=== PATIENT | female | born 1935 | race Caucasian/White ===

== ENCOUNTER 2016-07-19 14:47 | Inpatient (IN) | payer MEDICARE ==
[~2016-07-19] VITALS: Ht 165.1 cm; Wt 77.1 kg
--- NOTE | 2016-07-19 15:09 | Cardiac Electrophysiology PN ---
Subjective Subjective 75791. ECG and echo pending. No CHF or CAD. If both negative, OK to proceed with Right leg CHIDI NAVA Jul 19, 2016 15:09
[2016-07-19] MEDS ORDERED: HYDROmorphone 1mg/ml Carpuject IVP PRN (15:30)
[2016-07-19 15:31] VITALS: BP 177/70
[2016-07-19] MEDS ORDERED: DuoNeb 0.5-3(2.5)mg/3ml neb INH PRN (15:45)
[2016-07-19] MEDS ORDERED: Nitroglycerin Subl 0.4mg tab (Bottle Of 25) SL PRN (15:45)
[2016-07-19] MEDS ORDERED: Zolpidem 5mg tab ORAL PRN (15:45)
[2016-07-19] MEDS ORDERED: Miralax 17gm pkt ORAL PRN (15:45)
[2016-07-19] MEDS ORDERED: Hydromorphone 0.5mg/0.5ml inj IVP PRN (15:45)
[2016-07-19] MEDS ORDERED: Heparin 5000 units/ml inj SUBQ SCH (15:45)
[2016-07-19] MEDS ORDERED: Milk of Magnesia 30ml Ud ORAL PRN (15:45)
[2016-07-19] MEDS ORDERED: Acetaminophen 650 MG SUPP RECTAL PRN ×2 (15:45)
[2016-07-19 16:00] VITALS: BP 105/57
--- NOTE | 2016-07-19 16:11 | History & Physical ---
History and Physical History & Physicial job # [id number] Willie Mishra MD Jul 19, 2016 16:11
[2016-07-19] MEDS: Mycophenolate 250mg cap ORAL SCH (18:48)
[2016-07-19] MEDS: HYDROmorphone 1mg/ml Carpuject IVP PRN ×2 (18:48→23:47)
[2016-07-19] MEDS ORDERED: D5 1/2NS w/KCl 20mEq 1,000 ML IV SCH (19:00)
[2016-07-19 20:00] VITALS: BP 147/72
--- NOTE | 2016-07-19 21:59 | Consultation ---
DATE OF CONSULTATION: 07/19/2016 CARDIOLOGY CONSULTATION: REFERRING PHYSICIAN: Willie Mishra M.D. REASON FOR CONSULTATION: Hypertension and hyperlipidemia as well as preoperative clearance prior to right hip surgery. HISTORY OF PRESENT ILLNESS: The patient is a very pleasant 80-year-old lady with history of hypertension, hyperlipidemia, and depression as well as history of stage III left-sided breast cancer, status post mastectomy. The patient also had right-sided simple mastectomy subsequently in 2008. The patient also has history of CVA, diverticulosis, gastroesophageal reflux disease, and hypothyroidism. The patient also has rheumatoid arthritis. The patient presented to [facility]. She had a fall that resulted in right hip fracture. The patient denied any loss of consciousness. The patient was then transferred to [facility] in view of the patient being a [employer] member. The x-ray shows subcapital fracture with valgus deformity in the right femur and osteopenia. REVIEW OF SYSTEMS: Review of systems was thoroughly performed and was negative other than what was mentioned in the history of present illness. PAST MEDICAL HISTORY: As mentioned above. FAMILY HISTORY: Noncontributory. SOCIAL HISTORY: She lives at home. Does not smoke or drink alcohol. PAST SURGICAL HISTORY: 1. Appendectomy. 2. Tonsillectomy and adenoidectomy. 3. Modified radical mastectomy on the left. 4. Right-sided mastectomy on the right. 5. Right knee arthroplasty. 6. Bladder suspension. 7. Thoracotomy for right . MEDICATIONS: Include Synthroid, Motrin, Bactrim, vitamin D, Crestor, Celexa, aspirin, hydrocortisone, and Cymbalta. PHYSICAL EXAMINATION: VITAL SIGNS: Blood pressure is 130/70, pulse 70, respirations 18, and she is afebrile. HEAD AND NECK: No JVD or carotid bruits. LUNGS: Clear. CARDIOVASCULAR: Regular S1 and S2 with no gallop or murmur. ABDOMEN: Soft. EXTREMITIES: No pitting edema. Right leg is rotated. LABORATORY DATA: White count 6.2, hemoglobin 11.4, hematocrit 32.8, and platelets 194,000. Sodium 132, potassium 4.1, creatinine 1.18, and BUN of 21. INR is 1.1. ASSESSMENT AND PLAN: 1. Status post right hip fracture. The patient denies any syncope. We will get an echocardiogram for ejection fraction and wall motion abnormality as well as EKG. In the absence of coronary artery disease or congestive heart failure with diabetes, the patient is cleared to undergo right hip open reduction internal fixation. I discussed this with the patient as well as the daughter at the bedside as well as with Dr. Mishra. 2. History of hypertension, off antihypertensives. 3. Hyperlipidemia. The patient was on Crestor, but in view of need for surgery and resulting elevated CPK, hold off on Crestor. 4. Hypothyroidism, on Synthroid. 5. Depression, on Cymbalta and Celexa . Thank you very much, Dr. Mishra, for allowing me to participate in the care of this patient. Please do not hesitate to contact me for any questions regarding my evaluation. Ruben Caruso M.D. DR: DAKOTA JOB#: [id number] CC:
--- NOTE | 2016-07-19 23:59 | History and Physical Report ---
DATE OF ADMISSION: 07/19/2016 CHIEF COMPLAINT: Status post fall with right hip injury. 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 The patient has a history of cerebral infarction in the right occipital area, chronic cough, depression, diverticulosis, GERD, hypertension, dyslipidemia, hypothyroidism, idiopathic pulmonary fibrosis, history of mild cognitive impairment, osteopenia, pyelonephritis, and rheumatoid arthritis. The patient has a history of appendectomy, tonsil and adenoidectomy, modified radical mastectomy of the left side in 1983, left meniscus knee arthroplasty, bladder suspension, right VATS thoracotomy and right simple mastectomy on 04/17/2009. The patient presented to the hospital initially at [facility] after had a mechanical fall. She was brought in by the ambulance after mechanical fall, trip and fall earlier this morning with shortening and rotating of the right lower extremity. No positive head trauma. No loss of consciousness. The patient was noted to be on aspirin. No neck rigidity or stiffness. The patient initially was on a board and a collar. After initial evaluation at the [facility], the patient was released from the trauma and the patient was transferred to [facility] for further evaluation and possible surgical intervention of the right subcapsular fracture. PAST MEDICAL HISTORY/PAST SURGICAL HISTORY: As above: 1. History of breast cancer, status post bilateral mastectomy. 2. Right occipital cerebral infarction. 3. Depression. 4. Diverticulosis. 5. Gastroesophageal reflux disease. 6. Hypertension. 7. Dyslipidemia. 8. Hypothyroidism. 9. Idiopathic pulmonary fibrosis. 10. Mild cognitive impairment. 11. Osteopenia. 12. Pyelonephritis. 13. Rheumatoid arthritis. ALLERGIES: Demerol with anaphylaxis, opioid meperidine and oxycodone with anaphylaxis. MEDICATIONS: Significant for 1. [place] 5/325 mg one tablet q.6 hours p.r.n. 2. Cymbalta 30 mg daily. 3. Levothyroxine 150 mcg daily. 4. Motrin 600 mg q.8 hours p.r.n. 5. Docusate 100 mg twice a day. 6. The patient on vitamin D 50,000 IU weekly. 7. Valium 5 mg p.r.n. for anxiety and impaired sleep. 8. Crestor 5 mg p.o. at bedtime. 9. CellCept 200 mg two tablets b.i.d. 10. Celexa 20 mg daily. 11. Aspirin 325 mg daily. SOCIAL HISTORY: She is . She has two children. She is retired. She is a former smoker, 25 years pack smoker quit in May 1975. Socially drinks. No substance abuse. FAMILY HISTORY: Noncontributory. REVIEW OF SYSTEMS: Mostly as above. Denies any dysuria, frequency, hematuria or hematochezia. Denies any hemoptysis or hematemesis. Complained about the right leg pain mostly after putting pressure on it. Denies any loss of conscious. Denies any double vision. Denies any suicidal or homicidal ideation. PHYSICAL EXAMINATION: VITAL SIGNS: On admission from [place], blood pressure 116/46, pulse of 67, respirations is 12, and the patient afebrile. GENERAL: The patient is awake, responsive, no acute distress. HEENT: Pupils are equal and reactive to light. Extraocular movement intact. NECK: Supple. No JVD. LUNGS: Good air entry. No wheezing or rales. Chest wall has a bilateral breast mastectomy site, was noted well healed. HEART: S1, S2. Regular rhythm. No gallops. ABDOMEN: Soft, nondistended, and nontender. Positive bowel sounds. EXTREMITIES: No cyanosis, clubbing, or edema. Right lower extremity is short and laterally rotated and tender to touch over the hip area. NEUROLOGIC: Cranial nerves II through XII are grossly intact. The patient moving all extremities except the right lower extremity due to severe pain. LABORATORY DATA: On admission from [facility], WBC of 6.3, hemoglobin 11, hematocrit 33, and platelets are 194,000. Sodium 136, potassium 4.1, chloride 107, bicarbonate 25, BUN is 21, creatinine is 1.18, GFR is 44, and glucose 129. PT of 1.1. The patient had a x-ray of the hip, confirmed the subcapsular fracture of the right hip. CT scan of the head showed old infarction of the right occipital lobe and right occipital atrophy and white matter ischemic changes, but no acute intracranial pathology was identified. ASSESSMENT: 1. Status post trip and fall with subcapsular right hip fracture. 2. Prior history of right occipital infarction. 3. History of breast cancer, status post bilateral mastectomy. 4. Depression. 5. Diverticulosis. 6. Gastroesophageal reflux disease. 7. Hypertension. 8. Dyslipidemia. 9. Hypothyroidism. 10. Idiopathic pulmonary fibrosis. 11. Mild cognitive impairment. 12. Osteopenia. 13. Rheumatoid arthritis. 14. History of pyelonephritis in the past. PLAN: Admit the patient to Med/Surg. We will follow up laboratory and discuss with Dr. Darian Green from Orthopedics and Dr. Caruso from Cardiology. Discussed with extensively at bedside and explained that care will be provided and possible surgery in the morning. Reviewed the record from [facility], was noted, printed and placed in the chart. Reviewed the chart records from . , primary doctor was noted and also printed and placed in the chart. Preoperative evaluation for possible surgery in the morning to include 2D echocardiogram, EKG, laboratory, NPO after midnight, IV hydration, DVT prophylaxis and heparin subcutaneous. CODE STATUS: Full Code. Willie Mishra M.D. DR: ARIANA JOB#: [id number] CC:
[2016-07-20] VITALS (15 sets, daily range): BP systolic 109–194; BP diastolic 50–94
--- NOTE | 2016-07-20 03:59 | Consultation ---
DATE OF CONSULTATION: 07/19/2016 ORTHOPEDIC CONSULTATION CONSULTING PHYSICIAN: Darian Green M.D. REFERRING PHYSICIAN: Willie Mishra M.D. REASON FOR CONSULTATION: Right hip fracture. BRIEF HISTORY: The patient is a very pleasant 80-year-old female, who had a mechanical fall on her right hip. Apparently, she was putting her left leg up to put some cream on the left leg and lost her footing landing on her right hip. She had immediate onset of pain in her right hip. She usually walks with a walker due to vertigo and imbalance. She has been generally healthy, although she has history of pulmonary fibrosis and some hypertension. She has had no other significant injuries or trauma. She is here for evaluation and treatment. She was initially evaluated at [place] and x-rays were obtained. She was transferred to [facility] for definitive care. PAST MEDICAL HISTORY: Significant for pulmonary fibrosis and hypertension. PAST SURGICAL HISTORY: She had breast augmentation in the past as well as appendectomy and thyroid surgery. MEDICATIONS: Please see chart. ALLERGIES: She is allergic to Demerol, which drops her blood pressure significantly. SOCIAL HISTORY: Again, she walks with a walker. She has a very supportive family including her and her sister are here. She does not smoke, having smoked for 35 years. She does drink socially. FAMILY HISTORY: Noncontributory. PHYSICAL EXAMINATION: GENERAL: Examination has shown that the patient looks to be a very pleasant lady. EXTREMITIES: Examination of the right hip revealed that she has pain in the right hip. Range of motion of right hip causes severe pain. She has a slight shortening in external rotation of the right hip. Neurovascular examination is intact. DIAGNOSTIC DATA: X-rays of the right hip is reviewed. There is a subcapital femoral neck fracture that is displaced. IMPRESSION: Subcapital femoral neck fracture with displacement in an 80-year-old female. PLAN: I had a discussion with the patient and the family. I discussed with her the nature of problem. I explained to them recommended procedure, which is the right hip hemiarthroplasty. Risks, benefits, and complications of the surgery were discussed with them. Risk of infection, bleeding, neurovascular complication, possibility of leg length discrepancy, DVT, PE, fracture during surgery, and need for further surgery down the line, and dislocation were discussed with them. She now understands and agreed with the treatment plan. They would like to go to [facility] afterwards. I have explained to them that we will certainly request an evaluation from them, although there is no guarantee that we will get into that facility. They understood the risks, benefits, and complications. We discussed this further with the anesthesiologist regarding anesthesia complication. We will proceed with surgery as soon as we have clearance, hopefully tomorrow. Darian Green M.D. DR: Graham JOB#: [id number] CC: [email or web address]
[2016-07-20] MEDS ORDERED: Bacitracin 50000 Units Vial ONE (06:00)
[2016-07-20] MEDS: HYDROmorphone 1mg/ml Carpuject IVP PRN ×3 (06:19→22:26)
[2016-07-20] MEDS ORDERED: Pantoprazole Inj ONE (06:30)
[2016-07-20] MEDS ORDERED: NORCO 5-325 TA1 EAC1 ORAL (07:29)
[2016-07-20] MEDS ORDERED: ceFAZolin sod 2 GM in D5W 110 ML IV ONE (07:30)
[2016-07-20] MEDS ORDERED: DOCUSATE SODIU100 MG ORAL (07:33)
[2016-07-20] MEDS ORDERED: ASPIRIN500 MG ORAL (07:33)
[2016-07-20] MEDS ORDERED: VITAMIN D250000 UNI1 ORAL (07:33)
[2016-07-20] MEDS ORDERED: CELLCEPT200 MG/1 M PO (07:33)
[2016-07-20] MEDS ORDERED: CRESTOR10 M2 ORAL (07:33)
[2016-07-20] MEDS ORDERED: CELEXA20 MG ORAL (07:33)
[2016-07-20] MEDS ORDERED: CYMBALTA30 MG ORAL (07:33)
[2016-07-20] MEDS ORDERED: LEVOTHYROXINE150 MCG ORAL (07:33)
[2016-07-20] MEDS ORDERED: IBUPROFEN600 MG ORAL (07:33)
[2016-07-20] MEDS ORDERED: VALIUM5 MG ORAL (07:33)
[2016-07-20 07:46] LABS: BASOPHILS % (AUTO) 0.7 % (0.0-2.0); EOSINOPHILS % (AUTO) 2.4 % (0.0-3.0); LYMPHOCYTES % (AUTO) 17.3 % (20.0-45.0); MEAN CORPUSCULAR HEMOGLOBIN 32.1 PG (27.0-31.0); MEAN CORPUSCULAR HGB CONC 33.5 G/DL (32.0-36.0); MEAN CORPUSCULAR VOLUME 96 FL (80-99); MEAN PLATELET VOLUME 6.7 FL (6.5-10.1); MONOCYTES % (AUTO) 12.9 % (1.0-10.0); NEUTROPHILS % (AUTO) 66.7 % (45.0-75.0); PLATELET COUNT 165 K/UL (150-450); RED BLOOD COUNT 3.25 M/UL (4.20-5.40); RED CELL DISTRIBUTION WIDTH 12.4 % (11.6-14.8); WHITE BLOOD COUNT 7.3 K/UL (4.8-10.8)
--- NOTE | 2016-07-20 07:51 | Anethesia Preoperative Eval ---
Anesthesia Pre-op PMH/ROS General Date of Evaluation: Jul 20, 2016 Anesthesiologist: Catrachito ASA Score: ASA 3 Mallampati Score Class I : Soft palate, uvula, fauces, pillars visible Class II: Soft palate, uvula, fauces visible Class III: Soft palate, base of uvula visible Class IV: Only hard plate visible Mallampati Classification: Class III Surgeon: Peter Diagnosis: Right hip fracture Surgical Procedure: Right hip hemiarthroplasty Anesthesia History: none Social History: smoking - former; 25 pack year history Family History: no anesthesia problems Allergies: Coded Allergies: MEPERIDINE (Verified Allergy, Severe, 07/19/16) Medications: see eMAR Past Medical History Cardiovascular: Reports: HTN, other - HLD, Denies: CAD, [place], arrhythmia, valve dz Pulmonary: Reports: other - idiopathic pulmonary fibrosis, no evidence of pulmonary HTN, Denies: COPD, [place], asthma Gastrointestinal/Genitourinary: Reports: GERD - moderate, with chronic cough secondary to reflux, Denies: CRI, ESRD, other Neurologic/Psychiatric: Reports: depression/anxiety, other - milf cognitive impairment, Denies: CVA, TIA, dementia Endocrine: Reports: hypothyroidism, Denies: DM, other, steroids HEENT: Denies: CAHTO (L), CAHTO (R), cataract (L), cataract (R), glaucoma, other Hematology/Immune: Reports: other - h/o breast cancer s/p bilateral mastectomy with left sided lymph node dissection and then chemotherapy, Denies: DVT, anemia, bleeding disorder Musculoskeletal/Integumentary: Reports: DJD, OA, RA, other - osteoporosis, Denies: DDD, edema Other: obesity PSxH Narrative: lap appy, bilateral mastectomy, thyroidectomy, right VATS Anesthesia Pre-op Phys. Exam Physician Exam Last Vital Signs Date Time Temp Pulse Resp B/P Pulse Ox O2 Delivery O2 Flow Rate FiO2 07/20/16 04:00 97.2 81 18 157/63 95 Nasal Cannula 3.0 Constitutional: NAD, other - anxious/nervous, pain 7/10 Cardiovascular: RRR Respiratory: CTA Airway Exam Mallampati Score: Class III MO: full ROM: limited Teeth: intact Anesthesia Pre-op A/P Labs Hematology Test 07/20/16 03:50 White Blood Count Pending Red Blood Count Pending Hemoglobin Pending Hematocrit Pending Mean Corpuscular Volume Pending Mean Corpuscular Hemoglobin Pending Mean Corpuscular Hemoglobin Concent Pending Red Cell Distribution Width Pending Platelet Count Pending Mean Platelet Volume Pending Neutrophils (%) (Auto) Pending Lymphocytes (%) (Auto) Pending Monocytes (%) (Auto) Pending Eosinophils (%) (Auto) Pending Basophils (%) (Auto) Pending Coagulation Test 07/20/16 05:50 Prothrombin Time Pending Prothromb Time International Ratio Pending Activated Partial Thromboplast Time Pending Chemistry Test 07/20/16 05:50 Sodium Level Pending Potassium Level Pending Chloride Level Pending Carbon Dioxide Level Pending Blood Urea Nitrogen Pending Creatinine Pending Estimat Glomerular Filtration Rate Pending Glucose Level Pending Calcium Level Pending Phosphorus Level Pending Magnesium Level Pending Total Bilirubin Pending Aspartate Amino Transf (AST/SGOT) Pending Alanine Aminotransferase (ALT/SGPT) Pending Alkaline Phosphatase Pending Troponin I Pending Pro-B-Type Natriuretic Peptide Pending Total Protein Pending Albumin Pending Globulin Pending Cholesterol Level Pending Thyroid Stimulating Hormone (TSH) Pending Studies Pre-op Studies: EKG - sr, echo - EF 55%, mild MR, no evidence of pulm HTN Risk Assessment & Plan Assessment: ASA IIIE Plan: SAB with MAC Status Change Before Surgery: No Pre-Antibiotics Drug: Ancef 2g Given Within 1 Hr of Incision: Yes Time Given: 09:00 NICOALS BARKSDALE M.D. Jul 20, 2016 07:51
[2016-07-20 08:02] LABS: INR 1.1 (0.9-1.1); PROTHROMBIN TIME 10.7 SEC (9.30-11.50)
[2016-07-20 08:24] LABS: MAGNESIUM 1.7 mg/dL (1.7-2.5); PHOSPHORUS 2.8 mg/dL (2.5-4.8)
--- NOTE | 2016-07-20 08:28 | Pre-Procedure Note/Attestation ---
Pre-Procedure Note/Attestation Complete Prior to Procedure Planned Procedure: right Procedure Narrative: Rt hip hemiarthroplasty Indications for Procedure Pre-Operative Diagnosis: Rt hip fracture Attestation I attest that I discussed the nature of the procedure; its benefits; risks and complications; and alternatives (and the risks and benefits of such alternatives ), prior to the procedure, with the patient (or the patient's legal registration representative). I attest that, if there was a reasonable possibility of needing a blood transfusion, the patient (or the patient's legal registration representative) was given the [facility] standardized written summary, pursuant to the [place] Blood Safety Act ([place] Health and Safety Code # 1645, as amended). I attest that I re-evaluated the patient just prior to the surgery and that there has been no change in the patient's H&P, except as documented below:NONE MARVA PERSAUD Jul 20, 2016 08:28
[2016-07-20 08:30] LABS: TROPONIN I < 0.30 ng/mL (<=0.30)
[2016-07-20] MEDS ORDERED: Ketamine 500mg Inj ONE (08:30)
[2016-07-20] MEDS ORDERED: Milk of Magnesia 30ml Ud ORAL PRN (08:30)
[2016-07-20] MEDS ORDERED: Norco 7.5mg/325mg tab ORAL PRN (08:30)
[2016-07-20] MEDS ORDERED: Propofol 10mg/ml 20ml IV ONE ×2 (08:30→08:35)
[2016-07-20] MEDS ORDERED: fentaNYL 100 mcg/2 mL IV ONE (08:30)
[2016-07-20] MEDS ORDERED: Lidocaine 1% MPF 10mg/ml 5ml ONE (08:30)
[2016-07-20] MEDS ORDERED: LR 1000ml ONE (08:30)
[2016-07-20] MEDS ORDERED: Midazolam 2mg/2ml Inj ONE (08:30)
[2016-07-20 08:31] LABS: ALANINE AMINOTRANSFERASE 10 U/L (3-33); ALBUMIN/GLOBULIN RATIO 1.2 (1.0-2.7); ANION GAP 13 (5-15); ASPARTATE AMINO TRANSFERASE 15 U/L (5-40); CALCIUM 9.3 mg/dL (8.6-10.2); CARBON DIOXIDE 23 mEQ/L (20-30); CHLORIDE 102 mEQ/L (98-107); CHOLESTEROL 119 mg/dL (< 200); CREATININE 0.8 mg/dL (0.5-0.9); HEMOLYSIS 7; POTASSIUM 4.1 mEQ/L (3.4-4.9); SODIUM 138 mEQ/L (135-145); TOTAL PROTEIN 5.7 g/dL (6.6-8.7)
[2016-07-20 08:37] LABS: THYROID STIMULATING HORMONE 0.021 uIU/mL (0.300-4.500)
[2016-07-20] MEDS ORDERED: Tranexamic Acid 500 MG in NS 55 ML IVPB ONE (09:00)
[2016-07-20] MEDS: Mycophenolate 250mg cap ORAL SCH ×2 (09:00→17:38)
[2016-07-20] MEDS: Citalopram 20mg Tab ORAL SCH (09:00)
[2016-07-20] MEDS ORDERED: Albuterol ud Inhalation ONE (09:03)
[2016-07-20] MEDS ORDERED: LR 1000ml 1,000 ML IVLG SCH (09:54)
--- NOTE | 2016-07-20 09:56 | Immediate Post-Op Evaluation ---
Immediate Post-Op Evalulation Immediate Post-Op Evalulation Procedure: Right hip hemiarthroplasty Date of Evaluation: Jul 20, 2016 Time of Evaluation: 11:44 IV Fluids: 1.1L Blood Products: 0 Estimated Blood Loss: 125 Urinary Output: 350 Blood Pressure Systolic: 155 Blood Pressure Diastolic: 50 Pulse Rate: 98 Respiratory Rate: 17 O2 Sat by Pulse Oximetry: 96 Temperature (Fahrenheit): 97.7 Pain Score (1-10): 0 Nausea: No Vomiting: No Complications 0 Patient Status: awake, reacts, patent, none Hydration Status: adequate Drug: Ancef 2g Given Within 1 Hr of Incision: Yes Time Given: 09:00 NICOLAS BARKSDALE M.D. Jul 20, 2016 09:56
[2016-07-20] MEDS ORDERED: Labetalol 5mg/ml 20ml vial IV PRN (10:00)
[2016-07-20] MEDS ORDERED: DiphenhydrAMINE 50mg/ml Inj IVP PRN (10:00)
[2016-07-20] MEDS ORDERED: fentaNYL 100 mcg/2 mL IV PRN (10:00)
[2016-07-20] MEDS ORDERED: Hydromorphone 0.5mg/0.5ml inj IVP PRN (10:00)
--- NOTE | 2016-07-20 10:00 | Diagnostic Imaging Report ---
Indication: SOB Technique: XRAY CHEST 1 V Comparison:None Findings: Poor inspiration. Heart is normal in size. Pulmonary vascularity is difficult to assess but appears prominent. There is also bronchial wall thickening and some interstitial disease. Slight blunting of the right costophrenic angle is noted. The right hemidiaphragm is elevated. Impression: 4 history chest making evaluation difficult. Prominent pulmonary vascularity. This could be related to the poor inspiration. Congestive heart failure is not excluded. Interstitial disease which may be acute or chronic. Possibility of a right pleural effusion cannot be excluded. Repeat chest is suggested.
--- NOTE | 2016-07-20 10:33 | Brief Operative Note ---
Immediate Post Operative Note Operative Note Chief Complaint: rt hip pain Pre-op Diagnosis: rt hip fracture Procedure: rt hip hemiarthroplasty Post-op Diagnosis: same as pre-op Findings: consistent w/pre-op dx studies Surgeon: md ashley Senior Escrow Officer: evaristo varela Anesthesiologist: md nicole Anesthesia: general Specimen: yes Complications: none Condition: stable Estimated Blood Loss: minimal Drains: none Implant(s) used?: Yes - SULY Magdaleno Jul 20, 2016 10:33
[2016-07-20] MEDS ORDERED: Albuterol ud Inhalation HHN ONE (11:15)
[2016-07-20] MEDS: D5 1/2NS w/KCl 20mEq 1,000 ML IV SCH (12:00)
--- NOTE | 2016-07-20 14:22 | Cardiac Electrophysiology PN ---
Assessment/Plan Assessment/Plan 1. S/P rt hip hemiarthroplasty. Tolerated surgery well with no cardiac issues. 2. History of hypertension, For now off antihypertensives. 3. Hyperlipidemia. On Lipitor 4. Hypothyroidism, on Synthroid. 5. Depression, on Cymbalta and Celexa DW RN and at bedside. Subjective Subjective Had Right hip surgery this AM with no events. at bedside. Objective Last 24 Hour Vital Signs Date Time Temp Pulse Resp B/P Pulse Ox O2 Delivery O2 Flow Rate FiO2 07/20/16 13:00 98.2 97 21 121/66 95 Simple Mask 8.0 07/20/16 12:45 97 21 123/91 97 Simple Mask 8.0 07/20/16 12:30 94 22 118/58 95 Simple Mask 8.0 07/20/16 12:15 94 21 114/61 94 Simple Mask 8.0 07/20/16 12:00 99 21 146/73 98 Non-Rebreather 15.0 07/20/16 11:51 171/79 07/20/16 11:51 98 17 96 07/20/16 11:45 103 23 171/79 84 Non-Rebreather 15.0 07/20/16 11:30 105 25 194/94 84 Simple Mask 10.0 07/20/16 11:26 107 21 155/50 90 Simple Mask 10.0 07/20/16 11:21 104 25 175/89 90 Simple Mask 10.0 07/20/16 11:16 97.7 105 22 185/93 94 Simple Mask 10.0 07/20/16 08:07 97.2 78 18 138/67 99 Nasal Cannula 2.0 07/20/16 04:00 97.2 81 18 157/63 95 Nasal Cannula 3.0 07/20/16 00:00 98.6 86 20 144/75 95 Nasal Cannula 3.0 07/19/16 20:00 98.1 83 19 147/72 94 Room Air 07/19/16 16:00 98.1 80 16 105/57 97 Room Air 07/19/16 15:31 97.7 78 18 177/70 96 Nasal Cannula 3.0 Intake and Output 07/19/16 07/20/16 19:00 07:00 Intake Total 790 ml Output Total 550 ml Balance 240 ml Intake Oral 240 ml IV Total 550 ml Output Urine Total 550 ml Laboratory Tests Test 07/20/16 03:50 07/20/16 05:50 White Blood Count 7.3 K/UL (4.8-10.8) Red Blood Count 3.25 M/UL (4.20-5.40) L Hemoglobin 10.4 G/DL (12.0-16.0) L Hematocrit 31.1 % (37.0-47.0) L Mean Corpuscular Volume 96 FL (80-99) Mean Corpuscular Hemoglobin 32.1 PG (27.0-31.0) H Mean Corpuscular Hemoglobin Concent 33.5 G/DL (32.0-36.0) Red Cell Distribution Width 12.4 % (11.6-14.8) Platelet Count 165 K/UL (150-450) Mean Platelet Volume 6.7 FL (6.5-10.1) Neutrophils (%) (Auto) 66.7 % (45.0-75.0) Lymphocytes (%) (Auto) 17.3 % (20.0-45.0) L Monocytes (%) (Auto) 12.9 % (1.0-10.0) H Eosinophils (%) (Auto) 2.4 % (0.0-3.0) Basophils (%) (Auto) 0.7 % (0.0-2.0) Prothrombin Time 10.7 SEC (9.30-11.50) Prothromb Time International Ratio 1.1 (0.9-1.1) Activated Partial Thromboplast Time 26 SEC (23-33) Sodium Level 138 mEQ/L (135-145) Potassium Level 4.1 mEQ/L (3.4-4.9) Chloride Level 102 mEQ/L (98-107) Carbon Dioxide Level 23 mEQ/L (20-30) Anion Gap 13 (5-15) Blood Urea Nitrogen 13 mg/dL (7-23) Creatinine 0.8 mg/dL (0.5-0.9) Estimat Glomerular Filtration Rate mL/min (>60) Glucose Level 128 mg/dL (74-106) H Calcium Level 9.3 mg/dL (8.6-10.2) Phosphorus Level 2.8 mg/dL (2.5-4.8) Magnesium Level 1.7 mg/dL (1.7-2.5) Total Bilirubin 0.8 mg/dL (0.0-1.2) Aspartate Amino Transf (AST/SGOT) 15 U/L (5-40) Alanine Aminotransferase (ALT/SGPT) 10 U/L (3-33) Alkaline Phosphatase 113 U/L (35-104) H Troponin I < 0.30 ng/mL (<=0.30) Pro-B-Type Natriuretic Peptide 909 pg/mL (0-450) H Total Protein 5.7 g/dL (6.6-8.7) L Albumin 3.2 g/dL (3.5-5.2) L Globulin 2.5 g/dL Albumin/Globulin Ratio 1.2 (1.0-2.7) Cholesterol Level 119 mg/dL (< 200) Thyroid Stimulating Hormone (TSH) 0.021 uIU/mL (0.300-4.500) Objective HEAD AND NECK: No JVD or carotid bruits. LUNGS: Clear. CARDIOVASCULAR: Regular S1 and S2 with no gallop or murmur. ABDOMEN: Soft. EXTREMITIES: No pitting edema. S/P Right leg CHIDI NAVA Jul 20, 2016 14:22
[2016-07-20] MEDS: Pericolace tab ORAL SCH (17:38)
[2016-07-20] MEDS: ceFAZolin sod 1 GM in D5W 55 ML IV SCH (18:00)
--- NOTE | 2016-07-20 20:25 | Internal Med Progress Note ---
Subjective Physician Name Willie Mishra Attending Physician Willie Mishra MD Current Medications Medications (Trade) Dose Ordered Sig/Steve Route PRN Reason Start Time Stop Time Status Last Admin Dose Admin Acetaminophen (Tylenol) 650 mg Q4H PRN ORAL Mild Pain/fever 07/19/16 15:45 08/18/16 15:44 Acetaminophen (Tylenol) 650 mg Q4H PRN ORAL Mild Pain (Pain Scale 1-3) 07/20/16 08:30 08/19/16 08:29 Acetaminophen (Tylenol) 650 mg Q4H PRN RECTAL Mild Pain/FEVER 07/19/16 15:45 08/18/16 15:44 Acetaminophen/ Hydrocodone Bitart ([place] 7.5/325) 1 ea Q4H PRN ORAL Moderate Pain (Pain Scale 4-6) 07/20/16 08:30 07/27/16 08:29 Albuterol/ Ipratropium (DuoNeb 0.5-3(2.5)mg/3ml) 3 ml Q4H PRN INH Shortness of Breath 07/19/16 15:45 07/24/16 15:44 Atorvastatin Calcium (Lipitor) 40 mg BEDTIME ORAL 07/19/16 21:00 08/18/16 20:59 07/19/16 21:40 Bisacodyl (Dulcolax) 10 mg HSPRN PRN RECTAL Constipation 07/19/16 15:45 08/18/16 15:44 Cefazolin Sodium/ Dextrose (Ancef/D5W) 55 ml @ 110 mls/hr Q8H IV 07/20/16 17:00 07/21/16 01:29 07/20/16 18:00 Celecoxib (CeleBREX) 200 mg DAILY ORAL 07/21/16 09:00 08/20/16 08:59 Citalopram Hydrobromide (celeXA) 20 mg DAILY ORAL 07/20/16 09:00 08/19/16 08:59 Dextrose (Dextrose 50%) STAT PRN IV Hypoglycemia 07/19/16 15:45 08/18/16 15:44 Dextrose/ Electrolytes 1,000 ml @ 75 mls/hr [id number] IV 07/20/16 12:00 08/19/16 11:59 07/20/16 12:00 Enoxaparin Sodium (Lovenox) 40 mg DAILY SUBQ 07/21/16 09:00 08/20/16 08:59 Ferrous Sulfate (Feosol) 325 mg THREE TIMES A DAY ORAL 07/20/16 18:00 08/19/16 17:59 07/20/16 17:38 Hydromorphone HCl (Dilaudid) 0.5 mg Q4HR PRN IVP Moderate Pain (Pain Scale 4-6) 07/19/16 15:45 07/26/16 15:44 07/20/16 04:36 Hydromorphone HCl (Dilaudid) 1 mg Q4H PRN SUBQ Mild Pain (Pain Scale 1-3) 07/20/16 08:30 07/27/16 08:29 Hydromorphone HCl (Dilaudid) 2 mg Q4H PRN SUBQ Moderate Pain (Pain Scale 4-6) 07/20/16 08:30 07/27/16 08:29 Hydromorphone HCl 1 mg 1 mg Q3HR PRN IVP Severe Pain (Pain Scale 7-10) 07/19/16 17:26 07/26/16 15:29 07/20/16 17:36 Levothyroxine Sodium (Synthroid) 150 mcg DAILY@0630 ORAL 07/20/16 06:30 08/19/16 06:29 07/20/16 05:45 Magnesium Hydroxide (Mom) 30 ml DAILYPRN PRN ORAL Constipation 07/20/16 08:30 08/19/16 08:29 Magnesium Hydroxide (Mom) 30 ml HSPRN PRN ORAL Constipation 07/19/16 15:45 08/18/16 15:44 Mycophenolate Mofetil (Cellcept) 1,000 mg TWICE A DAY ORAL 07/19/16 18:00 08/18/16 17:59 07/20/16 17:38 Nitroglycerin (Ntg) 0.4 mg Q5M X 3 DOSES PRN SL Prn Chest Pain 07/19/16 15:45 08/18/16 15:44 Ondansetron HCl (Zofran) 4 mg Q6H PRN IVP Nausea & Vomiting 07/19/16 15:45 08/18/16 15:44 Oxycodone HCl (OxyCONTIN) 20 mg EVERY 12 HOURS ORAL 07/20/16 21:00 07/27/16 20:59 Pantoprazole (Protonix) 40 mg DAILY ORAL 07/20/16 09:00 08/19/16 08:59 Polyethylene Glycol (Miralax) 17 gm HSPRN PRN ORAL Constipation 07/19/16 15:45 08/18/16 15:44 Senna/Docusate Sodium ([place]-Colace) 1 ea TWICE A DAY ORAL 07/20/16 18:00 08/19/16 17:59 07/20/16 17:38 Zolpidem Tartrate (Ambien) 5 mg HSPRN PRN ORAL Insomnia 07/19/16 15:45 08/18/16 15:44 Allergies: Coded Allergies: MEPERIDINE (Verified Allergy, Severe, 07/19/16) Subjective awake, responsive, confused, post op Objective Last Vital Signs Date Time Temp Pulse Resp B/P Pulse Ox O2 Delivery O2 Flow Rate FiO2 07/20/16 20:05 86 18 92 Venturi Mask 8.0 30 07/20/16 18:06 97.7 07/20/16 16:00 127/61 Laboratory Tests Test 07/20/16 03:50 07/20/16 05:50 White Blood Count 7.3 K/UL (4.8-10.8) Red Blood Count 3.25 M/UL (4.20-5.40) L Hemoglobin 10.4 G/DL (12.0-16.0) L Hematocrit 31.1 % (37.0-47.0) L Mean Corpuscular Volume 96 FL (80-99) Mean Corpuscular Hemoglobin 32.1 PG (27.0-31.0) H Mean Corpuscular Hemoglobin Concent 33.5 G/DL (32.0-36.0) Red Cell Distribution Width 12.4 % (11.6-14.8) Platelet Count 165 K/UL (150-450) Mean Platelet Volume 6.7 FL (6.5-10.1) Neutrophils (%) (Auto) 66.7 % (45.0-75.0) Lymphocytes (%) (Auto) 17.3 % (20.0-45.0) L Monocytes (%) (Auto) 12.9 % (1.0-10.0) H Eosinophils (%) (Auto) 2.4 % (0.0-3.0) Basophils (%) (Auto) 0.7 % (0.0-2.0) Prothrombin Time 10.7 SEC (9.30-11.50) Prothromb Time International Ratio 1.1 (0.9-1.1) Activated Partial Thromboplast Time 26 SEC (23-33) Sodium Level 138 mEQ/L (135-145) Potassium Level 4.1 mEQ/L (3.4-4.9) Chloride Level 102 mEQ/L (98-107) Carbon Dioxide Level 23 mEQ/L (20-30) Anion Gap 13 (5-15) Blood Urea Nitrogen 13 mg/dL (7-23) Creatinine 0.8 mg/dL (0.5-0.9) Estimat Glomerular Filtration Rate mL/min (>60) Glucose Level 128 mg/dL (74-106) H Calcium Level 9.3 mg/dL (8.6-10.2) Phosphorus Level 2.8 mg/dL (2.5-4.8) Magnesium Level 1.7 mg/dL (1.7-2.5) Total Bilirubin 0.8 mg/dL (0.0-1.2) Aspartate Amino Transf (AST/SGOT) 15 U/L (5-40) Alanine Aminotransferase (ALT/SGPT) 10 U/L (3-33) Alkaline Phosphatase 113 U/L (35-104) H Troponin I < 0.30 ng/mL (<=0.30) Pro-B-Type Natriuretic Peptide 909 pg/mL (0-450) H Total Protein 5.7 g/dL (6.6-8.7) L Albumin 3.2 g/dL (3.5-5.2) L Globulin 2.5 g/dL Albumin/Globulin Ratio 1.2 (1.0-2.7) Cholesterol Level 119 mg/dL (< 200) Thyroid Stimulating Hormone (TSH) 0.021 uIU/mL (0.300-4.500) Intake and Output 07/19/16 07/20/16 19:00 07:00 Intake Total 790 ml Output Total 550 ml Balance 240 ml Intake Oral 240 ml IV Total 550 ml Output Urine Total 550 ml Objective GENERAL: awake, responsive, no acute distress, confused. HEENT: Pupils are equal and reactive to light. Extraocular movement intact. NECK: Supple. No JVD. LUNGS: fair bilateral air entry. No wheezing or rales. Chest wall has a bilateral breast mastectomy scar. HEART: S1, S2. Regular rhythm. No gallops. ABDOMEN: Soft, nondistended, and nontender. Positive bowel sounds. EXTREMITIES: No cyanosis, clubbing, or edema. Right hip surgical incision intact. NEUROLOGIC: Cranial nerves II through XII are grossly intact. moving all extremities except the right lower extremity. Assessment/Plan Assessment/Plan ASSESSMENT: 1. Trip and fall with subcapsular right hip fracture s/p Right hip hemiarthroplasty (07/21/2016). 2. Prior history of right occipital infarction. 3. History of breast cancer, status post bilateral mastectomy. 4. Depression. 5. Diverticulosis. 6. Gastroesophageal reflux disease. 7. Hypertension. 8. Dyslipidemia. 9. Hypothyroidism. 10. Idiopathic pulmonary fibrosis. 11. Mild cognitive impairment. 12. Osteopenia. 13. Rheumatoid arthritis. 14. History of pyelonephritis in the past. PLAN: in Telemetry Med/Surg. Follow up AM laboratory Dr. Darian Green from Orthopedics Dr. Caruso from Cardiology. IV hydration DVT prophylaxis and heparin subcutaneous. PT Mobility CODE STATUS: Full Code. Willie Mishra MD Jul 20, 2016 20:25
[2016-07-20] MEDS: oxyCONTIN 20mg tab ORAL SCH ×2 (21:00→22:27)
[2016-07-21 00:45] VITALS: BP 123/59
[2016-07-21] MEDS: ceFAZolin sod 1 GM in D5W 55 ML IV SCH (01:19)
[2016-07-21] MEDS: D5 1/2NS w/KCl 20mEq 1,000 ML IV SCH ×2 (01:20→05:44)
[2016-07-21] MEDS: HYDROmorphone 1mg/ml Carpuject IVP PRN ×2 (02:27→05:44)
[2016-07-21 04:16] VITALS: BP 128/56
[2016-07-21 08:08] VITALS: BP 131/73
[2016-07-21 08:13] LABS: ANION GAP 14 (5-15); CALCIUM 9.4 mg/dL (8.6-10.2); CARBON DIOXIDE 24 mEQ/L (20-30); CHLORIDE 99 mEQ/L (98-107); HEMOLYSIS 0; POTASSIUM 4.1 mEQ/L (3.4-4.9); SODIUM 137 mEQ/L (135-145)
[2016-07-21 08:14] LABS: BASOPHILS % (AUTO) 0.2 % (0.0-2.0); MEAN CORPUSCULAR HEMOGLOBIN 32.2 PG (27.0-31.0); MEAN CORPUSCULAR HGB CONC 33.6 G/DL (32.0-36.0); MEAN CORPUSCULAR VOLUME 96 FL (80-99); MEAN PLATELET VOLUME 6.8 FL (6.5-10.1); MONOCYTES % (AUTO) 9.5 % (1.0-10.0); NEUTROPHILS % (AUTO) 80.3 % (45.0-75.0); PLATELET COUNT 180 K/UL (150-450); RED BLOOD COUNT 3.32 M/UL (4.20-5.40); RED CELL DISTRIBUTION WIDTH 12.4 % (11.6-14.8)
[2016-07-21 08:18] LABS: MAGNESIUM 1.7 mg/dL (1.7-2.5); PHOSPHORUS 3.1 mg/dL (2.5-4.8)
--- NOTE | 2016-07-21 08:33 | Orthopedic Progress Note ---
Orthopedic - Progress Note Subjective Symptoms: c/o post-op hip pain Objective Vital Signs Laboratory Tests Test 07/21/16 06:43 White Blood Count 14.0 K/UL (4.8-10.8) #H Red Blood Count 3.32 M/UL (4.20-5.40) L Hemoglobin 10.7 G/DL (12.0-16.0) L Hematocrit 31.8 % (37.0-47.0) L Mean Corpuscular Volume 96 FL (80-99) Mean Corpuscular Hemoglobin 32.2 PG (27.0-31.0) H Mean Corpuscular Hemoglobin Concent 33.6 G/DL (32.0-36.0) Red Cell Distribution Width 12.4 % (11.6-14.8) Platelet Count 180 K/UL (150-450) Mean Platelet Volume 6.8 FL (6.5-10.1) Neutrophils (%) (Auto) 80.3 % (45.0-75.0) H Lymphocytes (%) (Auto) 10.0 % (20.0-45.0) L Monocytes (%) (Auto) 9.5 % (1.0-10.0) Eosinophils (%) (Auto) 0.0 % (0.0-3.0) Basophils (%) (Auto) 0.2 % (0.0-2.0) Sodium Level 137 mEQ/L (135-145) Potassium Level 4.1 mEQ/L (3.4-4.9) Chloride Level 99 mEQ/L (98-107) Carbon Dioxide Level 24 mEQ/L (20-30) Anion Gap 14 (5-15) Blood Urea Nitrogen 18 mg/dL (7-23) Creatinine 1.0 mg/dL (0.5-0.9) H Estimat Glomerular Filtration Rate mL/min (>60) Glucose Level 171 mg/dL (74-106) H Calcium Level 9.4 mg/dL (8.6-10.2) Phosphorus Level 3.1 mg/dL (2.5-4.8) Magnesium Level 1.7 mg/dL (1.7-2.5) Last 24 Hour Vital Signs Date Time Temp Pulse Resp B/P Pulse Ox O2 Delivery O2 Flow Rate FiO2 07/21/16 08:08 96.6 95 18 131/73 92 Simple Mask 8.0 3/13/17 06:14 98.4 07/21/16 04:16 98.4 73 19 128/56 95 Room Air 07/21/16 04:00 92 07/21/16 00:45 98.8 78 18 123/59 94 Simple Mask 07/21/16 00:00 91 07/20/16 20:05 86 18 92 Venturi Mask 8.0 30 07/20/16 20:04 Venturi Mask 8.0 30 07/20/16 20:04 92 Venturi Mask 8.0 30 07/20/16 20:00 84 07/20/16 20:00 97.3 86 21 132/71 93 07/20/16 19:00 89 18 Venturi Mask 8.0 30 07/20/16 16:00 97.7 94 21 127/61 97 07/20/16 16:00 90 07/20/16 13:00 98.2 97 21 121/66 95 Simple Mask 8.0 07/20/16 13:00 98.1 90 20 109/62 93 Simple Mask 8.0 07/20/16 12:45 97 21 123/91 97 Simple Mask 8.0 07/20/16 12:30 94 22 118/58 95 Simple Mask 8.0 07/20/16 12:15 94 21 114/61 94 Simple Mask 8.0 07/20/16 12:00 99 21 146/73 98 Non-Rebreather 15.0 07/20/16 11:51 171/79 07/20/16 11:51 98 17 96 07/20/16 11:45 103 23 171/79 84 Non-Rebreather 15.0 07/20/16 11:30 105 25 194/94 84 Simple Mask 10.0 07/20/16 11:26 107 21 155/50 90 Simple Mask 10.0 07/20/16 11:21 104 25 175/89 90 Simple Mask 10.0 07/20/16 11:16 97.7 105 22 185/93 94 Simple Mask 10.0 I&O Intake and Output 07/20/16 07/21/16 19:00 07:00 Intake Total 1375 ml Output Total 1005 ml 1000 ml Balance 370 ml -1000 ml IV Total 1375 ml Output Urine Total 880 ml 1000 ml Estimated Blood Loss 125 ml Wound: clean, dry, intact Drains: none Neuro Status: normal Vascular Status: normal Additional Comments Xray: excellent placement Assessment Post-op Diagnosis POD 1 Procedure Performed rt hip hemiarthroplasty Plan Plan: PT, pain management, discharge plan - likely rehab. follow up Dr. Hernando gomez outpt 10-14 days after d/c SULY LOMBARDO Jul 21, 2016 08:33
--- NOTE | 2016-07-21 08:58 | Operative Note - Dictated ---
DATE OF OPERATION: 07/20/2016 PREOPERATIVE DIAGNOSIS: Right hip subcapital displaced femoral neck fracture. POSTOPERATIVE DIAGNOSIS: Right hip subcapital displaced femoral neck fracture. PROCEDURES PERFORMED: Right hip hemiarthroplasty using [place] system size 5 Accolade stem size 45 mm bipolar component and a 28 mm x +4 length head with a high offset neck. SURGEON: Darian Green M.D. PLASTER MIXER: Sonia Webb PA-C. ANESTHESIOLOGIST: Nohelia Calvillo M.D. ANESTHESIA: General LMA anesthesia combined with spinal block for postoperative pain management. ESTIMATED BLOOD LOSS: Less than 100 mL. COMPLICATIONS: None. BRIEF HISTORY: The patient is a very pleasant 80-year-old female, who sustained a mechanical fall and fell on her right hip. She was on a ambulator with a walker prior to this. After full discussion of risks and benefits of surgery and complications associated with it including infection, bleeding, neurovascular complication, possibility of fractures, even surgery, possibility of dislocation, possibility of neurological complication, possible of DVT and PEs, leg length discrepancy, and other complications that may arise, she opted for surgical treatment as described above. OPERATIVE PROCEDURE: The patient was brought to the operating table and was placed supine. All pressure points were well padded. A spinal anesthesia was induced and subsequently LMA anesthesia was induced. The right hip was prepped and draped in usual sterile fashion. The patient was placed in a left lateral decubitus position with the right hip up. All pressure points were well padded. The right hip was prepped and draped in usual sterile fashion and the standard posterior lateral approach of the hip was undertaken. The incision was taken through the subcutaneous tissue and fascia was opened. All bleeders were stopped as they were encountered. Charnley retractors were placed in and the hip was internally rotated and short external rotators were released. The capsule was T'ed and the shoulder external rotator of the capsule was then tagged for later repair to drill holes into the trochanter. The fracture could be visualized. This was displaced. There was a comminution. At this point, a neck cut was performed and the bone pieces were removed. The head was removed using threaded Steinmann pin. At this point, acetabulum was visualized. There were multiple loose fragments in there. Each were debrided and washed out using Simpulse. The acetabulum itself was intact. At this point, attention was given to the femur. The leg was internally rotated. Lazo retractor was placed in. Appropriate retractors were placed in. At this point, a canal finder was used to find the canal and subsequently broaching was performed from 0 all over to size 5, which provided excellent wedge and stability both axially and rotationally. Once this was completed, trialing was performed initially with size 0 neck, but high offset and 45 mm bipolar component. This appeared to be somewhat short and loose. Subsequently, a +4 neck was used, which brought the leg lengths to equal and excellent tension. The stability was checked at 0 degrees, 30 degrees, 45 degrees, and 90 degrees of internal rotation. The hip was placed in neutral adduction. The hip could be easily rotated up to about 75 to 80 degrees internal rotation without any subluxation. Therefore, this was very stable. There was no plane to hip as far as axial traction or any loosening of the hip with extra muscle tension. Therefore, at this point, the hip was dislocated and all trial components were removed. It was thoroughly irrigated using copious amount of fluid and all excess bone was removed. At this point, a size 5 stem was placed in without any complication. Trialing was performed and again size +4 neck and head and 35 mm bipolar component appeared to be the right side. High offset stem was used. At this point, the trial components were removed and the actual +4 head and bipolar components were assembled on the back table and were then locked onto the [place] taper after it was completely dried onto the stem, which was previously placed in without any complication. The reversion was checked and rechecked and appeared to be perfect in about 15 to 18 degrees of anteversion. At this point, the head and neck were then locked in with gentle taps. The whole entire construct was reduced and stability and range of motion and leg lengths were checked and appeared to be perfect as described previously. At this point, all wounds were thoroughly irrigated. The capsule was closed using #1 Vicryl suture. Subcutaneous tissue was closed using 2-0 Vicryl suture and skin was closed using 3-0 Monocryl suture. Drill holes were made into the trochanter to repair the capsule using #2 FiberWire sutures into the trochanter. Sterile dressing was applied and all instrument counts and lap counts were correct. The patient was taken to the recovery room in stable condition. Darian Green M.D. DR: ARACELI JOB#: [id number] CC: [email or web address]
[2016-07-21] MEDS: Citalopram 20mg Tab ORAL SCH (09:03)
[2016-07-21] MEDS: Enoxaparin 40mg Inj SUBQ SCH (09:06)
[2016-07-21] MEDS: Pericolace tab ORAL SCH ×2 (09:07→18:00)
[2016-07-21] MEDS: celeBREX 200mg Cap **SURGERY PATIENTS ONLY ORAL SCH (09:07)
[2016-07-21] MEDS: Mycophenolate 250mg cap ORAL SCH ×2 (09:07→18:00)
[2016-07-21] MEDS: oxyCONTIN 20mg tab ORAL SCH ×2 (09:08→21:00)
--- NOTE | 2016-07-21 10:29 | Internal Med Progress Note ---
Subjective Date of Service: Jul 21, 2016 Physician Name Carrasco,Miriam Attending Physician Willie Mishra MD Current Medications Medications (Trade) Dose Ordered Sig/Steve Route PRN Reason Start Time Stop Time Status Last Admin Dose Admin Acetaminophen (Tylenol) 650 mg Q4H PRN ORAL Mild Pain/fever 07/19/16 15:45 08/18/16 15:44 Acetaminophen (Tylenol) 650 mg Q4H PRN ORAL Mild Pain (Pain Scale 1-3) 07/20/16 08:30 08/19/16 08:29 Acetaminophen (Tylenol) 650 mg Q4H PRN RECTAL Mild Pain/FEVER 07/19/16 15:45 08/18/16 15:44 Acetaminophen/ Hydrocodone Bitart ([place] 7.5/325) 1 ea Q4H PRN ORAL Moderate Pain (Pain Scale 4-6) 07/20/16 08:30 07/27/16 08:29 Albuterol/ Ipratropium (DuoNeb 0.5-3(2.5)mg/3ml) 3 ml Q4H PRN INH Shortness of Breath 07/19/16 15:45 07/24/16 15:44 Atorvastatin Calcium (Lipitor) 40 mg BEDTIME ORAL 07/19/16 21:00 08/18/16 20:59 07/20/16 22:26 Bisacodyl (Dulcolax) 10 mg HSPRN PRN RECTAL Constipation 07/19/16 15:45 08/18/16 15:44 Celecoxib (CeleBREX) 200 mg DAILY ORAL 07/21/16 09:00 08/20/16 08:59 07/21/16 09:07 Citalopram Hydrobromide (celeXA) 20 mg DAILY ORAL 07/20/16 09:00 08/19/16 08:59 07/21/16 09:03 Dextrose (Dextrose 50%) STAT PRN IV Hypoglycemia 07/19/16 15:45 08/18/16 15:44 Dextrose/ Electrolytes (D5 0.45%NS W/ KCl 20mEq) 1,000 ml @ 75 mls/hr [id number] IV 07/20/16 12:00 08/19/16 11:59 07/21/16 05:44 Enoxaparin Sodium (Lovenox) 40 mg DAILY SUBQ 07/21/16 09:00 08/20/16 08:59 07/21/16 09:06 Ferrous Sulfate (Feosol) 325 mg THREE TIMES A DAY ORAL 07/20/16 18:00 08/19/16 17:59 07/21/16 08:57 Hydromorphone HCl (Dilaudid) 0.5 mg Q4HR PRN IVP Moderate Pain (Pain Scale 4-6) 07/19/16 15:45 07/26/16 15:44 07/20/16 04:36 Hydromorphone HCl (Dilaudid) 1 mg Q4H PRN SUBQ Mild Pain (Pain Scale 1-3) 07/20/16 08:30 07/27/16 08:29 Hydromorphone HCl (Dilaudid) 2 mg Q4H PRN SUBQ Moderate Pain (Pain Scale 4-6) 07/20/16 08:30 07/27/16 08:29 Hydromorphone HCl 1 mg 1 mg Q3HR PRN IVP Severe Pain (Pain Scale 7-10) 07/19/16 17:26 07/26/16 15:29 07/21/16 05:44 Levothyroxine Sodium (Synthroid) 150 mcg DAILY@0630 ORAL 07/20/16 06:30 08/19/16 06:29 07/21/16 05:45 Magnesium Hydroxide (Mom) 30 ml DAILYPRN PRN ORAL Constipation 07/20/16 08:30 08/19/16 08:29 Magnesium Hydroxide (Mom) 30 ml HSPRN PRN ORAL Constipation 07/19/16 15:45 08/18/16 15:44 Mycophenolate Mofetil (Cellcept) 1,000 mg TWICE A DAY ORAL 07/19/16 18:00 08/18/16 17:59 07/21/16 09:07 Nitroglycerin (Ntg) 0.4 mg Q5M X 3 DOSES PRN SL Prn Chest Pain 07/19/16 15:45 08/18/16 15:44 Ondansetron HCl (Zofran) 4 mg Q6H PRN IVP Nausea & Vomiting 07/19/16 15:45 08/18/16 15:44 Oxycodone HCl (OxyCONTIN) 20 mg EVERY 12 HOURS ORAL 07/20/16 21:00 07/27/16 20:59 07/21/16 09:08 Pantoprazole (Protonix) 40 mg DAILY ORAL 07/20/16 09:00 08/19/16 08:59 07/21/16 09:02 Polyethylene Glycol (Miralax) 17 gm HSPRN PRN ORAL Constipation 07/19/16 15:45 08/18/16 15:44 Senna/Docusate Sodium ([place]-Colace) 1 ea TWICE A DAY ORAL 07/20/16 18:00 08/19/16 17:59 07/21/16 09:07 Zolpidem Tartrate (Ambien) 5 mg HSPRN PRN ORAL Insomnia 07/19/16 15:45 08/18/16 15:44 Allergies: Coded Allergies: MEPERIDINE (Verified Allergy, Severe, 07/19/16) ROS Limited/Unobtainable: No Constitutional: Reports: no symptoms HEENT: Reports: no symptoms Cardiovascular: Reports: no symptoms Respiratory: Reports: no symptoms Gastrointestinal/Abdominal: Reports: no symptoms Genitourinary: Reports: no symptoms Neurologic/Psychiatric: Reports: no symptoms Subjective 80 YO F admitted with displaced right femoral neck fracture. S/P right hip hemiarthroplasty on 07/20/16. Cover for Int Med-Dr Mishra. Objective Last Vital Signs Date Time Temp Pulse Resp B/P Pulse Ox O2 Delivery O2 Flow Rate FiO2 07/21/16 08:08 96.6 95 18 131/73 92 Simple Mask 8.0 07/21/16 08:00 40 Laboratory Tests Test 07/21/16 06:43 White Blood Count 14.0 K/UL (4.8-10.8) #H Red Blood Count 3.32 M/UL (4.20-5.40) L Hemoglobin 10.7 G/DL (12.0-16.0) L Hematocrit 31.8 % (37.0-47.0) L Mean Corpuscular Volume 96 FL (80-99) Mean Corpuscular Hemoglobin 32.2 PG (27.0-31.0) H Mean Corpuscular Hemoglobin Concent 33.6 G/DL (32.0-36.0) Red Cell Distribution Width 12.4 % (11.6-14.8) Platelet Count 180 K/UL (150-450) Mean Platelet Volume 6.8 FL (6.5-10.1) Neutrophils (%) (Auto) 80.3 % (45.0-75.0) H Lymphocytes (%) (Auto) 10.0 % (20.0-45.0) L Monocytes (%) (Auto) 9.5 % (1.0-10.0) Eosinophils (%) (Auto) 0.0 % (0.0-3.0) Basophils (%) (Auto) 0.2 % (0.0-2.0) Sodium Level 137 mEQ/L (135-145) Potassium Level 4.1 mEQ/L (3.4-4.9) Chloride Level 99 mEQ/L (98-107) Carbon Dioxide Level 24 mEQ/L (20-30) Anion Gap 14 (5-15) Blood Urea Nitrogen 18 mg/dL (7-23) Creatinine 1.0 mg/dL (0.5-0.9) H Estimat Glomerular Filtration Rate mL/min (>60) Glucose Level 171 mg/dL (74-106) H Calcium Level 9.4 mg/dL (8.6-10.2) Phosphorus Level 3.1 mg/dL (2.5-4.8) Magnesium Level 1.7 mg/dL (1.7-2.5) Intake and Output 07/20/16 07/21/16 18:59 06:59 Intake Total 1375 ml Output Total 1005 ml 1000 ml Balance 370 ml -1000 ml IV Total 1375 ml Output Urine Total 880 ml 1000 ml Estimated Blood Loss 125 ml Objective Objective GENERAL: awake, responsive, no acute distress, confused. HEENT: Pupils are equal and reactive to light. Extraocular movement intact. NECK: Supple. No JVD. LUNGS: fair bilateral air entry. No wheezing or rales. Chest wall has a bilateral breast mastectomy scar. HEART: S1, S2. Regular rhythm. No gallops. ABDOMEN: Soft, nondistended, and nontender. Positive bowel sounds. EXTREMITIES: No cyanosis, clubbing, or edema. Right hip surgical incision intact. NEUROLOGIC: Cranial nerves II through XII are grossly intact. moving all extremities except the right lower extremity. Assessment/Plan Assessment/Plan Assessment/Plan Assessment/Plan ASSESSMENT: 1. Trip and fall with subcapsular right hip fracture s/p Right hip hemiarthroplasty (07/20/2016). 2. Prior history of right occipital infarction. 3. History of breast cancer, status post bilateral mastectomy. 4. Depression. 5. Diverticulosis. 6. Gastroesophageal reflux disease. 7. Hypertension. 8. Dyslipidemia. 9. Hypothyroidism. 10. Idiopathic pulmonary fibrosis. 11. Mild cognitive impairment. 12. Osteopenia. 13. Rheumatoid arthritis. 14. History of pyelonephritis in the past. PLAN: in Telemetry Med/Surg. Follow up AM laboratory Dr. Darian Green from Orthopedics Dr. Caruso from Cardiology. IV hydration DVT prophylaxis and heparin subcutaneous. PT Mobility CODE STATUS: Full Code. MIRIAM CARRASCO Jul 21, 2016 10:29
[2016-07-21 11:42] VITALS: BP 139/74
--- NOTE | 2016-07-21 11:54 | Diagnostic Imaging Report ---
Indication: POST-OP, pain Technique: One view of the pelvis Comparison: None Findings: Is right hip hemiarthroplasty in place. This appears well aligned. No acute fractures. No dislocations. Impression: Right hip hemiarthroplasty in good position
[2016-07-21] MEDS ORDERED: Miralax 17gm pkt ORAL PRN (12:55)
[2016-07-21] MEDS: HYDROmorphone 1mg/ml Carpuject SUBQ PRN ×2 (13:42→20:03)
--- NOTE | 2016-07-21 13:55 | Cardiology Report ---
APPROVED REPORT EKG Measurement Heart [id number] Normal sinus rhythm with sinus arrhythmia Normal ECG
--- NOTE | 2016-07-21 14:19 | Cardiology Report ---
APPROVED REPORT EXAM: Two-dimensional and M-mode echocardiogram with Doppler and color Doppler. INDICATION Hypertension/HCVD M-Mode DIMENSIONS IVSd1.0 (0.7-1.1cm)Left Atrium (MM)4.2 (1.6-4.0cm) LVDd5.0 (3.5-5.6cm)Aortic Root2.8 (2.0-3.7cm) PWd1.2 (0.7-1.1cm)Aortic Cusp Exc.1.8 (1.5-2.0cm) LVDs3.2 (2.5-4.0cm) PWs2.1 cm Normal left ventricular chamber size, systolic function and wall motion. Left ventricular ejection fraction estimated to be 55 %. Borderline left ventricular hypertrophy. Anterior Echo-free space, may be due to pericardial fat or effusion. All other cardiac chamber sizes are within normal limits. Mild focal aortic valve sclerosis with adequate cusp excursion. Mildly thickened mitral valve leaflets with normal excursion. Mild mitral annulus and aortic root calcification. Normal pulmonic valve structure. Normal tricuspid valve structure. IVC at normal size with physiologic collapse. A color flow and spectral Doppler study was performed and revealed: No aortic regurgitation. Mild to moderate mitral regurgitation. Mitral diastolic velocities suggest reduced left ventricular relaxation (Grade I). MILD tricuspid regurgitation. Tricuspid systolic velocities suggests peak right ventricular systolic pressure of 12 mmHg. No pulmonic regurgitation present.
--- NOTE | 2016-07-21 14:47 | 48 Hour Post Anesthesia Eval ---
Post Anesthesia Evaluation Procedure: Right hip hemiarthroplasty Date of Evaluation: Jul 21, 2016 Time of Evaluation: 14:45 Blood Pressure Systolic: 144 0: 75 Pulse Rate: 86 Respiratory Rate: 22 Temperature (Fahrenheit): 97.6 O2 Sat by Pulse Oximetry: 98 Airway: patent Nausea: No Vomiting: No Pain Intensity: 3 Hydration Status: adequate Cardiopulmonary Status: stable Mental Status/LOC: patient returned to baseline Follow-up Care/Observations: n/a Post-Anesthesia Complications: none Follow-up care needed: N/A SALOMON JONAS M.D. Jul 21, 2016 14:47
--- NOTE | 2016-07-21 14:52 | Consultation ---
History of Present Illness General Date patient seen: Jul 21, 2016 Chief Complaint: Hip fracture Referring physician: Dr. Mishra Reason for Consultation: Dyspnea Present Illness HPI 80 year old female with hx of pulmonary fibrosis for the last 3-4 days, hx of smoking for 25 years, stopped 40 years ago, was admitted with R hip fracture. Post operatively, pt had episodes of desaturation, was started on face ask and i was called to evaluate her. Allergies: Coded Allergies: MEPERIDINE (Verified Allergy, Severe, 07/19/16) Medication History Scheduled Aspirin (Aspirin), 325 MG ORAL DAILY, (Reported) Citalopram Hydrobromide* (Celexa*), 20 MG ORAL DAILY, (Reported) Docusate Sodium* (Docusate Sodium*), 100 MG ORAL TWICE A DAY, (Reported) Duloxetine Hcl* (Cymbalta*), 30 MG ORAL DAILY, (Reported) Ergocalciferol (Vitamin D2)* (Vitamin D*), 50,000 UNIT ORAL ONCE A WEEK, ( Reported) Levothyroxine Sodium* (Levothyroxine Sodium*), 150 MCG ORAL DAILY, (Reported) Mycophenolate Mofetil (Cellcept), 400 MG PO BID, (Reported) Rosuvastatin Calcium* (Crestor*), 5 MG ORAL HS, (Reported) Scheduled PRN Hydrocodone Bit/Acetaminophen 5-325* ([place] 5-325 Tablet*), 1 TAB ORAL Q6HR PRN for For Pain, (Reported) Ibuprofen* (Motrin*), 600 MG ORAL Q8H PRN for For Pain, (Reported) Miscellaneous Medications Diazepam* (Valium*), 5 MG ORAL, (Reported) Patient History Healthcare decision maker pt alert and oriented Resuscitation status Full Code Advanced Directive on File Past Medical/Surgical History Past Medical/Surgical History: (1) Pulmonary fibrosis (2) COPD (chronic obstructive pulmonary disease) Review of Systems All Other Systems: negative except mentioned in HPI Physical Exam General Appearance: WD/WN Lines, tubes and drains: peripheral, central line, trach HEENT: atraumatic Neck: non-tender, normal alignment Respiratory/Chest: chest wall non-tender, lungs clear Breasts: no masses Cardiovascular/Chest: normal peripheral pulses, normal rate Abdomen: normal bowel sounds, non tender Extremities: normal range of motion Skin Exam: normal pigmentation Last 24 Hour Vital Signs Date Time Temp Pulse Resp B/P Pulse Ox O2 Delivery O2 Flow Rate FiO2 07/21/16 11:42 96.3 89 18 139/74 96 Simple Mask 8.0 07/21/16 08:08 96.6 95 18 131/73 92 Simple Mask 8.0 07/21/16 08:00 96 Venturi Mask 8.0 40 07/21/16 08:00 91 18 Venturi Mask 8.0 40 07/21/16 08:00 Venturi Mask 8.0 40 07/21/16 06:14 98.4 07/21/16 04:16 98.4 73 19 128/56 95 Room Air 07/21/16 04:00 92 07/21/16 00:45 98.8 78 18 123/59 94 Simple Mask 07/21/16 00:00 91 07/20/16 20:05 86 18 92 Venturi Mask 8.0 30 07/20/16 20:04 Venturi Mask 8.0 30 07/20/16 20:04 92 Venturi Mask 8.0 30 07/20/16 20:00 84 07/20/16 20:00 97.3 86 21 132/71 93 07/20/16 19:00 89 18 Venturi Mask 8.0 30 07/20/16 16:00 97.7 94 21 127/61 97 07/20/16 16:00 90 Intake and Output 07/20/16 07/21/16 19:00 07:00 Intake Total 1375 ml Output Total 1005 ml 1000 ml Balance 370 ml -1000 ml IV Total 1375 ml Output Urine Total 880 ml 1000 ml Estimated Blood Loss 125 ml Laboratory Tests Test 07/21/16 06:43 White Blood Count 14.0 K/UL (4.8-10.8) #H Red Blood Count 3.32 M/UL (4.20-5.40) L Hemoglobin 10.7 G/DL (12.0-16.0) L Hematocrit 31.8 % (37.0-47.0) L Mean Corpuscular Volume 96 FL (80-99) Mean Corpuscular Hemoglobin 32.2 PG (27.0-31.0) H Mean Corpuscular Hemoglobin Concent 33.6 G/DL (32.0-36.0) Red Cell Distribution Width 12.4 % (11.6-14.8) Platelet Count 180 K/UL (150-450) Mean Platelet Volume 6.8 FL (6.5-10.1) Neutrophils (%) (Auto) 80.3 % (45.0-75.0) H Lymphocytes (%) (Auto) 10.0 % (20.0-45.0) L Monocytes (%) (Auto) 9.5 % (1.0-10.0) Eosinophils (%) (Auto) 0.0 % (0.0-3.0) Basophils (%) (Auto) 0.2 % (0.0-2.0) Sodium Level 137 mEQ/L (135-145) Potassium Level 4.1 mEQ/L (3.4-4.9) Chloride Level 99 mEQ/L (98-107) Carbon Dioxide Level 24 mEQ/L (20-30) Anion Gap 14 (5-15) Blood Urea Nitrogen 18 mg/dL (7-23) Creatinine 1.0 mg/dL (0.5-0.9) H Estimat Glomerular Filtration Rate mL/min (>60) Glucose Level 171 mg/dL (74-106) H Calcium Level 9.4 mg/dL (8.6-10.2) Phosphorus Level 3.1 mg/dL (2.5-4.8) Magnesium Level 1.7 mg/dL (1.7-2.5) Height (Feet): 5 Height (Inches): 5.00 Weight (Pounds): 170 Medications Current Medications Medications (Trade) Dose Ordered Sig/Steve Route PRN Reason Start Time Stop Time Status Last Admin Dose Admin Acetaminophen (Tylenol) 650 mg Q4H PRN ORAL Mild Pain/fever 07/19/16 15:45 08/18/16 15:44 Acetaminophen (Tylenol) 650 mg Q4H PRN RECTAL Mild Pain/FEVER 07/19/16 15:45 08/18/16 15:44 Acetaminophen/ Hydrocodone Bitart ([place] 7.5/325) 1 ea Q4H PRN ORAL Moderate Pain (Pain Scale 4-6) 07/20/16 08:30 07/27/16 08:29 Albuterol/ Ipratropium (DuoNeb 0.5-3(2.5)mg/3ml) 3 ml Q4H PRN INH Shortness of Breath 07/19/16 15:45 07/24/16 15:44 Atorvastatin Calcium (Lipitor) 40 mg BEDTIME ORAL 07/19/16 21:00 08/18/16 20:59 07/20/16 22:26 Bisacodyl (Dulcolax) 10 mg HSPRN PRN RECTAL Constipation 07/21/16 12:55 08/18/16 15:44 Celecoxib (CeleBREX) 200 mg DAILY ORAL 07/21/16 09:00 08/20/16 08:59 07/21/16 09:07 Citalopram Hydrobromide (celeXA) 20 mg DAILY ORAL 07/20/16 09:00 08/19/16 08:59 07/21/16 09:03 Dextrose STAT PRN IV Hypoglycemia 07/19/16 15:45 08/18/16 15:44 Dextrose/ Electrolytes (D5 0.45%NS W/ KCl 20mEq) 1,000 ml @ 75 mls/hr [id number] IV 07/20/16 12:00 08/19/16 11:59 07/21/16 05:44 Enoxaparin Sodium (Lovenox) 40 mg DAILY SUBQ 07/21/16 09:00 08/20/16 08:59 07/21/16 09:06 Ferrous Sulfate (Feosol) 325 mg THREE TIMES A DAY ORAL 07/20/16 18:00 08/19/16 17:59 07/21/16 12:50 Hydromorphone HCl (Dilaudid) 1 mg Q4H PRN SUBQ Mild Pain (Pain Scale 1-3) 07/20/16 08:30 07/27/16 08:29 07/21/16 13:42 Hydromorphone HCl (Dilaudid) 2 mg Q4H PRN SUBQ Moderate Pain (Pain Scale 4-6) 07/20/16 08:30 07/27/16 08:29 Levothyroxine Sodium (Synthroid) 150 mcg DAILY@0630 ORAL 07/20/16 06:30 08/19/16 06:29 07/21/16 05:45 Magnesium Hydroxide (Mom) 30 ml DAILYPRN PRN ORAL Constipation 07/20/16 08:30 08/19/16 08:29 Mycophenolate Mofetil (Cellcept) 1,000 mg TWICE A DAY ORAL 07/19/16 18:00 08/18/16 17:59 07/21/16 09:07 Nitroglycerin (Ntg) 0.4 mg Q5M X 3 DOSES PRN SL Prn Chest Pain 07/19/16 15:45 08/18/16 15:44 Ondansetron HCl (Zofran) 4 mg Q6H PRN IVP Nausea & Vomiting 07/19/16 15:45 08/18/16 15:44 Oxycodone HCl (OxyCONTIN) 20 mg EVERY 12 HOURS ORAL 07/20/16 21:00 07/27/16 20:59 07/21/16 09:08 Pantoprazole (Protonix) 40 mg DAILY ORAL 07/20/16 09:00 08/19/16 08:59 07/21/16 09:02 Polyethylene Glycol (Miralax) 17 gm HSPRN PRN ORAL Constipation 07/21/16 12:55 08/18/16 15:44 Senna/Docusate Sodium ([place]-Colace) 1 ea TWICE A DAY ORAL 07/20/16 18:00 08/19/16 17:59 07/21/16 09:07 Zolpidem Tartrate (Ambien) 5 mg HSPRN PRN ORAL Insomnia 07/19/16 15:45 08/18/16 15:44 Assessment/Plan Problem List: (1) Acute respiratory failure ICD Codes: J96.00 - Acute respiratory failure, unspecified whether with hypoxia or hypercapnia SNOMED: 04268516 (2) COPD (chronic obstructive pulmonary disease) ICD Codes: J44.9 - Chronic obstructive pulmonary disease, unspecified SNOMED: 34134866 (3) Pulmonary fibrosis ICD Codes: J84.10 - Pulmonary fibrosis, unspecified SNOMED: 88397206 (4) Hip fracture, right ICD Codes: S72.001A - Fracture of unspecified part of neck of right femur, initial encounter for closed fracture SNOMED: 123746262 Assessment/Plan titrate fio2 to sat of 92% cxr now, respiratory treatment respiratory treatment incentive spirometry. pain management dvt prophylaxis MAGNUS MORAN Jul 21, 2016 14:52
--- NOTE | 2016-07-21 15:00 | Cardiac Electrophysiology PN ---
Assessment/Plan Assessment/Plan 1. S/P R hip hemiarthroplasty. Tolerated surgery well with no cardiac issues. 2. History of hypertension, For now off antihypertensives. 3. Hyperlipidemia. On Lipitor 4. Hypothyroidism, on Synthroid. 5. Depression, on Cymbalta and Celexa DW RN and Dr Castañeda at bedside. Subjective Subjective Comfortable in NAD. Has Oxygen mask for pulmonary fibrosis. Objective Last 24 Hour Vital Signs Date Time Temp Pulse Resp B/P Pulse Ox O2 Delivery O2 Flow Rate FiO2 07/21/16 14:47 86 22 98 07/21/16 11:42 96.3 89 18 139/74 96 Simple Mask 8.0 07/21/16 08:08 96.6 95 18 131/73 92 Simple Mask 8.0 07/21/16 08:00 96 Venturi Mask 8.0 40 07/21/16 08:00 91 18 Venturi Mask 8.0 40 07/21/16 08:00 Venturi Mask 8.0 40 07/21/16 06:14 98.4 07/21/16 04:16 98.4 73 19 128/56 95 Room Air 07/21/16 04:00 92 07/21/16 00:45 98.8 78 18 123/59 94 Simple Mask 07/21/16 00:00 91 07/20/16 20:05 86 18 92 Venturi Mask 8.0 30 07/20/16 20:04 Venturi Mask 8.0 30 07/20/16 20:04 92 Venturi Mask 8.0 30 07/20/16 20:00 84 07/20/16 20:00 97.3 86 21 132/71 93 07/20/16 19:00 89 18 Venturi Mask 8.0 30 07/20/16 16:00 97.7 94 21 127/61 97 07/20/16 16:00 90 Intake and Output 07/20/16 07/21/16 19:00 07:00 Intake Total 1375 ml Output Total 1005 ml 1000 ml Balance 370 ml -1000 ml IV Total 1375 ml Output Urine Total 880 ml 1000 ml Estimated Blood Loss 125 ml Laboratory Tests Test 07/21/16 06:43 White Blood Count 14.0 K/UL (4.8-10.8) #H Red Blood Count 3.32 M/UL (4.20-5.40) L Hemoglobin 10.7 G/DL (12.0-16.0) L Hematocrit 31.8 % (37.0-47.0) L Mean Corpuscular Volume 96 FL (80-99) Mean Corpuscular Hemoglobin 32.2 PG (27.0-31.0) H Mean Corpuscular Hemoglobin Concent 33.6 G/DL (32.0-36.0) Red Cell Distribution Width 12.4 % (11.6-14.8) Platelet Count 180 K/UL (150-450) Mean Platelet Volume 6.8 FL (6.5-10.1) Neutrophils (%) (Auto) 80.3 % (45.0-75.0) H Lymphocytes (%) (Auto) 10.0 % (20.0-45.0) L Monocytes (%) (Auto) 9.5 % (1.0-10.0) Eosinophils (%) (Auto) 0.0 % (0.0-3.0) Basophils (%) (Auto) 0.2 % (0.0-2.0) Sodium Level 137 mEQ/L (135-145) Potassium Level 4.1 mEQ/L (3.4-4.9) Chloride Level 99 mEQ/L (98-107) Carbon Dioxide Level 24 mEQ/L (20-30) Anion Gap 14 (5-15) Blood Urea Nitrogen 18 mg/dL (7-23) Creatinine 1.0 mg/dL (0.5-0.9) H Estimat Glomerular Filtration Rate mL/min (>60) Glucose Level 171 mg/dL (74-106) H Calcium Level 9.4 mg/dL (8.6-10.2) Phosphorus Level 3.1 mg/dL (2.5-4.8) Magnesium Level 1.7 mg/dL (1.7-2.5) Objective HEAD AND NECK: No JVD or carotid bruits. LUNGS: Coarse rhonchi. CARDIOVASCULAR: Regular S1 and S2 with no gallop or murmur. ABDOMEN: Soft. EXTREMITIES: No pitting edema. S/P Right leg CHIDI NAVA Jul 21, 2016 15:00
[2016-07-21 16:00] VITALS: BP 137/87
[2016-07-21 20:00] VITALS: BP 129/66
[2016-07-22 00:32] VITALS: BP 109/83
[2016-07-22] MEDS: D5 1/2NS w/KCl 20mEq 1,000 ML IV SCH ×2 (04:00→16:06)
[2016-07-22 04:20] VITALS: BP 124/65
[2016-07-22] MEDS: HYDROmorphone 1mg/ml Carpuject SUBQ PRN ×2 (04:40→10:05)
[2016-07-22 08:09] LABS: BASOPHILS % (AUTO) 0.6 % (0.0-2.0); EOSINOPHILS % (AUTO) 0.8 % (0.0-3.0); LYMPHOCYTES % (AUTO) 15.7 % (20.0-45.0); MEAN CORPUSCULAR HGB CONC 33.2 G/DL (32.0-36.0); MEAN CORPUSCULAR VOLUME 96 FL (80-99); MEAN PLATELET VOLUME 7.8 FL (6.5-10.1); MONOCYTES % (AUTO) 12.8 % (1.0-10.0); NEUTROPHILS % (AUTO) 70.1 % (45.0-75.0); PLATELET COUNT 164 K/UL (150-450); RED BLOOD COUNT 3.02 M/UL (4.20-5.40); RED CELL DISTRIBUTION WIDTH 12.6 % (11.6-14.8); WHITE BLOOD COUNT 8.9 K/UL (4.8-10.8)
[2016-07-22 08:29] LABS: ANION GAP 14 (5-15); CALCIUM 9.2 mg/dL (8.6-10.2); CARBON DIOXIDE 24 mEQ/L (20-30); CHLORIDE 100 mEQ/L (98-107); CREATININE 0.9 mg/dL (0.5-0.9); HEMOLYSIS 2; POTASSIUM 4.3 mEQ/L (3.4-4.9); SODIUM 138 mEQ/L (135-145)
[2016-07-22 08:34] VITALS: BP 135/70
[2016-07-22] MEDS: Mycophenolate 250mg cap ORAL SCH ×3 (09:00→21:00)
[2016-07-22] MEDS: celeBREX 200mg Cap **SURGERY PATIENTS ONLY ORAL SCH ×2 (09:00→09:25)
[2016-07-22] MEDS: oxyCONTIN 20mg tab ORAL SCH ×3 (09:00→21:56)
[2016-07-22] MEDS: Citalopram 20mg Tab ORAL SCH ×2 (09:00→09:26)
[2016-07-22] MEDS: Pericolace tab ORAL SCH ×3 (09:00→18:12)
--- NOTE | 2016-07-22 09:14 | Diagnostic Imaging Report ---
Indication: DYSPNEA Technique: One view of the chest Comparison: 07/19/2016 Findings: Better inspiration on the current exam. There are decrease in previously demonstrated bilateral interstitial congestion. There is some residual atelectasis at both lung bases. The heart is borderline enlarged. Impression: Improved interstitial congestion, over 2 days
[2016-07-22] MEDS: Enoxaparin 40mg Inj SUBQ SCH (09:31)
[2016-07-22 12:39] VITALS: BP 139/70
[2016-07-22] MEDS ORDERED: Nitroglycerin Subl 0.4mg tab (Bottle Of 25) SL PRN (14:45)
[2016-07-22] MEDS ORDERED: DuoNeb 0.5-3(2.5)mg/3ml neb INH PRN (15:45)
[2016-07-22] MEDS ORDERED: Acetaminophen 650 MG SUPP RECTAL PRN (15:45)
[2016-07-22] MEDS ORDERED: Zolpidem 5mg tab ORAL PRN (15:45)
[2016-07-22 16:00] VITALS: BP 127/79
[2016-07-22] MEDS ORDERED: Norco 7.5mg/325mg tab ORAL PRN (16:00)
--- NOTE | 2016-07-22 16:27 | Internal Med Progress Note ---
Subjective Date of Service: Jul 22, 2016 Physician Name Miriam Carrasco Attending Physician Willie Mishra MD Current Medications Medications (Trade) Dose Ordered Sig/Steve Route PRN Reason Start Time Stop Time Status Last Admin Dose Admin Acetaminophen (Tylenol) 650 mg Q4H PRN ORAL Mild Pain/fever 07/22/16 15:45 08/21/16 15:44 Acetaminophen (Tylenol) 650 mg Q4H PRN RECTAL Mild Pain/FEVER 07/22/16 15:45 08/21/16 15:44 Acetaminophen/ Hydrocodone Bitart ([place] 7.5/325) 1 ea Q4H PRN ORAL Moderate Pain (Pain Scale 4-6) 07/22/16 16:00 07/29/16 15:59 Albuterol/ Ipratropium (DuoNeb 0.5-3(2.5)mg/3ml) 3 ml Q4H PRN INH Shortness of Breath 07/22/16 15:45 07/27/16 15:44 Atorvastatin Calcium (Lipitor) 40 mg BEDTIME ORAL 07/22/16 21:00 08/21/16 20:59 Bisacodyl (Dulcolax) 10 mg HSPRN PRN RECTAL Constipation 07/22/16 21:00 08/21/16 20:59 Celecoxib (CeleBREX) 200 mg DAILY ORAL 07/23/16 09:00 08/22/16 08:59 Citalopram Hydrobromide (celeXA) 20 mg DAILY ORAL 07/23/16 09:00 08/22/16 08:59 Dextrose (Dextrose 50%) STAT PRN IV Hypoglycemia 07/22/16 15:45 08/21/16 15:44 Dextrose/ Electrolytes (D5 0.45%NS W/ KCl 20mEq) 1,000 ml @ 75 mls/hr [id number] IV 07/22/16 16:00 08/21/16 15:59 07/22/16 16:06 Enoxaparin Sodium (Lovenox) 40 mg DAILY SUBQ 07/23/16 09:00 08/22/16 08:59 Ferrous Sulfate (Feosol) 325 mg THREE TIMES A DAY ORAL 07/22/16 18:00 08/21/16 17:59 Hydromorphone HCl (Dilaudid) 1 mg Q4H PRN SUBQ Mild Pain (Pain Scale 1-3) 07/22/16 16:30 07/29/16 16:29 07/22/16 16:01 Hydromorphone HCl (Dilaudid) 2 mg Q4H PRN SUBQ Moderate Pain (Pain Scale 4-6) 07/22/16 16:30 07/29/16 16:29 Levothyroxine Sodium (Synthroid) 150 mcg DAILY@0630 ORAL 07/23/16 06:30 08/22/16 06:29 Magnesium Hydroxide (Mom) 30 ml DAILYPRN PRN ORAL Constipation 07/23/16 08:30 08/22/16 08:29 Mycophenolate Mofetil (Cellcept) 1,000 mg Q12HR ORAL 07/22/16 21:00 08/21/16 20:59 Nitroglycerin (Ntg) 0.4 mg Q5M X 3 DOSES PRN SL Prn Chest Pain 07/22/16 14:45 08/21/16 14:44 Ondansetron HCl (Zofran) 4 mg Q6H PRN IVP Nausea & Vomiting 07/22/16 15:45 08/21/16 15:44 Oxycodone HCl (OxyCONTIN) 20 mg EVERY 12 HOURS ORAL 07/22/16 21:00 07/29/16 20:59 Pantoprazole (Protonix) 40 mg DAILY ORAL 07/23/16 09:00 08/22/16 08:59 Polyethylene Glycol (Miralax) 17 gm HSPRN PRN ORAL Constipation 07/23/16 13:00 08/22/16 12:59 Senna/Docusate Sodium ([place]-Colace) 1 ea TWICE A DAY ORAL 07/22/16 18:00 08/21/16 17:59 Zolpidem Tartrate (Ambien) 5 mg HSPRN PRN ORAL Insomnia 07/22/16 15:45 08/21/16 15:44 Allergies: Coded Allergies: MEPERIDINE (Verified Allergy, Severe, 07/19/16) ROS Limited/Unobtainable: No Constitutional: Reports: no symptoms HEENT: Reports: no symptoms Cardiovascular: Reports: no symptoms Respiratory: Reports: no symptoms Gastrointestinal/Abdominal: Reports: no symptoms Genitourinary: Reports: no symptoms Neurologic/Psychiatric: Reports: no symptoms Subjective 80 YO F admitted with displaced right femoral neck fracture. S/P right hip hemiarthroplasty on 07/20/16. Cover for [facility] Angel-Dr Mishra. Objective Last Vital Signs Date Time Temp Pulse Resp B/P Pulse Ox O2 Delivery O2 Flow Rate FiO2 07/22/16 13:03 94 Venturi Mask 8.0 35 07/22/16 12:39 97.0 86 20 139/70 General Appearance: WD/WN, mild distress EENT: PERRL/EOMI, normal ENT inspection Neck: non-tender, normal alignment, supple, normal inspection Cardiovascular: normal peripheral pulses, normal rate, regular rhythm, no gallop/murmur, no JVD Respiratory/Chest: chest wall non-tender, lungs clear, normal breath sounds, no respiratory distress, no accessory muscle use Abdomen: normal bowel sounds, non tender, soft, no organomegaly, no mass Extremities: other - Dressing right hip clean and dry Neurologic: steel heater II-XII grossly normal, no motor/sensory deficits Skin: normal pigmentation, warm/dry Laboratory Tests Test 07/22/16 06:40 White Blood Count 8.9 K/UL (4.8-10.8) Red Blood Count 3.02 M/UL (4.20-5.40) L Hemoglobin 9.7 G/DL (12.0-16.0) L Hematocrit 29.1 % (37.0-47.0) L Mean Corpuscular Volume 96 FL (80-99) Mean Corpuscular Hemoglobin 32.0 PG (27.0-31.0) H Mean Corpuscular Hemoglobin Concent 33.2 G/DL (32.0-36.0) Red Cell Distribution Width 12.6 % (11.6-14.8) Platelet Count 164 K/UL (150-450) Mean Platelet Volume 7.8 FL (6.5-10.1) Neutrophils (%) (Auto) 70.1 % (45.0-75.0) Lymphocytes (%) (Auto) 15.7 % (20.0-45.0) L Monocytes (%) (Auto) 12.8 % (1.0-10.0) H Eosinophils (%) (Auto) 0.8 % (0.0-3.0) Basophils (%) (Auto) 0.6 % (0.0-2.0) Sodium Level 138 mEQ/L (135-145) Potassium Level 4.3 mEQ/L (3.4-4.9) Chloride Level 100 mEQ/L (98-107) Carbon Dioxide Level 24 mEQ/L (20-30) Anion Gap 14 (5-15) Blood Urea Nitrogen 21 mg/dL (7-23) Creatinine 0.9 mg/dL (0.5-0.9) Estimat Glomerular Filtration Rate mL/min (>60) Glucose Level 128 mg/dL (74-106) H Calcium Level 9.2 mg/dL (8.6-10.2) Intake and Output 07/21/16 07/22/16 19:00 07:00 Intake Total 900 ml 375 ml Balance 900 ml 375 ml IV Total 900 ml 375 ml # Voids 1 1 Assessment/Plan Problem List: (1) Displaced fracture of right femoral neck Assessment & Plan: S/P right hip hemiarthroplasty on 07/20/16. See ortho note. Continue physical and occupational therapy (2) Cerebral vascular disease (3) HTN (hypertension) (4) Hypercholesteremia Assessment & Plan: cont lipitor (5) Hypothyroidism Assessment & Plan: Cont synthroid (6) Depression, major (7) Rheumatoid arthritis Assessment & Plan: Cont celebrex. (8) Breast cancer Status: not improved Assessment/Plan Discharge planning: Transfer to [facility] acute rehab when bed available. MIRIAM CARRASCO Jul 22, 2016 16:27
[2016-07-22] MEDS ORDERED: HYDROmorphone 1mg/ml Carpuject SUBQ PRN (16:30)
--- NOTE | 2016-07-22 17:14 | Cardiac Electrophysiology PN ---
Assessment/Plan Assessment/Plan 1. S/P R hip hemiarthroplasty. Tolerated surgery well with no cardiac issues.No chest pain. 2. History of hypertension, For now off antihypertensives. 3. Hyperlipidemia. On Lipitor 4. Hypothyroidism, on Synthroid. 5. Depression, on Cymbalta and Celexa 6. Pulmonary fibrosis. On Face mask per Dr Maddy GLASS , RN and Dr Castañeda Subjective Subjective Comfortable in NAD. Has Oxygen mask for pulmonary fibrosis. Transferred to nonmonitored bed.. Objective Last 24 Hour Vital Signs Date Time Temp Pulse Resp B/P Pulse Ox O2 Delivery O2 Flow Rate FiO2 07/22/16 16:31 97.0 07/22/16 13:03 94 Venturi Mask 8.0 35 07/22/16 13:03 Venturi Mask 8.0 35 07/22/16 12:39 97.0 86 20 139/70 95 Venturi Mask 8.0 07/22/16 12:00 93 07/22/16 08:34 97.0 79 20 135/70 97 Venturi Mask 8.0 07/22/16 08:00 90 07/22/16 06:35 Simple Mask 8.0 35 07/22/16 06:35 99 20 Simple Mask 8.0 35 07/22/16 06:35 98 Simple Mask 8.0 35 07/22/16 04:20 99.8 99 20 124/65 98 Simple Mask 07/22/16 04:00 97 07/22/16 03:39 96 Venturi Mask 8.0 35 07/22/16 03:39 Venturi Mask 8.0 35 07/22/16 00:59 98.7 07/22/16 00:32 100.0 103 19 109/83 97 Simple Mask 07/22/16 00:00 101 07/21/16 20:00 100 19 129/66 96 Room Air 07/21/16 20:00 91 07/21/16 19:00 87 16 Venturi Mask 8.0 35 07/21/16 19:00 Venturi Mask 8.0 35 07/21/16 19:00 96 Venturi Mask 8.0 35 Intake and Output 07/21/16 07/22/16 19:00 07:00 Intake Total 900 ml 375 ml Balance 900 ml 375 ml IV Total 900 ml 375 ml # Voids 1 1 Laboratory Tests Test 07/22/16 06:40 White Blood Count 8.9 K/UL (4.8-10.8) Red Blood Count 3.02 M/UL (4.20-5.40) L Hemoglobin 9.7 G/DL (12.0-16.0) L Hematocrit 29.1 % (37.0-47.0) L Mean Corpuscular Volume 96 FL (80-99) Mean Corpuscular Hemoglobin 32.0 PG (27.0-31.0) H Mean Corpuscular Hemoglobin Concent 33.2 G/DL (32.0-36.0) Red Cell Distribution Width 12.6 % (11.6-14.8) Platelet Count 164 K/UL (150-450) Mean Platelet Volume 7.8 FL (6.5-10.1) Neutrophils (%) (Auto) 70.1 % (45.0-75.0) Lymphocytes (%) (Auto) 15.7 % (20.0-45.0) L Monocytes (%) (Auto) 12.8 % (1.0-10.0) H Eosinophils (%) (Auto) 0.8 % (0.0-3.0) Basophils (%) (Auto) 0.6 % (0.0-2.0) Sodium Level 138 mEQ/L (135-145) Potassium Level 4.3 mEQ/L (3.4-4.9) Chloride Level 100 mEQ/L (98-107) Carbon Dioxide Level 24 mEQ/L (20-30) Anion Gap 14 (5-15) Blood Urea Nitrogen 21 mg/dL (7-23) Creatinine 0.9 mg/dL (0.5-0.9) Estimat Glomerular Filtration Rate mL/min (>60) Glucose Level 128 mg/dL (74-106) H Calcium Level 9.2 mg/dL (8.6-10.2) Objective HEAD AND NECK: No JVD or carotid bruits.Face Mask on LUNGS: Coarse rhonchi. CARDIOVASCULAR: Regular S1 and S2 with no gallop or murmur. ABDOMEN: Soft. EXTREMITIES: No pitting edema. S/P Right leg CHIDI NAVA Jul 22, 2016 17:14
[2016-07-22 20:00] VITALS: BP 138/79
--- NOTE | 2016-07-22 22:42 | Pulmonology Progress Note ---
Assessment/Plan Problems: (1) Acute respiratory failure (2) COPD (chronic obstructive pulmonary disease) (3) Pulmonary fibrosis (4) Hip fracture, right Assessment/Plan PLAN OF CARE [facility] floor O2 HHN prn fup with CXr IVF pain management PT/OT fall precautions bowel regimen Subjective ROS Limited/Unobtainable: Yes Constitutional: Reports: anorexia, chills, fatigue Respiratory: Reports: dyspnea at rest, productive cough, shortness of breath, sputum Neurologic: Reports: confusion, weakness Musculoskeletal: Reports: pain, stiffness, swelling Allergies: Coded Allergies: MEPERIDINE (Verified Allergy, Severe, 07/19/16) Objective Last 24 Hour Vital Signs Date Time Temp Pulse Resp B/P Pulse Ox O2 Delivery O2 Flow Rate FiO2 07/22/16 20:00 98.2 84 19 138/79 97 Nasal Cannula 5.0 07/22/16 16:31 97.0 07/22/16 16:00 98.2 88 18 127/79 99 Nasal Cannula 5.0 07/22/16 13:03 94 Venturi Mask 8.0 35 07/22/16 13:03 Venturi Mask 8.0 35 07/22/16 12:39 97.0 86 20 139/70 95 Venturi Mask 8.0 07/22/16 12:00 93 07/22/16 08:34 97.0 79 20 135/70 97 Venturi Mask 8.0 07/22/16 08:00 90 07/22/16 06:35 Simple Mask 8.0 35 07/22/16 06:35 99 20 Simple Mask 8.0 35 07/22/16 06:35 98 Simple Mask 8.0 35 07/22/16 04:20 99.8 99 20 124/65 98 Simple Mask 07/22/16 04:00 97 07/22/16 03:39 96 Venturi Mask 8.0 35 07/22/16 03:39 Venturi Mask 8.0 35 07/22/16 00:59 98.7 07/22/16 00:32 100.0 103 19 109/83 97 Simple Mask 07/22/16 00:00 101 Intake and Output 07/21/16 07/22/16 19:00 07:00 Intake Total 900 ml 375 ml Balance 900 ml 375 ml IV Total 900 ml 375 ml # Voids 1 1 General Appearance: no acute distress HEENT: normocephalic, atraumatic, PERRL Respiratory/Chest: chest wall non-tender, decreased breath sounds, accessory muscle use, rhonchi Breasts: no masses Cardiovascular: normal peripheral pulses, normal rate, regular rhythm, no JVD Abdomen: normal bowel sounds, soft, non tender, no organomegaly, non distended Genitourinary: normal external genitalia Extremities: no cyanosis Skin: no rash, no lesions 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, no motor/sensory deficits Laboratory Tests 07/22/16 06:40: White Blood Count 8.9, Red Blood Count 3.02L, Hemoglobin 9.7L, Hematocrit 29.1L , Mean Corpuscular Volume 96, Mean Corpuscular Hemoglobin 32.0H, Mean Corpuscular Hemoglobin Concent 33.2, Red Cell Distribution Width 12.6, Platelet Count 164, Mean Platelet Volume 7.8, Neutrophils (%) (Auto) 70.1, Lymphocytes (% ) (Auto) 15.7L, Monocytes (%) (Auto) 12.8H, Eosinophils (%) (Auto) 0.8, Basophils (%) (Auto) 0.6, Sodium Level 138, Potassium Level 4.3, Chloride Level 100, Carbon Dioxide Level 24, Anion Gap 14, Blood Urea Nitrogen 21, Creatinine 0.9, Estimat Glomerular Filtration Rate , Glucose Level 128H, Calcium Level 9.2 Current Medications Medications (Trade) Dose Ordered Sig/Steve Route PRN Reason Start Time Stop Time Status Last Admin Dose Admin Acetaminophen (Tylenol) 650 mg Q4H PRN ORAL Mild Pain/fever 07/22/16 15:45 08/21/16 15:44 Acetaminophen (Tylenol) 650 mg Q4H PRN RECTAL Mild Pain/FEVER 07/22/16 15:45 08/21/16 15:44 Acetaminophen/ Hydrocodone Bitart ([place] 7.5/325) 1 ea Q4H PRN ORAL Moderate Pain (Pain Scale 4-6) 07/22/16 16:00 07/29/16 15:59 Albuterol/ Ipratropium (DuoNeb 0.5-3(2.5)mg/3ml) 3 ml Q4H PRN INH Shortness of Breath 07/22/16 15:45 07/27/16 15:44 Atorvastatin Calcium (Lipitor) 40 mg BEDTIME ORAL 07/22/16 21:00 08/21/16 20:59 Bisacodyl (Dulcolax) 10 mg HSPRN PRN RECTAL Constipation 07/22/16 21:00 08/21/16 20:59 Celecoxib (CeleBREX) 200 mg DAILY ORAL 07/23/16 09:00 08/22/16 08:59 Citalopram Hydrobromide (celeXA) 20 mg DAILY ORAL 07/23/16 09:00 08/22/16 08:59 Dextrose (Dextrose 50%) STAT PRN IV Hypoglycemia 07/22/16 15:45 08/21/16 15:44 Dextrose/ Electrolytes (D5 0.45%NS W/ KCl 20mEq) 1,000 ml @ 75 mls/hr [id number] IV 07/22/16 16:00 08/21/16 15:59 07/22/16 16:06 Enoxaparin Sodium (Lovenox) 40 mg DAILY SUBQ 07/23/16 09:00 08/22/16 08:59 Ferrous Sulfate (Feosol) 325 mg THREE TIMES A DAY ORAL 07/22/16 18:00 08/21/16 17:59 07/22/16 18:12 Hydromorphone HCl (Dilaudid) 1 mg Q4H PRN SUBQ Mild Pain (Pain Scale 1-3) 07/22/16 16:30 07/29/16 16:29 07/22/16 16:01 Hydromorphone HCl (Dilaudid) 2 mg Q4H PRN SUBQ Moderate Pain (Pain Scale 4-6) 07/22/16 16:30 07/29/16 16:29 Levothyroxine Sodium (Synthroid) 150 mcg DAILY@0630 ORAL 07/23/16 06:30 08/22/16 06:29 Magnesium Hydroxide (Mom) 30 ml DAILYPRN PRN ORAL Constipation 07/23/16 08:30 08/22/16 08:29 Mycophenolate Mofetil (Cellcept) 1,000 mg Q12HR ORAL 07/22/16 21:00 08/21/16 20:59 Nitroglycerin (Ntg) 0.4 mg Q5M X 3 DOSES PRN SL Prn Chest Pain 07/22/16 14:45 08/21/16 14:44 Ondansetron HCl (Zofran) 4 mg Q6H PRN IVP Nausea & Vomiting 07/22/16 15:45 08/21/16 15:44 Oxycodone HCl (OxyCONTIN) 20 mg EVERY 12 HOURS ORAL 07/22/16 21:00 07/29/16 20:59 07/22/16 21:56 Pantoprazole (Protonix) 40 mg DAILY ORAL 07/23/16 09:00 08/22/16 08:59 Polyethylene Glycol (Miralax) 17 gm HSPRN PRN ORAL Constipation 07/23/16 13:00 08/22/16 12:59 Senna/Docusate Sodium ([place]-Colace) 1 ea TWICE A DAY ORAL 07/22/16 18:00 08/21/16 17:59 07/22/16 18:12 Zolpidem Tartrate (Ambien) 5 mg HSPRN PRN ORAL Insomnia 07/22/16 15:45 08/21/16 15:44 MAGNUS MORAN Jul 22, 2016 22:42
[2016-07-23] VITALS: BP 116/79
[2016-07-23] MEDS: D5 1/2NS w/KCl 20mEq 1,000 ML IV SCH ×2 (00:23→17:22)
[2016-07-23 04:00] VITALS: BP 120/67
[2016-07-23] MEDS ORDERED: Milk of Magnesia 30ml Ud ORAL PRN (08:30)
[2016-07-23 08:54] VITALS: BP 125/69
[2016-07-23] MEDS: oxyCONTIN 20mg tab ORAL SCH ×2 (09:31→21:34)
[2016-07-23] MEDS: celeBREX 200mg Cap **SURGERY PATIENTS ONLY ORAL SCH (09:32)
[2016-07-23] MEDS: Enoxaparin 40mg Inj SUBQ SCH (09:34)
[2016-07-23] MEDS: Mycophenolate 250mg cap ORAL SCH ×2 (09:37→21:36)
[2016-07-23] MEDS: Citalopram 20mg Tab ORAL SCH (09:38)
[2016-07-23] MEDS: Pericolace tab ORAL SCH ×2 (09:38→17:22)
--- NOTE | 2016-07-23 12:31 | Internal Med Progress Note ---
Subjective Date of Service: Jul 23, 2016 Physician Name Carrasco,Miriam Attending Physician Willie Mishra MD Current Medications Medications (Trade) Dose Ordered Sig/Steve Route PRN Reason Start Time Stop Time Status Last Admin Dose Admin Acetaminophen (Tylenol) 650 mg Q4H PRN ORAL Mild Pain/fever 07/22/16 15:45 08/21/16 15:44 Acetaminophen (Tylenol) 650 mg Q4H PRN RECTAL Mild Pain/FEVER 07/22/16 15:45 08/21/16 15:44 Acetaminophen/ Hydrocodone Bitart ([place] 7.5/325) 1 ea Q4H PRN ORAL Moderate Pain (Pain Scale 4-6) 07/22/16 16:00 07/29/16 15:59 Albuterol/ Ipratropium (DuoNeb 0.5-3(2.5)mg/3ml) 3 ml Q4H PRN INH Shortness of Breath 07/22/16 15:45 07/27/16 15:44 Atorvastatin Calcium (Lipitor) 40 mg BEDTIME ORAL 07/22/16 21:00 08/21/16 20:59 Bisacodyl (Dulcolax) 10 mg HSPRN PRN RECTAL Constipation 07/22/16 21:00 08/21/16 20:59 Celecoxib (CeleBREX) 200 mg DAILY ORAL 07/23/16 09:00 08/22/16 08:59 07/23/16 09:32 Citalopram Hydrobromide (celeXA) 20 mg DAILY ORAL 07/23/16 09:00 08/22/16 08:59 07/23/16 09:38 Dextrose (Dextrose 50%) STAT PRN IV Hypoglycemia 07/22/16 15:45 08/21/16 15:44 Dextrose/ Electrolytes (D5 0.45%NS W/ KCl 20mEq) 1,000 ml @ 75 mls/hr [id number] IV 07/22/16 16:00 08/21/16 15:59 07/23/16 00:23 Enoxaparin Sodium (Lovenox) 40 mg DAILY SUBQ 07/23/16 09:00 08/22/16 08:59 07/23/16 09:34 Ferrous Sulfate (Feosol) 325 mg THREE TIMES A DAY ORAL 07/22/16 18:00 08/21/16 17:59 07/23/16 09:33 Hydromorphone HCl (Dilaudid) 1 mg Q4H PRN SUBQ Mild Pain (Pain Scale 1-3) 07/22/16 16:30 07/29/16 16:29 07/22/16 16:01 Hydromorphone HCl (Dilaudid) 2 mg Q4H PRN SUBQ Moderate Pain (Pain Scale 4-6) 07/22/16 16:30 07/29/16 16:29 07/23/16 09:32 Levothyroxine Sodium (Synthroid) 150 mcg DAILY@0630 ORAL 07/23/16 06:30 08/22/16 06:29 07/23/16 05:47 Magnesium Hydroxide (Mom) 30 ml DAILYPRN PRN ORAL Constipation 07/23/16 08:30 08/22/16 08:29 Mycophenolate Mofetil (Cellcept) 1,000 mg Q12HR ORAL 07/22/16 21:00 08/21/16 20:59 07/23/16 09:37 Nitroglycerin (Ntg) 0.4 mg Q5M X 3 DOSES PRN SL Prn Chest Pain 07/22/16 14:45 08/21/16 14:44 Ondansetron HCl (Zofran) 4 mg Q6H PRN IVP Nausea & Vomiting 07/22/16 15:45 08/21/16 15:44 Oxycodone HCl (OxyCONTIN) 20 mg EVERY 12 HOURS ORAL 07/22/16 21:00 07/29/16 20:59 07/23/16 09:31 Pantoprazole (Protonix) 40 mg DAILY ORAL 07/23/16 09:00 08/22/16 08:59 07/23/16 09:33 Polyethylene Glycol (Miralax) 17 gm HSPRN PRN ORAL Constipation 07/23/16 13:00 08/22/16 12:59 Senna/Docusate Sodium ([place]-Colace) 1 ea TWICE A DAY ORAL 07/22/16 18:00 08/21/16 17:59 07/23/16 09:38 Zolpidem Tartrate (Ambien) 5 mg HSPRN PRN ORAL Insomnia 07/22/16 15:45 08/21/16 15:44 Allergies: Coded Allergies: MEPERIDINE (Verified Allergy, Severe, 07/19/16) ROS Limited/Unobtainable: No Constitutional: Reports: no symptoms HEENT: Reports: no symptoms Cardiovascular: Reports: no symptoms Respiratory: Reports: no symptoms Gastrointestinal/Abdominal: Reports: no symptoms Genitourinary: Reports: no symptoms Neurologic/Psychiatric: Reports: no symptoms Subjective 80 YO F admitted with displaced right femoral neck fracture. S/P right hip hemiarthroplasty on 07/20/16. Cover for Int Med-Dr Mishra. Await acute rehab vs care home facility placement. Objective Last Vital Signs Date Time Temp Pulse Resp B/P Pulse Ox O2 Delivery O2 Flow Rate FiO2 07/23/16 08:54 98.0 75 19 125/69 99 Nasal Cannula 2.0 07/23/16 07:20 35 Intake and Output 07/22/16 07/23/16 19:00 07:00 Intake Total 675 ml 1100 ml Balance 675 ml 1100 ml Intake Oral 240 ml IV Total 675 ml 860 ml # Voids 1 3 Objective General Appearance: WD/WN, mild distress EENT: PERRL/EOMI, normal ENT inspection Neck: non-tender, normal alignment, supple, normal inspection Cardiovascular: normal peripheral pulses, normal rate, regular rhythm, no gallop/murmur, no JVD Respiratory/Chest: chest wall non-tender, lungs clear, normal breath sounds, no respiratory distress, no accessory muscle use Abdomen: normal bowel sounds, non tender, soft, no organomegaly, no mass Extremities: other - Dressing right hip clean and dry 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 See ortho note. Continue physical and occupational therapy (2) Cerebral vascular disease (3) HTN (hypertension) (4) Hypercholesteremia Assessment & Plan: cont lipitor (5) Hypothyroidism Assessment & Plan: Cont synthroid (6) Depression, major (7) Rheumatoid arthritis Assessment & Plan: Cont celebrex. (8) Breast cancer Status: progressing Assessment/Plan Discharge planning: Transfer to [facility] acute rehab when bed available. MIRIAM CARRASCO Jul 23, 2016 12:31
[2016-07-23 12:38] VITALS: BP 169/71
[2016-07-23] MEDS ORDERED: Miralax 17gm pkt ORAL PRN (13:00)
[2016-07-23 15:30] LABS: BASOPHILS % (AUTO) 0.9 % (0.0-2.0); EOSINOPHILS % (AUTO) 1.8 % (0.0-3.0); LYMPHOCYTES % (AUTO) 16.9 % (20.0-45.0); MEAN CORPUSCULAR HEMOGLOBIN 31.6 PG (27.0-31.0); MEAN CORPUSCULAR HGB CONC 33.1 G/DL (32.0-36.0); MEAN CORPUSCULAR VOLUME 96 FL (80-99); MEAN PLATELET VOLUME 7.5 FL (6.5-10.1); NEUTROPHILS % (AUTO) 68.5 % (45.0-75.0); PLATELET COUNT 209 K/UL (150-450); RED BLOOD COUNT 3.07 M/UL (4.20-5.40); RED CELL DISTRIBUTION WIDTH 12.3 % (11.6-14.8); WHITE BLOOD COUNT 9.3 K/UL (4.8-10.8)
[2016-07-23 15:45] LABS: ANION GAP 16 (5-15); CALCIUM 9.6 mg/dL (8.6-10.2); CARBON DIOXIDE 21 mEQ/L (20-30); CHLORIDE 99 mEQ/L (98-107); CREATININE 0.9 mg/dL (0.5-0.9); HEMOLYSIS 3; POTASSIUM 4.3 mEQ/L (3.4-4.9); SODIUM 136 mEQ/L (135-145)
[2016-07-23 15:53] VITALS: BP 129/74
[2016-07-23 20:00] VITALS: BP 130/70
--- NOTE | 2016-07-23 23:52 | Pulmonology Progress Note ---
Assessment/Plan Problems: (1) Acute respiratory failure (2) COPD (chronic obstructive pulmonary disease) (3) Pulmonary fibrosis (4) Hip fracture, right Assessment/Plan PLAN OF CARE O2 HHN prn fup with CXr IVF pain management PT/OT fall precautions bowel regimen Subjective ROS Limited/Unobtainable: Yes Constitutional: Reports: chills, fatigue Respiratory: Reports: dyspnea at rest, dyspnea on exertion, pleuritic pain, productive cough, shortness of breath, sputum, wheezing Allergies: Coded Allergies: MEPERIDINE (Verified Allergy, Severe, 07/19/16) Objective Last 24 Hour Vital Signs Date Time Temp Pulse Resp B/P Pulse Ox O2 Delivery O2 Flow Rate FiO2 07/23/16 22:33 98.1 07/23/16 20:00 98.1 85 20 130/70 95 Room Air 07/23/16 19:38 Simple Mask 8.0 35 07/23/16 19:38 94 Venturi Mask 8.0 35 07/23/16 19:37 82 16 Venturi Mask 8.0 35 07/23/16 15:53 97.9 83 19 129/74 93 Room Air 07/23/16 12:38 97.0 83 19 169/71 99 Nasal Cannula 2.0 07/23/16 08:54 98.0 75 19 125/69 99 Nasal Cannula 2.0 07/23/16 07:20 91 16 Venturi Mask 8.0 35 07/23/16 07:20 95 Simple Mask 8.0 35 07/23/16 07:20 Simple Mask 8.0 35 07/23/16 04:00 97.9 89 18 120/67 100 Room Air 07/23/16 00:00 98.2 92 20 116/79 100 Room Air Intake and Output 07/22/16 07/23/16 19:00 07:00 Intake Total 675 ml 1100 ml Balance 675 ml 1100 ml Intake Oral 240 ml IV Total 675 ml 860 ml # Voids 1 3 General Appearance: no acute distress HEENT: normocephalic, atraumatic, anicteric, PERRL Respiratory/Chest: respiratory distress, decreased breath sounds, accessory muscle use, crackles/rales, rhonchi, expiratory wheezing Breasts: no masses Cardiovascular: normal peripheral pulses, normal rate, regular rhythm, no JVD Abdomen: normal bowel sounds, soft, non tender, no organomegaly, non distended Genitourinary: normal external genitalia Extremities: no cyanosis Skin: no rash Neurologic/Psychiatric: unresponsiveness Laboratory Tests 07/23/16 04:00: White Blood Count 9.3, Red Blood Count 3.07L, Hemoglobin 9.7L, Hematocrit 29.3L , Mean Corpuscular Volume 96, Mean Corpuscular Hemoglobin 31.6H, Mean Corpuscular Hemoglobin Concent 33.1, Red Cell Distribution Width 12.3, Platelet Count 209, Mean Platelet Volume 7.5, Neutrophils (%) (Auto) 68.5, Lymphocytes (% ) (Auto) 16.9L, Monocytes (%) (Auto) 12.0H, Eosinophils (%) (Auto) 1.8, Basophils (%) (Auto) 0.9, Sodium Level 136, Potassium Level 4.3, Chloride Level 99, Carbon Dioxide Level 21, Anion Gap 16H, Blood Urea Nitrogen 19, Creatinine 0.9, Estimat Glomerular Filtration Rate , Glucose Level 142H, Calcium Level 9.6 Current Medications Medications (Trade) Dose Ordered Sig/Steve Route PRN Reason Start Time Stop Time Status Last Admin Dose Admin Acetaminophen (Tylenol) 650 mg Q4H PRN ORAL Mild Pain/fever 07/22/16 15:45 08/21/16 15:44 Acetaminophen (Tylenol) 650 mg Q4H PRN RECTAL Mild Pain/FEVER 07/22/16 15:45 08/21/16 15:44 Acetaminophen/ Hydrocodone Bitart ([place] 7.5/325) 1 ea Q4H PRN ORAL Moderate Pain (Pain Scale 4-6) 07/22/16 16:00 07/29/16 15:59 Albuterol/ Ipratropium (DuoNeb 0.5-3(2.5)mg/3ml) 3 ml Q4H PRN INH Shortness of Breath 07/22/16 15:45 07/27/16 15:44 Atorvastatin Calcium (Lipitor) 40 mg BEDTIME ORAL 07/22/16 21:00 08/21/16 20:59 07/23/16 21:33 Bisacodyl (Dulcolax) 10 mg HSPRN PRN RECTAL Constipation 07/22/16 21:00 08/21/16 20:59 Celecoxib (CeleBREX) 200 mg DAILY ORAL 07/23/16 09:00 08/22/16 08:59 07/23/16 09:32 Citalopram Hydrobromide (celeXA) 20 mg DAILY ORAL 07/23/16 09:00 08/22/16 08:59 07/23/16 09:38 Dextrose (Dextrose 50%) STAT PRN IV Hypoglycemia 07/22/16 15:45 08/21/16 15:44 Dextrose/ Electrolytes (D5 0.45%NS W/ KCl 20mEq) 1,000 ml @ 75 mls/hr [id number] IV 07/22/16 16:00 08/21/16 15:59 07/23/16 17:22 Enoxaparin Sodium (Lovenox) 40 mg DAILY SUBQ 07/23/16 09:00 08/22/16 08:59 07/23/16 09:34 Ferrous Sulfate (Feosol) 325 mg THREE TIMES A DAY ORAL 07/22/16 18:00 08/21/16 17:59 07/23/16 17:21 Hydromorphone HCl (Dilaudid) 1 mg Q4H PRN SUBQ Mild Pain (Pain Scale 1-3) 07/22/16 16:30 07/29/16 16:29 07/22/16 16:01 Hydromorphone HCl (Dilaudid) 2 mg Q4H PRN SUBQ Moderate Pain (Pain Scale 4-6) 07/22/16 16:30 07/29/16 16:29 07/23/16 14:02 Levothyroxine Sodium (Synthroid) 150 mcg DAILY@0630 ORAL 07/23/16 06:30 08/22/16 06:29 07/23/16 05:47 Magnesium Hydroxide (Mom) 30 ml DAILYPRN PRN ORAL Constipation 07/23/16 08:30 08/22/16 08:29 Mycophenolate Mofetil (Cellcept) 1,000 mg Q12HR ORAL 07/22/16 21:00 08/21/16 20:59 07/23/16 21:36 Nitroglycerin (Ntg) 0.4 mg Q5M X 3 DOSES PRN SL Prn Chest Pain 07/22/16 14:45 08/21/16 14:44 Ondansetron HCl (Zofran) 4 mg Q6H PRN IVP Nausea & Vomiting 07/22/16 15:45 08/21/16 15:44 Oxycodone HCl (OxyCONTIN) 20 mg EVERY 12 HOURS ORAL 07/22/16 21:00 07/29/16 20:59 07/23/16 21:34 Pantoprazole (Protonix) 40 mg DAILY ORAL 07/23/16 09:00 08/22/16 08:59 07/23/16 09:33 Polyethylene Glycol (Miralax) 17 gm HSPRN PRN ORAL Constipation 07/23/16 13:00 08/22/16 12:59 Senna/Docusate Sodium ([place]-Colace) 1 ea TWICE A DAY ORAL 07/22/16 18:00 08/21/16 17:59 07/23/16 17:22 Zolpidem Tartrate (Ambien) 5 mg HSPRN PRN ORAL Insomnia 07/22/16 15:45 08/21/16 15:44 MAGNUS MORAN Jul 23, 2016 23:52
[2016-07-24 04:00] VITALS: BP 162/69
[2016-07-24] MEDS: D5 1/2NS w/KCl 20mEq 1,000 ML IV SCH ×2 (06:01→20:45)
[2016-07-24 07:18] LABS: BASOPHILS % (AUTO) 0.8 % (0.0-2.0); LYMPHOCYTES % (AUTO) 18.1 % (20.0-45.0); MEAN CORPUSCULAR HEMOGLOBIN 32.2 PG (27.0-31.0); MEAN CORPUSCULAR VOLUME 95 FL (80-99); MEAN PLATELET VOLUME 7.6 FL (6.5-10.1); MONOCYTES % (AUTO) 10.5 % (1.0-10.0); NEUTROPHILS % (AUTO) 70.6 % (45.0-75.0); PLATELET COUNT 204 K/UL (150-450); RED BLOOD COUNT 3.21 M/UL (4.20-5.40); RED CELL DISTRIBUTION WIDTH 12.1 % (11.6-14.8); WHITE BLOOD COUNT 6.5 K/UL (4.8-10.8)
[2016-07-24 07:40] LABS: ANION GAP 15 (5-15); CALCIUM 9.7 mg/dL (8.6-10.2); CARBON DIOXIDE 22 mEQ/L (20-30); CHLORIDE 99 mEQ/L (98-107); CREATININE 0.8 mg/dL (0.5-0.9); HEMOLYSIS 4; POTASSIUM 4.1 mEQ/L (3.4-4.9); SODIUM 136 mEQ/L (135-145)
[2016-07-24 08:00] VITALS: BP 145/75
[2016-07-24] MEDS: Mycophenolate 250mg cap ORAL SCH ×2 (08:29→20:45)
[2016-07-24] MEDS: Citalopram 20mg Tab ORAL SCH (08:30)
[2016-07-24] MEDS: Pericolace tab ORAL SCH ×2 (08:30→18:07)
[2016-07-24] MEDS: oxyCONTIN 20mg tab ORAL SCH ×2 (08:35→20:44)
[2016-07-24] MEDS: celeBREX 200mg Cap **SURGERY PATIENTS ONLY ORAL SCH (08:35)
[2016-07-24] MEDS: Enoxaparin 40mg Inj SUBQ SCH (08:43)
[2016-07-24 12:00] VITALS: BP 168/73
--- NOTE | 2016-07-24 15:43 | Internal Med Progress Note ---
Subjective Date of Service: Jul 24, 2016 Physician Name Miriam Carrasco Attending Physician Willie Mishra MD Current Medications Medications (Trade) Dose Ordered Sig/Steve Route PRN Reason Start Time Stop Time Status Last Admin Dose Admin Acetaminophen (Tylenol) 650 mg Q4H PRN ORAL Mild Pain/fever 07/22/16 15:45 08/21/16 15:44 Acetaminophen (Tylenol) 650 mg Q4H PRN RECTAL Mild Pain/FEVER 07/22/16 15:45 08/21/16 15:44 Acetaminophen/ Hydrocodone Bitart ([place] 7.5/325) 1 ea Q4H PRN ORAL Moderate Pain (Pain Scale 4-6) 07/22/16 16:00 07/29/16 15:59 Albuterol/ Ipratropium (DuoNeb 0.5-3(2.5)mg/3ml) 3 ml Q4H PRN INH Shortness of Breath 07/22/16 15:45 07/27/16 15:44 Atorvastatin Calcium (Lipitor) 40 mg BEDTIME ORAL 07/22/16 21:00 08/21/16 20:59 07/23/16 21:33 Bisacodyl (Dulcolax) 10 mg HSPRN PRN RECTAL Constipation 07/22/16 21:00 08/21/16 20:59 Celecoxib (CeleBREX) 200 mg DAILY ORAL 07/23/16 09:00 08/22/16 08:59 07/24/16 08:35 Citalopram Hydrobromide (celeXA) 20 mg DAILY ORAL 07/23/16 09:00 08/22/16 08:59 07/24/16 08:30 Dextrose (Dextrose 50%) STAT PRN IV Hypoglycemia 07/22/16 15:45 08/21/16 15:44 Dextrose/ Electrolytes (D5 0.45%NS W/ KCl 20mEq) 1,000 ml @ 75 mls/hr [id number] IV 07/22/16 16:00 08/21/16 15:59 07/24/16 06:01 Enoxaparin Sodium (Lovenox) 40 mg DAILY SUBQ 07/23/16 09:00 08/22/16 08:59 07/24/16 08:43 Ferrous Sulfate (Feosol) 325 mg THREE TIMES A DAY ORAL 07/22/16 18:00 08/21/16 17:59 07/24/16 08:30 Hydromorphone HCl (Dilaudid) 1 mg Q4H PRN SUBQ Mild Pain (Pain Scale 1-3) 07/22/16 16:30 07/29/16 16:29 07/22/16 16:01 Hydromorphone HCl (Dilaudid) 2 mg Q4H PRN SUBQ Moderate Pain (Pain Scale 4-6) 07/22/16 16:30 07/29/16 16:29 07/23/16 14:02 Levothyroxine Sodium (Synthroid) 150 mcg DAILY@0630 ORAL 07/23/16 06:30 08/22/16 06:29 07/24/16 06:01 Magnesium Hydroxide (Mom) 30 ml DAILYPRN PRN ORAL Constipation 07/23/16 08:30 08/22/16 08:29 Mycophenolate Mofetil (Cellcept) 1,000 mg Q12HR ORAL 07/22/16 21:00 08/21/16 20:59 07/24/16 08:29 Nitroglycerin (Ntg) 0.4 mg Q5M X 3 DOSES PRN SL Prn Chest Pain 07/22/16 14:45 08/21/16 14:44 Ondansetron HCl (Zofran) 4 mg Q6H PRN IVP Nausea & Vomiting 07/22/16 15:45 08/21/16 15:44 Oxycodone HCl (OxyCONTIN) 20 mg EVERY 12 HOURS ORAL 07/22/16 21:00 07/29/16 20:59 07/24/16 08:35 Pantoprazole (Protonix) 40 mg DAILY ORAL 07/23/16 09:00 08/22/16 08:59 07/24/16 08:30 Polyethylene Glycol (Miralax) 17 gm HSPRN PRN ORAL Constipation 07/23/16 13:00 08/22/16 12:59 Senna/Docusate Sodium ([place]-Colace) 1 ea TWICE A DAY ORAL 07/22/16 18:00 08/21/16 17:59 07/24/16 08:30 Zolpidem Tartrate (Ambien) 5 mg HSPRN PRN ORAL Insomnia 07/22/16 15:45 08/21/16 15:44 Allergies: Coded Allergies: MEPERIDINE (Verified Allergy, Severe, 07/19/16) ROS Limited/Unobtainable: No Constitutional: Reports: no symptoms HEENT: Reports: no symptoms Cardiovascular: Reports: no symptoms Respiratory: Reports: no symptoms Gastrointestinal/Abdominal: Reports: no symptoms Genitourinary: Reports: no symptoms Neurologic/Psychiatric: Reports: no symptoms Subjective 80 YO F admitted with displaced right femoral neck fracture. S/P right hip hemiarthroplasty on 07/20/16. Cover for Int Med-Dr Mishra. Await Transfer to [facility] acute rehab. Objective Last Vital Signs Date Time Temp Pulse Resp B/P Pulse Ox O2 Delivery O2 Flow Rate FiO2 07/24/16 12:00 98.1 82 20 168/73 97 Room Air 07/24/16 08:08 8.0 35 Laboratory Tests Test 07/24/16 05:35 White Blood Count 6.5 K/UL (4.8-10.8) Red Blood Count 3.21 M/UL (4.20-5.40) L Hemoglobin 10.3 G/DL (12.0-16.0) L Hematocrit 30.3 % (37.0-47.0) L Mean Corpuscular Volume 95 FL (80-99) Mean Corpuscular Hemoglobin 32.2 PG (27.0-31.0) H Mean Corpuscular Hemoglobin Concent 34.0 G/DL (32.0-36.0) Red Cell Distribution Width 12.1 % (11.6-14.8) Platelet Count 204 K/UL (150-450) Mean Platelet Volume 7.6 FL (6.5-10.1) Neutrophils (%) (Auto) 70.6 % (45.0-75.0) Lymphocytes (%) (Auto) 18.1 % (20.0-45.0) L Monocytes (%) (Auto) 10.5 % (1.0-10.0) H Eosinophils (%) (Auto) 0.0 % (0.0-3.0) Basophils (%) (Auto) 0.8 % (0.0-2.0) Sodium Level 136 mEQ/L (135-145) Potassium Level 4.1 mEQ/L (3.4-4.9) Chloride Level 99 mEQ/L (98-107) Carbon Dioxide Level 22 mEQ/L (20-30) Anion Gap 15 (5-15) Blood Urea Nitrogen 19 mg/dL (7-23) Creatinine 0.8 mg/dL (0.5-0.9) Estimat Glomerular Filtration Rate mL/min (>60) Glucose Level 122 mg/dL (74-106) H Calcium Level 9.7 mg/dL (8.6-10.2) Intake and Output 07/23/16 07/24/16 19:00 07:00 Intake Total 870 ml 1175 ml Balance 870 ml 1175 ml Intake Oral 120 ml 240 ml IV Total 750 ml 935 ml # Voids 1 1 Objective General Appearance: WD/WN, mild distress EENT: PERRL/EOMI, normal ENT inspection Neck: non-tender, normal alignment, supple, normal inspection Cardiovascular: normal peripheral pulses, normal rate, regular rhythm, no gallop/murmur, no JVD Respiratory/Chest: chest wall non-tender, lungs clear, normal breath sounds, no respiratory distress, no accessory muscle use Abdomen: normal bowel sounds, non tender, soft, no organomegaly, no mass Extremities: other - Dressing right hip clean and dry 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 See ortho note. Continue physical and occupational therapy (2) Cerebral vascular disease (3) HTN (hypertension) (4) Hypercholesteremia Assessment & Plan: cont lipitor (5) Hypothyroidism Assessment & Plan: Cont synthroid (6) Depression, major (7) Rheumatoid arthritis Assessment & Plan: Cont celebrex. (8) Breast cancer Assessment/Plan Discharge planning: Transfer to [facility] [place] acute rehab when bed available. D/W and daughter. MIRIAM CARRASCO Jul 24, 2016 15:43
[2016-07-24] MEDS ORDERED: OXYCONTIN20 MG ORAL (16:04)
[2016-07-24] MEDS ORDERED: CELEBREX200 MG ORAL (16:04)
[2016-07-24] MEDS ORDERED: PROTONIX40 MG ORAL (16:04)
[2016-07-24] MEDS ORDERED: LOVENOX10 M4 SUBQ (16:04)
[2016-07-24] MEDS ORDERED: AMBIEN5 MG ORAL (16:04)
[2016-07-24] MEDS ORDERED: MIRALAX17 G2 ORAL (16:04)
[2016-07-24] MEDS ORDERED: ACETAMINOPHEN325 M1 ORAL (16:04)
[2016-07-24 16:05] VITALS: BP 126/45
[2016-07-24 20:16] VITALS: BP 142/88
[2016-07-25 00:09] VITALS: BP 125/66
[2016-07-25 04:07] VITALS: BP 120/72
[2016-07-25] MEDS ORDERED: Levothyroxine 25mcg tab ORAL SCH (06:30)
[2016-07-25 07:29] LABS: EOSINOPHILS % (AUTO) 3.3 % (0.0-3.0); LYMPHOCYTES % (AUTO) 23.2 % (20.0-45.0); MEAN CORPUSCULAR HEMOGLOBIN 32.1 PG (27.0-31.0); MEAN CORPUSCULAR HGB CONC 33.5 G/DL (32.0-36.0); MEAN CORPUSCULAR VOLUME 96 FL (80-99); MEAN PLATELET VOLUME 6.3 FL (6.5-10.1); MONOCYTES % (AUTO) 12.4 % (1.0-10.0); NEUTROPHILS % (AUTO) 60.1 % (45.0-75.0); PLATELET COUNT 176 K/UL (150-450); RED BLOOD COUNT 2.93 M/UL (4.20-5.40); WHITE BLOOD COUNT 6.2 K/UL (4.8-10.8)
[2016-07-25 07:39] LABS: ANION GAP 13 (5-15); CALCIUM 9.6 mg/dL (8.6-10.2); CARBON DIOXIDE 23 mEQ/L (20-30); CHLORIDE 102 mEQ/L (98-107); CREATININE 0.8 mg/dL (0.5-0.9); HEMOLYSIS 10; POTASSIUM 4.5 mEQ/L (3.4-4.9); SODIUM 138 mEQ/L (135-145)
[2016-07-25 08:06] VITALS: BP 135/74
[2016-07-25] MEDS: Pericolace tab ORAL SCH (08:38)
[2016-07-25] MEDS: Citalopram 20mg Tab ORAL SCH (08:38)
[2016-07-25] MEDS: oxyCONTIN 20mg tab ORAL SCH (08:39)
[2016-07-25] MEDS: Enoxaparin 40mg Inj SUBQ SCH (08:42)
--- NOTE | 2016-07-25 11:06 | Pulmonology Progress Note ---
Assessment/Plan Assessment/Plan ASSESSMENT acute hypoxemic respiratory failure COPD IPF R subcapital displaced femoral neck fracture R hip pain s/p R hip hemiarthroplasty hx of HTN mild to moderate MR hyperlipemia hypothyroidism with low TSH hx of breast Ca with bilateral mastectomy anemia PLAN OF CARE MS floor O2 HHN prn fup with CXr IVF pain management PT/OT fall precautions bowel regimen ECHO with EF 55% and RVSP of 12, mild to moderate MR low TSH, decrease dose of Synthroid this am continue statin cardio follows off any anti HTN meds at this time monitor HH, at baseline, continue iron supplement ARU eval and transfer to [facility] when bed available DVT prophylaxis case discussed and evaluated by supervising physician Subjective Allergies: Coded Allergies: MEPERIDINE (Verified Allergy, Severe, 07/19/16) Subjective afebrile, no leucocytosis pain controlled Objective Last 24 Hour Vital Signs Date Time Temp Pulse Resp B/P Pulse Ox O2 Delivery O2 Flow Rate FiO2 07/25/16 08:06 97.9 76 20 135/74 95 Venturi Mask 8.0 07/25/16 04:07 97.4 89 20 120/72 95 Room Air 07/25/16 00:09 98.1 87 19 125/66 91 Room Air 07/24/16 23:49 Venturi Mask 8.0 35 07/24/16 21:43 96.4 07/24/16 20:16 96.4 84 18 142/88 94 Room Air 07/24/16 19:44 96 Venturi Mask 8.0 35 07/24/16 19:44 Venturi Mask 8.0 35 07/24/16 19:43 87 16 Venturi Mask 8.0 35 07/24/16 16:05 97.5 80 19 126/45 95 Room Air 07/24/16 12:00 98.1 82 20 168/73 97 Room Air Intake and Output 07/24/16 07/25/16 19:00 07:00 Intake Total 1020 ml 1110 ml Balance 1020 ml 1110 ml Intake Oral 120 ml 360 ml IV Total 900 ml 750 ml # Voids 1 5 Objective General Appearance: WD/WN, female in NAD EENT: PERRL/EOMI, Neck: non-tender, supple, normal inspection Cardiovascular: normal peripheral pulses, normal rate, regular rhythm, no gallop/murmur, no JVD Respiratory/Chest: chest wall non-tender, lungs clear, normal breath sounds, no respiratory distress, no accessory muscle use Abdomen: normal bowel sounds, non tender, soft, Extremities: Dressing right hip clean and dry Neurologic: signs sales representative II-XII grossly normal, no motor/sensory deficits Skin: normal pigmentation, warm/dry Laboratory Tests 07/25/16 06:10: White Blood Count 6.2, Red Blood Count 2.93L, Hemoglobin 9.4L, Hematocrit 28.1L , Mean Corpuscular Volume 96, Mean Corpuscular Hemoglobin 32.1H, Mean Corpuscular Hemoglobin Concent 33.5, Red Cell Distribution Width 12.0, Platelet Count 176, Mean Platelet Volume 6.3L, Neutrophils (%) (Auto) 60.1, Lymphocytes ( %) (Auto) 23.2, Monocytes (%) (Auto) 12.4H, Eosinophils (%) (Auto) 3.3H, Basophils (%) (Auto) 1.0, Sodium Level 138, Potassium Level 4.5, Chloride Level 102, Carbon Dioxide Level 23, Anion Gap 13, Blood Urea Nitrogen 13, Creatinine 0.8, Estimat Glomerular Filtration Rate , Glucose Level 125H, Calcium Level 9.6 Current Medications Medications (Trade) Dose Ordered Sig/Steve Route PRN Reason Start Time Stop Time Status Last Admin Dose Admin Acetaminophen (Tylenol) 650 mg Q4H PRN ORAL Mild Pain/fever 07/22/16 15:45 08/21/16 15:44 Acetaminophen (Tylenol) 650 mg Q4H PRN RECTAL Mild Pain/FEVER 07/22/16 15:45 08/21/16 15:44 Acetaminophen/ Hydrocodone Bitart ([place] 7.5/325) 1 ea Q4H PRN ORAL Moderate Pain (Pain Scale 4-6) 07/22/16 16:00 07/29/16 15:59 Albuterol/ Ipratropium (DuoNeb 0.5-3(2.5)mg/3ml) 3 ml Q4H PRN INH Shortness of Breath 07/22/16 15:45 07/27/16 15:44 Atorvastatin Calcium (Lipitor) 40 mg BEDTIME ORAL 07/22/16 21:00 08/21/16 20:59 07/24/16 20:45 Bisacodyl (Dulcolax) 10 mg HSPRN PRN RECTAL Constipation 07/22/16 21:00 08/21/16 20:59 Celecoxib (CeleBREX) 200 mg DAILY ORAL 07/23/16 09:00 08/22/16 08:59 07/24/16 08:35 Citalopram Hydrobromide (celeXA) 20 mg DAILY ORAL 07/23/16 09:00 08/22/16 08:59 07/25/16 08:38 Dextrose (Dextrose 50%) STAT PRN IV Hypoglycemia 07/22/16 15:45 08/21/16 15:44 Dextrose/ Electrolytes (D5 0.45%NS W/ KCl 20mEq) 1,000 ml @ 75 mls/hr [id number] IV 07/22/16 16:00 08/21/16 15:59 07/24/16 20:45 Enoxaparin Sodium (Lovenox) 40 mg DAILY SUBQ 07/23/16 09:00 08/22/16 08:59 07/25/16 08:42 Ferrous Sulfate (Feosol) 325 mg THREE TIMES A DAY ORAL 07/22/16 18:00 08/21/16 17:59 07/25/16 08:39 Hydromorphone HCl (Dilaudid) 1 mg Q4H PRN SUBQ Mild Pain (Pain Scale 1-3) 07/22/16 16:30 07/29/16 16:29 07/22/16 16:01 Hydromorphone HCl (Dilaudid) 2 mg Q4H PRN SUBQ Moderate Pain (Pain Scale 4-6) 07/22/16 16:30 07/29/16 16:29 07/23/16 14:02 Levothyroxine Sodium (Synthroid) 25 mcg DAILY@0630 ORAL 07/25/16 06:30 08/24/16 06:29 07/25/16 05:53 Levothyroxine Sodium (Synthroid) 112 mcg DAILY@0630 ORAL 07/25/16 06:30 08/24/16 06:29 07/25/16 05:52 Magnesium Hydroxide (Mom) 30 ml DAILYPRN PRN ORAL Constipation 07/23/16 08:30 08/22/16 08:29 07/24/16 22:00 Mycophenolate Mofetil (Cellcept) 1,000 mg Q12HR ORAL 07/22/16 21:00 08/21/16 20:59 07/24/16 20:45 Nitroglycerin (Ntg) 0.4 mg Q5M X 3 DOSES PRN SL Prn Chest Pain 07/22/16 14:45 08/21/16 14:44 Ondansetron HCl (Zofran) 4 mg Q6H PRN IVP Nausea & Vomiting 07/22/16 15:45 08/21/16 15:44 Oxycodone HCl (OxyCONTIN) 20 mg EVERY 12 HOURS ORAL 07/22/16 21:00 07/29/16 20:59 07/25/16 08:39 Pantoprazole (Protonix) 40 mg DAILY ORAL 07/23/16 09:00 08/22/16 08:59 07/25/16 08:38 Polyethylene Glycol (Miralax) 17 gm HSPRN PRN ORAL Constipation 07/23/16 13:00 08/22/16 12:59 Senna/Docusate Sodium (Mar[place]-Colace) 1 ea TWICE A DAY ORAL 07/22/16 18:00 08/21/16 17:59 07/25/16 08:38 Zolpidem Tartrate (Ambien) 5 mg HSPRN PRN ORAL Insomnia 07/22/16 15:45 08/21/16 15:44 [facility] Blas NP Jul 25, 2016 11:06
[2016-07-25] MEDS: Mycophenolate 250mg cap ORAL SCH (11:25)
[2016-07-25] MEDS: celeBREX 200mg Cap **SURGERY PATIENTS ONLY ORAL SCH (11:26)
[2016-07-25] MEDS: D5 1/2NS w/KCl 20mEq 1,000 ML IV SCH (11:28)
[2016-07-25] MEDS ORDERED: DuoNeb 0.5-3(2.5)mg/3ml neb INH PRN (11:45)
[2016-07-25 11:53] VITALS: BP 138/54
--- NOTE | 2016-07-25 16:25 | Internal Med Progress Note ---
Subjective Date of Service: Jul 25, 2016 Physician Name DestinyToro Attending Physician Willie Mishra MD Allergies: Coded Allergies: MEPERIDINE (Verified Allergy, Severe, 07/19/16) Subjective 80 YO F admitted with displaced right femoral neck fracture. S/P right hip hemiarthroplasty on 07/20/16. Cover for Int Med-Dr Mishra. Await Transfer to [facility] acute rehab today Objective Last Vital Signs Date Time Temp Pulse Resp B/P Pulse Ox O2 Delivery O2 Flow Rate FiO2 07/25/16 11:53 97.5 73 20 138/54 95 Nasal Cannula 2.0 07/25/16 10:50 28 Laboratory Tests Test 07/25/16 06:10 White Blood Count 6.2 K/UL (4.8-10.8) Red Blood Count 2.93 M/UL (4.20-5.40) L Hemoglobin 9.4 G/DL (12.0-16.0) L Hematocrit 28.1 % (37.0-47.0) L Mean Corpuscular Volume 96 FL (80-99) Mean Corpuscular Hemoglobin 32.1 PG (27.0-31.0) H Mean Corpuscular Hemoglobin Concent 33.5 G/DL (32.0-36.0) Red Cell Distribution Width 12.0 % (11.6-14.8) Platelet Count 176 K/UL (150-450) Mean Platelet Volume 6.3 FL (6.5-10.1) L Neutrophils (%) (Auto) 60.1 % (45.0-75.0) Lymphocytes (%) (Auto) 23.2 % (20.0-45.0) Monocytes (%) (Auto) 12.4 % (1.0-10.0) H Eosinophils (%) (Auto) 3.3 % (0.0-3.0) H Basophils (%) (Auto) 1.0 % (0.0-2.0) Sodium Level 138 mEQ/L (135-145) Potassium Level 4.5 mEQ/L (3.4-4.9) Chloride Level 102 mEQ/L (98-107) Carbon Dioxide Level 23 mEQ/L (20-30) Anion Gap 13 (5-15) Blood Urea Nitrogen 13 mg/dL (7-23) Creatinine 0.8 mg/dL (0.5-0.9) Estimat Glomerular Filtration Rate mL/min (>60) Glucose Level 125 mg/dL (74-106) H Calcium Level 9.6 mg/dL (8.6-10.2) Intake and Output 07/24/16 07/25/16 19:00 07:00 Intake Total 1020 ml 1110 ml Balance 1020 ml 1110 ml Intake Oral 120 ml 360 ml IV Total 900 ml 750 ml # Voids 1 5 Objective General Appearance: WD/WN, mild distress EENT: PERRL/EOMI, normal ENT inspection Neck: non-tender, normal alignment, supple, normal inspection Cardiovascular: normal peripheral pulses, normal rate, regular rhythm, no gallop/murmur, no JVD Respiratory/Chest: chest wall non-tender, lungs clear, normal breath sounds, no respiratory distress, no accessory muscle use Abdomen: normal bowel sounds, non tender, soft, no organomegaly, no mass Extremities: other - Dressing right hip clean and dry Neurologic: upper marker II-XII grossly normal, no motor/sensory deficits Skin: normal pigmentation, warm/dry Assessment/Plan Problem List: (1) Displaced fracture of right femoral neck Assessment & Plan: S/P right hip hemiarthroplasty on 07/20/16. See ortho note. Continue physical and occupational therapy (2) Cerebral vascular disease (3) HTN (hypertension) (4) Hypercholesteremia Assessment & Plan: cont lipitor (5) Hypothyroidism Assessment & Plan: Cont synthroid (6) Depression, major (7) Rheumatoid arthritis Assessment & Plan: Cont celebrex. (8) Breast cancer Assessment/Plan Discharge planning: Transfer to [facility] acute rehab today. D/W and daughter. TORO CARRASCO Jul 25, 2016 16:25
--- NOTE | 2016-07-28 09:27 | Discharge Summary ---
Discharge Summary Hospital Course Date of Admission Jul 19, 2016 at 14:47 Date of Discharge Jul 25, 2016 at 15:51 Admitting Diagnosis HPI Milagros Staley is a 80 year old female who was admitted on Jul 19, 2016 at 14: 47 for Right Hip Fracture Hospital Course dc summary #[id number] Discharge Medications New Medications: Acetaminophen* (Acetaminophen*) 325 Mg Tablet 650 MG ORAL Q4H PRN for 30 Days, TAB Celecoxib* (Celebrex*) 200 Mg Capsule 200 MG ORAL DAILY for 30 Days, CAP Enoxaparin* (Lovenox*) 40 Mg/0.4 Ml Inj 40 MG SUBQ DAILY for 30 Days, #30 UNITS Oxycodone Hcl Er* (Oxycontin*) 20 Mg Tab.er.12h 20 MG ORAL EVERY 12 HOURS for 30 Days, TAB Pantoprazole* (Protonix*) 40 Mg Tablet.dr 40 MG ORAL DAILY for 30 Days, TAB Polyethylene Glycol 3350* (Miralax*) 17 Gm Powd.pack 17 GM ORAL HSPRN PRN for 30 Days, PACK Zolpidem Tartrate* (Ambien*) 5 Mg Tablet 5 MG ORAL HSPRN PRN for 30 Days, TAB Continued Medications: Aspirin (Aspirin) 500 Mg Tablet 325 MG ORAL DAILY, TAB Citalopram Hydrobromide* (Celexa*) 20 Mg Tablet 20 MG ORAL DAILY, TAB Diazepam* (Valium*) 5 Mg Tablet 5 MG ORAL for For Anxiety, #30 TAB 0 Refills Docusate Sodium* (Docusate Sodium*) 100 Mg Capsule 100 MG ORAL TWICE A DAY, CAP Duloxetine Hcl* (Cymbalta*) 30 Mg Capsule.dr 30 MG ORAL DAILY, CAP Ergocalciferol (Vitamin D2)* (Vitamin D*) 50,000 Unit Capsule 95893 UNIT ORAL ONCE A WEEK, CAP Hydrocodone Bit/Acetaminophen 5-325* ([place] 5-325 Tablet*) 1 Each Tablet 1 TAB ORAL Q6HR PRN for For Pain, TAB Ibuprofen* (Motrin*) 600 Mg Tablet 600 MG ORAL Q8H PRN for For Pain, #30 TAB 0 Refills Levothyroxine Sodium* (Levothyroxine Sodium*) 150 Mcg Tablet 150 MCG ORAL DAILY, TAB Take in the morning on an empty stomach, at least 30 minutes before food. Mycophenolate Mofetil (Cellcept) 200 Mg/1 Ml Susp.recon 400 MG PO BID, ML Rosuvastatin Calcium* (Crestor*) 10 Mg Tablet 5 MG ORAL HS, TAB Discharge Condition Upon Discharge: stable Discharge Disposition Patient was discharged to Acute Rehab unit at [facility] Discharge Diagnoses: Andre (Lety Torres NP Jul 28, 2016 09:26
--- NOTE | 2016-07-29 00:38 | Discharge Summary 2 SIG ---
DATE OF ADMISSION: 07/19/2016 DATE OF DISCHARGE: 07/25/2016 REASON FOR HOSPITALIZATION: An 80-year-old female with past medical history for breast cancer, status post bilateral mastectomy, history of chemotherapy, history of CVA, hypertension, hypothyroidism, idiopathic pulmonary fibrosis, rheumatoid arthritis, and osteopenia presented initially to [facility] after mechanical trip and fall. No head trauma. No loss of consciousness. The patient was on aspirin prior to fall. No neck stiffness. No neck rigidity. After initial evaluation at [facility], the patient was released from the trauma and was transferred to [facility] for further evaluation and possible surgical intervention of right hip subcapsular femoral fracture found on imaging. ADMITTING DIAGNOSES: 1. Status post trip and fall 2. Right hip subcapsular femoral fracture. 3. History of breast CA, status post bilateral mastectomy. 4. Osteopenia. 5. Rheumatoid arthritis. 6. Hypertension. 7. History of right occipital cerebrovascular accident. 8. Depression. 9. Gastroesophageal reflux disease. 10. Hypothyroidism. 11. Idiopathic pulmonary fibrosis. 12. Osteopenia. 13. Mild cognitive impairment. 14. Diverticulosis HISTORY OF STAY: The patient admitted to Med/Surg floor. Ortho consult was requested. Cardiac consult was requested for clearance for surgery. Cardiology seen the patient. No CHF. No coronary artery disease. Echocardiogram with preserved ejection fraction of 55%. Borderline left ventricular hypertrophy. Old cardiac chamber size within normal limits. Right ventricular systolic pressure of 12. Ardo-wl-pymhscxy mitral regurgitation. Orthopedic surgeon seen the patient upon admission and after reviewing imaging, concluded that the patient had a subcapital femoral neck fracture with displacement. Surgeon had a detailed discussion with the patient and the family and proceeded with the surgery after cardiac clearance was obtained. He recommended right hip hemiarthroplasty and discussed benefits and complication of the surgery including risk of infection, bleeding, neurovascular complication, possibility of leg length discrepancy, DVT, PE, fracture, and need for further surgery down the line and dislocation. The patient likes to go to [facility] in [facility] after surgery. The patient subsequently undergone right hip hemiarthroplasty. Supplemental oxygen and pulmonary toilet provided as needed. The patient with history of idiopathic pulmonary fibrosis. After surgery, required nonrebreathing mask and then Venturi mask. Subsequently was able to be weaned to nasal cannula 2 liters. Pulse oximetry stable. Chest x-ray revealed initially some interstitial congestion. Follow up chest x-ray revealed decrease in previously demonstrated bilateral interstitial congestion with a residual atelectasis at both lung bases. Incentive spirometry provided at the bedside. Pain management provided. The patient was working with physical and occupational therapists. Fall precautions were maintained. Bowel regimen instituted. Correspondence Transcriber followed the patient after cardiac clearance. Statin was continued. Noted low TSH, dose of Synthroid was decreased. The patient off any antihypertensive medication at this time, remained normotensive. Hemoglobin and hematocrit were closely monitored, at baseline. Iron supplement continued. DVT prophylaxis provided. The patient was stable for transfer to acute rehab to [facility] for further rehabilitation. The patient and family agreed with plan. The patient was transferred after all arrangements were made. DISCHARGE DIAGNOSES: 1. Right subcapital displaced femoral neck fracture. 2. Status post right hip hemiarthroplasty 07/20 3. Postoperative pain. 4. Idiopathic pulmonary fibrosis. 5. Chronic obstructive pulmonary disease. 6. Acute hypoxemic respiratory failure, initially- resolved. 7. History of hypertension, currently normotensive. 8. Caqx-df-okrhokab mitral regurgitation. 9. Hyperlipidemia. 10. Hypothyroidism with a low TSH. 11. Anemia,- on baseline. 12. History of breast cancer with bilateral mastectomy. 13. Rheumatoid arthritis 14. Gastroesophageal reflux disease. 15. Dyslipidemia. 16. Osteopenia. 17. Rheumatoid arthritis. 18. Diverticulosis. DISCHARGE MEDICATIONS: See medication reconciliation list. DISCHARGE INSTRUCTIONS: The patient was transferred to [facility] for further rehabilitation. Continue to monitor pulmonary status at the [facility]. Wilile Mishra M.D. I have been assigned to dictate discharge summary on this account and I was not involved in the patient's management. Lety mcgillvaldo N.P. DR: WILBER JOB#: [id number] CC: LIZZETTE
== END 2016-07-25 15:51 | disposition short-term general hospital (02) | DRG 469 ==
LOC: 3E 14:47 → 2E 07-20 13:51 → 4W 07-22 14:38
PROC: 0SRR0JA Replacement of Right Hip Joint, Femoral Surface with Synthetic Substitute, Uncemented, Open Approach (ICD-10-PCS; principal; 2016-07-20 08:30)
DX: S72.011A Unspecified intracapsular fracture of right femur, initial encounter for closed fracture (principal); J96.01 Acute respiratory failure with hypoxia; I10 Essential (primary) hypertension; E78.5 Hyperlipidemia, unspecified; E03.9 Hypothyroidism, unspecified; K21.9 Gastro-esophageal reflux disease without esophagitis; F32.9 Major depressive disorder, single episode, unspecified; M06.9 Rheumatoid arthritis, unspecified; J84.112 Idiopathic pulmonary fibrosis; K57.90 Diverticulosis of intestine, part unspecified, without perforation or abscess without bleeding; J44.9 Chronic obstructive pulmonary disease, unspecified; E78.00 Pure hypercholesterolemia, unspecified; D64.9 Anemia, unspecified; I34.0 Nonrheumatic mitral (valve) insufficiency; Z90.13 Acquired absence of bilateral breasts and nipples; M85.80 Other specified disorders of bone density and structure, unspecified site; Z87.891 Personal history of nicotine dependence; Z86.73 Personal history of transient ischemic attack (TIA), and cerebral infarction without residual deficits; Z85.3 Personal history of malignant neoplasm of breast; W01.0XXA Fall on same level from slipping, tripping and stumbling without subsequent striking against object, initial encounter; Y92.89 Other specified places as the place of occurrence of the external cause; G31.84 Mild cognitive impairment of uncertain or unknown etiology
CPT/HCPCS: 36415; 71010; 72170; 80048; 80053; 82465; 83735; 83880; 84100; 84443; 84484; 85025; 85610; 85730; 93005; 93306; 94003; 94150; 94664; 94760; C9399; J2250; J2405

== ENCOUNTER 2018-07-26 21:00 | Inpatient (IN) | payer MEDICARE ==
[~2018-07-26] VITALS: Ht 157.5 cm; Wt 73.9 kg
[~2018-07-26 21:00] MED LIST: ACETAMINOPHEN325 M1 ORAL; AMBIEN5 MG ORAL; ASPIRIN500 MG ORAL; CELEBREX200 MG ORAL; CELEXA20 MG ORAL; CELLCEPT200 MG/1 M PO; CRESTOR10 M2 ORAL; CYMBALTA30 MG ORAL; DOCUSATE SODIU100 MG ORAL; IBUPROFEN600 MG ORAL; LEVOTHYROXINE150 MCG ORAL; LOVENOX10 M4 SUBQ; MIRALAX17 G2 ORAL; NORCO 5-325 TA1 EAC1 ORAL; OXYCONTIN20 MG ORAL; PROTONIX40 MG ORAL; VALIUM5 MG ORAL; VITAMIN D250000 UNI1 ORAL
[2018-07-26 22:15] VITALS: BP 156/86
--- NOTE | 2018-07-26 22:15 | NUR ---
ER Nurse Note: Pt brought in by ambulance from home c/o fall. Per , pt turned off the light and proceded to walk; fall was unwitnesed but heard a noise right after pt . Pt hs a hx of right hip surgery from [facility]. ERMD at pt side; will continue to motnior.
[2018-07-26 22:42] LABS: ANION GAP 12 mmol/L (5-15); BLOOD UREA NITROGEN 18 mg/dL (7-18); CALCIUM 10.2 MG/DL (8.5-10.1); CARBON DIOXIDE 23 MMOL/L (21-32); CHLORIDE 105 MMOL/L (98-107); CREATININE 1.1 MG/DL (0.55-1.30); POTASSIUM 4.4 MMOL/L (3.5-5.1); SODIUM 140 MMOL/L (136-145)
[2018-07-26 22:45] LABS: INR 0.9 (0.9-1.1)
[2018-07-26 22:56] LABS: ALANINE AMINOTRANSFERASE 20 U/L (12-78); ALBUMIN 3.7 G/DL (3.4-5.0); ALKALINE PHOSPHATASE 102 U/L (46-116); ASPARTATE AMINO TRANSFERASE 36 U/L (15-37); BILIRUBIN,TOTAL 0.6 MG/DL (0.2-1.0); CKMB 0.9 NG/ML (0.0-3.6); CREATINE KINASE 60 U/L (26-308)
[2018-07-26 22:58] LABS: BASOPHILS % (AUTO) 1.1 % (0.0-2.0); EOSINOPHILS % (AUTO) 1.7 % (0.0-3.0); HEMATOCRIT 35.5 % (37.0-47.0); HEMOGLOBIN 11.6 G/DL (12.0-16.0); LYMPHOCYTES % (AUTO) 14.5 % (20.0-45.0); MEAN CORPUSCULAR VOLUME 91 FL (80-99); NEUTROPHILS % (AUTO) 73.8 % (45.0-75.0); PLATELET COUNT 200 K/UL (150-450); RED BLOOD COUNT 3.89 M/UL (4.20-5.40); RED CELL DISTRIBUTION WIDTH 14.3 % (11.6-14.8)
--- NOTE | 2018-07-26 23:31 | Emergency Room Report ---
History of Present Illness General Chief Complaint: Multiple Trauma/Fall Source: Patient Present Illness HPI Patient presents with reports of fall she reports falling onto her right side She feels that it was likely mechanical Denies any lightheadedness denies any dizziness Denies any chest pain or shortness of breath Patient has significant discomfort upon arrival and was given fentanyl by paramedics Patient has pain with attempts of moving the right hip Allergies: Coded Allergies: MEPERIDINE (Verified Allergy, Severe, 07/19/16) Patient History Past Medical History: see triage record Pertinent Family History: none Last Menstrual Period: n/a Reviewed Nursing Documentation: PMH: Agreed; PSxH: Agreed Nursing Documentation-PMH Past Medical History: No History, Except For Hx Cardiac Problems: Yes - CVA Hx Hypertension: No Hx Diabetes: No Hx Cancer: Yes - breast cancer Hx Gastrointestinal Problems: No Hx Neurological Problems: Yes Hx Cerebrovascular Accident: No Hx Transient Ischemic Attacks: Yes - multpile mini stroke, early 2017 Hx Dementia: No Hx Alzheimer's Disease: No Hx Parkinson's Disease: No Hx Encephalitis: No Hx Dizziness: Yes - inner ear imbalance Hx Headaches: Yes - "comes and goes" Hx Weakness: Yes - uses walker for periodic dizziness Review of Systems All Other Systems: negative except mentioned in HPI Physical Exam Vital Signs Date Time Temp Pulse Resp B/P (MAP) Pulse Ox O2 Delivery O2 Flow Rate FiO2 07/26/18 20:57 98.2 74 16 190/86 98 Room Air Sp02 EP Interpretation: reviewed, normal General Appearance: mild distress - In pain Head: normocephalic, atraumatic Eyes: bilateral eye PERRL, bilateral eye EOMI ENT: hearing grossly normal, dry mucus membranes Neck: supple, thyroid normal Respiratory: lungs clear, no retraction, no accessory muscle use Cardiovascular #1: regular rate, rhythm Gastrointestinal: non tender, soft Musculoskeletal: other - Tender on palpation of the right hip area unable to lift the right leg Neurologic: alert, oriented x3 Skin: normal color, no rash Lymphatic: no adenopathy Medical Decision Making Diagnostic Impression: Primary Impression: Fall Additional Impressions: Hip pain Unable to ambulate ER Course Patient is a fairly complex patient with multiple differential to consideration including but not limited to cardiac cardiopulmonary and vascular emergencies Differentials of orthopedic and other bony abnormalities also entertained CT imaging does not reveal any obvious acute fracture however patient remains in discomfort is unable to bear weight patient also has multiple comorbidities and requires further inpatient care Labs Test 07/26/18 22:15 White Blood Count 10.0 K/UL (4.8-10.8) Red Blood Count 3.89 M/UL (4.20-5.40) Hemoglobin 11.6 G/DL (12.0-16.0) Hematocrit 35.5 % (37.0-47.0) Mean Corpuscular Volume 91 FL (80-99) Mean Corpuscular Hemoglobin 29.7 PG (27.0-31.0) Mean Corpuscular Hemoglobin Concent 32.6 G/DL (32.0-36.0) Red Cell Distribution Width 14.3 % (11.6-14.8) Platelet Count 200 K/UL (150-450) Mean Platelet Volume 6.3 FL (6.5-10.1) Neutrophils (%) (Auto) 73.8 % (45.0-75.0) Lymphocytes (%) (Auto) 14.5 % (20.0-45.0) Monocytes (%) (Auto) 9.0 % (1.0-10.0) Eosinophils (%) (Auto) 1.7 % (0.0-3.0) Basophils (%) (Auto) 1.1 % (0.0-2.0) Prothrombin Time 10.0 SEC (9.30-11.50) Prothromb Time International Ratio 0.9 (0.9-1.1) Activated Partial Thromboplast Time 23 SEC (23-33) Sodium Level 140 MMOL/L (136-145) Potassium Level 4.4 MMOL/L (3.5-5.1) Chloride Level 105 MMOL/L (98-107) Carbon Dioxide Level 23 MMOL/L (21-32) Anion Gap 12 mmol/L (5-15) Blood Urea Nitrogen 18 mg/dL (7-18) Creatinine 1.1 MG/DL (0.55-1.30) Estimat Glomerular Filtration Rate mL/min (>60) Glucose Level 109 MG/DL (74-106) Calcium Level 10.2 MG/DL (8.5-10.1) Total Bilirubin 0.6 MG/DL (0.2-1.0) Aspartate Amino Transf (AST/SGOT) 36 U/L (15-37) Alanine Aminotransferase (ALT/SGPT) 20 U/L (12-78) Alkaline Phosphatase 102 U/L (46-116) Total Creatine Kinase 60 U/L (26-308) Creatine Kinase MB 0.9 NG/ML (0.0-3.6) Creatine Kinase MB Relative Index 1.5 Troponin I 0.007 ng/mL (0.000-0.056) Total Protein 7.4 G/DL (6.4-8.2) Albumin 3.7 G/DL (3.4-5.0) Globulin 3.7 g/dL Albumin/Globulin Ratio 1.0 (1.0-2.7) Rhythm Strip Diag. Results EP Interpretation: yes Rate: 60 Rhythm: NSR, no PVC's, no ectopy Chest X-Ray Diagnostic Results Chest X-Ray Diagnostic Results : Chest X-Ray Ordered: Yes # of Views/Limited/Complete: 1 View Indication: Chest Pain EP Interpretation: Yes Interpretation: no consolidation, no effusion, no pneumothorax Impression: No acute disease - Raised right hemidiaphragm interstitial disease Electronically Signed by: Jamila Cornejo DO CT/MRI/US Diagnostic Results CT/MRI/US Diagnostic Results : Impression CT pelvic: No obvious acute fracture Last Vital Signs Date Time Temp Pulse Resp B/P (MAP) Pulse Ox O2 Delivery O2 Flow Rate FiO2 07/26/18 20:57 98.2 74 16 190/86 98 Room Air Status: improved Disposition: ADMITTED INPATIENT Condition: Serious Jamila Cornejo DO Jul 26, 2018 23:31
[2018-07-27] VITALS (7 sets, daily range): BP systolic 109–150; BP diastolic 55–78
[2018-07-27] MEDS ORDERED: fentaNYL 100 mcg/2 mL IV ONE
--- NOTE | 2018-07-27 00:50 | NUR ---
ER Nurse Note: Report given to LAKESHIA Beyer for continuity of care. Pt a&ox3, VSS, no signs of distress. Pt left with all belongings.
--- NOTE | 2018-07-27 01:00 | NUR ---
NURSE NOTES: Report received from ER nurse. Pt transferred to the unit via [facility]. A/O x3, pt does not remember what date it is today. C/O pain when changing position. At rest, pt was calm and cooperative. SR with court monitor. On 2L NC, saturating at 93%. T 98.0, P 81, R 24, BP 150/71. Bed in the lowest position. Side rails up x2. Call light within reach. Will continue to monitor.
[2018-07-27] MEDS ORDERED: Zolpidem 5mg tab ORAL PRN (02:30)
[2018-07-27] MEDS ORDERED: oxyCONTIN 20mg tab ORAL SCH ×2 (02:30→21:00)
[2018-07-27] MEDS ORDERED: Miralax 17gm pkt ORAL PRN (02:30)
[2018-07-27 05:47] LABS: BASOPHILS % (AUTO) 0.8 % (0.0-2.0); HEMATOCRIT 31.9 % (37.0-47.0); HEMOGLOBIN 10.3 G/DL (12.0-16.0); LYMPHOCYTES % (AUTO) 18.7 % (20.0-45.0); MEAN CORPUSCULAR VOLUME 93 FL (80-99); MONOCYTES % (AUTO) 9.2 % (1.0-10.0); NEUTROPHILS % (AUTO) 66.3 % (45.0-75.0); PLATELET COUNT 193 K/UL (150-450); RED BLOOD COUNT 3.44 M/UL (4.20-5.40); RED CELL DISTRIBUTION WIDTH 15.2 % (11.6-14.8); WHITE BLOOD COUNT 8.2 K/UL (4.8-10.8)
[2018-07-27 06:15] LABS: ALANINE AMINOTRANSFERASE 15 U/L (12-78); ALBUMIN 3.1 G/DL (3.4-5.0); ALKALINE PHOSPHATASE 84 U/L (46-116); ANION GAP 11 mmol/L (5-15); ASPARTATE AMINO TRANSFERASE 17 U/L (15-37); BILIRUBIN,TOTAL 0.5 MG/DL (0.2-1.0); BLOOD UREA NITROGEN 16 mg/dL (7-18); CALCIUM 9.5 MG/DL (8.5-10.1); CARBON DIOXIDE 22 MMOL/L (21-32); CHLORIDE 107 MMOL/L (98-107); PHOSPHORUS 2.8 MG/DL (2.5-4.9); POTASSIUM 3.6 MMOL/L (3.5-5.1); SODIUM 140 MMOL/L (136-145)
--- NOTE | 2018-07-27 07:25 | NUR ---
HAND-OFF: Report given to Aga Ho RN. No acute distress noted at this time.
--- NOTE | 2018-07-27 07:25 | NUR ---
NURSE NOTES: Report received from Joan ASHER. Pt is awake, alert, oriented x3, family member at bedside. On 2L of oxygen via nasal cannula, pt removed the nasal cannula stating (I don't use oxygen at home, and I feel fine without it). IV access on left hand #20G, saline lock, patent/intact. Skin is intact. Pt states she uses a cane at home from time to time, however was not using her can when she fell at home prior to admission. Per pt, she did not hit her head at home, just her hip/back. Bed in lowest position, two side rails up, brakes engaged, alarm on, call light within easy reach. Will continue to monitor pt and follow plan of care per MD orders and protocol. Addendum: 07/27/18 at 1207 by ANSLEY DURBIN RN Per pelvis CT, no acute injury/fracture noted at impact site when pt fell at home. Pulse oximetry displays 02 Sat fluctuating from 80's to lower 90's; pt is placed back on nasal cannula at 2L. Explained to pt the reason for the nasal cannula, pt verbalized understanding, currently at 95% with oxygen supplement.
[2018-07-27] MEDS: Enoxaparin 40mg Inj SUBQ SCH (08:52)
[2018-07-27] MEDS ORDERED: Mycophenolate 250mg cap ORAL SCH (09:00)
[2018-07-27] MEDS ORDERED: Docusate 100mg cap ORAL SCH (09:00)
[2018-07-27] MEDS ORDERED: celeBREX 200mg Cap **SURGERY PATIENTS ONLY ORAL SCH (09:00)
[2018-07-27] MEDS ORDERED: Citalopram Hydrobromide 10mg Tab ORAL SCH (09:00)
[2018-07-27] MEDS ORDERED: HYDROcodone/Acetamin 5/325 tab ORAL PRN ×2 (09:15→10:15)
--- NOTE | 2018-07-27 09:24 | Consultation ---
History of Present Illness General Date patient seen: Jul 27, 2018 Chief Complaint: Multiple Trauma/Fall Present Illness HPI 82 year old female with hx of breast ca, COPD, CAD, depression, hypothyroid, with recent hx of Right femur fracture and hip replacement at [facility] [place] presented to ER with CC of of repeated fall she reports falling onto her right side Patient had significant discomfort upon arrival and was given fentanyl by paramedics. she is admitted for intractable hip pain. Allergies: Coded Allergies: MEPERIDINE (Verified Allergy, Severe, 07/19/16) Medication History Scheduled Aspirin (Aspirin), 325 MG ORAL DAILY, (Reported) Celecoxib* (Celebrex*), 200 MG ORAL DAILY Citalopram Hydrobromide* (Celexa*), 20 MG ORAL DAILY, (Reported) Docusate Sodium* (Docusate Sodium*), 100 MG ORAL TWICE A DAY, (Reported) Duloxetine Hcl* (Cymbalta*), 30 MG ORAL DAILY, (Reported) Enoxaparin* (Lovenox*), 40 MG SUBQ DAILY Ergocalciferol (Vitamin D2)* (Vitamin D*), 50,000 UNIT ORAL ONCE A WEEK, ( Reported) Levothyroxine Sodium* (Levothyroxine Sodium*), 150 MCG ORAL DAILY, (Reported) Mycophenolate Mofetil (Cellcept), 400 MG PO BID, (Reported) Oxycodone Hcl Er* (Oxycontin*), 20 MG ORAL EVERY 12 HOURS Pantoprazole* (Protonix*), 40 MG ORAL DAILY Rosuvastatin Calcium* (Crestor*), 5 MG ORAL HS, (Reported) Scheduled PRN Acetaminophen* (Acetaminophen 325MG Tablet*), 650 MG ORAL Q4H PRN Hydrocodone Bit/Acetaminophen 5-325* ([place] 5-325 Tablet*), 1 TAB ORAL Q6HR PRN for For Pain, (Reported) Ibuprofen* (Motrin*), 600 MG ORAL Q8H PRN for For Pain, (Reported) Polyethylene Glycol 3350* (Miralax*), 17 GM ORAL HSPRN PRN Zolpidem Tartrate* (Ambien*), 5 MG ORAL HSPRN PRN Miscellaneous Medications Diazepam* (Valium*), 5 MG ORAL, (Reported) Patient History Healthcare decision maker Resuscitation status Full Code Advanced Directive on File No Past Medical/Surgical History Past Medical/Surgical History: (1) Cerebral vascular disease (2) HTN (hypertension) (3) Hypothyroidism (4) Rheumatoid arthritis (5) COPD (chronic obstructive pulmonary disease) (6) Pulmonary fibrosis Review of Systems Musculoskeletal: Reports: back pain, joint swelling Physical Exam General Appearance: WD/WN Lines, tubes and drains: peripheral HEENT: normocephalic, atraumatic Neck: non-tender, normal alignment Respiratory/Chest: decreased breath sounds Cardiovascular/Chest: normal peripheral pulses Abdomen: normal bowel sounds Genitourinary/Rectal: normal genital exam Extremities: normal range of motion Last 24 Hour Vital Signs Date Time Temp Pulse Resp B/P (MAP) Pulse Ox O2 Delivery O2 Flow Rate FiO2 07/27/18 08:00 97.9 71 24 142/62 (88) 89 07/27/18 04:00 68 07/27/18 04:00 Nasal Cannula 2.0 07/27/18 04:00 98.9 74 20 130/76 (94) 93 07/27/18 02:49 Nasal Cannula 2.0 07/27/18 01:04 73 07/27/18 01:00 98.0 81 22 150/71 (97) 93 07/27/18 00:50 97.7 74 16 136/78 98 Nasal Cannula 2.0 07/27/18 00:50 97.7 74 16 134/68 98 Nasal Cannula 2.0 07/26/18 22:15 68 16 07/26/18 22:15 97.8 78 16 156/86 98 Nasal Cannula 2.0 07/26/18 20:57 98.2 74 16 190/86 98 Room Air Intake and Output 07/26/18 07/27/18 18:59 06:59 Intake Total 560 ml Balance 560 ml Intake Oral 60 ml IV Total 500 ml Laboratory Tests Test 07/26/18 22:15 07/27/18 03:20 White Blood Count 10.0 K/UL (4.8-10.8) 8.2 K/UL (4.8-10.8) Red Blood Count 3.89 M/UL (4.20-5.40) L 3.44 M/UL (4.20-5.40) L Hemoglobin 11.6 G/DL (12.0-16.0) L 10.3 G/DL (12.0-16.0) L Hematocrit 35.5 % (37.0-47.0) L 31.9 % (37.0-47.0) L Mean Corpuscular Volume 91 FL (80-99) 93 FL (80-99) Mean Corpuscular Hemoglobin 29.7 PG (27.0-31.0) 29.8 PG (27.0-31.0) Mean Corpuscular Hemoglobin Concent 32.6 G/DL (32.0-36.0) 32.1 G/DL (32.0-36.0) Red Cell Distribution Width 14.3 % (11.6-14.8) 15.2 % (11.6-14.8) H Platelet Count 200 K/UL (150-450) 193 K/UL (150-450) Mean Platelet Volume 6.3 FL (6.5-10.1) L 6.1 FL (6.5-10.1) L Neutrophils (%) (Auto) 73.8 % (45.0-75.0) 66.3 % (45.0-75.0) Lymphocytes (%) (Auto) 14.5 % (20.0-45.0) L 18.7 % (20.0-45.0) L Monocytes (%) (Auto) 9.0 % (1.0-10.0) 9.2 % (1.0-10.0) Eosinophils (%) (Auto) 1.7 % (0.0-3.0) 5.0 % (0.0-3.0) H Basophils (%) (Auto) 1.1 % (0.0-2.0) 0.8 % (0.0-2.0) Prothrombin Time 10.0 SEC (9.30-11.50) Prothromb Time International Ratio 0.9 (0.9-1.1) Activated Partial Thromboplast Time 23 SEC (23-33) Sodium Level 140 MMOL/L (136-145) 140 MMOL/L (136-145) Potassium Level 4.4 MMOL/L (3.5-5.1) 3.6 MMOL/L (3.5-5.1) Chloride Level 105 MMOL/L (98-107) 107 MMOL/L (98-107) Carbon Dioxide Level 23 MMOL/L (21-32) 22 MMOL/L (21-32) Anion Gap 12 mmol/L (5-15) 11 mmol/L (5-15) Blood Urea Nitrogen 18 mg/dL (7-18) 16 mg/dL (7-18) Creatinine 1.1 MG/DL (0.55-1.30) 1.0 MG/DL (0.55-1.30) Estimat Glomerular Filtration Rate mL/min (>60) mL/min (>60) Glucose Level 109 MG/DL (74-106) H 97 MG/DL (74-106) Calcium Level 10.2 MG/DL (8.5-10.1) H 9.5 MG/DL (8.5-10.1) Total Bilirubin 0.6 MG/DL (0.2-1.0) 0.5 MG/DL (0.2-1.0) Aspartate Amino Transf (AST/SGOT) 36 U/L (15-37) 17 U/L (15-37) Alanine Aminotransferase (ALT/SGPT) 20 U/L (12-78) 15 U/L (12-78) Alkaline Phosphatase 102 U/L (46-116) 84 U/L (46-116) Total Creatine Kinase 60 U/L (26-308) Creatine Kinase MB 0.9 NG/ML (0.0-3.6) Creatine Kinase MB Relative Index 1.5 Troponin I 0.007 ng/mL (0.000-0.056) Total Protein 7.4 G/DL (6.4-8.2) 6.3 G/DL (6.4-8.2) L Albumin 3.7 G/DL (3.4-5.0) 3.1 G/DL (3.4-5.0) L Globulin 3.7 g/dL 3.2 g/dL Albumin/Globulin Ratio 1.0 (1.0-2.7) 1.0 (1.0-2.7) Phosphorus Level 2.8 MG/DL (2.5-4.9) Magnesium Level 1.9 MG/DL (1.8-2.4) Height (Feet): 5 Height (Inches): 2.00 Weight (Pounds): 158 Medications Current Medications Medications (Trade) Dose Ordered Sig/Steve Route PRN Reason Start Time Stop Time Status Last Admin Dose Admin Acetaminophen (Tylenol) 650 mg Q4H PRN ORAL Mild Pain/Temp > 100.5 07/27/18 02:30 08/26/18 02:29 Acetaminophen/ Hydrocodone Bitart ([place] 5/325) 1 tab Q6HR PRN ORAL For Pain 07/27/18 09:15 08/03/18 09:14 UNV Citalopram Hydrobromide (celeXA) 20 mg DAILY ORAL 07/27/18 09:00 08/26/18 08:59 07/27/18 08:48 Citalopram Hydrobromide (celeXA) 20 mg DAILY ORAL 07/28/18 09:00 08/27/18 08:59 UNV Diazepam (Valium) 5 mg BEDTIME ORAL 07/27/18 21:00 08/03/18 20:59 UNV Diazepam (Valium) 5 mg Q6H PRN ORAL For Anxiety 07/27/18 02:30 08/03/18 02:29 Docusate Sodium (Colace) 100 mg TWICE A DAY ORAL 07/27/18 09:00 08/26/18 08:59 07/27/18 08:48 Docusate Sodium (Colace) 100 mg TWICE A DAY ORAL 07/27/18 18:00 08/26/18 17:59 UNV Duloxetine HCl (Cymbalta) 30 mg DAILY ORAL 07/28/18 09:00 08/27/18 08:59 UNV Enoxaparin Sodium (Lovenox) 40 mg DAILY SUBQ 07/27/18 09:00 08/26/18 08:59 07/27/18 08:52 Ergocalciferol (Drisdol) 50,000 intlu QWEEK ORAL 07/27/18 09:00 08/26/18 08:59 UNV Ibuprofen (Motrin) 600 mg Q8H PRN ORAL For Pain 07/27/18 02:30 08/26/18 02:29 Levothyroxine Sodium (Synthroid) 150 mcg DAILY ORAL 07/28/18 09:00 08/27/18 08:59 UNV Levothyroxine Sodium (Synthroid) 150 mcg DAILY@0630 ORAL 07/27/18 06:30 08/26/18 06:29 07/27/18 06:21 Mycophenolate Mofetil (Cellcept) 400 mg TWICE A DAY ORAL 07/27/18 09:00 08/26/18 08:59 UNV Oxycodone HCl (OxyCONTIN) 20 mg EVERY 12 HOURS ORAL 07/27/18 21:00 08/03/18 20:59 UNV Oxycodone HCl (OxyCONTIN) 20 mg PRN ORAL 07/27/18 02:30 08/03/18 02:29 UNV Pantoprazole (Protonix) 40 mg DAILY ORAL 07/27/18 09:00 08/26/18 08:59 07/27/18 08:48 Polyethylene Glycol (Miralax) 17 gm HSPRN PRN ORAL Constipation 07/27/18 02:30 08/26/18 02:29 Zolpidem Tartrate (Ambien) 5 mg HSPRN PRN ORAL Insomnia 07/27/18 02:30 08/03/18 02:29 Assessment/Plan Problem List: (1) Intractable pain ICD Codes: R52 - Pain, unspecified SNOMED: 71594659 (2) Unable to ambulate ICD Codes: R26.2 - Difficulty in walking, not elsewhere classified SNOMED: 698465568, 860789698 (3) Cerebral vascular disease ICD Codes: I67.9 - Cerebrovascular disease, unspecified SNOMED: 05921687 (4) HTN (hypertension) ICD Codes: I10 - Essential (primary) hypertension SNOMED: 55973912 (5) Rheumatoid arthritis ICD Codes: M06.9 - Rheumatoid arthritis, unspecified SNOMED: 39855269 (6) Hypothyroidism ICD Codes: E03.9 - Hypothyroidism, unspecified SNOMED: 24523969 (7) Breast cancer ICD Codes: C50.919 - Malignant neoplasm of unspecified site of unspecified female breast SNOMED: 684449214 (8) Depression, major ICD Codes: F32.9 - Major depressive disorder, single episode, unspecified SNOMED: 46194308, 067041589 Assessment/Plan check CT of pelvis morphine prn pt/ot symptomatic treatment pain management. dvt prophylaxis. Amanda Castañeda MD Jul 27, 2018 09:24
--- NOTE | 2018-07-27 10:06 | Diagnostic Imaging Report ---
Indication: Right hip pain. Acute injury Technique: Continuous helical transaxial imaging of the pelvis was obtained from the iliac crest to the pubic symphysis. Coronal 2-D reformats were also obtained. Study obtained in a Siemens sensation [address] Intravenous non-ionic contrast was administered. Total Dose length Product (DLP): 424.[address] Dose Index Volume (CTDIvol): 11.91 mGy Comparison: None Findings: There is no acute fracture identified. There is a bipolar right hemiarthroplasty demonstrated. The acetabular cup portion of the prosthesis shows a very low angle of inclination, probably about 10 degrees. The femoral stem component of the prosthesis is unremarkable. There is no evidence of abnormal interface lucencies. There is some streak artifact present. Facet arthropathy noted at L5-S1. Degenerative disc disease with vacuum phenomenon narrowing noted at L4-5 and L5-S1. Diverticula noted within the colon. Arterial calcifications are present. IMPRESSION: No acute fracture identified. No acute injury appreciated. Right hip bipolar hemiarthroplasty noted. Relatively small angle of inclination noted. Diverticulosis of the colon. Degenerative lower lumbar spondylosis The CT scanner at [facility] is accredited by the [employer] and the scans are performed using dose optimization techniques as appropriate to a performed exam including Automatic Exposure control.
[2018-07-27] MEDS: Morphine Sulfate 2mg/ml Inj(IV/IM USE ONLY) IVP PRN (10:07)
[2018-07-27] MEDS: DULoxetine 30mg cap ORAL SCH (10:19)
--- NOTE | 2018-07-27 12:13 | NUR ---
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 DEHYDRATION . INTRACTABLE PAIN VS: BP 190/86, P 78, T 97.8, RR 16, SpO2 98 on 2.0L NC RBC 3.89, Hgb 11.6, Hct 35.5, Ca 10.2, PELVIS CT IMPRESSION: Right hip bipolar hemiarthroplasty noted. Relatively small angle of inclination noted. 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 Osteoporosis IS:NS x1L IV FENTANYL CITRATE 50mcg IV ADMITTED TO SDU DC PLAN RETURN HOME
--- NOTE | 2018-07-27 12:35 | Diagnostic Imaging Report ---
Indication: Chest Comparison: 07/21/1969 A single view chest radiograph was obtained. Findings: Interstitial opacities are mildly prominent within the lungs. The heart is normal in size. There is a metallic radiopaque structure projected over the right atrium. This may be an implanted structure or possibly overlying the patient. Correlate clinically. Bones are osteopenic. 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 Osteoporosis
--- NOTE | 2018-07-27 15:36 | Cardiology Report ---
APPROVED REPORT EKG Measurement Heart [id number] Normal sinus rhythm Cannot rule out Anterior infarct, age undetermined Abnormal ECG
[2018-07-27] MEDS ORDERED: TRAZODONE HCL50 MG ORAL (15:52)
[2018-07-27] MEDS ORDERED: ASPIRIN81 M3 PO (15:52)
[2018-07-27] MEDS ORDERED: TRAMADOL HCL50 MG ORAL (15:52)
[2018-07-27] MEDS ORDERED: DIAZEPAM5 MG ORAL (15:52)
[2018-07-27] MEDS ORDERED: MYRBETRIQ50 MG PO (15:52)
[2018-07-27] MEDS: Docusate 100mg cap ORAL SCH (17:56)
--- NOTE | 2018-07-27 19:28 | History & Physical ---
History and Physical History & Physicial DATE OF ADMISSION: 07/26/2018 CHIEF COMPLAINT: Status post fall with lower back pain. 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 The patient has a history of cerebral infarction in the right occipital area, chronic cough, depression, diverticulosis, GERD, hypertension, dyslipidemia, hypothyroidism, idiopathic pulmonary fibrosis, history of mild cognitive impairment, osteopenia, pyelonephritis, and rheumatoid arthritis. The patient has a history of appendectomy, tonsil and adenoidectomy, modified radical mastectomy of the left side in 1983, left meniscus knee arthroplasty, bladder suspension, right VATS thoracotomy and right simple mastectomy on 04/17/2009. History of fall with right hip subcapsular femoral fracture status post ORIF at [facility] by Dr. Darian Muñoz in July 2016. Patient presented to the hospital at this time complaining about fall with lower back pain, unable to ambulate severe intractable pain. OT after initial evaluation in the emergency patient was admitted to the hospital with mechanical fall with intractable back pain unable to ambulate, dehydration. Patient denies any fever, chills, nausea, vomiting, chest pain or shortness of breath. PAST MEDICAL HISTORY/PAST SURGICAL HISTORY: As above: Tractable pain 1. History of breast cancer, status post bilateral mastectomy. 2. Right occipital cerebral infarction. 3. Depression. 4. Diverticulosis. 5. Gastroesophageal reflux disease. 6. Hypertension. 7. Dyslipidemia. 8. Hypothyroidism. 9. Idiopathic pulmonary fibrosis. 10. Mild cognitive impairment. 11. Osteopenia. 12. Pyelonephritis. 13. Rheumatoid arthritis. 14. History of fall with the right hip subcapsular fracture in July 2016 status [address]IF at [facility]. ALLERGIES: Demerol with anaphylaxis, opioid meperidine and oxycodone with anaphylaxis. MEDICATIONS: Significant for 1. [place] 5/325 mg one tablet q.6 hours p.r.n. 2. Cymbalta 30 mg daily. 3. Levothyroxine 150 mcg daily. 4. Motrin 600 mg q.8 hours p.r.n. 5. Docusate 100 mg twice a day. 6. The patient on vitamin D 50,000 IU weekly. 7. Valium 5 mg p.r.n. for anxiety and impaired sleep. 8. Crestor 5 mg p.o. at bedtime. 9. CellCept 200 mg two tablets b.i.d. 10. Celexa 20 mg daily. 11. Aspirin 325 mg daily. SOCIAL HISTORY: She is . She has two children. She is retired. She is a former smoker, 25 years pack smoker quit in May 1975. Socially drinks. No substance abuse. FAMILY HISTORY: Noncontributory. REVIEW OF SYSTEMS: Mostly as above. Denies any dysuria, frequency, hematuria or hematochezia. Denies any hemoptysis or hematemesis. Complained about the right leg pain mostly after putting pressure on it. Denies any loss of conscious. Denies any double vision. Denies any suicidal or homicidal ideation. PHYSICAL EXAMINATION: Last 24 Hour Vital Signs Date Time Temp Pulse Resp B/P (MAP) Pulse Ox O2 Delivery O2 Flow Rate FiO2 07/27/18 16:00 Nasal Cannula 2.0 07/27/18 16:00 75 07/27/18 16:00 98.6 67 20 145/69 (94) 85 07/27/18 15:25 97.7 07/27/18 12:00 80 07/27/18 12:00 97.7 70 22 136/58 (84) 94 07/27/18 12:00 Nasal Cannula 2.0 07/27/18 10:37 97.9 07/27/18 08:00 78 07/27/18 08:00 97.9 71 24 142/62 (88) 89 07/27/18 08:00 Nasal Cannula 2.0 07/27/18 04:00 68 07/27/18 04:00 Nasal Cannula 2.0 07/27/18 04:00 98.9 74 20 130/76 (94) 93 07/27/18 02:49 Nasal Cannula 2.0 07/27/18 01:04 73 07/27/18 01:00 98.0 81 22 150/71 (97) 93 07/27/18 00:50 97.7 74 16 136/78 98 Nasal Cannula 2.0 07/27/18 00:50 97.7 74 16 134/68 98 Nasal Cannula 2.0 07/26/18 22:15 68 16 07/26/18 22:15 97.8 78 16 156/86 98 Nasal Cannula 2.0 07/26/18 20:57 98.2 74 16 190/86 98 Room Air GENERAL: The patient is awake, responsive, no acute distress. HEENT: Pupils are equal and reactive to light. Extraocular movement intact. NECK: Supple. No JVD. CHEST WALL: Bilateral mastectomy scar was noted. LUNGS: Good air entry. No wheezing or rales. Chest wall has a bilateral breast mastectomy site, was noted well healed. HEART: S1, S2. Regular rhythm. No gallops. ABDOMEN: Soft, nondistended, and nontender. Positive bowel sounds. Mild obesity. BACK: Paraspinal tenderness on the lumbar spine area. EXTREMITIES: No cyanosis, clubbing, or edema. NEUROLOGIC: Cranial nerves II through XII are grossly intact. The patient moving all extremities , unable to assess gait due to the severe pain. LABORATORY DATA: Labs Test 07/26/18 22:15 07/27/18 03:20 White Blood Count 10.0 K/UL (4.8-10.8) 8.2 K/UL (4.8-10.8) Red Blood Count 3.89 M/UL (4.20-5.40) 3.44 M/UL (4.20-5.40) Hemoglobin 11.6 G/DL (12.0-16.0) 10.3 G/DL (12.0-16.0) Hematocrit 35.5 % (37.0-47.0) 31.9 % (37.0-47.0) Mean Corpuscular Volume 91 FL (80-99) 93 FL (80-99) Mean Corpuscular Hemoglobin 29.7 PG (27.0-31.0) 29.8 PG (27.0-31.0) Mean Corpuscular Hemoglobin Concent 32.6 G/DL (32.0-36.0) 32.1 G/DL (32.0-36.0) Red Cell Distribution Width 14.3 % (11.6-14.8) 15.2 % (11.6-14.8) Platelet Count 200 K/UL (150-450) 193 K/UL (150-450) Mean Platelet Volume 6.3 FL (6.5-10.1) 6.1 FL (6.5-10.1) Neutrophils (%) (Auto) 73.8 % (45.0-75.0) 66.3 % (45.0-75.0) Lymphocytes (%) (Auto) 14.5 % (20.0-45.0) 18.7 % (20.0-45.0) Monocytes (%) (Auto) 9.0 % (1.0-10.0) 9.2 % (1.0-10.0) Eosinophils (%) (Auto) 1.7 % (0.0-3.0) 5.0 % (0.0-3.0) Basophils (%) (Auto) 1.1 % (0.0-2.0) 0.8 % (0.0-2.0) Prothrombin Time 10.0 SEC (9.30-11.50) Prothromb Time International Ratio 0.9 (0.9-1.1) Activated Partial Thromboplast Time 23 SEC (23-33) Sodium Level 140 MMOL/L (136-145) 140 MMOL/L (136-145) Potassium Level 4.4 MMOL/L (3.5-5.1) 3.6 MMOL/L (3.5-5.1) Chloride Level 105 MMOL/L (98-107) 107 MMOL/L (98-107) Carbon Dioxide Level 23 MMOL/L (21-32) 22 MMOL/L (21-32) Anion Gap 12 mmol/L (5-15) 11 mmol/L (5-15) Blood Urea Nitrogen 18 mg/dL (7-18) 16 mg/dL (7-18) Creatinine 1.1 MG/DL (0.55-1.30) 1.0 MG/DL (0.55-1.30) Estimat Glomerular Filtration Rate mL/min (>60) mL/min (>60) Glucose Level 109 MG/DL (74-106) 97 MG/DL (74-106) Calcium Level 10.2 MG/DL (8.5-10.1) 9.5 MG/DL (8.5-10.1) Total Bilirubin 0.6 MG/DL (0.2-1.0) 0.5 MG/DL (0.2-1.0) Aspartate Amino Transf (AST/SGOT) 36 U/L (15-37) 17 U/L (15-37) Alanine Aminotransferase (ALT/SGPT) 20 U/L (12-78) 15 U/L (12-78) Alkaline Phosphatase 102 U/L (46-116) 84 U/L (46-116) Total Creatine Kinase 60 U/L (26-308) Creatine Kinase MB 0.9 NG/ML (0.0-3.6) Creatine Kinase MB Relative Index 1.5 Troponin I 0.007 ng/mL (0.000-0.056) Total Protein 7.4 G/DL (6.4-8.2) 6.3 G/DL (6.4-8.2) Albumin 3.7 G/DL (3.4-5.0) 3.1 G/DL (3.4-5.0) Globulin 3.7 g/dL 3.2 g/dL Albumin/Globulin Ratio 1.0 (1.0-2.7) 1.0 (1.0-2.7) Phosphorus Level 2.8 MG/DL (2.5-4.9) Magnesium Level 1.9 MG/DL (1.8-2.4) CT of the pelvic examination: IMPRESSION: No acute fracture identified. No acute injury appreciated. Right hip bipolar hemiarthroplasty noted. Relatively small angle of inclination noted. Diverticulosis of the colon. Degenerative lower lumbar spondylosis. 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 Osteoporosis. ASSESSMENT: 1. Status post trip and fall with lower back pain possible due to the lumbar spine injury such as fracture or contusion. 2. History of right occipital infarction. 3. History of breast cancer, status post bilateral mastectomy. 4. Depression. 5. Diverticulosis. 6. Gastroesophageal reflux disease. 7. Hypertension. 8. Dyslipidemia. 9. Hypothyroidism. 10. Idiopathic pulmonary fibrosis. 11. Mild cognitive impairment. 12. Osteopenia. 13. Rheumatoid arthritis. 14. History of pyelonephritis in the past. 15. History of fall with the right hip subcapsular fracture in July 2016 status post ORIF. PLAN: Admit the patient to [facility]. We will follow up laboratory and discuss with extensively at bedside and explained that care will be provided, DVT prophylaxis and heparin subcutaneous. CT scan of the lumbar spine, pain control. CODE STATUS: Full Code. Willie Mishra M.D. Willie Mishra MD Jul 27, 2018 19:28
--- NOTE | 2018-07-27 19:30 | NUR ---
NURSE NOTES:Received pt awake and alert , oriented x3 [place] x4, requesting to go to the bathroom, explained to pt the danger of fall, bedpan offered but refused, incontinent of stool in her diaper at this time, cleaned up. SR on the monitor bp stable afebrile.. Left forearm g 24 heplock patent and wrapped with gauze,, siderails up x3, bed at the lowest, call light within reach bed alarms on. placed on fall precaution.
--- NOTE | 2018-07-27 19:33 | NUR ---
HAND-OFF: Report given to Pebbles ASHER.
--- NOTE | 2018-07-27 20:30 | NUR ---
NURSE NOTES:Pt went down for CT of the spine via bed.
--- NOTE | 2018-07-27 20:50 | NUR ---
NURSE NOTES:Pt back to the room , no discomfort noted.
[2018-07-27] MEDS ORDERED: oxyCONTIN 10mg tab ORAL ONE (20:57)
--- NOTE | 2018-07-27 21:00 | NUR ---
NURSE NOTES:Midication oxycontin due to be given was pulled out from pyxis and 2- 10mg took out out from pyxis(available ) and scanned but computer cant scanned (computer read unfamiliar barcode) notify Thomas Pharmacist and he verbalized to return the 2- 10mg because she is going to fix it. meds was returned and witnessed by LAKESHIA Marquez. Then Pharmacist Thomas caled and verbalized to pull out again the 2- 10mg tabs oxycontin, which was done and scanned but computer unable to scanned(computer read unfamiliar code) Called again and notify thomas that still not working , then thomas instructed again to return the meds and was witnessed by LAKESHIA Marquez. and thomas instructed to pull out again the 2- 10mg oxycontin. By this time computer was able to scanned the medications. Discussed and talk to thomas pharmacist that if theres any issues in the future about pulling out and returning the oxycontin she will be the witness and stand behind [facility] its all her instruction and advice. She verbalized yes that she is the witness. Notify nurse discharge plannerLAKESHIA Horton.
[2018-07-27] MEDS: oxyCONTIN 10mg tab ORAL SCH (21:46)
--- NOTE | 2018-07-27 23:00 | NUR ---
NURSE NOTES:Sleeping well with VSS
[2018-07-28] VITALS: BP 123/48
[2018-07-28 04:00] VITALS: BP 116/69
--- NOTE | 2018-07-28 04:00 | NUR ---
NURSE NOTES:Complete bath with bed changed done.
[2018-07-28 05:13] LABS: BASOPHILS % (AUTO) 0.8 % (0.0-2.0); EOSINOPHILS % (AUTO) 5.7 % (0.0-3.0); HEMATOCRIT 31.2 % (37.0-47.0); HEMOGLOBIN 10.5 G/DL (12.0-16.0); MEAN CORPUSCULAR VOLUME 92 FL (80-99); MONOCYTES % (AUTO) 10.6 % (1.0-10.0); NEUTROPHILS % (AUTO) 59.9 % (45.0-75.0); PLATELET COUNT 199 K/UL (150-450); RED CELL DISTRIBUTION WIDTH 15.1 % (11.6-14.8); WHITE BLOOD COUNT 8.6 K/UL (4.8-10.8)
[2018-07-28 05:24] LABS: ALANINE AMINOTRANSFERASE 15 U/L (12-78); ALBUMIN 3.2 G/DL (3.4-5.0); ALKALINE PHOSPHATASE 89 U/L (46-116); ANION GAP 9 mmol/L (5-15); ASPARTATE AMINO TRANSFERASE 14 U/L (15-37); BILIRUBIN,TOTAL 0.4 MG/DL (0.2-1.0); BLOOD UREA NITROGEN 22 mg/dL (7-18); CALCIUM 9.7 MG/DL (8.5-10.1); CARBON DIOXIDE 23 MMOL/L (21-32); CHLORIDE 108 MMOL/L (98-107); CREATININE 1.3 MG/DL (0.55-1.30); PHOSPHORUS 4.3 MG/DL (2.5-4.9); POTASSIUM 4.2 MMOL/L (3.5-5.1); SODIUM 140 MMOL/L (136-145)
--- NOTE | 2018-07-28 06:00 | NUR ---
NURSE NOTES:No discomfort noted. vss
--- NOTE | 2018-07-28 07:05 | NUR ---
NURSE NOTES: RECEIVED PATIENT FROM Mateo MOODY RN. PATIENT IS LYING IN BED, AWAKE, ALERT AND ORIENTED. HOOKED TO POULTRY CUTTER. ON 3 L NC. NO SIGNS OF DISTRESS. IV ON L FA G24, SL. CALL LIGHT WITHIN REACH. BED AT LOWEST POSITION. SIDE RAILS UP. WILL CONTINUE TO MONITOR.
--- NOTE | 2018-07-28 07:45 | NUR ---
HAND-OFF: Report given to Estephania ASHER.
[2018-07-28 08:00] VITALS: BP 118/63
[2018-07-28] MEDS: DULoxetine 30mg cap ORAL SCH (08:02)
[2018-07-28] MEDS: Docusate 100mg cap ORAL SCH ×2 (08:02→18:00)
[2018-07-28] MEDS: oxyCONTIN 10mg tab ORAL SCH ×2 (08:04→21:00)
[2018-07-28] MEDS: Enoxaparin 40mg Inj SUBQ SCH (08:06)
--- NOTE | 2018-07-28 08:09 | Diagnostic Imaging Report ---
Indications: Reason For Exam: PAIN Technique: Spiral acquisitions obtained through the lumbar spine. Multiplanar reconstructions were generated. No IV contrast utilized. Total dose length product 550.98 mGycm. CTDIvol(s) 16.41 mGy. Dose reduction achieved using automated exposure control Comparison: none Findings: There is an anterior wedge compression fracture deformity of the T11 vertebral body. This results in approximately 40% height loss. The posterior wall appears to be intact. The remaining vertebral body heights are preserved. There is severe degenerative disc narrowing at L5-S1 with vacuum formation. The remaining disc spaces are preserved, although there is slight vacuum formation at T10-11 and T11-12 without disc narrowing. Bony alignment is normal. No acute fractures. No dislocations. At L2-3, there is circumferential annular bulge. This, in combination with ligamentum flavum hypertrophy, results in borderline narrowing of the spinal canal. The neural foramina are preserved. At L3-4, there is mild circumferential annular bulge. There is borderline narrowing of the spinal canal at this level, due to the disc bulge and ligament flavum hypertrophy. The neural foramina are preserved. At L4-5, there is circumferential annular bulge. This, in combination with ligament flavum hypertrophy, results in borderline narrowing of the spinal canal. The neural foramina are preserved. At the remaining levels, no significant disc bulge or protrusion, spinal stenosis, or neural foraminal stenosis. Fairly extensive interstitial opacities are seen at the lung bases. Colonic diverticula are incidentally noted. Impression: T11 vertebral body compression fracture. Age indeterminate. Consider further evaluation with MRI if this is considered clinically relevant. Degenerative changes, as detailed on a level by level basis Basilar pulmonary parenchymal interstitial disease, nonspecific, could indicate pneumonia or interstitial fibrosis, among other possibilities Incidental finding of colonic diverticulosis The CT scanner at [facility] [place] is accredited by the [employer] and the scans are performed using protocols designed to limit radiation exposure to as low as reasonably achievable to attain images of sufficient resolution adequate for diagnostic evaluation.
[2018-07-28] MEDS ORDERED: oxyCONTIN 10mg tab ORAL SCH (09:00)
[2018-07-28] MEDS: Citalopram Hydrobromide 10mg Tab ORAL SCH (09:05)
--- NOTE | 2018-07-28 10:11 | Pulmonology Progress Note ---
Assessment/Plan Problems: (1) T11 vertebral fracture (2) COPD (chronic obstructive pulmonary disease) (3) Intractable pain (4) Unable to ambulate (5) Rheumatoid arthritis (6) Hypothyroidism (7) Breast cancer (8) HTN (hypertension) (9) Cerebral vascular disease Assessment/Plan Ct of spine reviewed, T11 fracture, radiology recommended MRI pain control respiratory treatment titrate fio2 to sat of 92% dvt prophylaxis Subjective ROS Limited/Unobtainable: No Constitutional: Reports: no symptoms HEENT: Repors: no symptoms Allergies: Coded Allergies: MEPERIDINE (Verified Allergy, Severe, 07/19/16) Objective Last 24 Hour Vital Signs Date Time Temp Pulse Resp B/P (MAP) Pulse Ox O2 Delivery O2 Flow Rate FiO2 07/28/18 08:00 97.7 72 20 118/63 (81) 99 07/28/18 08:00 Nasal Cannula 3.0 07/28/18 07:44 75 07/28/18 04:00 Nasal Cannula 2.0 07/28/18 04:00 97.8 70 20 116/69 (85) 97 07/28/18 03:47 70 07/28/18 00:00 98.0 68 20 123/48 (73) 93 07/28/18 00:00 69 07/28/18 00:00 Nasal Cannula 2.0 07/27/18 20:00 Nasal Cannula 2.0 07/27/18 20:00 98.2 74 20 109/55 (73) 85 07/27/18 16:00 Nasal Cannula 2.0 07/27/18 16:00 75 07/27/18 16:00 98.6 67 20 145/69 (94) 85 07/27/18 15:25 97.7 07/27/18 12:00 80 07/27/18 12:00 97.7 70 22 136/58 (84) 94 07/27/18 12:00 Nasal Cannula 2.0 07/27/18 10:37 97.9 Intake and Output 07/27/18 07/28/18 18:59 06:59 Intake Total 120 ml Balance 120 ml Intake Oral 120 ml # Voids 3 5 General Appearance: WD/WN HEENT: normocephalic, atraumatic Respiratory/Chest: chest wall non-tender, normal breath sounds Breasts: no masses Cardiovascular: normal rate Abdomen: normal bowel sounds, no organomegaly Genitourinary: normal external genitalia Extremities: no clubbing Skin: no rash Laboratory Tests 07/28/18 03:40: White Blood Count 8.6, Red Blood Count 3.40L, Hemoglobin 10.5L, Hematocrit 31.2L , Mean Corpuscular Volume 92, Mean Corpuscular Hemoglobin 30.8, Mean Corpuscular Hemoglobin Concent 33.7, Red Cell Distribution Width 15.1H, Platelet Count 199, Mean Platelet Volume 6.7, Neutrophils (%) (Auto) 59.9, Lymphocytes (%) (Auto) 23.0, Monocytes (%) (Auto) 10.6H, Eosinophils (%) (Auto) 5.7H, Basophils (%) (Auto) 0.8, Sodium Level 140, Potassium Level 4.2, Chloride Level 108H, Carbon Dioxide Level 23, Anion Gap 9, Blood Urea Nitrogen 22H, Creatinine 1.3, Estimat Glomerular Filtration Rate , Glucose Level 120H, Calcium Level 9.7, Phosphorus Level 4.3, Magnesium Level 2.2, Total Bilirubin 0.4, Aspartate Amino Transf (AST/SGOT) 14L, Alanine Aminotransferase (ALT/SGPT) 15, Alkaline Phosphatase 89, Total Protein 6.6, Albumin 3.2L, Globulin 3.3 Current Medications Medications (Trade) Dose Ordered Sig/Steve Route PRN Reason Start Time Stop Time Status Last Admin Dose Admin Acetaminophen (Tylenol) 650 mg Q4H PRN ORAL Mild Pain/Temp > 100.5 07/27/18 02:30 08/26/18 02:29 Acetaminophen/ Hydrocodone Bitart ([place] 5/325) 1 tab Q6H PRN ORAL Moderate Breakthru Pain (4-6) 07/27/18 10:15 08/03/18 09:14 Citalopram Hydrobromide (celeXA) 20 mg DAILY ORAL 07/28/18 09:00 08/27/18 08:59 07/28/18 09:05 Diazepam (Valium) 5 mg BEDTIME ORAL 07/27/18 21:00 08/03/18 20:59 07/27/18 21:08 Diazepam (Valium) 5 mg Q6H PRN ORAL For Anxiety 07/27/18 02:30 08/03/18 02:29 Docusate Sodium (Colace) 100 mg TWICE A DAY ORAL 3/19/19 18:00 08/26/18 17:59 07/28/18 08:02 Duloxetine HCl (Cymbalta) 30 mg DAILY ORAL 07/27/18 10:00 08/26/18 09:59 07/28/18 08:02 Enoxaparin Sodium (Lovenox) 40 mg DAILY SUBQ 07/27/18 09:00 08/26/18 08:59 07/28/18 08:06 Ergocalciferol (Drisdol) 50,000 intlu QWEEK ORAL 08/02/18 09:00 09/01/18 08:59 Ibuprofen (Motrin) 600 mg Q8H PRN ORAL For Pain 07/27/18 02:30 08/26/18 02:29 07/27/18 14:55 Levothyroxine Sodium (Synthroid) 150 mcg ACBREAKFAST ORAL 07/28/18 06:30 08/27/18 06:29 07/28/18 06:16 Morphine Sulfate (Morphine Sulfate) 2 mg Q4H PRN IVP Severe Breakthru Pain (7-10) 07/27/18 10:00 08/03/18 09:59 07/27/18 10:07 Oxycodone HCl (OxyCONTIN) 20 mg EVERY 12 HOURS ORAL 07/27/18 21:21 08/03/18 21:20 07/28/18 08:04 Pantoprazole (Protonix) 40 mg DAILY ORAL 07/27/18 09:00 08/26/18 08:59 07/28/18 08:02 Polyethylene Glycol (Miralax) 17 gm HSPRN PRN ORAL Constipation 07/27/18 02:30 08/26/18 02:29 Zolpidem Tartrate (Ambien) 5 mg HSPRN PRN ORAL Insomnia 07/27/18 02:30 08/03/18 02:29 Amanda Castañeda MD Jul 28, 2018 10:11
--- NOTE | 2018-07-28 11:50 | NUR ---
HAND-OFF: Report given to Marcie Serrano RN.
[2018-07-28 12:00] VITALS: BP 133/78
--- NOTE | 2018-07-28 14:56 | NUR ---
RADIOLOGY DEPT., CHEST X-RAY DONE.-P.DYE
--- NOTE | 2018-07-28 15:07 | Diagnostic Imaging Report ---
Indication: Severe back pain, T11 fracture seen on recent CT scan Technique: Sagittal T1 fast spin echo, sagittal T2 fast echo, sagittal STIR, axial T2 fast spin echo images were obtained through the thoracic spine Comparison: Reference made to lumbar spine CT scan dated 07/27/2016 Findings: There is a compression fracture deformity of the T11 vertebral body, demonstrating approximately 40% height loss. No evidence of posterior retropulsion. There does not appear to be any associated marrow edema. There is a slight superior endplate compression fracture deformity of the L2 vertebral body, in retrospect equivocally identifiable on previous CT scan. There is some marrow edema adjacent to the superior endplate. The remaining vertebral marrow signal is normal. The bony alignment is normal. The vertebral body heights and disc spaces are preserved. No significant disc bulge or protrusion, spinal stenosis, or neural foraminal stenosis demonstrated. The intrinsic cord signal is normal. The included extra spinal soft tissues are unremarkable. Impression: T11 vertebral body compression fracture, also described on previous lumbar spine CT scan. No associated marrow edema, so fracture is presumed to be acute L2 superior endplate compression deformity, only equivocally visible in retrospect on recent CT scan. This does demonstrate some adjacent marrow edema so is presumably acute. This lesion may be a candidate for percutaneous kyphoplasty clinically indicated Other findings as noted Findings discussed by phone with Dr. Mishra at the time of interpretation
--- NOTE | 2018-07-28 15:24 | Diagnostic Imaging Report ---
Indication: Shortness of breath Technique: One view of the chest Comparison: 07/26/2018 Findings: Again projecting over the lower right heart is a foreign body which has the appearance of a ball of wires with some central denser metal. This is not clearly present on any prior images, except for the rug frame mounter image of the previous days' lumbar CT, where in retrospect it appears to be centered over the diaphragm, also suggestive of an atrial location. Lungs and pleural spaces are clear. The heart size is normal. There is no significant interim change Impression: Unusual finding of apparent foreign body projected over the lower right heart. Also demonstrated on previous chest radiograph of 07/26/2018. Possibly outside the patient, but [employer] film of previous day's lumbar spine CT raises concern that this could be intra-atrial. Recommend chest CT for further evaluation No acute process otherwise Findings discussed by phone with Dr. Mishra at the time of interpretation
[2018-07-28 16:00] VITALS: BP 164/69
--- NOTE | 2018-07-28 16:00 | NUR ---
NURSE NOTES: Left message for Dr Mishra regarding MRI result. Awaiting call back at this time.
--- NOTE | 2018-07-28 16:01 | NUR ---
NURSE NOTES: Left message for Dr Castañeda regarding chest x-ray result. Patient has strange foreign body projected over her right heart. Awaiting call back at this time.
--- NOTE | 2018-07-28 17:52 | Internal Med Progress Note ---
Subjective Physician Name Willie Mishra Attending Physician Willie Mishra MD Current Medications Medications (Trade) Dose Ordered Sig/Steve Route PRN Reason Start Time Stop Time Status Last Admin Dose Admin Acetaminophen (Tylenol) 650 mg Q4H PRN ORAL Mild Pain/Temp > 100.5 07/27/18 02:30 08/26/18 02:29 Acetaminophen/ Hydrocodone Bitart ([place] 5/325) 1 tab Q6H PRN ORAL Moderate Breakthru Pain (4-6) 07/27/18 10:15 08/03/18 09:14 Citalopram Hydrobromide (celeXA) 20 mg DAILY ORAL 07/28/18 09:00 08/27/18 08:59 07/28/18 09:05 Diazepam (Valium) 5 mg BEDTIME ORAL 07/27/18 21:00 08/03/18 20:59 07/27/18 21:08 Diazepam (Valium) 5 mg Q6H PRN ORAL For Anxiety 07/27/18 02:30 08/03/18 02:29 Docusate Sodium (Colace) 100 mg TWICE A DAY ORAL 07/27/18 18:00 08/26/18 17:59 07/28/18 08:02 Duloxetine HCl (Cymbalta) 30 mg DAILY ORAL 07/27/18 10:00 08/26/18 09:59 07/28/18 08:02 Enoxaparin Sodium (Lovenox) 40 mg DAILY SUBQ 07/27/18 09:00 08/26/18 08:59 07/28/18 08:06 Ergocalciferol (Drisdol) 50,000 intlu QWEEK ORAL 08/02/18 09:00 09/01/18 08:59 Ibuprofen (Motrin) 600 mg Q8H PRN ORAL For Pain 07/27/18 02:30 08/26/18 02:29 07/28/18 15:25 Levothyroxine Sodium (Synthroid) 150 mcg ACBREAKFAST ORAL 07/28/18 06:30 08/27/18 06:29 07/28/18 06:16 Methadone HCl (Methadone HCl) 5 mg Q8H ORAL 07/28/18 20:00 08/04/18 19:59 Morphine Sulfate (Morphine Sulfate) 2 mg Q4H PRN IVP Severe Breakthru Pain (7-10) 07/27/18 10:00 08/03/18 09:59 07/27/18 10:07 Oxycodone HCl (OxyCONTIN) 20 mg EVERY 12 HOURS ORAL 07/27/18 21:21 08/03/18 21:20 07/28/18 08:04 Pantoprazole (Protonix) 40 mg DAILY ORAL 07/27/18 09:00 08/26/18 08:59 07/28/18 08:02 Polyethylene Glycol (Miralax) 17 gm HSPRN PRN ORAL Constipation 07/27/18 02:30 08/26/18 02:29 Zolpidem Tartrate (Ambien) 5 mg HSPRN PRN ORAL Insomnia 07/27/18 02:30 08/03/18 02:29 Allergies: Coded Allergies: MEPERIDINE (Verified Allergy, Severe, 07/19/16) Subjective Awake, alert, responsive, denies any chest pain, denies any shortness of breath , complaint severe back pain. is at the bedside. Objective Last Vital Signs Date Time Temp Pulse Resp B/P (MAP) Pulse Ox O2 Delivery O2 Flow Rate FiO2 07/28/18 16:00 97.9 83 18 164/69 (100) 93 07/28/18 16:00 Nasal Cannula 3.0 Laboratory Tests Test 07/28/18 03:40 White Blood Count 8.6 K/UL (4.8-10.8) Red Blood Count 3.40 M/UL (4.20-5.40) L Hemoglobin 10.5 G/DL (12.0-16.0) L Hematocrit 31.2 % (37.0-47.0) L Mean Corpuscular Volume 92 FL (80-99) Mean Corpuscular Hemoglobin 30.8 PG (27.0-31.0) Mean Corpuscular Hemoglobin Concent 33.7 G/DL (32.0-36.0) Red Cell Distribution Width 15.1 % (11.6-14.8) H Platelet Count 199 K/UL (150-450) Mean Platelet Volume 6.7 FL (6.5-10.1) Neutrophils (%) (Auto) 59.9 % (45.0-75.0) Lymphocytes (%) (Auto) 23.0 % (20.0-45.0) Monocytes (%) (Auto) 10.6 % (1.0-10.0) H Eosinophils (%) (Auto) 5.7 % (0.0-3.0) H Basophils (%) (Auto) 0.8 % (0.0-2.0) Sodium Level 140 MMOL/L (136-145) Potassium Level 4.2 MMOL/L (3.5-5.1) Chloride Level 108 MMOL/L (98-107) H Carbon Dioxide Level 23 MMOL/L (21-32) Anion Gap 9 mmol/L (5-15) Blood Urea Nitrogen 22 mg/dL (7-18) H Creatinine 1.3 MG/DL (0.55-1.30) Estimat Glomerular Filtration Rate mL/min (>60) Glucose Level 120 MG/DL (74-106) H Calcium Level 9.7 MG/DL (8.5-10.1) Phosphorus Level 4.3 MG/DL (2.5-4.9) Magnesium Level 2.2 MG/DL (1.8-2.4) Total Bilirubin 0.4 MG/DL (0.2-1.0) Aspartate Amino Transf (AST/SGOT) 14 U/L (15-37) L Alanine Aminotransferase (ALT/SGPT) 15 U/L (12-78) Alkaline Phosphatase 89 U/L (46-116) Total Protein 6.6 G/DL (6.4-8.2) Albumin 3.2 G/DL (3.4-5.0) L Globulin 3.3 g/dL Intake and Output 07/27/18 07/28/18 19:00 07:00 Intake Total 120 ml Balance 120 ml Intake Oral 120 ml # Voids 3 5 Objective GENERAL: The patient is awake, responsive, no acute distress. HEENT: Pupils are equal and reactive to light. Extraocular movement intact. NECK: Supple. No JVD. CHEST WALL: Bilateral mastectomy scar was noted. LUNGS: Good air entry. No wheezing or rales. Chest wall has a bilateral breast mastectomy site, was noted well healed. HEART: S1, S2. Regular rhythm. No gallops. ABDOMEN: Soft, nondistended, and nontender. Positive bowel sounds. Mild obesity. BACK: Paraspinal tenderness on the lumbar spine area. EXTREMITIES: No cyanosis, clubbing, or edema. NEUROLOGIC: Cranial nerves II through XII are grossly intact. The patient moving all extremities , unable to assess gait due to the severe pain. Assessment/Plan Assessment/Plan ASSESSMENT: 1. Status post trip and fall with lower back pain possible due to the lumbar spine injury (Acute T11 vertebral body compression fracture and L2 superior endplate compression deformity). 2. History of right occipital infarction. 3. History of breast cancer, status post bilateral mastectomy. 4. Depression. 5. Diverticulosis. 6. Gastroesophageal reflux disease. 7. Hypertension. 8. Dyslipidemia. 9. Hypothyroidism. 10. Idiopathic pulmonary fibrosis. 11. Mild cognitive impairment. 12. Osteopenia. 13. Rheumatoid arthritis. 14. History of pyelonephritis in the past. 15. History of fall with the right hip subcapsular fracture in July 2016 status post ORIF. 16. foreign body projected over the lower right heart this could be intra- atrial. PLAN: Admit the patient to [facility]. We will follow up laboratory and discuss with extensively at bedside and explained that care will be provided, Consider kyphoplasty by radiology. Consider discharge planning to probably his rehab once the kyphoplasty is completed. CT chest with IV contrast. DVT prophylaxis: heparin subcutaneous. CODE STATUS: Full Code. Willie Mishra MD Jul 28, 2018 17:51
[2018-07-28] MEDS ORDERED: Isovue-300 100ml vial INJ PRN (18:00)
--- NOTE | 2018-07-28 19:30 | NUR ---
HAND-OFF: Report given to LAKESHIA Ellis. Patient VS stable at this time with no sign of acute distress. Patient has an order for CT of the chest. Order was placed in the late afternoon. Endorsed to follow up. Patient's has spoken with Dr Mishra regarding the result of the MRI that was performed today.
--- NOTE | 2018-07-28 19:31 | NUR ---
NURSE NOTES: Got report from Radha ASHER. Pt in stable condition. No s/s of distress or discomfort noted. Pt satting well on Venturi Mask at 95%. Pt resting in bed comfortably. Bed in low and locked position, call light within reach, bedside table within reach. Continue to monitor.
[2018-07-28 20:00] VITALS: BP 107/57
[2018-07-29] VITALS: BP 112/66
[2018-07-29 04:20] VITALS: BP 104/65
[2018-07-29] MEDS: Morphine Sulfate 2mg/ml Inj(IV/IM USE ONLY) IVP PRN (05:42)
--- NOTE | 2018-07-29 07:20 | NUR ---
NURSE NOTES: RECEIVED PATIENT FROM Liz AWAN RN. PATIENT IS LYING IN BED, AWAKE, ALERT AND TAKING THE VENTI MASK OFF. NOTED RIPPING OFF THE 02 CANNULA TUBINGS. REALITY ORIENTATION.. HOOKED TO [employer]ING [employer]. ON VENTI MASK AT 40%. NO SIGNS OF DISTRESS. IV ON L FA G24, WITH IVF RUNNING NS AT 75CC/HR. CALL LIGHT WITHIN REACH. BED AT LOWEST POSITION. SIDE RAILS UP. WILL CONTINUE TO MONITOR.
[2018-07-29 08:00] VITALS: BP 132/65
[2018-07-29] MEDS: DULoxetine 30mg cap ORAL SCH (08:47)
[2018-07-29] MEDS: Citalopram Hydrobromide 10mg Tab ORAL SCH (08:47)
[2018-07-29] MEDS: Docusate 100mg cap ORAL SCH ×2 (08:47→17:42)
[2018-07-29] MEDS: oxyCONTIN 10mg tab ORAL SCH ×2 (08:48→21:40)
[2018-07-29] MEDS: Enoxaparin 40mg Inj SUBQ SCH (08:50)
--- NOTE | 2018-07-29 11:39 | Pulmonology Progress Note ---
Assessment/Plan Problems: (1) T11 vertebral fracture (2) COPD (chronic obstructive pulmonary disease) (3) Intractable pain (4) Unable to ambulate (5) Rheumatoid arthritis (6) Hypothyroidism (7) Breast cancer (8) HTN (hypertension) (9) Cerebral vascular disease Assessment/Plan Ct of spine reviewed, T11 fracture, radiology recommended MRI, done and reviewed, awaiting radiology comment about feasibility of Kyphoplasty CT of chest in process to evaluate the foreign body seen on CXR pain control, on Methadone, helped a little, increase the dose respiratory treatment titrate fio2 to sat of 92% dvt prophylaxis Subjective ROS Limited/Unobtainable: No Interval Events: MRI reviewed, Allergies: Coded Allergies: MEPERIDINE (Verified Allergy, Severe, 07/19/16) Objective Last 24 Hour Vital Signs Date Time Temp Pulse Resp B/P (MAP) Pulse Ox O2 Delivery O2 Flow Rate FiO2 07/29/18 09:00 Nasal Cannula 3.0 07/29/18 08:00 97.6 81 22 132/65 (87) 90 07/29/18 08:00 71 07/29/18 06:23 98.0 07/29/18 04:20 98.0 80 18 104/65 (78) 96 07/29/18 04:20 69 07/29/18 03:56 Nasal Cannula 3.0 07/29/18 00:00 64 07/29/18 00:00 97.7 73 18 112/66 (81) 96 07/29/18 00:00 Nasal Cannula 3.0 07/28/18 21:34 97.9 07/28/18 20:34 Venturi Mask 8.0 40 07/28/18 20:34 96 Venturi Mask 8.0 40 07/28/18 20:33 60 18 Venturi Mask 8.0 40 07/28/18 20:00 Nasal Cannula 3.0 07/28/18 20:00 97.4 75 19 107/57 (74) 95 07/28/18 16:00 97.9 83 18 164/69 (100) 93 07/28/18 16:00 83 07/28/18 16:00 Nasal Cannula 3.0 07/28/18 12:00 Nasal Cannula 3.0 07/28/18 12:00 65 07/28/18 12:00 97.2 73 20 133/78 (96) 95 Intake and Output 07/28/18 07/29/18 19:00 07:00 Intake Total 450 ml 15 ml Balance 450 ml 15 ml Intake Oral 450 ml IV Total 15 ml # Voids 1 General Appearance: WD/WN HEENT: atraumatic, anicteric Respiratory/Chest: chest wall non-tender, normal breath sounds Cardiovascular: normal peripheral pulses, normal rate Abdomen: normal bowel sounds, soft, non tender Genitourinary: normal external genitalia Skin: no rash Current Medications Medications (Trade) Dose Ordered Sig/Steve Route PRN Reason Start Time Stop Time Status Last Admin Dose Admin Acetaminophen (Tylenol) 650 mg Q4H PRN ORAL Mild Pain/Temp > 100.5 07/27/18 02:30 08/26/18 02:29 Acetaminophen/ Hydrocodone Bitart ([place] 5/325) 1 tab Q6H PRN ORAL Moderate Breakthru Pain (4-6) 07/27/18 10:15 08/03/18 09:14 Citalopram Hydrobromide (celeXA) 20 mg DAILY ORAL 07/28/18 09:00 08/27/18 08:59 07/29/18 08:47 Diazepam (Valium) 5 mg BEDTIME ORAL 07/27/18 21:00 08/03/18 20:59 07/28/18 21:00 Diazepam (Valium) 5 mg Q6H PRN ORAL For Anxiety 07/27/18 02:30 08/03/18 02:29 Docusate Sodium (Colace) 100 mg TWICE A DAY ORAL 07/27/18 18:00 08/26/18 17:59 07/29/18 08:47 Duloxetine HCl (Cymbalta) 30 mg DAILY ORAL 07/27/18 10:00 08/26/18 09:59 07/29/18 08:47 Enoxaparin Sodium (Lovenox) 40 mg DAILY SUBQ 07/27/18 09:00 08/26/18 08:59 07/29/18 08:50 Ergocalciferol (Drisdol) 50,000 intlu QWEEK ORAL 08/02/18 09:00 09/01/18 08:59 Ibuprofen (Motrin) 600 mg Q8H PRN ORAL For Pain 07/27/18 02:30 08/26/18 02:29 07/28/18 15:25 Iopamidol (Isovue-300 100ml) 100 ml NOW PRN INJ Radiology Procedure 07/28/18 18:00 07/30/18 17:46 Levothyroxine Sodium (Synthroid) 150 mcg ACBREAKFAST ORAL 07/28/18 06:30 08/27/18 06:29 07/29/18 06:23 Methadone HCl (Methadone HCl) 5 mg Q8H ORAL 07/28/18 20:00 08/04/18 19:59 07/29/18 04:11 Morphine Sulfate (Morphine Sulfate) 2 mg Q4H PRN IVP Severe Breakthru Pain (7-10) 07/27/18 10:00 08/03/18 09:59 07/29/18 05:42 Oxycodone HCl (OxyCONTIN) 20 mg EVERY 12 HOURS ORAL 07/27/18 21:21 08/03/18 21:20 07/29/18 08:48 Pantoprazole (Protonix) 40 mg DAILY ORAL 07/27/18 09:00 08/26/18 08:59 07/29/18 08:47 Polyethylene Glycol (Miralax) 17 gm HSPRN PRN ORAL Constipation 07/27/18 02:30 08/26/18 02:29 Sodium Chloride 1,000 ml @ 75 mls/hr [id number] IV 07/28/18 18:00 08/27/18 17:59 07/29/18 06:40 Zolpidem Tartrate (Ambien) 5 mg HSPRN PRN ORAL Insomnia 07/27/18 02:30 08/03/18 02:29 Amanda Castañeda MD Jul 29, 2018 11:39
[2018-07-29 12:00] VITALS: BP 134/76
--- NOTE | 2018-07-29 12:05 | Diagnostic Imaging Report ---
Indication: . Trauma chest pain Technique: Continuous helical transaxial imaging of the chest was obtained from the thoracic inlet to the upper abdomen after intravenous nonionic contrast administration. Coronal 2-D reformats were also obtained. Automatic Exposure Control was utilized. Total Dose length Product (DLP): 658.[address] Dose Index Volume (CTDIvol): 20.02 mGy Comparison: none Findings: There are moderate reticular densities throughout the lungs in upper and lower lung rodriguez consistent with fibrosis. The heart is enlarged. The esophagus is slightly distended and patulous. Consider achalasia. Hiatal hernia is noted. There is a compression fracture of the T11 vertebra which is a likely old and MR was negative for acute injury on 07/28/2018. The bones are osteopenic. The aorta is mildly calcified. IMPRESSION: No acute injury identified. Interstitial pulmonary fibrosis. Atherosclerotic disease Hiatal hernia Slightly distended esophagus. Consider achalasia. The CT scanner at [facility] is accredited by the [employer] and the scans are performed using dose optimization techniques as appropriate to a performed exam including Automatic Exposure control.
[2018-07-29 16:00] VITALS: BP 124/65
--- NOTE | 2018-07-29 17:58 | Internal Med Progress Note ---
Subjective Date of Service: Jul 29, 2018 Physician Name Dixon,Toro Attending Physician Willie Mishra MD Current Medications Medications (Trade) Dose Ordered Sig/Steve Route PRN Reason Start Time Stop Time Status Last Admin Dose Admin Acetaminophen (Tylenol) 650 mg Q4H PRN ORAL Mild Pain/Temp > 100.5 07/27/18 02:30 08/26/18 02:29 Citalopram Hydrobromide (celeXA) 20 mg DAILY ORAL 07/28/18 09:00 08/27/18 08:59 07/29/18 08:47 Diazepam (Valium) 5 mg BEDTIME ORAL 07/27/18 21:00 08/03/18 20:59 07/28/18 21:00 Diazepam (Valium) 5 mg Q6H PRN ORAL For Anxiety 07/27/18 02:30 08/03/18 02:29 Docusate Sodium (Colace) 100 mg TWICE A DAY ORAL 07/27/18 18:00 08/26/18 17:59 07/29/18 17:42 Duloxetine HCl (Cymbalta) 30 mg DAILY ORAL 07/27/18 10:00 08/26/18 09:59 07/29/18 08:47 Enoxaparin Sodium (Lovenox) 40 mg DAILY SUBQ 07/27/18 09:00 08/26/18 08:59 07/29/18 08:50 Ergocalciferol (Drisdol) 50,000 intlu QWEEK ORAL 08/02/18 09:00 09/01/18 08:59 Iopamidol (Isovue-300 100ml) 100 ml NOW PRN INJ Radiology Procedure 07/28/18 18:00 07/30/18 17:46 Levothyroxine Sodium (Synthroid) 150 mcg ACBREAKFAST ORAL 07/28/18 06:30 08/27/18 06:29 07/29/18 06:23 Methadone HCl (Methadone HCl) 5 mg Q6H PRN ORAL pain 4-10 07/29/18 11:45 08/05/18 11:44 Oxycodone HCl (OxyCONTIN) 20 mg EVERY 12 HOURS ORAL 07/27/18 21:21 08/03/18 21:20 07/29/18 08:48 Pantoprazole (Protonix) 40 mg DAILY ORAL 07/27/18 09:00 08/26/18 08:59 07/29/18 08:47 Polyethylene Glycol (Miralax) 17 gm HSPRN PRN ORAL Constipation 07/27/18 02:30 08/26/18 02:29 Zolpidem Tartrate (Ambien) 5 mg HSPRN PRN ORAL Insomnia 07/27/18 02:30 08/03/18 02:29 Allergies: Coded Allergies: MEPERIDINE (Verified Allergy, Severe, 07/19/16) Subjective 82 YO F admitted with fall injury and back pain. Now T-11 fracture. Cover for Int med-Dr Mishra. Objective Last Vital Signs Date Time Temp Pulse Resp B/P (MAP) Pulse Ox O2 Delivery O2 Flow Rate FiO2 07/29/18 16:00 97.9 74 21 124/65 (84) 98 07/29/18 09:00 Nasal Cannula 3.0 07/29/18 08:57 40 Intake and Output 07/28/18 07/29/18 19:00 07:00 Intake Total 450 ml 15 ml Balance 450 ml 15 ml Intake Oral 450 ml IV Total 15 ml # Voids 1 Objective Objective GENERAL: The patient is awake, responsive, no acute distress. HEENT: Pupils are equal and reactive to light. Extraocular movement intact. NECK: Supple. No JVD. CHEST WALL: Bilateral mastectomy scar was noted. LUNGS: Good air entry. No wheezing or rales. Chest wall has a bilateral breast mastectomy site, was noted well healed. HEART: S1, S2. Regular rhythm. No gallops. ABDOMEN: Soft, nondistended, and nontender. Positive bowel sounds. Mild obesity. BACK: Paraspinal tenderness on the lumbar spine area. EXTREMITIES: No cyanosis, clubbing, or edema. NEUROLOGIC: Cranial nerves II through XII are grossly intact. The patient moving all extremities , unable to assess gait due to the severe pain. Assessment/Plan Assessment/Plan Assessment/Plan Assessment/Plan Assessment/Plan ASSESSMENT: 1. Status post trip and fall with lower back pain possible due to the lumbar spine injury (Acute T11 vertebral body compression fracture and L2 superior endplate compression deformity). 2. History of right occipital infarction. 3. History of breast cancer, status post bilateral mastectomy. 4. Depression. 5. Diverticulosis. 6. Gastroesophageal reflux disease. 7. Hypertension. 8. Dyslipidemia. 9. Hypothyroidism. 10. Idiopathic pulmonary fibrosis. 11. Mild cognitive impairment. 12. Osteopenia. 13. Rheumatoid arthritis. 14. History of pyelonephritis in the past. 15. History of fall with the right hip subcapsular fracture in July 2016 status post ORIF. 16. foreign body projected over the lower right heart this could be intra- atrial. PLAN: Admit the patient to [facility]. We will follow up laboratory and discuss with extensively at bedside and explained that care will be provided, Consider kyphoplasty by radiology. Consider discharge planning to probably his rehab once the kyphoplasty is completed. CT chest with IV contrast. DVT prophylaxis: heparin subcutaneous. CODE STATUS: Full Code. Toro Dixon MD Jul 29, 2018 17:58
--- NOTE | 2018-07-29 19:12 | NUR ---
HAND-OFF: Report given to Yogi Akers RN.
--- NOTE | 2018-07-29 19:58 | NUR ---
NURSE NOTES: Report received from LAKESHIA Best. Pt is lying comfortably in semi-fowlers with no signs of distress. Pt is A+Ox3 and denies pain/SOB. Respirations are even and unlabored on 3 L NC. IV site is patent, intact, and running fluids @ prescribed rate. Bed is at lowest position, brakes engaged, siderails x3, bed alarm on, and call light within reach. Pt is in stable condition at this time; will continue to monitor.
[2018-07-29 20:00] VITALS: BP 119/69
[2018-07-30] VITALS (14 sets, daily range): BP systolic 120–196; BP diastolic 52–100
[2018-07-30 06:37] LABS: BASOPHILS % (AUTO) 0.7 % (0.0-2.0); EOSINOPHILS % (AUTO) 3.2 % (0.0-3.0); HEMATOCRIT 30.5 % (37.0-47.0); HEMOGLOBIN 9.7 G/DL (12.0-16.0); MEAN CORPUSCULAR VOLUME 93 FL (80-99); MONOCYTES % (AUTO) 9.5 % (1.0-10.0); NEUTROPHILS % (AUTO) 67.6 % (45.0-75.0); PLATELET COUNT 168 K/UL (150-450); RED BLOOD COUNT 3.28 M/UL (4.20-5.40); RED CELL DISTRIBUTION WIDTH 14.6 % (11.6-14.8); WHITE BLOOD COUNT 7.2 K/UL (4.8-10.8)
[2018-07-30 06:45] LABS: ANION GAP 11 mmol/L (5-15); BLOOD UREA NITROGEN 23 mg/dL (7-18); CALCIUM 9.7 MG/DL (8.5-10.1); CARBON DIOXIDE 23 MMOL/L (21-32); CHLORIDE 107 MMOL/L (98-107); CREATININE 1.2 MG/DL (0.55-1.30); SODIUM 141 MMOL/L (136-145)
--- NOTE | 2018-07-30 07:12 | NUR ---
HAND-OFF: Report given to LAKESHIA Amaya. Pt is in stable condition; plan of care endorsed.
--- NOTE | 2018-07-30 07:53 | NUR ---
NURSE NOTES: Received report from Nedra ASHER. Pt in bed resting is awake. On property assessment monitor no signs of distress. Bed locked and in lowest position. Will continue plan of care. Will continuer to monitor pt.
[2018-07-30] MEDS: Enoxaparin 40mg Inj SUBQ SCH (09:00)
[2018-07-30] MEDS: DULoxetine 30mg cap ORAL SCH (09:00)
[2018-07-30] MEDS: Citalopram Hydrobromide 10mg Tab ORAL SCH (09:00)
[2018-07-30] MEDS: Docusate 100mg cap ORAL SCH ×2 (09:00→18:00)
[2018-07-30] MEDS: oxyCONTIN 10mg tab ORAL SCH (09:59)
--- NOTE | 2018-07-30 10:48 | NUR ---
MRI LUMBAR COMPLETED.
--- NOTE | 2018-07-30 11:44 | Anethesia Preoperative Eval ---
Anesthesia Pre-op PMH/ROS General Date of Evaluation: Jul 30, 2018 Time of Evaluation: 11:41 Anesthesiologist: Lara ASA Score: ASA 3 Mallampati Score Class I : Soft palate, uvula, fauces, pillars visible Class II: Soft palate, uvula, fauces visible Class III: Soft palate, base of uvula visible Class IV: Only hard plate visible Mallampati Classification: Class I Surgeon: Sara Diagnosis: L1 decompression fractrue Surgical Procedure: Kyphoplasty Anesthesia History: none Family History: no anesthesia problems Allergies: Coded Allergies: MEPERIDINE (Verified Allergy, Severe, 07/19/16) Medications: see eMAR Patient NPO?: Yes NPO Date: Jul 29, 2018 NPO Time: 20:00 Past Medical History Cardiovascular: Reports: HTN Pulmonary: Reports: COPD, other - ARF, pulmonary fibrosis Gastrointestinal/Genitourinary: Reports: GERD Neurologic/Psychiatric: Reports: CVA, depression/anxiety Endocrine: Reports: hypothyroidism Hematology/Immune: Reports: other - breast CA Musculoskeletal/Integumentary: Reports: RA, other - hip fx, unable to ambulate , T11 verebral fracture PSxH Narrative: review chart - mastectomy bilateral, hip sx, Anesthesia Pre-op Phys. Exam Physician Exam Last Vital Signs Date Time Temp Pulse Resp B/P (MAP) Pulse Ox O2 Delivery O2 Flow Rate FiO2 07/30/18 09:00 Nasal Cannula 3.0 07/30/18 04:00 98.5 81 19 125/66 (85) 98 07/29/18 08:57 40 Constitutional: NAD Neurologic: CN 2-12 intact Cardiovascular: RRR Respiratory: CTA Gastrointestinal: S/NT/ND Airway Exam Mallampati Score: Class I MO: full ROM: limited Teeth: intact Anesthesia Pre-op A/P Labs Hematology Test 07/30/18 05:10 White Blood Count 7.2 K/UL (4.8-10.8) Red Blood Count 3.28 M/UL (4.20-5.40) L Hemoglobin 9.7 G/DL (12.0-16.0) L Hematocrit 30.5 % (37.0-47.0) L Mean Corpuscular Volume 93 FL (80-99) Mean Corpuscular Hemoglobin 29.5 PG (27.0-31.0) Mean Corpuscular Hemoglobin Concent 31.7 G/DL (32.0-36.0) L Red Cell Distribution Width 14.6 % (11.6-14.8) Platelet Count 168 K/UL (150-450) Mean Platelet Volume 6.8 FL (6.5-10.1) Neutrophils (%) (Auto) 67.6 % (45.0-75.0) Lymphocytes (%) (Auto) 19.0 % (20.0-45.0) L Monocytes (%) (Auto) 9.5 % (1.0-10.0) Eosinophils (%) (Auto) 3.2 % (0.0-3.0) H Basophils (%) (Auto) 0.7 % (0.0-2.0) Chemistry Test 07/30/18 05:10 Sodium Level 141 MMOL/L (136-145) Potassium Level 4.0 MMOL/L (3.5-5.1) Chloride Level 107 MMOL/L (98-107) Carbon Dioxide Level 23 MMOL/L (21-32) Anion Gap 11 mmol/L (5-15) Blood Urea Nitrogen 23 mg/dL (7-18) H Creatinine 1.2 MG/DL (0.55-1.30) Estimat Glomerular Filtration Rate mL/min (>60) Glucose Level 98 MG/DL (74-106) Calcium Level 9.7 MG/DL (8.5-10.1) Risk Assessment & Plan Assessment: A&Ox3 Plan: GETA Status Change Before Surgery: No Pre-Antibiotics Drug: ancef 1 gm Given Within 1 Hr of Incision: Yes Time Given: 13:20 Jesusita Bermudez [facility] Jul 30, 2018 11:44
[2018-07-30] MEDS ORDERED: Lidocaine 1% Plain 30 ml INJ SCH (11:45)
[2018-07-30] MEDS ORDERED: Hydromorphone 0.5mg/0.5ml inj IVP PRN ×3 (11:45→16:30)
[2018-07-30] MEDS ORDERED: Omnipaque-300 100ml vial INJ SCH (11:45)
--- NOTE | 2018-07-30 11:45 | 48 Hour Post Anesthesia Eval ---
Post Anesthesia Evaluation Procedure: Kyphoplasty Date of Evaluation: Jul 30, 2018 Airway: patent Nausea: No Vomiting: No Hydration Status: adequate Mental Status/LOC: patient returned to baseline Follow-up care needed: patient intructions given Jesusita Bermudez CRNA Jul 30, 2018 11:45
--- NOTE | 2018-07-30 11:45 | Immediate Post-Op Evaluation ---
Immediate Post-Op Evalulation Immediate Post-Op Evalulation Procedure: Kyphoplasty Date of Evaluation: Jul 30, 2018 Blood Products: 0 Urinary Output: 0 Nausea: No Vomiting: No Patient Status: awake, reacts Hydration Status: adequate Jesusita Bermudez CRNA Jul 30, 2018 11:45
--- NOTE | 2018-07-30 11:48 | Pre-Procedure Note/Attestation ---
Pre-Procedure Note/Attestation Complete Prior to Procedure Planned Procedure: not applicable Procedure Narrative: L1 kyphoplasty Indications for Procedure Pre-Operative Diagnosis: Painful acute L1 compression fracture Attestation I attest that I discussed the nature of the procedure; its benefits; risks and complications; and alternatives (and the risks and benefits of such alternatives ), prior to the procedure, with the patient (or the patient's legal off premise service representative). I attest that, if there was a reasonable possibility of needing a blood transfusion, the patient (or the patient's legal off premise service representative) was given the [facility] standardized written summary, pursuant to the Mike Volo Blood Safety Act ([place] Health and Safety Code # 1645, as amended). I attest that I re-evaluated the patient just prior to the surgery and that there has been no change in the patient's H&P, except as documented below: Discussed at length with pt. and Pratik Booth MD Jul 30, 2018 11:48
--- NOTE | 2018-07-30 11:49 | Diagnostic Imaging Report ---
Indication: Severe low back pain, abnormal thoracic MRI Technique: Sagittal T1 and T2 fast spin echo, sagittal STIR, axial T1 and T2 fast spin-echo images of the lumbar spine Comparison: Lumbar spine CT scan dated 07/27/2018, thoracic spine MRI 07/28/2018 Findings: The bony alignment is normal. Conus medullaris terminates at the mid L1 level. There is very slight superior endplate depression of the L1 vertebral body. However, there is marked edema of the superior half of the L1 vertebral body, manifested by marked decreased T1 signal and increased STIR signal. There is no evidence of significant retropulsion of contents. There is an anterior wedge compression fracture deformity of the T11 vertebral body, demonstrating approximately 40% height loss, with an associated superior endplate focal intravertebral disc herniation. There is slight heterogeneous T1 signal within the vertebral body, but no definite STIR signal increase to suggest marrow edema is demonstrated There is severe degenerative change of the L4-5 disc. Decreased T1 signal within the vertebral body bone marrow on both sides of the disc area most likely reflects bony sclerosis demonstrated on recent CT. The remaining vertebral body heights are preserved. No other abnormal marrow signal is demonstrated. At L2-3, there is bilateral facet arthrosis. No significant disc bulge or protrusion, spinal stenosis, or neural foraminal stenosis. Borderline spinal stenosis suggested on recent CT scan is not evident on this exam. The disc space is preserved At L3-4, there is bilateral facet arthrosis with fluid in the facets. There is minimal circumferential annular bulge resulting in borderline narrowing of the spinal canal. The disc space is preserved At L4-5, there is the above described severe degenerative disc narrowing. There is circumferential bulge, posterior broad-based disc protrusion, both paracentral and subforaminal. This results in borderline narrowing of the spinal canal, may result in mild compromise of the neural foramina. The disc space is preserved At the remaining disc levels, no significant disc narrowing, disc bulge or protrusion, spinal stenosis, or neural foraminal narrowing. The included extraspinal soft tissues are unremarkable. Impression: Marrow edema in the superior half of the L1 vertebral body with associated slight buckling of the superior L1 endplate, consistent with acute superior endplate compression fracture, also described on recent thoracic spine MRI Wedge compression fracture deformity of the T11 vertebral body, with approximately 40% loss of height, also described on recent CT and MRI. No definite significant marrow edema so this is presumably a chronic injury. Degenerative changes of the L4-5 disc, as described. Note borderline spinal stenosis at L3-4 and L4-5 Other mild degenerative changes, as detailed on a level by level basis above.
--- NOTE | 2018-07-30 11:53 | Pulmonology Progress Note ---
Assessment/Plan Problems: (1) T11 vertebral fracture (2) COPD (chronic obstructive pulmonary disease) (3) Intractable pain (4) Unable to ambulate (5) Rheumatoid arthritis (6) Hypothyroidism (7) Breast cancer (8) HTN (hypertension) (9) Cerebral vascular disease Assessment/Plan all reviewed Kyphoplasty today pain control, on Methadone, helped a little, increase the dose respiratory treatment titrate fio2 to sat of 92% dvt prophylaxis Subjective ROS Limited/Unobtainable: No Interval Events: had kyphoplasty Allergies: Coded Allergies: MEPERIDINE (Verified Allergy, Severe, 07/19/16) Objective Last 24 Hour Vital Signs Date Time Temp Pulse Resp B/P (MAP) Pulse Ox O2 Delivery O2 Flow Rate FiO2 07/30/18 11:48 97.3 71 18 126/67 (86) 96 07/30/18 11:43 98.5 07/30/18 09:00 Nasal Cannula 3.0 07/30/18 04:00 98.5 81 19 125/66 (85) 98 07/30/18 04:00 73 07/30/18 00:00 77 07/30/18 00:00 98.0 79 18 132/57 (82) 95 07/29/18 21:00 Nasal Cannula 3.0 07/29/18 20:00 98.3 83 18 119/69 (86) 97 07/29/18 16:00 97.9 74 21 124/65 (84) 98 07/29/18 16:00 75 07/29/18 12:00 82 07/29/18 12:00 97.2 109 25 134/76 (95) 99 Intake and Output 07/29/18 07/30/18 19:00 07:00 Intake Total 332.75 ml Balance 332.75 ml IV Total 332.75 ml # Voids 1 1 General Appearance: WD/WN HEENT: normocephalic, atraumatic Respiratory/Chest: chest wall non-tender, lungs clear Breasts: no masses Cardiovascular: normal peripheral pulses Abdomen: normal bowel sounds, soft, non tender Extremities: no cyanosis Neurologic/Psychiatric: chip tester II-XII grossly normal Laboratory Tests 07/30/18 05:10: White Blood Count 7.2, Red Blood Count 3.28L, Hemoglobin 9.7L, Hematocrit 30.5L , Mean Corpuscular Volume 93, Mean Corpuscular Hemoglobin 29.5, Mean Corpuscular Hemoglobin Concent 31.7L, Red Cell Distribution Width 14.6, Platelet Count 168, Mean Platelet Volume 6.8, Neutrophils (%) (Auto) 67.6, Lymphocytes (%) (Auto) 19.0L, Monocytes (%) (Auto) 9.5, Eosinophils (%) (Auto) 3.2H, Basophils (%) (Auto) 0.7, Sodium Level 141, Potassium Level 4.0, Chloride Level 107, Carbon Dioxide Level 23, Anion Gap 11, Blood Urea Nitrogen 23H, Creatinine 1.2, Estimat Glomerular Filtration Rate , Glucose Level 98, Calcium Level 9.7 Current Medications Medications (Trade) Dose Ordered Sig/Steve Route PRN Reason Start Time Stop Time Status Last Admin Dose Admin Acetaminophen (Tylenol) 650 mg Q4H PRN ORAL Mild Pain/Temp > 100.5 07/27/18 02:30 08/26/18 02:29 Citalopram Hydrobromide (celeXA) 20 mg DAILY ORAL 07/28/18 09:00 08/27/18 08:59 07/29/18 08:47 Diazepam (Valium) 5 mg BEDTIME ORAL 07/27/18 21:00 08/03/18 20:59 07/29/18 21:40 Diazepam (Valium) 5 mg Q6H PRN ORAL For Anxiety 07/27/18 02:30 08/03/18 02:29 Docusate Sodium (Colace) 100 mg TWICE A DAY ORAL 07/27/18 18:00 08/26/18 17:59 07/29/18 17:42 Duloxetine HCl (Cymbalta) 30 mg DAILY ORAL 07/27/18 10:00 08/26/18 09:59 07/29/18 08:47 Enoxaparin Sodium (Lovenox) 40 mg DAILY SUBQ 07/27/18 09:00 08/26/18 08:59 07/29/18 08:50 Ergocalciferol (Drisdol) 50,000 intlu QWEEK ORAL 08/02/18 09:00 09/01/18 08:59 Hydromorphone HCl (Dilaudid) 0.5 mg Q15M PRN IVP Severe Pain (Pain Scale 7-10) 07/30/18 11:45 UNV Iohexol (OMNIPAQUE-300 100ml) 200 ml ONCE ONCE INJ 07/30/18 11:45 07/30/18 11:46 UNV Iopamidol (Isovue-300 100ml) 100 ml NOW PRN INJ Radiology Procedure 07/28/18 18:00 07/30/18 17:46 Levothyroxine Sodium (Synthroid) 150 mcg ACBREAKFAST ORAL 07/28/18 06:30 08/27/18 06:29 07/30/18 05:38 Lidocaine HCl (Xylocaine 1% 30ml) 30 ml ONCE ONCE INJ 07/30/18 11:45 07/30/18 11:46 UNV Methadone HCl (Methadone HCl) 5 mg Q6H PRN ORAL pain 4-10 07/29/18 11:45 08/05/18 11:44 Oxycodone HCl (OxyCONTIN) 20 mg EVERY 12 HOURS ORAL 07/27/18 21:21 08/03/18 21:20 07/30/18 09:59 Pantoprazole (Protonix) 40 mg DAILY ORAL 07/27/18 09:00 08/26/18 08:59 07/29/18 08:47 Polyethylene Glycol (Miralax) 17 gm HSPRN PRN ORAL Constipation 07/27/18 02:30 08/26/18 02:29 Zolpidem Tartrate (Ambien) 5 mg HSPRN PRN ORAL Insomnia 07/27/18 02:30 08/03/18 02:29 Amanda Castañeda MD Jul 30, 2018 11:53
--- NOTE | 2018-07-30 11:54 | General Progress Note ---
Progress Note Progress Note INTERVENTIONAL RADIOLOGY CONSULT Consulted for possible kyphoplasty on an 82-year-old female with severe low back pain status post fall earlier this week. Patient reports pain is in the lower back, nonradiating. Patient unable to ambulate, previously was able to ambulate. Initial CT demonstrated a T11 compression fracture, for which thoracic MRI was ordered. This indicated minimal to no marrow edema at T11, but did indicate considerable marrow edema in the L1 vertebral body. MRI of the lumbar spine confirms this, presumably due to a superior endplate L1 compression fracture. Past medical history is significant for history of breast carcinoma, cerebral infarction, chronic cough, hypertension, pulmonary fibrosis, mild cognitive impairment, osteopenia, pyelonephritis, rheumatoid arthritis, dyslipidemia, hypothyroidism, GERD On exam, patient exhibits point tenderness in the upper lumbar region Laboratory parameters are satisfactory Patient appears to be a good candidate for percutaneous kyphoplasty of the L1 vertebral body. Benefits, alternatives, and risks, including but not limited to treatment failure, hemorrhage, infection, neurological damage discussed with patient and her . They indicated their willingness to proceed. Will plan procedure for later today, to be done under general anesthesia. Pratik Valle MD Jul 30, 2018 11:54
[2018-07-30] MEDS ORDERED: Succinylcholine 20mg/ml 10ml vial ONE (12:15)
[2018-07-30] MEDS ORDERED: Propofol 200mg/20ml IV ONE (12:15)
[2018-07-30] MEDS ORDERED: ePHEDrine 50mg/ml Inj ONE (12:15)
[2018-07-30] MEDS ORDERED: fentaNYL 100 mcg/2 mL IV ONE (12:15)
[2018-07-30] MEDS ORDERED: Midazolam 2mg/2ml Inj ONE ×2 (12:15→15:04)
[2018-07-30] MEDS ORDERED: Metoclopramide 10mg/2ml Inj ONE (12:15)
[2018-07-30] MEDS ORDERED: oxyCODONE HCL/Acetaminophen 5/325mg ORAL PRN ×2 (14:00→17:00)
--- NOTE | 2018-07-30 14:20 | Internal Med Progress Note ---
Subjective Physician Name Willie Mishra Attending Physician Willie Mishra MD Current Medications Medications (Trade) Dose Ordered Sig/Steve Route PRN Reason Start Time Stop Time Status Last Admin Dose Admin Acetaminophen (Tylenol) 650 mg Q4H PRN ORAL Mild Pain/Temp > 100.5 07/27/18 02:30 08/26/18 02:29 Acetaminophen (Tylenol) 650 mg Q4H PRN ORAL Mild Pain (Pain Scale 1-3) 07/30/18 14:00 07/30/18 20:00 Citalopram Hydrobromide (celeXA) 20 mg DAILY ORAL 07/28/18 09:00 08/27/18 08:59 07/29/18 08:47 Diazepam (Valium) 5 mg BEDTIME ORAL 07/27/18 21:00 08/03/18 20:59 07/29/18 21:40 Diazepam (Valium) 5 mg Q6H PRN ORAL For Anxiety 07/27/18 02:30 08/03/18 02:29 Docusate Sodium (Colace) 100 mg TWICE A DAY ORAL 07/27/18 18:00 08/26/18 17:59 07/29/18 17:42 Duloxetine HCl (Cymbalta) 30 mg DAILY ORAL 07/27/18 10:00 08/26/18 09:59 07/29/18 08:47 Enoxaparin Sodium (Lovenox) 40 mg DAILY SUBQ 07/27/18 09:00 08/26/18 08:59 07/29/18 08:50 Ergocalciferol (Drisdol) 50,000 intlu QWEEK ORAL 08/02/18 09:00 09/01/18 08:59 Hydromorphone HCl (Dilaudid) 0.5 mg Q15M PRN IVP Severe Pain (Pain Scale 7-10) 07/30/18 14:00 07/30/18 20:00 Iopamidol (Isovue-300 100ml) 100 ml NOW PRN INJ Radiology Procedure 07/28/18 18:00 07/30/18 17:46 Levothyroxine Sodium (Synthroid) 150 mcg ACBREAKFAST ORAL 07/28/18 06:30 08/27/18 06:29 07/30/18 05:38 Methadone HCl (Methadone HCl) 5 mg Q6H PRN ORAL pain 4-10 07/29/18 11:45 08/05/18 11:44 Ondansetron HCl (Zofran) 4 mg Q1H PRN IVP Nausea & Vomiting 07/30/18 14:00 07/30/18 20:00 Oxycodone HCl (OxyCONTIN) 20 mg EVERY 12 HOURS ORAL 07/27/18 21:21 08/03/18 21:20 07/30/18 09:59 Oxycodone/ Acetaminophen (Percocet 5-325) 1 tab Q1H PRN ORAL Severe Pain (Pain Scale 7-10) 07/30/18 14:00 07/30/18 20:00 Pantoprazole (Protonix) 40 mg DAILY ORAL 07/27/18 09:00 08/26/18 08:59 07/29/18 08:47 Polyethylene Glycol (Miralax) 17 gm HSPRN PRN ORAL Constipation 07/27/18 02:30 08/26/18 02:29 Zolpidem Tartrate (Ambien) 5 mg HSPRN PRN ORAL Insomnia 07/27/18 02:30 08/03/18 02:29 Allergies: Coded Allergies: MEPERIDINE (Verified Allergy, Severe, 07/19/16) Subjective Awake, alert, responsive, denies any chest pain, denies any shortness of breath , complaint severe back pain. is at the bedside. Objective Last Vital Signs Date Time Temp Pulse Resp B/P (MAP) Pulse Ox O2 Delivery O2 Flow Rate FiO2 07/30/18 13:02 80 18 07/30/18 11:48 97.3 126/67 (86) 96 07/30/18 09:00 Nasal Cannula 3.0 07/29/18 08:57 40 Laboratory Tests Test 07/30/18 05:10 White Blood Count 7.2 K/UL (4.8-10.8) Red Blood Count 3.28 M/UL (4.20-5.40) L Hemoglobin 9.7 G/DL (12.0-16.0) L Hematocrit 30.5 % (37.0-47.0) L Mean Corpuscular Volume 93 FL (80-99) Mean Corpuscular Hemoglobin 29.5 PG (27.0-31.0) Mean Corpuscular Hemoglobin Concent 31.7 G/DL (32.0-36.0) L Red Cell Distribution Width 14.6 % (11.6-14.8) Platelet Count 168 K/UL (150-450) Mean Platelet Volume 6.8 FL (6.5-10.1) Neutrophils (%) (Auto) 67.6 % (45.0-75.0) Lymphocytes (%) (Auto) 19.0 % (20.0-45.0) L Monocytes (%) (Auto) 9.5 % (1.0-10.0) Eosinophils (%) (Auto) 3.2 % (0.0-3.0) H Basophils (%) (Auto) 0.7 % (0.0-2.0) Sodium Level 141 MMOL/L (136-145) Potassium Level 4.0 MMOL/L (3.5-5.1) Chloride Level 107 MMOL/L (98-107) Carbon Dioxide Level 23 MMOL/L (21-32) Anion Gap 11 mmol/L (5-15) Blood Urea Nitrogen 23 mg/dL (7-18) H Creatinine 1.2 MG/DL (0.55-1.30) Estimat Glomerular Filtration Rate mL/min (>60) Glucose Level 98 MG/DL (74-106) Calcium Level 9.7 MG/DL (8.5-10.1) Intake and Output 07/29/18 07/30/18 19:00 07:00 Intake Total 332.75 ml Balance 332.75 ml IV Total 332.75 ml # Voids 1 1 Objective GENERAL: The patient is awake, responsive, no acute distress. HEENT: Pupils are equal and reactive to light. Extraocular movement intact. NECK: Supple. No JVD. CHEST WALL: Bilateral mastectomy scar was noted. LUNGS: Good air entry. No wheezing or rales. Chest wall has a bilateral breast mastectomy site, was noted well healed. HEART: S1, S2. Regular rhythm. No gallops. ABDOMEN: Soft, nondistended, and nontender. Positive bowel sounds. Mild obesity. BACK: Paraspinal tenderness on the lumbar spine area. EXTREMITIES: No cyanosis, clubbing, or edema. NEUROLOGIC: Cranial nerves II through XII are grossly intact. The patient moving all extremities , unable to assess gait due to the severe pain. Assessment/Plan Assessment/Plan ASSESSMENT: 1. Status post trip and fall with lower back pain possible due to the lumbar spine injury (Acute T11 vertebral body compression fracture and L2 superior endplate compression deformity). 2. History of right occipital infarction. 3. History of breast cancer, status post bilateral mastectomy. 4. Depression. 5. Diverticulosis. 6. Gastroesophageal reflux disease. 7. Hypertension. 8. Dyslipidemia. 9. Hypothyroidism. 10. Idiopathic pulmonary fibrosis. 11. Mild cognitive impairment. 12. Osteopenia. 13. Rheumatoid arthritis. 14. History of pyelonephritis in the past. 15. History of fall with the right hip subcapsular fracture in July 2016 status post ORIF. PLAN: In Telemetry. We will follow up laboratory and discuss with extensively at bedside and explained that care will be provided, Consider kyphoplasty by radiology today. Consider discharge planning to probably his rehab once the kyphoplasty is completed. DVT prophylaxis: heparin subcutaneous. CODE STATUS: Full Code. MRI of Lumbar spine: Impression: Marrow edema in the superior half of the L1 vertebral body with associated slight buckling of the superior L1 endplate, consistent with acute superior endplate compression fracture, also described on recent thoracic spine MRI Wedge compression fracture deformity of the T11 vertebral body, with approximately 40% loss of height, also described on recent CT and MRI. No definite significant marrow edema so this is presumably a chronic injury. Degenerative changes of the L4-5 disc, as described. Note borderline spinal stenosis at L3-4 and L4-5 Other mild degenerative changes, as detailed on a level by level basis above. Willie Mishra MD Jul 30, 2018 14:20
--- NOTE | 2018-07-30 14:49 | Brief Operative Note ---
Immediate Post Operative Note Operative Note Pre-op Diagnosis: Painful acute L1 compression fracture Procedure: L1 kyphoplasty Post-op Diagnosis: same as pre-op Surgeon: Eleno VALLE Anesthesia: general Specimen: yes - bone marrow specimens sent to pathology Complications: none Fluids: none Implant(s) used?: No Pratik Valle MD Jul 30, 2018 14:49
[2018-07-30] MEDS ORDERED: Labetalol 5mg/ml 20ml vial IV PRN ×2 (15:00→16:30)
[2018-07-30] MEDS ORDERED: Midazolam 2mg/2ml Inj IVP SCH (15:15)
--- NOTE | 2018-07-30 16:29 | NUR ---
NURSE NOTES: Report was given to LAKESHIA Storey. Plan of care endorsed.
[2018-07-30] MEDS ORDERED: Midazolam 2mg/2ml Inj IVP ONE (16:30)
--- NOTE | 2018-07-30 16:30 | NUR ---
NURSE NOTES: Received report from Vianney ASHER (post op) and from Monique ASHER (Tele unit). pt drowsy laying in bed with sat on 80-low 90's. pt is on O2@4L n/c. IV on the Left FA gauge #20 and left FA gauge#22 . pt is incontinent to bowel. RN will revise orders and will carry on orders. pt's at bedside. call light within reach, bed in lowest position. side rales up x2. I will f/u as needed.
[2018-07-30] MEDS ORDERED: Isovue-300 100ml vial INJ PRN (16:44)
--- NOTE | 2018-07-30 17:33 | Diagnostic Imaging Report ---
INDICATION: L1 vertebral body edema on recent MRI, severe low back pain after a fall TECHNIQUE: Informed consent obtained prior to commencement of the procedure from the patient and the patient's . Appropriate prior imaging studies reviewed. Procedural timeout performed. Procedure performed under general anesthesia. Total sterile technique, including sterile gloves and hand hygiene, hat, mask, sterile gown, large sterile drape, and preparation with 2% chlorhexidine utilized. Biplane fluoroscopy used to localize the right ventricular puncture site. Local deep and superficial anesthesia with 1% lidocaine. Under direct fluoroscopic supervision, a needle and trocar were passed to the level of the pedicle. Using a hammer, it was then inserted into the pedicle, through the pedicle and into the posterior vertebral body. This was repeated on the left pedicle. The trochars were removed, and a drill was then inserted through each of the cannula, creating a track for the balloons. The specimen obtained with a drill was submitted to pathology. Balloons were then inserted, and inflated under direct fluoroscopic supervision. The lungs were removed, and bone cement was carefully inserted under direct fluoroscopic supervision, taken care to stop injecting when appropriate film was observed. This was deemed satisfactory. With the trochars inserted, the cannulae were removed. Final images confirm satisfactory distribution of cement within the L1 vertebral body. The patient tolerated the procedure well, without immediate complication. Fluoroscopy time: 144.6 and 211.6 seconds Total dose: 0.05241 and 1.37 mGym2 Total number of images: 8 and 9 COMPARISON: Reference made to prior lumbar spine MRI of earlier the same day FINDINGS: As above IMPRESSION: Successful L1 kyphoplasty, as described
[2018-07-30] MEDS ORDERED: Miralax 17gm pkt ORAL PRN (20:00)
[2018-07-30] MEDS ORDERED: Zolpidem 5mg tab ORAL PRN (20:00)
--- NOTE | 2018-07-30 20:33 | NUR ---
HAND-OFF: Report given to Niko Hill pt in stable condition.
--- NOTE | 2018-07-30 20:35 | NUR ---
NURSE NOTES: Report taken from Niko RN and Lindsay RN. Patient is awake and in bed, she is A&Ox2, she does not know why or where she is. Needs explaining as to the reasoning she is here. IV site c/d/i and patent. Surgical site c/d/i, no staining. She needs medication crushed. O2 at 90% with 4 L NC, yankauer suction at bed side. Bed in lowest position, call light within reach.
[2018-07-30] MEDS: oxyCONTIN 20mg tab ORAL SCH (22:37)
[2018-07-31] VITALS (7 sets, daily range): BP systolic 113–143; BP diastolic 56–87
--- NOTE | 2018-07-31 01:30 | NUR ---
NURSE NOTES: Patient is de-stating from 88-83% on 4 L NC. Notified MD. RT came up and applied Venturi-mask. Patient stats up to 95%.
--- NOTE | 2018-07-31 07:18 | NUR ---
HAND-OFF: Report given to LAKESHIA Burgos. Patient is fatigued, VS stable.
--- NOTE | 2018-07-31 08:00 | NUR ---
NURSE NOTES: RECEIVED PATIENT IN BED, RESTING AND ALERT TO NAME, PLACE AND PURPOSE. PATIENT DENIES PAIN. NO SIGNS OF RESPIRATORY DISTRESS. IV INTACT. PATIENT ON NC 3. BED IN LOWEST POSITION, CALL LIGHT WITHIN REACH. WILL CONTINUE TO MONITOR.
[2018-07-31] MEDS ORDERED: Albuterol/Ipratropium 3ml neb HHN PRN (08:15)
[2018-07-31] MEDS: Docusate 100mg cap ORAL SCH ×2 (09:09→17:54)
[2018-07-31] MEDS: DULoxetine 30mg cap ORAL SCH (09:09)
[2018-07-31] MEDS: oxyCONTIN 20mg tab ORAL SCH ×2 (09:09→20:23)
[2018-07-31] MEDS: Citalopram Hydrobromide 10mg Tab ORAL SCH (09:09)
[2018-07-31] MEDS: Enoxaparin 40mg Inj SUBQ SCH (09:10)
--- NOTE | 2018-07-31 11:03 | NUR ---
NURSE NOTES: PATIENT DISPLAYING PERIODS OF CONFUSION. AT BEDSIDE. PATIENT ASSISTED IN REPOSITIONING. WILL CONTINUE TO MONITOR.
--- NOTE | 2018-07-31 11:20 | Pulmonology Progress Note ---
Assessment/Plan Problems: (1) T11 vertebral fracture (2) COPD (chronic obstructive pulmonary disease) (3) Intractable pain (4) Unable to ambulate (5) Rheumatoid arthritis (6) Hypothyroidism (7) Breast cancer (8) HTN (hypertension) (9) Cerebral vascular disease Assessment/Plan all reviewed Kyphoplasty done on Thursday more confused today pain control, on Methadone, helped a little, increase the dose respiratory treatment titrate fio2 to sat of 92% dvt prophylaxis Subjective ROS Limited/Unobtainable: No HEENT: Repors: no symptoms Respiratory: Reports: no symptoms Allergies: Coded Allergies: MEPERIDINE (Verified Allergy, Severe, 07/19/16) Objective Last 24 Hour Vital Signs Date Time Temp Pulse Resp B/P (MAP) Pulse Ox O2 Delivery O2 Flow Rate FiO2 07/31/18 09:00 Nasal Cannula 3.0 07/31/18 08:00 98.1 75 19 126/57 (80) 95 07/31/18 04:00 97.6 88 20 143/78 (99) 97 07/31/18 00:00 98.6 86 18 113/67 (82) 88 07/30/18 21:00 Nasal Cannula 3.0 07/30/18 20:00 98.2 88 18 132/87 (102) 97 07/30/18 16:00 97.7 79 19 132/100 (111) 96 07/30/18 15:49 98.0 74 14 159/70 96 Nasal Cannula 3 07/30/18 15:40 97.9 73 16 168/52 96 Nasal Cannula 3 07/30/18 15:25 73 16 156/70 95 Simple Mask 6 07/30/18 15:18 82 196/77 07/30/18 15:15 83 20 196/77 95 Simple Mask 6 07/30/18 15:05 85 16 161/75 95 Simple Mask 6 07/30/18 14:55 85 23 174/74 97 Simple Mask 6 07/30/18 14:50 83 15 175/69 96 Simple Mask 6 07/30/18 14:45 97.3 82 22 170/69 96 Simple Mask 6 07/30/18 13:02 80 18 07/30/18 11:48 97.3 71 18 126/67 (86) 96 07/30/18 11:43 98.5 Intake and Output 07/30/18 07/31/18 19:00 07:00 Intake Total 1000 ml 280 ml Output Total 30 ml Balance 970 ml 280 ml Intake Oral 280 ml IV Total 1000 ml Output Estimated Blood Loss 30 ml # Voids 4 General Appearance: WD/WN HEENT: normocephalic, atraumatic Respiratory/Chest: chest wall non-tender, lungs clear Breasts: no masses Cardiovascular: normal rate, regularly irregular Abdomen: soft, non tender, non distended Genitourinary: normal external genitalia Extremities: no clubbing Skin: no rash Current Medications Medications (Trade) Dose Ordered Sig/Steve Route PRN Reason Start Time Stop Time Status Last Admin Dose Admin Acetaminophen (Tylenol) 650 mg Q4H PRN ORAL Mild Pain/Temp > 100.5 07/30/18 17:00 08/26/18 16:59 Albuterol/ Ipratropium (Albuterol/ Ipratropium) 3 ml Q6HRT PRN HHN Shortness of Breath 07/31/18 08:15 08/05/18 08:14 Citalopram Hydrobromide (celeXA) 20 mg DAILY ORAL 07/31/18 09:00 08/27/18 08:59 07/31/18 09:09 Diazepam (Valium) 5 mg BEDTIME ORAL 07/30/18 21:00 08/03/18 20:59 07/30/18 22:37 Diazepam (Valium) 5 mg Q6H PRN ORAL For Anxiety 07/30/18 17:00 08/03/18 16:59 Docusate Sodium (Colace) 100 mg TWICE A DAY ORAL 07/30/18 18:00 08/26/18 17:59 07/31/18 09:09 Duloxetine HCl (Cymbalta) 30 mg DAILY ORAL 07/31/18 09:00 08/26/18 09:59 07/31/18 09:09 Enoxaparin Sodium (Lovenox) 40 mg DAILY SUBQ 07/31/18 09:00 08/26/18 08:59 07/31/18 09:10 Ergocalciferol (Drisdol) 50,000 intlu QWEEK ORAL 08/02/18 09:00 09/01/18 08:59 Levothyroxine Sodium (Synthroid) 150 mcg ACBREAKFAST ORAL 07/31/18 06:30 08/27/18 06:29 07/31/18 06:45 Methadone HCl (Methadone HCl) 5 mg Q6H PRN ORAL pain 4-10 07/30/18 17:45 08/05/18 11:44 Oxycodone HCl (OxyCONTIN) 20 mg EVERY 12 HOURS ORAL 07/30/18 21:00 08/03/18 21:20 07/31/18 09:09 Pantoprazole (Protonix) 40 mg DAILY ORAL 07/31/18 09:00 08/26/18 08:59 07/31/18 09:09 Polyethylene Glycol (Miralax) 17 gm HSPRN PRN ORAL Constipation 07/30/18 20:00 08/29/18 19:59 Zolpidem Tartrate (Ambien) 5 mg HSPRN PRN ORAL Insomnia 07/30/18 20:00 08/06/18 19:59 Amanda Castañeda MD Jul 31, 2018 11:20
--- NOTE | 2018-07-31 12:27 | NUR ---
PT Note PT juancho completed, treatment initiated. Patient is confused but able to follow 50% of instructions. She also is noted to have marked delay in her responses. Patient needs PT services to increase her muscle strength and balance to improve her functional mobility and gait. Recommend for patient to be transferred to a SNF vs rehab. Addendum: 07/31/18 at 1228 by ALPHONSO EVANS PT Amended: Links added.
--- NOTE | 2018-07-31 13:12 | General Progress Note ---
Progress Note Progress Note Pt. still somewhat confused, difficult to get good history, but seems much more comfortable than pre-procedure. Reportedly was able to stand this a.m. with assistance, and pt's. reports that she appears to feel much better. Further mgt. per attending M.D. Please reconsult prn any worsening of sx Pratik Valle MD Jul 31, 2018 13:12
--- NOTE | 2018-07-31 14:04 | Internal Med Progress Note ---
Subjective Physician Name Toro Dixon Attending Physician Willie Mishra MD Current Medications Medications (Trade) Dose Ordered Sig/Steve Route PRN Reason Start Time Stop Time Status Last Admin Dose Admin Acetaminophen (Tylenol) 650 mg Q4H PRN ORAL Mild Pain/Temp > 100.5 07/30/18 17:00 08/26/18 16:59 Albuterol/ Ipratropium (Albuterol/ Ipratropium) 3 ml Q6HRT PRN HHN Shortness of Breath 07/31/18 08:15 08/05/18 08:14 Citalopram Hydrobromide (celeXA) 20 mg DAILY ORAL 07/31/18 09:00 08/27/18 08:59 07/31/18 09:09 Diazepam (Valium) 5 mg BEDTIME ORAL 07/30/18 21:00 08/03/18 20:59 07/30/18 22:37 Diazepam (Valium) 5 mg Q6H PRN ORAL For Anxiety 07/30/18 17:00 08/03/18 16:59 Docusate Sodium (Colace) 100 mg TWICE A DAY ORAL 07/30/18 18:00 08/26/18 17:59 07/31/18 09:09 Duloxetine HCl (Cymbalta) 30 mg DAILY ORAL 07/31/18 09:00 08/26/18 09:59 07/31/18 09:09 Enoxaparin Sodium (Lovenox) 40 mg DAILY SUBQ 07/31/18 09:00 08/26/18 08:59 07/31/18 09:10 Ergocalciferol (Drisdol) 50,000 intlu QWEEK ORAL 08/02/18 09:00 09/01/18 08:59 Levothyroxine Sodium (Synthroid) 150 mcg ACBREAKFAST ORAL 07/31/18 06:30 08/27/18 06:29 07/31/18 06:45 Methadone HCl (Methadone HCl) 5 mg Q6H PRN ORAL pain 4-10 07/30/18 17:45 08/05/18 11:44 Oxycodone HCl (OxyCONTIN) 20 mg EVERY 12 HOURS ORAL 07/30/18 21:00 08/03/18 21:20 07/31/18 09:09 Pantoprazole (Protonix) 40 mg DAILY ORAL 07/31/18 09:00 08/26/18 08:59 07/31/18 09:09 Polyethylene Glycol (Miralax) 17 gm HSPRN PRN ORAL Constipation 07/30/18 20:00 08/29/18 19:59 Zolpidem Tartrate (Ambien) 5 mg HSPRN PRN ORAL Insomnia 07/30/18 20:00 08/06/18 19:59 Allergies: Coded Allergies: MEPERIDINE (Verified Allergy, Severe, 07/19/16) Subjective 82 YO F admitted with fall injury and back pain. Now T-11 fracture. Cover for Int med-Dr Mishra. Objective Last Vital Signs Date Time Temp Pulse Resp B/P (MAP) Pulse Ox O2 Delivery O2 Flow Rate FiO2 07/31/18 12:00 98.4 72 18 128/56 (80) 100 07/31/18 09:00 Nasal Cannula 3.0 07/29/18 08:57 40 Intake and Output 07/30/18 07/31/18 19:00 07:00 Intake Total 1000 ml 280 ml Output Total 30 ml Balance 970 ml 280 ml Intake Oral 280 ml IV Total 1000 ml Output Estimated Blood Loss 30 ml # Voids 4 Objective Objective GENERAL: The patient is awake, responsive, no acute distress. HEENT: Pupils are equal and reactive to light. Extraocular movement intact. NECK: Supple. No JVD. CHEST WALL: Bilateral mastectomy scar was noted. LUNGS: Good air entry. No wheezing or rales. Chest wall has a bilateral breast mastectomy site, was noted well healed. HEART: S1, S2. Regular rhythm. No gallops. ABDOMEN: Soft, nondistended, and nontender. Positive bowel sounds. Mild obesity. BACK: Paraspinal tenderness on the lumbar spine area. EXTREMITIES: No cyanosis, clubbing, or edema. NEUROLOGIC: Cranial nerves II through XII are grossly intact. The patient moving all extremities , unable to assess gait due to the severe pain. Assessment/Plan Assessment/Plan 15. History of fall with the right hip subcapsular fracture in July 2016 status post ORIF. Assessment/Plan Assessment/Plan Assessment/Plan ASSESSMENT: 1. Status post trip and fall with lower back pain possible due to the lumbar spine injury (Acute T11 vertebral body compression fracture and L1 superior endplate compression deformity). 2. History of right occipital infarction. 3. History of breast cancer, status post bilateral mastectomy. 4. Depression. 5. Diverticulosis. 6. Gastroesophageal reflux disease. 7. Hypertension. 8. Dyslipidemia. 9. Hypothyroidism. 10. Idiopathic pulmonary fibrosis. 11. Mild cognitive impairment. 12. Osteopenia. 13. Rheumatoid arthritis. 14. History of pyelonephritis in the past. 15. History of fall with the right hip subcapsular fracture in July 2016 status post ORIF. PLAN: In Telemetry. We will follow up laboratory and discuss with extensively at bedside and explained that care will be provided, Consider kyphoplasty by radiology today. S/P lumbar 1 kyphoplasty 07/30/18. Discharge planning: SNF vs Acute rehab Toro Dixon MD Jul 31, 2018 14:04
--- NOTE | 2018-07-31 15:12 | Diagnostic Imaging Report ---
EXAM: XR Chest, 1 View CLINICAL HISTORY: SOB TECHNIQUE: Frontal view of the chest. COMPARISON: No relevant prior studies available. FINDINGS: Lungs: Accentuation of interstitial markings. Pleural space: Unremarkable. No pneumothorax. Heart: Large cardiomediastinal silhouette. Mediastinum: See above. Bones/joints: No acute fracture. Tubes, lines and devices: Surgical material or foreign body projecting over the right heart. Correlate. IMPRESSION: Accentuation of interstitial markings. Could be from interstitial edema, pneumonia and/or component of chronic interstitial lung disease.
--- NOTE | 2018-07-31 19:15 | NUR ---
HAND-OFF: Report given to LAKESHIA Pope.
--- NOTE | 2018-07-31 19:55 | NUR ---
NURSE NOTES: Received pt in bed. AOx3. Denies SOB. No acute distress at this time. Encouraged pt to utilize call button when in need of assistance.
[2018-08-01] VITALS: BP 146/78
--- NOTE | 2018-08-01 01:34 | NUR ---
NURSE NOTES: Pt found confused, agitated and combative in bed, urine in bed, and IV dislodged. No active bleeding noted from site/ no hematoma. Effective therapeutic communication, able to calm pt down and able to cooperate in personal hygiene/ care. Pt resting in bed comfortably. AOx2. Denies pain/discomfort. No acute distress. Encourage use of call button when in need of assistance.
[2018-08-01 04:00] VITALS: BP 121/71
[2018-08-01 07:45] LABS: BASOPHILS % (AUTO) 1.1 % (0.0-2.0); EOSINOPHILS % (AUTO) 1.8 % (0.0-3.0); HEMATOCRIT 28.7 % (37.0-47.0); LYMPHOCYTES % (AUTO) 23.5 % (20.0-45.0); MEAN CORPUSCULAR VOLUME 94 FL (80-99); MONOCYTES % (AUTO) 9.8 % (1.0-10.0); NEUTROPHILS % (AUTO) 63.7 % (45.0-75.0); PLATELET COUNT 156 K/UL (150-450); RED BLOOD COUNT 3.06 M/UL (4.20-5.40); RED CELL DISTRIBUTION WIDTH 14.9 % (11.6-14.8); WHITE BLOOD COUNT 6.5 K/UL (4.8-10.8)
--- NOTE | 2018-08-01 07:53 | NUR ---
NURSE NOTES: Received report from Niko ASHER. Patient is awake during rounds, confused, sitting up in bed eating breakfast. Reporting pain in back but did not report what level of pain she is in. Not requesting pain medication at this time. On 3L NC. No IV, per report patient self removed IV and MD is aware. Fall precautions maintained, side rails upx3, bed low and locked, call light in reach. Will continue to monitor.
[2018-08-01 08:00] VITALS: BP 128/80
[2018-08-01 08:25] LABS: ANION GAP 11 mmol/L (5-15); BLOOD UREA NITROGEN 22 mg/dL (7-18); CALCIUM 9.8 MG/DL (8.5-10.1); CARBON DIOXIDE 22 MMOL/L (21-32); CHLORIDE 106 MMOL/L (98-107); CREATININE 1.1 MG/DL (0.55-1.30); POTASSIUM 4.6 MMOL/L (3.5-5.1); SODIUM 139 MMOL/L (136-145)
[2018-08-01] MEDS: Docusate 100mg cap ORAL SCH ×2 (09:00→18:00)
[2018-08-01] MEDS: Citalopram Hydrobromide 10mg Tab ORAL SCH (09:20)
[2018-08-01] MEDS: DULoxetine 30mg cap ORAL SCH (09:20)
[2018-08-01] MEDS: oxyCONTIN 20mg tab ORAL SCH (09:21)
--- NOTE | 2018-08-01 10:30 | NUR ---
PT Note Attempted to see patient x 2 this morning but patient's wants patient to eat first; second time, patient's wants patient to rest as patient is sleepy.
[2018-08-01 12:00] VITALS: BP 121/59
[2018-08-01] MEDS: Enoxaparin 40mg Inj SUBQ SCH (12:01)
--- NOTE | 2018-08-01 12:05 | NUR ---
NURSE NOTES: Contacted Dr. Castañeda regarding lovenox administration following spinal procedure. MD ordered to hold. Will continue to monitor.
--- NOTE | 2018-08-01 13:11 | NUR ---
NURSE NOTES: Contacted by Dr. Mishra. ordered for case management consult for SNF placement. Order entered. Per MD, ok to administer lovenox as ordered daily even though patient had spinal procedure. Dr. Mishra aware medication was held today per order from Dr. Castañeda. No further orders. Will continue to monitor.
--- NOTE | 2018-08-01 14:08 | Pulmonology Progress Note ---
Assessment/Plan Problems: (1) T11 vertebral fracture (2) COPD (chronic obstructive pulmonary disease) (3) Intractable pain (4) Unable to ambulate (5) Rheumatoid arthritis (6) Hypothyroidism (7) Breast cancer (8) HTN (hypertension) (9) Cerebral vascular disease Assessment/Plan in better spirit today, all reviewed Kyphoplasty done on Thursday more confused today pain control, on Methadone, helped a little, increase the dose respiratory treatment titrate fio2 to sat of 92% dvt prophylaxis will cut the oxycodone and methadone to half. Subjective ROS Limited/Unobtainable: No Constitutional: Reports: no symptoms HEENT: Repors: no symptoms Allergies: Coded Allergies: MEPERIDINE (Verified Allergy, Severe, 07/19/16) Objective Last 24 Hour Vital Signs Date Time Temp Pulse Resp B/P (MAP) Pulse Ox O2 Delivery O2 Flow Rate FiO2 08/01/18 08:00 98.3 70 17 128/80 (96) 96 08/01/18 04:00 97.5 75 18 121/71 (88) 92 08/01/18 00:00 98.6 79 18 146/78 (100) 94 07/31/18 21:00 Nasal Cannula 3.0 07/31/18 20:00 98.2 65 18 125/59 (81) 97 07/31/18 16:10 75 16 96 Nasal Cannula 3.0 32 07/31/18 16:00 Nasal Cannula 3.0 32 07/31/18 16:00 97.5 85 19 128/80 (96) 100 07/31/18 16:00 79 16 Nasal Cannula 3.0 32 07/31/18 16:00 32 07/31/18 16:00 92 Nasal Cannula 3.0 32 07/31/18 16:00 79 16 92 Nasal Cannula 3.0 32 Intake and Output 07/31/18 08/01/18 19:00 07:00 Intake Total 460 ml 240 ml Balance 460 ml 240 ml Intake Oral 460 ml 240 ml # Voids 1 General Appearance: WD/WN, no acute distress HEENT: normocephalic, atraumatic Respiratory/Chest: chest wall non-tender, lungs clear Breasts: no masses Cardiovascular: normal peripheral pulses Abdomen: normal bowel sounds, no organomegaly Genitourinary: normal external genitalia Extremities: no clubbing Skin: no rash Laboratory Tests 08/01/18 05:30: White Blood Count 6.5, Red Blood Count 3.06L, Hemoglobin 9.0L, Hematocrit 28.7L , Mean Corpuscular Volume 94, Mean Corpuscular Hemoglobin 29.3, Mean Corpuscular Hemoglobin Concent 31.3L, Red Cell Distribution Width 14.9H, Platelet Count 156, Mean Platelet Volume 6.4L, Neutrophils (%) (Auto) 63.7, Lymphocytes (%) (Auto) 23.5, Monocytes (%) (Auto) 9.8, Eosinophils (%) (Auto) 1.8, Basophils (%) (Auto) 1.1, Sodium Level 139, Potassium Level 4.6, Chloride Level 106, Carbon Dioxide Level 22, Anion Gap 11, Blood Urea Nitrogen 22H, Creatinine 1.1, Estimat Glomerular Filtration Rate , Glucose Level 94, Calcium Level 9.8 Current Medications Medications (Trade) Dose Ordered Sig/Steve Route PRN Reason Start Time Stop Time Status Last Admin Dose Admin Acetaminophen (Tylenol) 650 mg Q4H PRN ORAL Mild Pain/Temp > 100.5 07/30/18 17:00 08/26/18 16:59 Albuterol/ Ipratropium (Albuterol/ Ipratropium) 3 ml Q6HRT PRN HHN Shortness of Breath 07/31/18 08:15 08/05/18 08:14 07/31/18 16:00 Citalopram Hydrobromide (celeXA) 20 mg DAILY ORAL 07/31/18 09:00 08/27/18 08:59 08/01/18 09:20 Diazepam (Valium) 5 mg BEDTIME ORAL 07/30/18 21:00 08/03/18 20:59 07/31/18 21:22 Diazepam (Valium) 5 mg Q6H PRN ORAL For Anxiety 07/30/18 17:00 08/03/18 16:59 Docusate Sodium (Colace) 100 mg TWICE A DAY ORAL 07/30/18 18:00 08/26/18 17:59 07/31/18 17:54 Duloxetine HCl (Cymbalta) 30 mg DAILY ORAL 07/31/18 09:00 08/26/18 09:59 08/01/18 09:20 Enoxaparin Sodium (Lovenox) 40 mg DAILY SUBQ 07/31/18 09:00 08/26/18 08:59 07/31/18 09:10 Ergocalciferol (Drisdol) 50,000 intlu QWEEK ORAL 08/02/18 09:00 09/01/18 08:59 Levothyroxine Sodium (Synthroid) 150 mcg ACBREAKFAST ORAL 07/31/18 06:30 08/27/18 06:29 08/01/18 05:55 Methadone HCl (Methadone HCl) 5 mg Q6H PRN ORAL pain 4-10 07/30/18 17:45 08/05/18 11:44 Oxycodone HCl (OxyCONTIN) 20 mg EVERY 12 HOURS ORAL 07/30/18 21:00 08/03/18 21:20 08/01/18 09:21 Pantoprazole (Protonix) 40 mg DAILY ORAL 07/31/18 09:00 08/26/18 08:59 07/31/18 09:09 Polyethylene Glycol (Miralax) 17 gm HSPRN PRN ORAL Constipation 07/30/18 20:00 08/29/18 19:59 Zolpidem Tartrate (Ambien) 5 mg HSPRN PRN ORAL Insomnia 07/30/18 20:00 08/06/18 19:59 Amanda Castañeda MD Aug 01, 2018 14:08
--- NOTE | 2018-08-01 15:14 | Internal Med Progress Note ---
Subjective Date of Service: Aug 01, 2018 Physician Name Dixon,Toro Attending Physician Willie Mishra MD Current Medications Medications (Trade) Dose Ordered Sig/Steve Route PRN Reason Start Time Stop Time Status Last Admin Dose Admin Acetaminophen (Tylenol) 650 mg Q4H PRN ORAL Mild Pain/Temp > 100.5 07/30/18 17:00 08/26/18 16:59 Albuterol/ Ipratropium (Albuterol/ Ipratropium) 3 ml Q6HRT PRN HHN Shortness of Breath 07/31/18 08:15 08/05/18 08:14 07/31/18 16:00 Citalopram Hydrobromide (celeXA) 20 mg DAILY ORAL 07/31/18 09:00 08/27/18 08:59 08/01/18 09:20 Diazepam (Valium) 5 mg BEDTIME ORAL 07/30/18 21:00 08/03/18 20:59 07/31/18 21:22 Diazepam (Valium) 5 mg Q6H PRN ORAL For Anxiety 07/30/18 17:00 08/03/18 16:59 Docusate Sodium (Colace) 100 mg TWICE A DAY ORAL 07/30/18 18:00 08/26/18 17:59 07/31/18 17:54 Duloxetine HCl (Cymbalta) 30 mg DAILY ORAL 07/31/18 09:00 08/26/18 09:59 08/01/18 09:20 Enoxaparin Sodium (Lovenox) 40 mg DAILY SUBQ 07/31/18 09:00 08/26/18 08:59 07/31/18 09:10 Ergocalciferol (Drisdol) 50,000 intlu QWEEK ORAL 08/02/18 09:00 09/01/18 08:59 Levothyroxine Sodium (Synthroid) 150 mcg ACBREAKFAST ORAL 07/31/18 06:30 08/27/18 06:29 08/01/18 05:55 Methadone HCl (Methadone HCl) 2.5 mg Q6H PRN ORAL pain 4-10 08/01/18 17:45 08/05/18 11:44 Oxycodone HCl (OxyCONTIN) 10 mg Q12HR ORAL 08/01/18 21:00 08/08/18 20:59 Pantoprazole (Protonix) 40 mg DAILY ORAL 07/31/18 09:00 08/26/18 08:59 07/31/18 09:09 Polyethylene Glycol (Miralax) 17 gm HSPRN PRN ORAL Constipation 07/30/18 20:00 08/29/18 19:59 Zolpidem Tartrate (Ambien) 5 mg HSPRN PRN ORAL Insomnia 07/30/18 20:00 08/06/18 19:59 Allergies: Coded Allergies: MEPERIDINE (Verified Allergy, Severe, 07/19/16) ROS Limited/Unobtainable: No Constitutional: Reports: no symptoms HEENT: Reports: no symptoms Cardiovascular: Reports: no symptoms Respiratory: Reports: no symptoms Gastrointestinal/Abdominal: Reports: no symptoms Genitourinary: Reports: no symptoms Neurologic/Psychiatric: Reports: no symptoms Subjective 82 YO F admitted with fall injury and back pain. Now T-11 fracture. Cover for Int celia-Dr Mishra. Objective Last Vital Signs Date Time Temp Pulse Resp B/P (MAP) Pulse Ox O2 Delivery O2 Flow Rate FiO2 08/01/18 12:00 97.4 70 18 121/59 (79) 95 07/31/18 21:00 Nasal Cannula 3.0 07/31/18 16:10 32 Laboratory Tests Test 08/01/18 05:30 White Blood Count 6.5 K/UL (4.8-10.8) Red Blood Count 3.06 M/UL (4.20-5.40) L Hemoglobin 9.0 G/DL (12.0-16.0) L Hematocrit 28.7 % (37.0-47.0) L Mean Corpuscular Volume 94 FL (80-99) Mean Corpuscular Hemoglobin 29.3 PG (27.0-31.0) Mean Corpuscular Hemoglobin Concent 31.3 G/DL (32.0-36.0) L Red Cell Distribution Width 14.9 % (11.6-14.8) H Platelet Count 156 K/UL (150-450) Mean Platelet Volume 6.4 FL (6.5-10.1) L Neutrophils (%) (Auto) 63.7 % (45.0-75.0) Lymphocytes (%) (Auto) 23.5 % (20.0-45.0) Monocytes (%) (Auto) 9.8 % (1.0-10.0) Eosinophils (%) (Auto) 1.8 % (0.0-3.0) Basophils (%) (Auto) 1.1 % (0.0-2.0) Sodium Level 139 MMOL/L (136-145) Potassium Level 4.6 MMOL/L (3.5-5.1) Chloride Level 106 MMOL/L (98-107) Carbon Dioxide Level 22 MMOL/L (21-32) Anion Gap 11 mmol/L (5-15) Blood Urea Nitrogen 22 mg/dL (7-18) H Creatinine 1.1 MG/DL (0.55-1.30) Estimat Glomerular Filtration Rate mL/min (>60) Glucose Level 94 MG/DL (74-106) Calcium Level 9.8 MG/DL (8.5-10.1) Intake and Output 07/31/18 08/01/18 19:00 07:00 Intake Total 460 ml 240 ml Balance 460 ml 240 ml Intake Oral 460 ml 240 ml # Voids 1 Objective Objective GENERAL: The patient is awake, responsive, no acute distress. HEENT: Pupils are equal and reactive to light. Extraocular movement intact. NECK: Supple. No JVD. CHEST WALL: Bilateral mastectomy scar was noted. LUNGS: Good air entry. No wheezing or rales. Chest wall has a bilateral breast mastectomy site, was noted well healed. HEART: S1, S2. Regular rhythm. No gallops. ABDOMEN: Soft, nondistended, and nontender. Positive bowel sounds. Mild obesity. BACK: Paraspinal tenderness on the lumbar spine area. EXTREMITIES: No cyanosis, clubbing, or edema. NEUROLOGIC: Cranial nerves II through XII are grossly intact. The patient moving all extremities , unable to assess gait due to the severe pain. Assessment/Plan Assessment/Plan 15. History of fall with the right hip subcapsular fracture in July 2016 status post ORIF. Assessment/Plan Assessment/Plan Assessment/Plan ASSESSMENT: 1. Status post trip and fall with lower back pain possible due to the lumbar spine injury (Acute T11 vertebral body compression fracture and L1 superior endplate compression deformity). 2. History of right occipital infarction. 3. History of breast cancer, status post bilateral mastectomy. 4. Depression. 5. Diverticulosis. 6. Gastroesophageal reflux disease. 7. Hypertension. 8. Dyslipidemia. 9. Hypothyroidism. 10. Idiopathic pulmonary fibrosis. 11. Mild cognitive impairment. 12. Osteopenia. 13. Rheumatoid arthritis. 14. History of pyelonephritis in the past. 15. History of fall with the right hip subcapsular fracture in July 2016 status post ORIF. PLAN: In Telemetry. We will follow up laboratory and discuss with extensively at bedside and explained that care will be provided, Consider kyphoplasty by radiology today. S/P lumbar 1 kyphoplasty 07/30/18. Discharge planning: SNF vs Acute rehab Toro Dixon MD Aug 01, 2018 15:14
--- NOTE | 2018-08-01 15:45 | NUR ---
CASE MANAGEMENT: REVIEW 08/01/2018 SI:Status post fall with lower back pain. T 97.4 HR 70 RR 18 B/P 121/59 SATS 95% ON 3L/NC BUN 22 IS:SYNTHROID PO QAM VALIUM PO QHS CELEXA PO QD CYMBALTA PO QD LOVENOX SUBQ QD PROTONIX PO QD OXYCONTIN PO Q12H DRISDOL PO QWEEK MED/SURG STATUS
[2018-08-01 16:00] VITALS: BP 129/69
--- NOTE | 2018-08-01 19:19 | NUR ---
HAND-OFF: Report given to Niko ASHER. Patient is in stable condition.
[2018-08-01 20:00] VITALS: BP 152/68
--- NOTE | 2018-08-01 20:36 | NUR ---
NURSE NOTES: Patient in bed asleep. Easily awakened. Nasal cannula at 3L, 02sat @92%. Raised HOB. Oral suction at bedside. Patient is repositioned for comfort. No pain at this time. Needs attended. Due meds given. In stable condition.
[2018-08-01] MEDS: oxyCONTIN 10mg tab ORAL SCH (21:00)
[2018-08-02] VITALS: BP 114/69
[2018-08-02 04:00] VITALS: BP 135/60
--- NOTE | 2018-08-02 07:54 | NUR ---
NURSE NOTES: Received report from Niko ASHER. Patient is awake and alert on rounds, no acute distress noted. On 3L NC, suction at bedside. Patient reporting some pain in back but not requesting pain medication at this time. Dressing dry and intact, stain circled. Side rails upx3, bed low and locked, call light in reach. Will continue to monitor.
[2018-08-02 07:58] LABS: HEMATOCRIT 30.8 % (37.0-47.0); HEMOGLOBIN 9.8 G/DL (12.0-16.0); MEAN CORPUSCULAR VOLUME 94 FL (80-99); PLATELET COUNT 192 K/UL (150-450); RED CELL DISTRIBUTION WIDTH 15.1 % (11.6-14.8); WHITE BLOOD COUNT 5.8 K/UL (4.8-10.8)
[2018-08-02 08:00] VITALS: BP 131/75
[2018-08-02 08:37] LABS: ANION GAP 9 mmol/L (5-15); BLOOD UREA NITROGEN 16 mg/dL (7-18); CALCIUM 9.7 MG/DL (8.5-10.1); CARBON DIOXIDE 26 MMOL/L (21-32); CHLORIDE 106 MMOL/L (98-107); POTASSIUM 3.9 MMOL/L (3.5-5.1); SODIUM 141 MMOL/L (136-145)
[2018-08-02] MEDS ORDERED: Vitamin D 50,000 units cap ORAL SCH ×2 (09:00)
[2018-08-02] MEDS: oxyCONTIN 10mg tab ORAL SCH ×2 (10:03→20:12)
[2018-08-02] MEDS: Docusate 100mg cap ORAL SCH ×2 (10:03→17:57)
[2018-08-02] MEDS: DULoxetine 30mg cap ORAL SCH (10:03)
[2018-08-02] MEDS: Citalopram Hydrobromide 10mg Tab ORAL SCH (10:03)
[2018-08-02] MEDS: Enoxaparin 40mg Inj SUBQ SCH (10:05)
--- NOTE | 2018-08-02 11:53 | Pulmonology Progress Note ---
Assessment/Plan Problems: (1) T11 vertebral fracture (2) COPD (chronic obstructive pulmonary disease) (3) Intractable pain (4) Unable to ambulate (5) Rheumatoid arthritis (6) Hypothyroidism (7) Breast cancer (8) HTN (hypertension) (9) Cerebral vascular disease Assessment/Plan doing physical therapy in better spirit today, all reviewed Kyphoplasty done on Thursday more confused today pain control, on Methadone, helped a little, increase the dose respiratory treatment titrate fio2 to sat of 92% dvt prophylaxis Subjective ROS Limited/Unobtainable: No Constitutional: Reports: no symptoms HEENT: Repors: no symptoms Allergies: Coded Allergies: MEPERIDINE (Verified Allergy, Severe, 07/19/16) Objective Last 24 Hour Vital Signs Date Time Temp Pulse Resp B/P (MAP) Pulse Ox O2 Delivery O2 Flow Rate FiO2 08/02/18 09:34 Nasal Cannula 2.0 28 08/02/18 09:33 96 Nasal Cannula 2.0 28 08/02/18 09:32 62 16 Nasal Cannula 2.0 28 08/02/18 08:00 97.9 71 19 131/75 (93) 97 08/02/18 04:00 97.7 70 18 135/60 (85) 99 08/02/18 00:00 97.8 79 18 114/69 (84) 96 08/01/18 21:00 Nasal Cannula 3.0 08/01/18 20:00 98.3 75 18 152/68 (96) 98 08/01/18 19:45 81 20 Nasal Cannula 3.0 32 08/01/18 19:45 Nasal Cannula 3.0 32 08/01/18 19:45 93 Nasal Cannula 3.0 32 08/01/18 16:00 98.2 71 19 129/69 (89) 95 08/01/18 12:00 97.4 70 18 121/59 (79) 95 Intake and Output 08/01/18 08/02/18 19:00 07:00 Intake Total 240 ml Balance 240 ml Intake Oral 240 ml # Voids 2 3 HEENT: atraumatic Respiratory/Chest: chest wall non-tender, lungs clear Breasts: no masses Cardiovascular: normal peripheral pulses Abdomen: normal bowel sounds, soft, non tender Genitourinary: normal external genitalia Skin: no rash Laboratory Tests 08/02/18 05:26: White Blood Count 5.8, Red Blood Count 3.30L, Hemoglobin 9.8L, Hematocrit 30.8L , Mean Corpuscular Volume 94, Mean Corpuscular Hemoglobin 29.7, Mean Corpuscular Hemoglobin Concent 31.7L, Red Cell Distribution Width 15.1H, Platelet Count 192, Mean Platelet Volume 6.6, Neutrophils (%) (Auto) , Lymphocytes (%) (Auto) , Monocytes (%) (Auto) , Eosinophils (%) (Auto) , Basophils (%) (Auto) , Differential Total Cells Counted 100, Neutrophils % ( Manual) 54, Lymphocytes % (Manual) 30, Monocytes % (Manual) 11H, Eosinophils % ( Manual) 5H, Basophils % (Manual) 0, Band Neutrophils 0, Platelet Estimate Adequate, Platelet Morphology Normal, Anisocytosis 1+, Sodium Level 141, Potassium Level 3.9, Chloride Level 106, Carbon Dioxide Level 26, Anion Gap 9, Blood Urea Nitrogen 16, Creatinine 1.0, Estimat Glomerular Filtration Rate , Glucose Level 79, Calcium Level 9.7 Current Medications Medications (Trade) Dose Ordered Sig/Steve Route PRN Reason Start Time Stop Time Status Last Admin Dose Admin Acetaminophen (Tylenol) 650 mg Q4H PRN ORAL Mild Pain/Temp > 100.5 07/30/18 17:00 08/26/18 16:59 Albuterol/ Ipratropium (Albuterol/ Ipratropium) 3 ml Q6HRT PRN HHN Shortness of Breath 07/31/18 08:15 08/05/18 08:14 07/31/18 16:00 Citalopram Hydrobromide (celeXA) 20 mg DAILY ORAL 07/31/18 09:00 08/27/18 08:59 08/02/18 10:03 Diazepam (Valium) 5 mg BEDTIME ORAL 07/30/18 21:00 08/03/18 20:59 08/01/18 19:51 Diazepam (Valium) 5 mg Q6H PRN ORAL For Anxiety 07/30/18 17:00 08/03/18 16:59 Docusate Sodium (Colace) 100 mg TWICE A DAY ORAL 07/30/18 18:00 08/26/18 17:59 08/02/18 10:03 Duloxetine HCl (Cymbalta) 30 mg DAILY ORAL 07/31/18 09:00 08/26/18 09:59 08/02/18 10:03 Enoxaparin Sodium (Lovenox) 40 mg DAILY SUBQ 07/31/18 09:00 08/26/18 08:59 08/02/18 10:05 Ergocalciferol (Drisdol) 50,000 intlu QWEEK ORAL 08/02/18 09:00 09/01/18 08:59 08/02/18 10:07 Levothyroxine Sodium (Synthroid) 150 mcg ACBREAKFAST ORAL 07/31/18 06:30 08/27/18 06:29 08/02/18 05:30 Methadone HCl (Methadone HCl) 2.5 mg Q6H PRN ORAL pain 4-10 08/01/18 17:45 08/05/18 11:44 Oxycodone HCl (OxyCONTIN) 10 mg Q12HR ORAL 08/01/18 21:00 08/08/18 20:59 08/02/18 10:03 Pantoprazole (Protonix) 40 mg DAILY ORAL 07/31/18 09:00 08/26/18 08:59 08/02/18 10:03 Polyethylene Glycol (Miralax) 17 gm HSPRN PRN ORAL Constipation 07/30/18 20:00 08/29/18 19:59 Zolpidem Tartrate (Ambien) 5 mg HSPRN PRN ORAL Insomnia 07/30/18 20:00 08/06/18 19:59 Amanda Castañeda MD Aug 02, 2018 11:53
[2018-08-02 16:00] VITALS: BP 136/63
--- NOTE | 2018-08-02 17:30 | Internal Med Progress Note ---
Subjective Date of Service: Aug 02, 2018 Physician Name Dixon,Toro Attending Physician Willie Mishra MD Current Medications Medications (Trade) Dose Ordered Sig/Steve Route PRN Reason Start Time Stop Time Status Last Admin Dose Admin Acetaminophen (Tylenol) 650 mg Q4H PRN ORAL Mild Pain/Temp > 100.5 07/30/18 17:00 08/26/18 16:59 Albuterol/ Ipratropium (Albuterol/ Ipratropium) 3 ml Q6HRT PRN HHN Shortness of Breath 07/31/18 08:15 08/05/18 08:14 07/31/18 16:00 Citalopram Hydrobromide (celeXA) 20 mg DAILY ORAL 07/31/18 09:00 08/27/18 08:59 08/02/18 10:03 Diazepam (Valium) 5 mg BEDTIME ORAL 07/30/18 21:00 08/03/18 20:59 08/01/18 19:51 Diazepam (Valium) 5 mg Q6H PRN ORAL For Anxiety 07/30/18 17:00 08/03/18 16:59 Docusate Sodium (Colace) 100 mg TWICE A DAY ORAL 07/30/18 18:00 08/26/18 17:59 08/02/18 10:03 Duloxetine HCl (Cymbalta) 30 mg DAILY ORAL 07/31/18 09:00 08/26/18 09:59 08/02/18 10:03 Enoxaparin Sodium (Lovenox) 40 mg DAILY SUBQ 07/31/18 09:00 08/26/18 08:59 08/02/18 10:05 Ergocalciferol (Drisdol) 50,000 intlu QWEEK ORAL 08/02/18 09:00 09/01/18 08:59 08/02/18 10:07 Levothyroxine Sodium (Synthroid) 150 mcg ACBREAKFAST ORAL 07/31/18 06:30 08/27/18 06:29 08/02/18 05:30 Methadone HCl (Methadone HCl) 2.5 mg Q6H PRN ORAL pain 4-10 08/01/18 17:45 08/05/18 11:44 08/02/18 11:53 Oxycodone HCl (OxyCONTIN) 10 mg Q12HR ORAL 08/01/18 21:00 08/08/18 20:59 08/02/18 10:03 Pantoprazole (Protonix) 40 mg DAILY ORAL 07/31/18 09:00 08/26/18 08:59 08/02/18 10:03 Polyethylene Glycol (Miralax) 17 gm HSPRN PRN ORAL Constipation 07/30/18 20:00 08/29/18 19:59 Zolpidem Tartrate (Ambien) 5 mg HSPRN PRN ORAL Insomnia 07/30/18 20:00 08/06/18 19:59 Allergies: Coded Allergies: MEPERIDINE (Verified Allergy, Severe, 07/19/16) ROS Limited/Unobtainable: No Constitutional: Reports: no symptoms HEENT: Reports: no symptoms Cardiovascular: Reports: no symptoms Respiratory: Reports: no symptoms Gastrointestinal/Abdominal: Reports: no symptoms Genitourinary: Reports: no symptoms Neurologic/Psychiatric: Reports: no symptoms Subjective 82 YO F admitted with fall injury and back pain. Now T-11 fracture. Cover for Int med-Dr Mihsra. Objective Last Vital Signs Date Time Temp Pulse Resp B/P (MAP) Pulse Ox O2 Delivery O2 Flow Rate FiO2 08/02/18 09:34 Nasal Cannula 2.0 28 08/02/18 09:33 96 08/02/18 09:32 62 16 08/02/18 08:00 97.9 131/75 (93) Laboratory Tests Test 08/02/18 05:26 White Blood Count 5.8 K/UL (4.8-10.8) Red Blood Count 3.30 M/UL (4.20-5.40) L Hemoglobin 9.8 G/DL (12.0-16.0) L Hematocrit 30.8 % (37.0-47.0) L Mean Corpuscular Volume 94 FL (80-99) Mean Corpuscular Hemoglobin 29.7 PG (27.0-31.0) Mean Corpuscular Hemoglobin Concent 31.7 G/DL (32.0-36.0) L Red Cell Distribution Width 15.1 % (11.6-14.8) H Platelet Count 192 K/UL (150-450) Mean Platelet Volume 6.6 FL (6.5-10.1) Neutrophils (%) (Auto) % (45.0-75.0) Lymphocytes (%) (Auto) % (20.0-45.0) Monocytes (%) (Auto) % (1.0-10.0) Eosinophils (%) (Auto) % (0.0-3.0) Basophils (%) (Auto) % (0.0-2.0) Differential Total Cells Counted 100 Neutrophils % (Manual) 54 % (45-75) Lymphocytes % (Manual) 30 % (20-45) Monocytes % (Manual) 11 % (1-10) H Eosinophils % (Manual) 5 % (0-3) H Basophils % (Manual) 0 % (0-2) Band Neutrophils 0 % (0-8) Platelet Estimate Adequate Platelet Morphology Normal Anisocytosis 1+ Sodium Level 141 MMOL/L (136-145) Potassium Level 3.9 MMOL/L (3.5-5.1) Chloride Level 106 MMOL/L (98-107) Carbon Dioxide Level 26 MMOL/L (21-32) Anion Gap 9 mmol/L (5-15) Blood Urea Nitrogen 16 mg/dL (7-18) Creatinine 1.0 MG/DL (0.55-1.30) Estimat Glomerular Filtration Rate mL/min (>60) Glucose Level 79 MG/DL (74-106) Calcium Level 9.7 MG/DL (8.5-10.1) Intake and Output 08/01/18 08/02/18 19:00 07:00 Intake Total 240 ml Balance 240 ml Intake Oral 240 ml # Voids 2 3 Objective Objective GENERAL: The patient is awake, responsive, no acute distress. HEENT: Pupils are equal and reactive to light. Extraocular movement intact. NECK: Supple. No JVD. CHEST WALL: Bilateral mastectomy scar was noted. LUNGS: Good air entry. No wheezing or rales. Chest wall has a bilateral breast mastectomy site, was noted well healed. HEART: S1, S2. Regular rhythm. No gallops. ABDOMEN: Soft, nondistended, and nontender. Positive bowel sounds. Mild obesity. BACK: Paraspinal tenderness on the lumbar spine area. EXTREMITIES: No cyanosis, clubbing, or edema. NEUROLOGIC: Cranial nerves II through XII are grossly intact. The patient moving all extremities , unable to assess gait due to the severe pain. Assessment/Plan Assessment/Plan 15. History of fall with the right hip subcapsular fracture in July 2016 status post ORIF. Assessment/Plan Assessment/Plan Assessment/Plan ASSESSMENT: 1. Status post trip and fall with lower back pain possible due to the lumbar spine injury (Acute T11 vertebral body compression fracture and L1 superior endplate compression deformity). 2. History of right occipital infarction. 3. History of breast cancer, status post bilateral mastectomy. 4. Depression. 5. Diverticulosis. 6. Gastroesophageal reflux disease. 7. Hypertension. 8. Dyslipidemia. 9. Hypothyroidism. 10. Idiopathic pulmonary fibrosis. 11. Mild cognitive impairment. 12. Osteopenia. 13. Rheumatoid arthritis. 14. History of pyelonephritis in the past. 15. History of fall with the right hip subcapsular fracture in July 2016 status post ORIF. PLAN: In Telemetry. We will follow up laboratory and discuss with extensively at bedside and explained that care will be provided, Consider kyphoplasty by radiology today. S/P lumbar 1 kyphoplasty 07/30/18. Discharge planning: SNF vs Acute rehab Toro Dixon MD Aug 02, 2018 17:30
--- NOTE | 2018-08-02 19:30 | NUR ---
HAND-OFF: Report given to Mesha ASHER. Patient is in stable condition.
--- NOTE | 2018-08-02 19:45 | NUR ---
NURSE NOTES: Pt lying in bed w/bed in lowest position and call light within reach. Pt A&Ox2; on 2L NC; VSS; and in no apparent distress at this time. No IV site noted; per morning shift RN aware; and dressing stained but otherwise C/D/I. Will continue to monitor.
[2018-08-02 20:00] VITALS: BP 110/58
[2018-08-03] VITALS: BP 116/61
[2018-08-03 04:25] VITALS: BP 140/66
[2018-08-03 07:19] LABS: BASOPHILS % (AUTO) 1.2 % (0.0-2.0); HEMATOCRIT 30.9 % (37.0-47.0); HEMOGLOBIN 9.9 G/DL (12.0-16.0); LYMPHOCYTES % (AUTO) 28.9 % (20.0-45.0); MEAN CORPUSCULAR VOLUME 92 FL (80-99); MONOCYTES % (AUTO) 10.7 % (1.0-10.0); NEUTROPHILS % (AUTO) 56.2 % (45.0-75.0); PLATELET COUNT 221 K/UL (150-450); RED BLOOD COUNT 3.35 M/UL (4.20-5.40); RED CELL DISTRIBUTION WIDTH 14.4 % (11.6-14.8); WHITE BLOOD COUNT 6.9 K/UL (4.8-10.8)
--- NOTE | 2018-08-03 07:29 | NUR ---
HAND-OFF: Report given to ACE Osorio.
[2018-08-03] MEDS: DULoxetine 30mg cap ORAL SCH (08:05)
[2018-08-03] MEDS: Docusate 100mg cap ORAL SCH ×2 (08:05→18:00)
[2018-08-03] MEDS: oxyCONTIN 10mg tab ORAL SCH ×2 (08:06→20:47)
[2018-08-03] MEDS: Citalopram Hydrobromide 10mg Tab ORAL SCH (08:06)
[2018-08-03] MEDS: Enoxaparin 40mg Inj SUBQ SCH (08:11)
[2018-08-03 08:15] LABS: ANION GAP 10 mmol/L (5-15); BLOOD UREA NITROGEN 15 mg/dL (7-18); CALCIUM 10.2 MG/DL (8.5-10.1); CARBON DIOXIDE 26 MMOL/L (21-32); CHLORIDE 104 MMOL/L (98-107); POTASSIUM 3.9 MMOL/L (3.5-5.1); SODIUM 140 MMOL/L (136-145)
--- NOTE | 2018-08-03 09:43 | NUR ---
RECEIVED PATIENT IN BED AWAKE.. NO RESPIRATORY DISTRESS OR SOB PATIENT HAS MILD TO MODERATED DISCOMFORT GENERALIZED STATED THE PATIENT .. REFUSING TO EAT BREAKFAST, REFUSED LOVENOX .. PATIENT SPIT OF P.O. MEDICATION (2 MEDS.. )NOTED PATIENT BEHAVIOR [place], REORIENTED TO PLACE AND TIME CALL LIGHT IN REACH
--- NOTE | 2018-08-03 09:51 | NUR ---
CHARGE NURSE NOTES: pt does not have any BM for 6 days. Jo made aware to address the constipation.
--- NOTE | 2018-08-03 10:49 | NUR ---
RD ASSESSMENT & RECOMMENDATIONS SEE CARE ACTIVITY FOR COMPLETE ASSESSMENT DAILY ESTIMATED NEEDS: Needs based on Surgery 56kg adj 25-35 kcals/kg 4210-1236 total kcals 1-2 g protein/kg 56-112 g total protein 25-30 mL/kg 2982-9793 total fluid mLs NUTRITION DIAGNOSIS: Increased kcal and protein needs r/t surgery as evidenced by s/p L1 kyphoplasty w/ variable po intake per EMR CURRENT DIET: Cardiac soft easy chew PO DIET RECOMMENDATIONS: Liberalized Low Na diet/ soft easy chew ADDITIONAL RECOMMENDATIONS: 1) Add ensure enlive x1 bottle daily 2) Obtain an updated accurate wt: Calibrated bed scale or standing wt as able 3) Snacks in b/w meals 4) Bowel regimen, last bm 6 days ago
--- NOTE | 2018-08-03 11:23 | Pulmonology Progress Note ---
Assessment/Plan Problems: (1) T11 vertebral fracture (2) COPD (chronic obstructive pulmonary disease) (3) Intractable pain (4) Unable to ambulate (5) Rheumatoid arthritis (6) Hypothyroidism (7) Breast cancer (8) HTN (hypertension) (9) Cerebral vascular disease Assessment/Plan less pain doing physical therapy in better spirit today, Kyphoplasty done on Thursday more confused today pain control, on Methadone, helped a little, increase the dose respiratory treatment titrate fio2 to sat of 92% dvt prophylaxis Subjective ROS Limited/Unobtainable: No Interval Events: doing better Allergies: Coded Allergies: MEPERIDINE (Verified Allergy, Severe, 07/19/16) Objective Last 24 Hour Vital Signs Date Time Temp Pulse Resp B/P (MAP) Pulse Ox O2 Delivery O2 Flow Rate FiO2 08/03/18 09:43 94 Nasal Cannula 2.0 28 08/03/18 09:43 Nasal Cannula 2.0 28 08/03/18 09:43 69 20 Nasal Cannula 2.0 28 08/03/18 09:18 98.9 08/03/18 09:05 Nasal Cannula 3.0 08/03/18 04:25 98.9 70 18 140/66 (90) 96 08/03/18 00:00 99.1 71 18 116/61 (79) 95 08/02/18 21:00 Nasal Cannula 3.0 08/02/18 20:00 99.6 76 19 110/58 (75) 95 08/02/18 19:26 62 18 Nasal Cannula 2.0 28 08/02/18 19:26 96 Nasal Cannula 2.0 28 08/02/18 19:26 Nasal Cannula 2.0 28 08/02/18 16:00 98.1 75 17 136/63 (87) 92 Intake and Output 08/02/18 08/03/18 19:00 07:00 Intake Total 200 ml 540 ml Balance 200 ml 540 ml Intake Oral 200 ml 540 ml # Voids 2 3 General Appearance: WD/WN HEENT: normocephalic, atraumatic Respiratory/Chest: chest wall non-tender, lungs clear Breasts: no masses Cardiovascular: normal rate Abdomen: normal bowel sounds, soft, non tender Genitourinary: normal external genitalia Skin: no rash Laboratory Tests 08/03/18 05:36: White Blood Count 6.9, Red Blood Count 3.35L, Hemoglobin 9.9L, Hematocrit 30.9L , Mean Corpuscular Volume 92, Mean Corpuscular Hemoglobin 29.7, Mean Corpuscular Hemoglobin Concent 32.2, Red Cell Distribution Width 14.4, Platelet Count 221, Mean Platelet Volume 6.4L, Neutrophils (%) (Auto) 56.2, Lymphocytes ( %) (Auto) 28.9, Monocytes (%) (Auto) 10.7H, Eosinophils (%) (Auto) 3.0, Basophils (%) (Auto) 1.2, Sodium Level 140, Potassium Level 3.9, Chloride Level 104, Carbon Dioxide Level 26, Anion Gap 10, Blood Urea Nitrogen 15, Creatinine 1.0, Estimat Glomerular Filtration Rate , Glucose Level 95, Calcium Level 10.2H Current Medications Medications (Trade) Dose Ordered Sig/Steve Route PRN Reason Start Time Stop Time Status Last Admin Dose Admin Acetaminophen (Tylenol) 650 mg Q4H PRN ORAL Mild Pain/Temp > 100.5 07/30/18 17:00 08/26/18 16:59 Albuterol/ Ipratropium (Albuterol/ Ipratropium) 3 ml Q6HRT PRN HHN Shortness of Breath 07/31/18 08:15 08/05/18 08:14 07/31/18 16:00 Citalopram Hydrobromide (celeXA) 20 mg DAILY ORAL 07/31/18 09:00 08/27/18 08:59 08/03/18 08:06 Diazepam (Valium) 5 mg BEDTIME ORAL 07/30/18 21:00 08/03/18 20:59 08/01/18 19:51 Diazepam (Valium) 5 mg Q6H PRN ORAL For Anxiety 07/30/18 17:00 08/03/18 16:59 Docusate Sodium (Colace) 100 mg TWICE A DAY ORAL 07/30/18 18:00 08/26/18 17:59 08/03/18 08:05 Duloxetine HCl (Cymbalta) 30 mg DAILY ORAL 07/31/18 09:00 08/26/18 09:59 08/03/18 08:05 Enoxaparin Sodium (Lovenox) 40 mg DAILY SUBQ 07/31/18 09:00 08/26/18 08:59 08/02/18 10:05 Ergocalciferol (Drisdol) 50,000 intlu QWEEK ORAL 08/02/18 09:00 09/01/18 08:59 08/02/18 10:07 Levothyroxine Sodium (Synthroid) 150 mcg ACBREAKFAST ORAL 07/31/18 06:30 08/27/18 06:29 08/03/18 06:18 Methadone HCl (Methadone HCl) 2.5 mg Q6H PRN ORAL pain 4-10 08/01/18 17:45 08/05/18 11:44 08/02/18 11:53 Oxycodone HCl (OxyCONTIN) 10 mg Q12HR ORAL 08/01/18 21:00 08/08/18 20:59 08/03/18 08:06 Pantoprazole (Protonix) 40 mg DAILY ORAL 07/31/18 09:00 08/26/18 08:59 08/03/18 08:05 Polyethylene Glycol (Miralax) 17 gm HSPRN PRN ORAL Constipation 07/30/18 20:00 08/29/18 19:59 Zolpidem Tartrate (Ambien) 5 mg HSPRN PRN ORAL Insomnia 07/30/18 20:00 08/06/18 19:59 Amanda Castañeda MD Aug 03, 2018 11:23
--- NOTE | 2018-08-03 11:46 | NUR ---
DISCHARGE PLANNING SPOKE WITH PATIENT, HER AND BEHAVIORAL THERAPIST AT BEDSIDE THEY ARE REQUESTING DISCHARGE TO [facility] DR MORAN UPDATED CLINICALS FAXED TO [facility] AWAIT ACCEPTANCE Addendum: 08/03/18 at 1316 by CHELSEA BROWN LVN LVN PATIENT HAS BEEN ACCEPTED AT [facility] WHEN READY FOR DISCHARGE
[2018-08-03 11:51] VITALS: BP 135/78
[2018-08-03] MEDS: ALPRAZolam 0.25mg tab ORAL SCH ×2 (14:11→18:00)
--- NOTE | 2018-08-03 15:28 | NUR ---
AWAITING ON CASE MANAGEMENT FOR DISCHARGE ORDERS AND PLACEMENT 08/03/2018
[2018-08-03 16:00] VITALS: BP 124/74
--- NOTE | 2018-08-03 16:13 | NUR ---
DISCHARGE PLAN [facility] [address] MARINA T: [phone] FOR NURSE TO NURSE REPORT [facility] HAS BEEN ARRANGED FOR 1800 COLLET MAKER
--- NOTE | 2018-08-03 18:03 | NUR ---
AWAITING ON AMBULANCE FOR INFORMATION SYSTEMS SPECIALIST PATIENT AT BEDSIDE.. NO ACUTE DISTRESS GAVE REPORT TO [facility]ADMIN[facility] AT [facility]
--- NOTE | 2018-08-03 18:28 | Internal Med Progress Note ---
Subjective Date of Service: Aug 03, 2018 Physician Name Dixon,Toro Attending Physician Willie Mishra MD Current Medications Medications (Trade) Dose Ordered Sig/Steve Route PRN Reason Start Time Stop Time Status Last Admin Dose Admin Acetaminophen (Tylenol) 650 mg Q4H PRN ORAL Mild Pain/Temp > 100.5 07/30/18 17:00 08/26/18 16:59 Albuterol/ Ipratropium (Albuterol/ Ipratropium) 3 ml Q6HRT PRN HHN Shortness of Breath 07/31/18 08:15 08/05/18 08:14 07/31/18 16:00 Alprazolam (Xanax) 0.25 mg THREE TIMES A DAY ORAL 08/03/18 13:45 08/10/18 13:44 08/03/18 14:11 Citalopram Hydrobromide (celeXA) 20 mg DAILY ORAL 07/31/18 09:00 08/27/18 08:59 08/03/18 08:06 Diazepam (Valium) 5 mg BEDTIME ORAL 07/30/18 21:00 08/03/18 20:59 08/01/18 19:51 Docusate Sodium (Colace) 100 mg TWICE A DAY ORAL 07/30/18 18:00 08/26/18 17:59 08/03/18 08:05 Duloxetine HCl (Cymbalta) 30 mg DAILY ORAL 07/31/18 09:00 08/26/18 09:59 08/03/18 08:05 Enoxaparin Sodium (Lovenox) 40 mg DAILY SUBQ 07/31/18 09:00 08/26/18 08:59 08/02/18 10:05 Ergocalciferol (Drisdol) 50,000 intlu QWEEK ORAL 08/02/18 09:00 09/01/18 08:59 08/02/18 10:07 Levothyroxine Sodium (Synthroid) 150 mcg ACBREAKFAST ORAL 07/31/18 06:30 08/27/18 06:29 08/03/18 06:18 Methadone HCl (Methadone HCl) 2.5 mg Q6H PRN ORAL pain 4-10 08/01/18 17:45 08/05/18 11:44 08/02/18 11:53 Oxycodone HCl (OxyCONTIN) 10 mg Q12HR ORAL 08/01/18 21:00 08/08/18 20:59 08/03/18 08:06 Pantoprazole (Protonix) 40 mg DAILY ORAL 07/31/18 09:00 08/26/18 08:59 08/03/18 08:05 Polyethylene Glycol (Miralax) 17 gm HSPRN PRN ORAL Constipation 07/30/18 20:00 08/29/18 19:59 Zolpidem Tartrate (Ambien) 5 mg HSPRN PRN ORAL Insomnia 07/30/18 20:00 08/06/18 19:59 Allergies: Coded Allergies: MEPERIDINE (Verified Allergy, Severe, 07/19/16) ROS Limited/Unobtainable: No Constitutional: Reports: no symptoms HEENT: Reports: no symptoms Cardiovascular: Reports: no symptoms Respiratory: Reports: no symptoms Gastrointestinal/Abdominal: Reports: no symptoms Genitourinary: Reports: no symptoms Neurologic/Psychiatric: Reports: no symptoms Subjective 82 YO F admitted with fall injury and back pain. Now T-11 fracture. Cover for Int med-Dr Mishra. Objective Last Vital Signs Date Time Temp Pulse Resp B/P (MAP) Pulse Ox O2 Delivery O2 Flow Rate FiO2 08/03/18 11:51 97.1 18 135/78 (97) 94 08/03/18 09:43 Nasal Cannula 2.0 28 08/03/18 09:43 69 Laboratory Tests Test 08/03/18 05:36 White Blood Count 6.9 K/UL (4.8-10.8) Red Blood Count 3.35 M/UL (4.20-5.40) L Hemoglobin 9.9 G/DL (12.0-16.0) L Hematocrit 30.9 % (37.0-47.0) L Mean Corpuscular Volume 92 FL (80-99) Mean Corpuscular Hemoglobin 29.7 PG (27.0-31.0) Mean Corpuscular Hemoglobin Concent 32.2 G/DL (32.0-36.0) Red Cell Distribution Width 14.4 % (11.6-14.8) Platelet Count 221 K/UL (150-450) Mean Platelet Volume 6.4 FL (6.5-10.1) L Neutrophils (%) (Auto) 56.2 % (45.0-75.0) Lymphocytes (%) (Auto) 28.9 % (20.0-45.0) Monocytes (%) (Auto) 10.7 % (1.0-10.0) H Eosinophils (%) (Auto) 3.0 % (0.0-3.0) Basophils (%) (Auto) 1.2 % (0.0-2.0) Sodium Level 140 MMOL/L (136-145) Potassium Level 3.9 MMOL/L (3.5-5.1) Chloride Level 104 MMOL/L (98-107) Carbon Dioxide Level 26 MMOL/L (21-32) Anion Gap 10 mmol/L (5-15) Blood Urea Nitrogen 15 mg/dL (7-18) Creatinine 1.0 MG/DL (0.55-1.30) Estimat Glomerular Filtration Rate mL/min (>60) Glucose Level 95 MG/DL (74-106) Calcium Level 10.2 MG/DL (8.5-10.1) H Intake and Output 08/02/18 08/03/18 19:00 07:00 Intake Total 200 ml 540 ml Balance 200 ml 540 ml Intake Oral 200 ml 540 ml # Voids 2 3 Objective Objective GENERAL: The patient is awake, responsive, no acute distress. HEENT: Pupils are equal and reactive to light. Extraocular movement intact. NECK: Supple. No JVD. CHEST WALL: Bilateral mastectomy scar was noted. LUNGS: Good air entry. No wheezing or rales. Chest wall has a bilateral breast mastectomy site, was noted well healed. HEART: S1, S2. Regular rhythm. No gallops. ABDOMEN: Soft, nondistended, and nontender. Positive bowel sounds. Mild obesity. BACK: Paraspinal tenderness on the lumbar spine area. EXTREMITIES: No cyanosis, clubbing, or edema. NEUROLOGIC: Cranial nerves II through XII are grossly intact. The patient moving all extremities , unable to assess gait due to the severe pain. Assessment/Plan Assessment/Plan 15. History of fall with the right hip subcapsular fracture in July 2016 status post ORIF. Assessment/Plan Assessment/Plan Assessment/Plan ASSESSMENT: 1. Status post trip and fall with lower back pain possible due to the lumbar spine injury (Acute T11 vertebral body compression fracture and L1 superior endplate compression deformity). 2. History of right occipital infarction. 3. History of breast cancer, status post bilateral mastectomy. 4. Depression. 5. Diverticulosis. 6. Gastroesophageal reflux disease. 7. Hypertension. 8. Dyslipidemia. 9. Hypothyroidism. 10. Idiopathic pulmonary fibrosis. 11. Mild cognitive impairment. 12. Osteopenia. 13. Rheumatoid arthritis. 14. History of pyelonephritis in the past. 15. History of fall with the right hip subcapsular fracture in July 2016 status post ORIF. PLAN: In Telemetry. We will follow up laboratory and discuss with extensively at bedside and explained that care will be provided, Consider kyphoplasty by radiology today. S/P lumbar 1 kyphoplasty 07/30/18. Discharge to [facility] today 08/03/18 Toro Dixon MD Aug 03, 2018 18:28
--- NOTE | 2018-08-03 18:49 | NUR ---
INFORMED ON COMING NURSE OF PATIENT DISCHARGE PATRICIA BELLO AWAITING ON AMBULANCE FOR ASSISTANT FLOOR COVERING PRINTER.. ARRIVAL LATE PER AMBULANCE COMPANY NOTED.. PATIENT IN WHEEL CHAIR. .NO I.V. ACCESS AT BEDSIDE .. NO ACUTE DISTRESS... NO MEDICATIONS GIVEN PRIOR TO LEAVING NOTED
--- NOTE | 2018-08-03 18:59 | NUR ---
NURSE NOTES:Patient received from Jo BELLO . Patient at bedside .vss, afebrile patient .armband removed . waiting to be pick up operator [facility] . patient going to [facility]. call haily mcdonnell . bed in low position at all times . will continue to monitor
[2018-08-03 20:00] VITALS: BP 128/77
--- NOTE | 2018-08-03 20:47 | NUR ---
NURSE NOTES: Patient to be discharge today .patient vss , afebrile patient c/o pain . pain rate 5 out of 10. scheduled Oxycontin 10 mg po Patient armband removed . post back surgical dressing C/D/I .Patient personal belongings with patient .call light within reach . bed in low position at all times . will continue to monitor Addendum: 08/04/18 at 0034 by TACHO KNOX LVN armband removed and all patient personal belongings checked and signed . Endorsed to REYMUNDO babcock.
--- NOTE | 2018-08-03 21:17 | NUR ---
NURSE NOTES:Patient re asses pain rates 0 out of 10. report given to life line transporter. [facility]17 [facility] in stable condition
== END 2018-08-03 21:00 | disposition short-term general hospital (02) | DRG 517 ==
LOC: EDBD 21:00 → EMR 23:05 → 2W 23:49 → EDBEDREQ 07-27 00:05 → 2W 07-27 02:21 → 2E 07-28 19:21 → 3E 07-30 14:30
DX: S22.080A Wedge compression fracture of T11-T12 vertebra, initial encounter for closed fracture (principal); M51.36 Other intervertebral disc degeneration, lumbar region; W01.0XXA Fall on same level from slipping, tripping and stumbling without subsequent striking against object, initial encounter; M06.9 Rheumatoid arthritis, unspecified; K21.9 Gastro-esophageal reflux disease without esophagitis; I10 Essential (primary) hypertension; Z85.3 Personal history of malignant neoplasm of breast; Z90.13 Acquired absence of bilateral breasts and nipples; Z86.73 Personal history of transient ischemic attack (TIA), and cerebral infarction without residual deficits; K57.90 Diverticulosis of intestine, part unspecified, without perforation or abscess without bleeding; E78.5 Hyperlipidemia, unspecified; E03.9 Hypothyroidism, unspecified; J84.112 Idiopathic pulmonary fibrosis; M85.80 Other specified disorders of bone density and structure, unspecified site; Z88.6 Allergy status to analgesic agent; Z79.82 Long term (current) use of aspirin; Z87.891 Personal history of nicotine dependence; F32.9 Major depressive disorder, single episode, unspecified; R26.2 Difficulty in walking, not elsewhere classified; J44.9 Chronic obstructive pulmonary disease, unspecified
CPT/HCPCS: 22514; 36415; 71045; 71260; 72131; 72146; 72148; 72192; 80048; 80053; 82550; 82553; 83735; 84100; 84484; 85007; 85025; 85610; 85730; 93005; 94640; 94664; 94760; 99285; J2250; J2405; J2765; J7620

== ENCOUNTER 2018-09-19 17:36 | Inpatient (IN) | payer MEDICARE ==
[~2018-09-19] VITALS: Ht 152.4 cm; Wt 63.0 kg
[~2018-09-19 17:36] MED LIST changes: +ASPIRIN81 M3 PO; +DIAZEPAM5 MG ORAL; +MYRBETRIQ50 MG PO; +TRAMADOL HCL50 MG ORAL; +TRAZODONE HCL50 MG ORAL
--- NOTE | 2018-09-19 17:37 | NUR ---
ED Nurse Note: Pt BIBA from home complaining of abdominal pain and flu like symptoms since this morning. Pt is nauseous and vomiting. According to EMS, pt had a BM today w/ bright red blood. Pt was given norco as well and upon arrival to ED oral temp of 98F. Pt is A + O x4. Ambulatory. Skin warm to touch. Left uppper arm bruising s/p fall x 3 days ago. According to EMS, she was seen by her primary.
[2018-09-19 17:39] VITALS: BP 145/66
[2018-09-19] MEDS ORDERED: Pantoprazole Inj IVP ONE (17:45)
--- NOTE | 2018-09-19 17:49 | Emergency Room Report ---
History of Present Illness General Chief Complaint: Abdominal Pain Source: Patient, Medical Record, EMS Present Illness HPI Patient is an 82-year-old female presented after increased generalized abdominal discomfort. Patient reportedly had bowel movement this morning and had been noted to have bright red blood. Patient had reportedly been having increased left upper abdominal discomfort. Patient had a prior history of diverticulitis and reportedly this feels similar. Patient was noted to have prior history of breast cancer and had recent fall with compression fracture for which she had a kyphoplasty in July. Patient denies any current pain. She was noted to have some mild cognitive impairment. Allergies: Coded Allergies: MEPERIDINE (Verified Allergy, Severe, 07/19/16) Patient History Past Medical History: see triage record Past Surgical History: other - kyphoplasty, breast cancer Now: No Reviewed Nursing Documentation: PMH: Agreed; PSxH: Agreed Nursing Documentation-PMH Hx Cardiac Problems: No - Anemia Hx Hypertension: Yes Hx Diabetes: No Hx Cancer: Yes - breast cancer Hx Gastrointestinal Problems: No History Of Psychiatric Problem: Yes - Depression Hx Neurological Problems: Yes Hx Cerebrovascular Accident: Yes Hx Transient Ischemic Attacks: Yes - multpile mini stroke, early 2017 Hx Dementia: No Hx Alzheimer's Disease: No Hx Parkinson's Disease: No Hx Encephalitis: No Hx Dizziness: Yes - inner ear imbalance Hx Headaches: Yes - "comes and goes" Hx Weakness: Yes - uses walker for periodic dizziness Physical Exam Vital Signs Date Time Temp Pulse Resp B/P (MAP) Pulse Ox O2 Delivery O2 Flow Rate FiO2 09/19/18 17:32 98.1 88 16 99 Room Air 09/19/18 17:39 145/66 09/19/18 17:39 90 General Appearance: alert, GCS 15, moderate distress, Chronically Ill ENT: dry mucus membranes Neck: limited range of motion Respiratory: lungs clear Cardiovascular #1: normal peripheral pulses, no edema Gastrointestinal: soft, tenderness - left lower and upper abdomen Musculoskeletal: decreased range of motion Neurologic: normal inspection, alert, hospitality aide III-XII nml as tested Skin: normal inspection Medical Decision Making Diagnostic Impression: Primary Impression: Lower GI bleed Additional Impressions: History of CVA (cerebrovascular accident) Frequent falls ER Course Patient presented for increased lower GI bleeding. Differential diagnosis include was not limited to diverticular bleeding, coagulopathy, bowel obstruction among others. Because of complexity of patient's case laboratory testing and imaging studies were ordered. Patient was noted to have prior history of rheumatoid arthritis as well as diverticulosis.she was taken Brilinta due to a recent prior cerebellar stroke.Patient was given IV fluids she was started on Protonix IV. Patient was given some pain medication due to discomfort to her left lower abdomen. Patient was noted to have worsening pain CT of the abdomen pelvis read by radiology showed some diverticula with without diverticulitis multiple other findings see full report. Patient's initial hemoglobin was noted to be adequate. Patient was noted to be normotensive Dr. Willie Mishra was contacted for inpatient management. Dr. Bradley was contacted for GI consult. patient was noted to have some bruising to her left upper extremity due to recent falls. EKG interpreted by me showed normal sinus rhythm with a rate of [address] or T wave changes. Labs Test 09/19/18 17:57 White Blood Count 15.1 K/UL (4.8-10.8) Red Blood Count 3.71 M/UL (4.20-5.40) Hemoglobin 11.0 G/DL (12.0-16.0) Hematocrit 32.8 % (37.0-47.0) Mean Corpuscular Volume 88 FL (80-99) Mean Corpuscular Hemoglobin 29.6 PG (27.0-31.0) Mean Corpuscular Hemoglobin Concent 33.5 G/DL (32.0-36.0) Red Cell Distribution Width 13.1 % (11.6-14.8) Platelet Count 171 K/UL (150-450) Mean Platelet Volume 5.9 FL (6.5-10.1) Neutrophils (%) (Auto) 80.4 % (45.0-75.0) Lymphocytes (%) (Auto) 9.8 % (20.0-45.0) Monocytes (%) (Auto) 9.4 % (1.0-10.0) Eosinophils (%) (Auto) 0.0 % (0.0-3.0) Basophils (%) (Auto) 0.4 % (0.0-2.0) Prothrombin Time 10.5 SEC (9.30-11.50) Prothromb Time International Ratio 1.0 (0.9-1.1) Activated Partial Thromboplast Time 25 SEC (23-33) Urine Color Red Urine Appearance Slightly cloudy Urine pH 7 (4.5-8.0) Urine Specific [place] 1.010 (1.005-1.035) Urine Protein 4+ (NEGATIVE) Urine Glucose (UA) Negative (NEGATIVE) Urine Ketones 1+ (NEGATIVE) Urine Blood 5+ (NEGATIVE) Urine Nitrite Negative (NEGATIVE) Urine Bilirubin Negative (NEGATIVE) Urine Urobilinogen Normal MG/DL (0.0-1.0) Urine Leukocyte Esterase 3+ (NEGATIVE) Urine RBC Tntc /HPF (0 - 2) Urine WBC 10-15 /HPF (0 - 2) Urine Squamous Epithelial Cells Moderate /LPF (NONE/OCC) Urine Bacteria Many /HPF (NONE) Sodium Level 138 MMOL/L (136-145) Potassium Level 4.2 MMOL/L (3.5-5.1) Chloride Level 105 MMOL/L (98-107) Carbon Dioxide Level 23 MMOL/L (21-32) Anion Gap 10 mmol/L (5-15) Blood Urea Nitrogen 20 mg/dL (7-18) Creatinine 1.3 MG/DL (0.55-1.30) Estimat Glomerular Filtration Rate mL/min (>60) Glucose Level 136 MG/DL (74-106) Calcium Level 10.0 MG/DL (8.5-10.1) Total Bilirubin 0.7 MG/DL (0.2-1.0) Aspartate Amino Transf (AST/SGOT) 13 U/L (15-37) Alanine Aminotransferase (ALT/SGPT) 15 U/L (12-78) Alkaline Phosphatase 94 U/L (46-116) Troponin I 0.000 ng/mL (0.000-0.056) Total Protein 7.1 G/DL (6.4-8.2) Albumin 3.3 G/DL (3.4-5.0) Globulin 3.8 g/dL Albumin/Globulin Ratio 0.9 (1.0-2.7) EKG Diagnostic Results Rate: normal Rhythm: NSR ST Segments: no acute changes Last Vital Signs Date Time Temp Pulse Resp B/P (MAP) Pulse Ox O2 Delivery O2 Flow Rate FiO2 09/19/18 17:39 109 26 Room Air 90 09/19/18 17:39 98.9 145/66 90 Status: unchanged Disposition: ADMITTED INPATIENT Condition: Serious Melecio Neely MD September 19, 2018 17:49
[2018-09-19] MEDS ORDERED: Pantoprazole Inj ONE (17:58)
[2018-09-19] MEDS ORDERED: Morphine Sulfate 2mg/ml Inj(IV/IM USE ONLY) IVP ONE (18:00)
--- NOTE | 2018-09-19 18:05 | NUR ---
ED Nurse Note: US staff at the bed side.
[2018-09-19 18:20] LABS: BASOPHILS % (AUTO) 0.4 % (0.0-2.0); HEMATOCRIT 32.8 % (37.0-47.0); LYMPHOCYTES % (AUTO) 9.8 % (20.0-45.0); MEAN CORPUSCULAR VOLUME 88 FL (80-99); MONOCYTES % (AUTO) 9.4 % (1.0-10.0); NEUTROPHILS % (AUTO) 80.4 % (45.0-75.0); PLATELET COUNT 171 K/UL (150-450); RED BLOOD COUNT 3.71 M/UL (4.20-5.40); RED CELL DISTRIBUTION WIDTH 13.1 % (11.6-14.8); WHITE BLOOD COUNT 15.1 K/UL (4.8-10.8)
[2018-09-19 18:23] LABS: APPEARANCE,URINE SLIGHTLY CLOUDY; BILIRUBIN, URINE NEGATIVE (NEGATIVE); COLOR,URINE RED; GLUCOSE, URINE (UA) NEGATIVE (NEGATIVE); KETONES,URINE 1+ (NEGATIVE); LEUKOCYTE ESTERASE ,URINE 3+ (NEGATIVE); NITRITE,URINE NEGATIVE (NEGATIVE); PH,URINE 7 (4.5-8.0); PROTEIN,URINE 4+ (NEGATIVE); UROBILINOGEN,URINE NORMAL MG/DL (0.0-1.0)
[2018-09-19] MEDS ORDERED: Isovue-300 100ml vial INJ PRN (18:30)
[2018-09-19] MEDS ORDERED: HYDRALAZINE HCL10 MG ORAL (18:35)
[2018-09-19] MEDS ORDERED: BRILINTA90 MG PO (18:35)
[2018-09-19 18:50] LABS: ANION GAP 10 mmol/L (5-15); BLOOD UREA NITROGEN 20 mg/dL (7-18); CARBON DIOXIDE 23 MMOL/L (21-32); CHLORIDE 105 MMOL/L (98-107); CREATININE 1.3 MG/DL (0.55-1.30); POTASSIUM 4.2 MMOL/L (3.5-5.1); SODIUM 138 MMOL/L (136-145)
[2018-09-19 18:55] LABS: ALANINE AMINOTRANSFERASE 15 U/L (12-78); ALBUMIN 3.3 G/DL (3.4-5.0); ALBUMIN/GLOBULIN RATIO 0.9 (1.0-2.7); ALKALINE PHOSPHATASE 94 U/L (46-116); ASPARTATE AMINO TRANSFERASE 13 U/L (15-37); BILIRUBIN,TOTAL 0.7 MG/DL (0.2-1.0)
--- NOTE | 2018-09-19 19:07 | NUR ---
ED Nurse Note: Pt went down to Ct.
--- NOTE | 2018-09-19 19:10 | NUR ---
HAND-OFF: Report given to LAKESHIA Simon.
--- NOTE | 2018-09-19 19:15 | NUR ---
ED Nurse Note: Pt returned from CT. Resting comfortably. at bedside
--- NOTE | 2018-09-19 21:40 | NUR ---
ED Nurse Note: Pt transferred to SDU floor. Report given to LAKESHIA Galvan. Pt A/Ox4, showing no signs of acute distress. All belongings taken upstairs with pt along with belongings list. VSS.
[2018-09-19 22:00] VITALS: BP 100/58
--- NOTE | 2018-09-19 22:00 | NUR ---
NURSE NOTES: Patient received from leyda ASHER. Patient is alert and oriented X4. Patient has L Ac 20G SL. Patients admission rhythm is 74SR, 100/58, 96.9F oral, 93% SpO2 while on 2L NC, no pain reported. Patient able to void. allergies noted. NAD at this time. Patient able to make needs known.
--- NOTE | 2018-09-19 22:10 | NUR ---
NURSE NOTES: Skin assessment conducted. Skin intact
--- NOTE | 2018-09-19 22:30 | NUR ---
NURSE NOTES: Called attending MD for admission orders, orders received. Patient remains stable.
[2018-09-19] MEDS: D5 1/2NS w/KCl 20mEq 1,000 ML IV SCH (23:27)
[2018-09-19] MEDS: cefTRIAXone 1 GM in D5W 55 ML IVPB SCH (23:28)
[2018-09-20] VITALS (7 sets, daily range): BP systolic 100–134; BP diastolic 55–70
--- NOTE | 2018-09-20 | NUR ---
NURSE NOTES: Patient repositioned. Rocephin 1g and D51/2 w/20meq at 75ml/hr hung. Patients remains alert and oriented. BP 101/55, 99.5F, HR 69 SR, SpO2 94% while on 2L NC. NAD at this time. IV lines remains intact.
--- NOTE | 2018-09-20 02:00 | NUR ---
NURSE NOTES: Patient sleeping, HR is 71 SR, no acute distress. Patient repositioned, IV remains intact. Will continue to monitor.
--- NOTE | 2018-09-20 04:00 | NUR ---
NURSE NOTES: Patient repositioned. Patient has temperature of 100.2F but not lethargic. BP and HR are stable. SpO2 94% while on 2L. No respiratory distress, or discomfort at this time. Will continue to monitor.
[2018-09-20 04:54] LABS: BASOPHILS % (AUTO) 0.6 % (0.0-2.0); EOSINOPHILS % (AUTO) 0.3 % (0.0-3.0); HEMATOCRIT 29.8 % (37.0-47.0); HEMOGLOBIN 9.8 G/DL (12.0-16.0); LYMPHOCYTES % (AUTO) 16.2 % (20.0-45.0); MEAN CORPUSCULAR VOLUME 92 FL (80-99); PLATELET COUNT 144 K/UL (150-450); RED BLOOD COUNT 3.25 M/UL (4.20-5.40); RED CELL DISTRIBUTION WIDTH 13.5 % (11.6-14.8); WHITE BLOOD COUNT 12.2 K/UL (4.8-10.8)
[2018-09-20 05:32] LABS: ANION GAP 11 mmol/L (5-15); BLOOD UREA NITROGEN 19 mg/dL (7-18); CALCIUM 9.6 MG/DL (8.5-10.1); CARBON DIOXIDE 23 MMOL/L (21-32); CHLORIDE 104 MMOL/L (98-107); CREATININE 1.4 MG/DL (0.55-1.30); PHOSPHORUS 3.5 MG/DL (2.5-4.9); POTASSIUM 4.4 MMOL/L (3.5-5.1); SODIUM 137 MMOL/L (136-145)
--- NOTE | 2018-09-20 06:00 | NUR ---
NURSE NOTES: Patient repositioned. Total urine output 750 via external urinary catheter. Total intake of fluids about 500ml. Patient has remained SR, BP has also remained stable overnight. Temperature now is 99.8F. NAD at this time, will continue to monitor.
--- NOTE | 2018-09-20 07:10 | NUR ---
NURSE NOTES: RECEIVED BED SIDE REPORT FROM THOMAS.RECEIVED PT RESTING COMFORTABLY AWAKE AND ALERT DENIES CP OR ANY DISCOMFORT AT THIS TIME.HR 74 NSR NOTED ON MOTOR EQUIPMENT COMMANDING OFFICER.FULL BODY ASSESSMENT DONE.PT GIVEN FULL CLEAR DIET.PT CONSUMED 20% ONLY.NO ACUTE DISTRESS NOTED AT THIS TIME.WILL CONT TO MONITOR.
--- NOTE | 2018-09-20 09:22 | NUR ---
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
[2018-09-20] MEDS: Citalopram Hydrobromide 10mg Tab ORAL SCH (09:49)
[2018-09-20] MEDS: Pantoprazole Inj IVP SCH ×2 (09:49→20:48)
--- NOTE | 2018-09-20 09:50 | Diagnostic Imaging Report ---
Indication: Abdominal pain Technique: Continuous helical transaxial imaging of the abdomen and pelvis was obtained from the lung bases to the pubic symphysis during intravenous contrast administration. Coronal 2-D reformats were also obtained. Study obtained in a Siemens sensation [address] Automatic Exposure Control was utilized. Total Dose length Product (DLP): 721.[address] Dose Index Volume (CTDIvol): 13.58 mGy Comparison: None Findings: There are reticular densities at the lung bases associated with traction bronchiectasis indicative of fibrosis. The gallbladder is distended. No obvious gallstones appreciated on this exam. There is no adrenal mass. The liver and spleen are unremarkable. The pancreas is unremarkable. There is no biliary ductal dilatation. There is thickening and enhancement of the uroepithelium of the left kidney which includes renal pelvis on the left ureter which is minimally distended. There is no obstructing stone identified. However there is a moderate degree of the obscuring of the pelvis due to streak artifact from a right hip prosthesis. There is thickening of the wall the urinary bladder. There is a phlebolith adjacent to the left distal ureter. Aorta is moderately calcified. There are diverticula within the colon without definite diverticulitis. The uterus is atrophic. There is a suggestion of fluid in the endometrial canal in an area that measures about 2.3 x 1.2 cm. Suggest correlation with ultrasound. L1 kyphoplasty noted with methylmethacrylate cement the spongiosis of the vertebra. Mild loss of height of L1 noted. Severe disc disease with vacuum phenomenon narrowing noted at L4-5. 100 endplate sclerosis demonstrated. Multilevel facet arthropathy noted.. There is no ascites or evidence of free air. There is a small hiatal hernia. IMPRESSION: Chronic inflammation/infection suspected with regard to the left kidney given thickening and enhancement of the uroepithelium of the left kidney including the ureter and renal pelvis. Moderate thickening and enhancement of the wall the urinary bladder consistent with cystitis. Please correlate clinically. Abnormal appearance of the central aspect of the uterus. Query endometrial fluid. This is abnormal at this age and further investigation is recommended. No evidence of intra-abdominal abscess. Atherosclerotic vascular disease Limitation on visualization of the pelvis due to streak artifact from a right total hip prosthesis. Status post L1 kyphoplasty. Basilar lung fibrosis with traction bronchiectasis. Hiatal hernia. Diverticulosis of the colon. [facility] has communicated the preliminary results to the Emergency Department. Their findings are largely concordant with this report. The CT scanner at [facility] is accredited by the [employer] and the scans are performed using dose optimization techniques as appropriate to a performed exam including Automatic Exposure control.
--- NOTE | 2018-09-20 10:15 | GI Initial Consult Note ---
History of Present Illness General Date patient seen: September 20, 2018 Time patient seen: 10:07 Reason for Hospitalization: Abdominal Pain Referring physician: SERGIO YORK Reason for Consultation: GI BLEED Present Illness HPI Patient is an 82-year-old female presented after increased generalized abdominal discomfort. Patient reportedly had bowel movement this morning and had been noted to have bright red blood. Patient had reportedly been having increased left upper abdominal discomfort. Patient had a prior history of diverticulitis and reportedly this feels similar. Patient was noted to have prior history of breast cancer and had recent fall with compression fracture for which she had a kyphoplasty in July. Patient denies any current pain. She was noted to have some mild cognitive impairment. GI consulted for reported lower GI bleed. Patient seen, awake alert and oriented no apparent distress with no active signs or symptoms of nausea or vomiting. Patient's history provided by , patient has history of dementia. The patient has been reported that the patient had bright red and rust colored blood accompanying her bowel movement for approximately 2 days prior to being admitted to the hospital. The patient had no previous history of any lower GI bleed. She states that her last colonoscopy was greater than 10 years ago with no significant findings. Abdominal pelvic CT was performed in the emergency department, noted with diverticulosis and a hiatal hernia. See full report. Labs reviewed; WBC of 12, hemoglobin of 9.8. No hypercoagulation, no transaminitis. Home Meds Active Scripts Polyethylene Glycol 3350* (MIRALAX*) 17 Gm Powd.pack, 17 GM ORAL HSPRN PRN for 30 Days, PACK Prov:Toro Dixon MD 07/24/16 Pantoprazole* (PROTONIX*) 40 Mg Tablet.dr, 40 MG ORAL DAILY for 30 Days, TAB Prov:Toro Dixon MD 07/24/16 Oxycodone Hcl Er* (OXYCONTIN*) 20 Mg Tab.er.12h, 20 MG ORAL EVERY 12 HOURS for 30 Days, TAB Prov:Toro Dixon MD 07/24/16 Zolpidem Tartrate* (AMBIEN*) 5 Mg Tablet, 5 MG ORAL HSPRN PRN for 30 Days, TAB Prov:Toro Dixon MD 07/24/16 Enoxaparin* (LOVENOX*) 40 Mg/0.4 Ml Inj, 40 MG SUBQ DAILY for 30 Days, #30 UNITS Prov:Toro Dixon MD 07/24/16 Celecoxib* (CELEBREX*) 200 Mg Capsule, 200 MG ORAL DAILY for 30 Days, CAP Prov:Toro Dixon MD 07/24/16 Acetaminophen* (ACETAMINOPHEN 325MG TABLET*) 325 Mg Tablet, 650 MG ORAL Q4H PRN for 30 Days, TAB Prov:Toro Dixon MD 07/24/16 Reported Medications Hydralazine Hcl* (HYDRALAZINE HCL*) 10 Mg Tablet, 10 MG ORAL EVERY 8 HOURS, TAB 09/19/18 Ticagrelor* (BRILINTA*) 90 Mg Tablet, 90 MG PO BID, TAB 09/19/18 Mirabegron (MYRBETRIQ) 50 Mg Tab.er.24h, 50 MG PO, TAB 07/27/18 Aspirin (Aspirin) 81 Mg Tab.chew, 81 MG PO, TAB 07/27/18 Trazodone Hcl* (DESYREL*) 50 Mg Tablet, 50 MG ORAL BEDTIME, TAB 07/27/18 Tramadol Hcl* (ULTRAM*) 50 Mg Tablet, 50 MG ORAL Q6H PRN for For Pain, #30 TAB 0 Refills 07/27/18 Diazepam* (DIAZEPAM*) 5 Mg Tablet, 5 MG ORAL TID PRN for ANXIETY, #30 TAB 0 Refills 07/27/18 Aspirin (ASPIRIN) 500 Mg Tablet, 325 MG ORAL DAILY, TAB 07/20/16 Citalopram Hydrobromide* (CELEXA*) 20 Mg Tablet, 20 MG ORAL DAILY, TAB 07/20/16 Rosuvastatin Calcium* (CRESTOR*) 10 Mg Tablet, 5 MG ORAL HS, TAB 07/20/16 Diazepam* (VALIUM*) 5 Mg Tablet, 5 MG ORAL for For Anxiety, #30 TAB 0 Refills 07/20/16 Ergocalciferol (Vitamin D2)* (VITAMIN D*) 50,000 Unit Capsule, 85602 UNIT ORAL ONCE A WEEK, CAP 07/20/16 Docusate Sodium* (DOCUSATE SODIUM*) 100 Mg Capsule, 100 MG ORAL TWICE A DAY, CAP 07/20/16 Ibuprofen* (MOTRIN*) 600 Mg Tablet, 600 MG ORAL Q8H PRN for For Pain, #30 TAB 0 Refills 07/20/16 Levothyroxine Sodium* (LEVOTHYROXINE SODIUM*) 150 Mcg Tablet, 112 MCG ORAL DAILY , TAB Take in the morning on an empty stomach, at least 30 minutes before food. 07/20/16 Duloxetine Hcl* (CYMBALTA*) 30 Mg Capsule.dr, 30 MG ORAL DAILY, CAP 07/20/16 Hydrocodone Bit/Acetaminophen 5-325* ([place] 5-325 TABLET*) 1 Each Tablet, 1 TAB ORAL Q6HR PRN for For Pain, TAB 07/20/16 Med list reviewed/reconciled: Yes Allergies: Coded Allergies: MEPERIDINE (Verified Allergy, Severe, 07/19/16) Patient History History Provided By: Family Member, Medical Record PMH Narrative Past Medical History: see triage record Past Surgical History: other - kyphoplasty, breast cancer Now: No Reviewed Nursing Documentation: PMH: Agreed; PSxH: Agreed Nursing Documentation-PMH Hx Cardiac Problems: No - Anemia Hx Hypertension: Yes Hx Diabetes: No Hx Cancer: Yes - breast cancer Hx Gastrointestinal Problems: No History Of Psychiatric Problem: Yes - Depression Hx Neurological Problems: Yes Hx Cerebrovascular Accident: Yes Hx Transient Ischemic Attacks: Yes - multiple mini stroke, early 2017 Hx Dementia: No Hx Alzheimer's Disease: No Hx Parkinson's Disease: No Hx Encephalitis: No Hx Dizziness: Yes - inner ear imbalance Hx Headaches: Yes - "comes and goes" Hx Weakness: Yes - uses walker for periodic dizziness Social History: Denies: smoking, alcohol use, drug use, other Review of Systems All Other Systems: negative except mentioned in HPI Physical Exam Vital Signs Date Time Temp Pulse Resp B/P (MAP) Pulse Ox O2 Delivery O2 Flow Rate FiO2 09/19/18 17:32 98.1 88 16 99 Room Air 09/19/18 17:39 145/66 09/19/18 17:39 90 09/19/18 21:40 2.0 Sp02 EP Interpretation: reviewed, normal Labs Laboratory Tests Test 09/19/18 17:57 09/20/18 03:50 White Blood Count 15.1 K/UL (4.8-10.8) H 12.2 K/UL (4.8-10.8) H Red Blood Count 3.71 M/UL (4.20-5.40) L 3.25 M/UL (4.20-5.40) L Hemoglobin 11.0 G/DL (12.0-16.0) L 9.8 G/DL (12.0-16.0) L Hematocrit 32.8 % (37.0-47.0) L 29.8 % (37.0-47.0) L Mean Corpuscular Volume 88 FL (80-99) 92 FL (80-99) Mean Corpuscular Hemoglobin 29.6 PG (27.0-31.0) 30.1 PG (27.0-31.0) Mean Corpuscular Hemoglobin Concent 33.5 G/DL (32.0-36.0) 32.8 G/DL (32.0-36.0) Red Cell Distribution Width 13.1 % (11.6-14.8) 13.5 % (11.6-14.8) Platelet Count 171 K/UL (150-450) 144 K/UL (150-450) L Mean Platelet Volume 5.9 FL (6.5-10.1) L 6.8 FL (6.5-10.1) Neutrophils (%) (Auto) 80.4 % (45.0-75.0) H 74.0 % (45.0-75.0) Lymphocytes (%) (Auto) 9.8 % (20.0-45.0) L 16.2 % (20.0-45.0) L Monocytes (%) (Auto) 9.4 % (1.0-10.0) 9.0 % (1.0-10.0) Eosinophils (%) (Auto) 0.0 % (0.0-3.0) 0.3 % (0.0-3.0) Basophils (%) (Auto) 0.4 % (0.0-2.0) 0.6 % (0.0-2.0) Prothrombin Time 10.5 SEC (9.30-11.50) 10.6 SEC (9.30-11.50) Prothromb Time International Ratio 1.0 (0.9-1.1) 1.0 (0.9-1.1) Activated Partial Thromboplast Time 25 SEC (23-33) Urine Color Red Urine Appearance Slightly cloudy Urine pH 7 (4.5-8.0) Urine Specific [place] 1.010 (1.005-1.035) Urine Protein 4+ (NEGATIVE) H Urine Glucose (UA) Negative (NEGATIVE) Urine Ketones 1+ (NEGATIVE) H Urine Blood 5+ (NEGATIVE) H Urine Nitrite Negative (NEGATIVE) Urine Bilirubin Negative (NEGATIVE) Urine Urobilinogen Normal MG/DL (0.0-1.0) Urine Leukocyte Esterase 3+ (NEGATIVE) H Urine RBC Tntc /HPF (0 - 2) H Urine WBC 10-15 /HPF (0 - 2) H Urine Squamous Epithelial Cells Moderate /LPF (NONE/OCC) H Urine Bacteria Many /HPF (NONE) H Sodium Level 138 MMOL/L (136-145) 137 MMOL/L (136-145) Potassium Level 4.2 MMOL/L (3.5-5.1) 4.4 MMOL/L (3.5-5.1) Chloride Level 105 MMOL/L (98-107) 104 MMOL/L (98-107) Carbon Dioxide Level 23 MMOL/L (21-32) 23 MMOL/L (21-32) Anion Gap 10 mmol/L (5-15) 11 mmol/L (5-15) Blood Urea Nitrogen 20 mg/dL (7-18) H 19 mg/dL (7-18) H Creatinine 1.3 MG/DL (0.55-1.30) 1.4 MG/DL (0.55-1.30) H Estimat Glomerular Filtration Rate mL/min (>60) mL/min (>60) Glucose Level 136 MG/DL (74-106) H 116 MG/DL (74-106) H Calcium Level 10.0 MG/DL (8.5-10.1) 9.6 MG/DL (8.5-10.1) Total Bilirubin 0.7 MG/DL (0.2-1.0) Aspartate Amino Transf (AST/SGOT) 13 U/L (15-37) L Alanine Aminotransferase (ALT/SGPT) 15 U/L (12-78) Alkaline Phosphatase 94 U/L (46-116) Troponin I 0.000 ng/mL (0.000-0.056) Total Protein 7.1 G/DL (6.4-8.2) Albumin 3.3 G/DL (3.4-5.0) L Globulin 3.8 g/dL Albumin/Globulin Ratio 0.9 (1.0-2.7) L Phosphorus Level 3.5 MG/DL (2.5-4.9) Magnesium Level 2.0 MG/DL (1.8-2.4) General Appearance: well appearing, no apparent distress, alert Head: normocephalic EENT: PERRL/EOMI, normal ENT inspection Neck: supple Respiratory: normal breath sounds, no respiratory distress Cardiovascular: normal rate Gastrointestinal: normal inspection, non tender, soft, normal bowel sounds, non -distended Rectal: deferred Genitourinary: no CVA tenderness Musculoskeletal: normal inspection, back normal Neurologic: normal inspection, alert, oriented x3, responsive Psychiatric: normal inspection, judgement/insight normal, memory normal Skin: normal inspection, normal color, no rash, warm/dry, palpation normal, well hydrated Lymphatic: normal inspection, no adenopathy Current Medications Current Medications Medications (Trade) Dose Ordered Sig/Steve Route PRN Reason Start Time Stop Time Status Last Admin Dose Admin Ceftriaxone Sodium 1 gm/ Dextrose 55 ml @ 110 mls/hr Q24H IVPB 09/20/18 00:00 09/27/18 00:00 09/19/18 23:28 Citalopram Hydrobromide (celeXA) 20 mg DAILY ORAL 09/20/18 09:00 10/20/18 08:59 09/20/18 09:49 Dextrose/ Electrolytes 1,000 ml @ 75 mls/hr [id number] IV 09/19/18 23:00 10/19/18 22:59 09/19/18 23:27 Diazepam (Valium) 5 mg EVERY 8 HOURS PRN ORAL For Anxiety 09/20/18 07:15 09/26/18 22:29 Iopamidol (Isovue-300 100ml) 100 ml NOW PRN INJ Radiology Procedure 09/19/18 18:30 Levothyroxine Sodium (Synthroid) 150 mcg DAILY@0630 ORAL 09/20/18 06:30 10/20/18 06:29 09/20/18 05:54 Pantoprazole (Protonix) 40 mg EVERY 12 HOURS IVP 09/20/18 09:00 10/20/18 08:59 09/20/18 09:49 GI: Plan Problems: (1) Diverticular hemorrhage (2) Internal hemorrhoid, bleeding (3) Anemia (4) GI bleed Plan Abdominal pelvic CT reviewed Chronic inflammation/infection suspected with regard to the left kidney given thickening and enhancement of the uroepithelium of the left kidney including the ureter and renal pelvis. Moderate thickening and enhancement of the wall the urinary bladder consistent with cystitis. Abnormal appearance of the central aspect of the uterus. Query endometrial fluid. This is abnormal at this age and further investigation is recommended. No evidence of intra-abdominal abscess. Atherosclerotic vascular disease Limitation on visualization of the pelvis due to streak artifact from a right total hip prosthesis. Status post L1 kyphoplasty. Basilar lung fibrosis with traction bronchiectasis. Hiatal hernia. Diverticulosis of the colon. EGD and colonoscopy scheduled for tomorrow. -Maintain clear liquid diet, n.p.o. at midnight -Hold all blood thinners anemia work up OB stool r/o GI bleed monitor H&H, prn transfusions bowel regime ppi fu labs We will follow with additional recommendations postprocedure Discussed with Dr. Bradley. Thank you for this patient referral, we will follow. The patient was seen and examined at bedside and all new and available data was reviewed in the patients chart. I agree with the above findings, impression and plan. (Patient seen earlier today. Signature stamp does not reflect patient encounter time.). - MD Leatha AlvarezHonorhealth John C[facility] Lincoln Medical CenterDomenicoTam ZAHRA September 20, 2018 10:15
--- NOTE | 2018-09-20 11:08 | Diagnostic Imaging Report ---
Indication: Left lower extremity pain and swelling. Technique: Duplex Doppler imaging performed from the left common femoral vein to the popliteal vein. FINDINGS: Normal compressibility demonstrated from the common femoral vein to the popliteal vein. Respiratory phasicity and good augmentation demonstrated on waveform analysis. There is no evidence of thrombosis. IMPRESSION: No evidence of deep venous thrombosis within the left lower extremity.
[2018-09-20] MEDS: D5 1/2NS w/KCl 20mEq 1,000 ML IV SCH (12:27)
--- NOTE | 2018-09-20 12:39 | Consultation ---
History of Present Illness General Date patient seen: September 20, 2018 Chief Complaint: Abdominal Pain Referring physician: SERGIO YORK Reason for Consultation: inpatient management Present Illness HPI 82 year old female with hx of breast ca, COPD, CAD, depression, hypothyroid, with recent hx of Right femur fracture and hip replacement at [facility] presented to ER with CC of lower GI bleeding. She is a poor historian but the is at the bed site who gives more detailed description of the events leading to her admission. Allergies: Coded Allergies: MEPERIDINE (Verified Allergy, Severe, 07/19/16) Medication History Scheduled Aspirin (Aspirin), 325 MG ORAL DAILY, (Reported) Celecoxib* (Celebrex*), 200 MG ORAL DAILY Citalopram Hydrobromide* (Celexa*), 20 MG ORAL DAILY, (Reported) Docusate Sodium* (Docusate Sodium*), 100 MG ORAL TWICE A DAY, (Reported) Duloxetine Hcl* (Cymbalta*), 30 MG ORAL DAILY, (Reported) Enoxaparin* (Lovenox*), 40 MG SUBQ DAILY Ergocalciferol (Vitamin D2)* (Vitamin D*), 50,000 UNIT ORAL ONCE A WEEK, ( Reported) Hydralazine Hcl* (Hydralazine Hcl*), 10 MG ORAL EVERY 8 HOURS, (Reported) Levothyroxine Sodium* (Levothyroxine Sodium*), 112 MCG ORAL DAILY, (Reported) Oxycodone Hcl Er* (Oxycontin*), 20 MG ORAL EVERY 12 HOURS Pantoprazole* (Protonix*), 40 MG ORAL DAILY Rosuvastatin Calcium* (Crestor*), 5 MG ORAL HS, (Reported) Ticagrelor* (Brilinta*), 90 MG PO BID, (Reported) Trazodone Hcl* (Desyrel*), 50 MG ORAL BEDTIME, (Reported) Scheduled PRN Acetaminophen* (Acetaminophen 325MG Tablet*), 650 MG ORAL Q4H PRN Diazepam* (Diazepam*), 5 MG ORAL TID PRN for ANXIETY, (Reported) Hydrocodone Bit/Acetaminophen 5-325* ([place] 5-325 Tablet*), 1 TAB ORAL Q6HR PRN for For Pain, (Reported) Ibuprofen* (Motrin*), 600 MG ORAL Q8H PRN for For Pain, (Reported) Polyethylene Glycol 3350* (Miralax*), 17 GM ORAL HSPRN PRN Tramadol Hcl* (Ultram*), 50 MG ORAL Q6H PRN for For Pain, (Reported) Zolpidem Tartrate* (Ambien*), 5 MG ORAL HSPRN PRN Miscellaneous Medications Aspirin (Aspirin), 81 MG PO, (Reported) Diazepam* (Valium*), 5 MG ORAL, (Reported) Mirabegron (Myrbetriq), 50 MG PO, (Reported) Patient History Healthcare decision maker Resuscitation status Full Code Advanced Directive on File No Past Medical/Surgical History Past Medical/Surgical History: (1) Hip fracture (2) COPD (chronic obstructive pulmonary disease) (3) Pulmonary fibrosis (4) Rheumatoid arthritis (5) Breast cancer (6) HTN (hypertension) (7) Depression, major (8) Cerebral vascular disease Review of Systems All Other Systems: negative except mentioned in HPI Physical Exam General Appearance: WD/WN Lines, tubes and drains: peripheral HEENT: normocephalic, atraumatic Neck: non-tender, normal alignment Respiratory/Chest: chest wall non-tender, lungs clear Breasts: no masses Cardiovascular/Chest: normal rate Abdomen: normal bowel sounds, non tender Genitourinary/Rectal: normal genital exam, normal rectal exam Extremities: normal range of motion, non-tender Skin Exam: normal pigmentation Neurologic: service developer II-XII grossly normal, no motor/sensory deficits Last 24 Hour Vital Signs Date Time Temp Pulse Resp B/P (MAP) Pulse Ox O2 Delivery O2 Flow Rate FiO2 09/20/18 12:00 Nasal Cannula 2.0 09/20/18 12:00 2.0 09/20/18 08:00 67 09/20/18 08:00 2.0 09/20/18 08:00 Nasal Cannula 2.0 09/20/18 07:51 97.5 74 18 108/59 (75) 94 09/20/18 06:00 99.8 71 16 127/59 (81) 94 09/20/18 04:00 2.0 09/20/18 04:00 100.2 73 20 133/69 (90) 94 09/20/18 04:00 75 09/20/18 04:00 Nasal Cannula 2.0 09/20/18 00:00 99.5 69 16 101/55 (70) 94 09/20/18 00:00 Nasal Cannula 2.0 09/20/18 00:00 69 09/20/18 00:00 2.0 09/19/18 22:08 Nasal Cannula 2.0 09/19/18 22:00 98.8 71 18 100/58 (72) 93 09/19/18 22:00 Nasal Cannula 2.0 09/19/18 22:00 74 09/19/18 22:00 2.0 09/19/18 21:40 98.6 71 17 149/81 97 Nasal Cannula 2.0 09/19/18 18:26 98.9 09/19/18 17:39 109 26 Room Air 90 09/19/18 17:39 98.9 86 17 145/66 90 Room Air 09/19/18 17:32 98.1 88 16 99 Room Air Intake and Output 09/19/18 09/20/18 19:00 07:00 Intake Total 1655 ml Output Total 750 ml Balance 905 ml Intake Oral 500 ml IV Total 1155 ml Output Urine Total 750 ml Laboratory Tests Test 09/19/18 17:57 09/20/18 03:50 White Blood Count 15.1 K/UL (4.8-10.8) H 12.2 K/UL (4.8-10.8) H Red Blood Count 3.71 M/UL (4.20-5.40) L 3.25 M/UL (4.20-5.40) L Hemoglobin 11.0 G/DL (12.0-16.0) L 9.8 G/DL (12.0-16.0) L Hematocrit 32.8 % (37.0-47.0) L 29.8 % (37.0-47.0) L Mean Corpuscular Volume 88 FL (80-99) 92 FL (80-99) Mean Corpuscular Hemoglobin 29.6 PG (27.0-31.0) 30.1 PG (27.0-31.0) Mean Corpuscular Hemoglobin Concent 33.5 G/DL (32.0-36.0) 32.8 G/DL (32.0-36.0) Red Cell Distribution Width 13.1 % (11.6-14.8) 13.5 % (11.6-14.8) Platelet Count 171 K/UL (150-450) 144 K/UL (150-450) L Mean Platelet Volume 5.9 FL (6.5-10.1) L 6.8 FL (6.5-10.1) Neutrophils (%) (Auto) 80.4 % (45.0-75.0) H 74.0 % (45.0-75.0) Lymphocytes (%) (Auto) 9.8 % (20.0-45.0) L 16.2 % (20.0-45.0) L Monocytes (%) (Auto) 9.4 % (1.0-10.0) 9.0 % (1.0-10.0) Eosinophils (%) (Auto) 0.0 % (0.0-3.0) 0.3 % (0.0-3.0) Basophils (%) (Auto) 0.4 % (0.0-2.0) 0.6 % (0.0-2.0) Prothrombin Time 10.5 SEC (9.30-11.50) 10.6 SEC (9.30-11.50) Prothromb Time International Ratio 1.0 (0.9-1.1) 1.0 (0.9-1.1) Activated Partial Thromboplast Time 25 SEC (23-33) Urine Color Red Urine Appearance Slightly cloudy Urine pH 7 (4.5-8.0) Urine Specific [place] 1.010 (1.005-1.035) Urine Protein 4+ (NEGATIVE) H Urine Glucose (UA) Negative (NEGATIVE) Urine Ketones 1+ (NEGATIVE) H Urine Blood 5+ (NEGATIVE) H Urine Nitrite Negative (NEGATIVE) Urine Bilirubin Negative (NEGATIVE) Urine Urobilinogen Normal MG/DL (0.0-1.0) Urine Leukocyte Esterase 3+ (NEGATIVE) H Urine RBC Tntc /HPF (0 - 2) H Urine WBC 10-15 /HPF (0 - 2) H Urine Squamous Epithelial Cells Moderate /LPF (NONE/OCC) H Urine Bacteria Many /HPF (NONE) H Sodium Level 138 MMOL/L (136-145) 137 MMOL/L (136-145) Potassium Level 4.2 MMOL/L (3.5-5.1) 4.4 MMOL/L (3.5-5.1) Chloride Level 105 MMOL/L (98-107) 104 MMOL/L (98-107) Carbon Dioxide Level 23 MMOL/L (21-32) 23 MMOL/L (21-32) Anion Gap 10 mmol/L (5-15) 11 mmol/L (5-15) Blood Urea Nitrogen 20 mg/dL (7-18) H 19 mg/dL (7-18) H Creatinine 1.3 MG/DL (0.55-1.30) 1.4 MG/DL (0.55-1.30) H Estimat Glomerular Filtration Rate mL/min (>60) mL/min (>60) Glucose Level 136 MG/DL (74-106) H 116 MG/DL (74-106) H Calcium Level 10.0 MG/DL (8.5-10.1) 9.6 MG/DL (8.5-10.1) Total Bilirubin 0.7 MG/DL (0.2-1.0) Aspartate Amino Transf (AST/SGOT) 13 U/L (15-37) L Alanine Aminotransferase (ALT/SGPT) 15 U/L (12-78) Alkaline Phosphatase 94 U/L (46-116) Troponin I 0.000 ng/mL (0.000-0.056) Total Protein 7.1 G/DL (6.4-8.2) Albumin 3.3 G/DL (3.4-5.0) L Globulin 3.8 g/dL Albumin/Globulin Ratio 0.9 (1.0-2.7) L Phosphorus Level 3.5 MG/DL (2.5-4.9) Magnesium Level 2.0 MG/DL (1.8-2.4) Microbiology Date/Time Source Procedure Growth Status 09/19/18 17:57 Urine,Clean Catch Urine Culture - Preliminary Gram Negative Bacillus 1 Resulted Height (Feet): 5 Height (Inches): 1.00 Weight (Pounds): 139 Medications Current Medications Medications (Trade) Dose Ordered Sig/Steve Route PRN Reason Start Time Stop Time Status Last Admin Dose Admin Bisacodyl (Dulcolax) 10 mg ONCE ONCE ORAL 09/20/18 16:00 09/20/18 16:01 Ceftriaxone Sodium 1 gm/ Dextrose 55 ml @ 110 mls/hr Q24H IVPB 09/20/18 00:00 09/27/18 00:00 09/19/18 23:28 Citalopram Hydrobromide (celeXA) 20 mg DAILY ORAL 09/20/18 09:00 10/20/18 08:59 09/20/18 09:49 Dextrose/ Electrolytes 1,000 ml @ 75 mls/hr [id number] IV 09/19/18 23:00 10/19/18 22:59 09/20/18 12:27 Diazepam (Valium) 5 mg EVERY 8 HOURS PRN ORAL For Anxiety 09/20/18 07:15 09/26/18 22:29 Iopamidol (Isovue-300 100ml) 100 ml NOW PRN INJ Radiology Procedure 09/19/18 18:30 Levothyroxine Sodium (Synthroid) 150 mcg DAILY@0630 ORAL 09/20/18 06:30 10/20/18 06:29 09/20/18 05:54 Pantoprazole (Protonix) 40 mg EVERY 12 HOURS IVP 09/20/18 09:00 10/20/18 08:59 09/20/18 09:49 Polyethylene Glycol/ Electrolytes (Nulytely) 4,000 ml ONCE ONCE ORAL 09/20/18 16:00 09/20/18 16:01 Sodium Phosphate (Fleet's Sodium Phosl Enema) 133 ml ONCE ONCE RECTAL 09/20/18 23:00 09/20/18 23:01 Assessment/Plan Problem List: (1) Lower GI bleed ICD Codes: K92.2 - Gastrointestinal hemorrhage, unspecified SNOMED: 75238467 (2) COPD (chronic obstructive pulmonary disease) ICD Codes: J44.9 - Chronic obstructive pulmonary disease, unspecified SNOMED: 69393179 (3) Diverticular hemorrhage ICD Codes: K57.31 - Diverticulosis of large intestine without perforation or abscess with bleeding SNOMED: 052068855, 753571955 (4) Hypothyroidism ICD Codes: E03.9 - Hypothyroidism, unspecified SNOMED: 71900808 (5) Pulmonary fibrosis ICD Codes: J84.10 - Pulmonary fibrosis, unspecified SNOMED: 62736407 (6) History of CVA (cerebrovascular accident) ICD Codes: Z86.73 - Personal history of transient ischemic attack (TIA), and cerebral infarction without residual deficits SNOMED: 143525835 (7) Intractable pain ICD Codes: R52 - Pain, unspecified SNOMED: 31093860 (8) HTN (hypertension) ICD Codes: I10 - Essential (primary) hypertension SNOMED: 06032133 (9) Breast cancer ICD Codes: C50.919 - Malignant neoplasm of unspecified site of unspecified female breast SNOMED: 294180877 (10) Rheumatoid arthritis ICD Codes: M06.9 - Rheumatoid arthritis, unspecified SNOMED: 23286917 Assessment/Plan: NPO iv fluids check H/H prbc prn check electrolytes GI evaluation pain control dvt prophylaxis. Amanda Castañeda MD September 20, 2018 12:39
--- NOTE | 2018-09-20 12:54 | History & Physical ---
History and Physical History & Physicial Dictated for Int Med-Dr Mishra no. [id number]. Toro Dixon MD September 20, 2018 12:54
[2018-09-20] MEDS ORDERED: Nulytely 4L ORAL ONE (16:00)
[2018-09-20] MEDS ORDERED: Bisacodyl EC 5mg tab ORAL ONE (16:00)
[2018-09-20] MEDS: HydrALAZINE 10mg Tab ORAL SCH ×2 (17:10→21:32)
--- NOTE | 2018-09-20 19:10 | NUR ---
HAND-OFF: Report given to SEAN FRANCO.
--- NOTE | 2018-09-20 19:30 | NUR ---
NURSE NOTES: Received pt in no acute distress.Awake, alert, oriented to self, place and procedure but forgetful. Currently denies pain, denies SOB, denies N/V denies having any bloody stools. Moves all extremities, afebrilel, NSR on the monitor. Noted some bruises on her left upper arm and left back; pt apprarently had fallen at home. PIV site on left AC leaking. Golytely bowel prep still a gallon full and slowly drinking it with at the bedside coaching her. Plan of care explained to pt and spouse. Will continue to encourage to drink the bowel prep as tolerated. Inserted a new PIV on left forearm using g22 angiocath. IVF of D51/2NS with 20meqKCL infused at 75ml/h.
--- NOTE | 2018-09-20 20:30 | NUR ---
NURSE NOTES: Pt refused to drink any more Golytely. Consumed only a total of [address] Bradley Ordered to change bowel prep to Miralax bowel prep. Called Pharmacy. SCD's applied to BLE
[2018-09-20] MEDS: oxyCONTIN 20mg tab ORAL SCH (20:50)
[2018-09-20] MEDS ORDERED: TraZODone 50mg tab ORAL SCH (21:00)
[2018-09-20] MEDS ORDERED: Polyethylene Glycol 238gm bottle ORAL SCH (22:00)
--- NOTE | 2018-09-20 22:00 | NUR ---
NURSE NOTES: Miralax bowel prep mixed in 32oz Gatorade given to pt. Pt able to drink a cup full but started to cough. HOB elevated. Will continue to encourage to drink the new bowel prep. Purewick applied.
--- NOTE | 2018-09-20 22:45 | NUR ---
NURSE NOTES: Informed Dr Bradley for the 2nd time that pt unable to complete bowel prep. Refused to further drink the Miralax bowel prep. No response from MD. Prabhakar enema given
[2018-09-20] MEDS ORDERED: Fleet's Enema 133ml RECTAL ONE (23:00)
--- NOTE | 2018-09-20 23:15 | History and Physical Report ---
DATE OF ADMISSION: 09/20/2018 CHIEF COMPLAINT: The patient is an 82-year-old female, who presents with a chief complaint of abdominal pain and rectal bleeding. HISTORY OF PRESENT ILLNESS: The patient has a history of breast cancer dating back to 1983. The patient underwent left mastectomy and subsequent chemotherapy. 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 The patient underwent right breast mastectomy in 2008. The patient presented to [facility] emergency room complaining of a one-day history of abdominal pain. The patient had a bowel movement, which had bright red blood in it. The patient presented to [facility] emergency room. The patient is admitted with rectal bleeding and abdominal pain. REVIEW OF SYSTEMS: CONSTITUTIONAL: The patient denies weight loss or weight gain. The patient denies fevers or chills. HEENT: The patient denies ear or throat pain. The patient denies headache. CARDIOVASCULAR: The patient denies palpitations or chest pain. CHEST: The patient denies wheeze or shortness of breath. ABDOMINAL: The patient complains of generalized abdominal pain as above. The patient complains of rectal bleeding as above. The patient denies nausea, vomiting, diarrhea, or constipation. GENITOURINARY: The patient denies dysuria or increased frequency of urination. NEUROMUSCULAR: The patient denies seizures or generalized weakness. PAST MEDICAL HISTORY: Significant for, 1. Breast cancer in 1983, stage III. 2. Cerebrovascular disease, status post cerebrovascular accident in the right occipital region. 3. Hypertension. 4. Hypercholesterolemia. 5. History of diverticulosis. 6. Gastroesophageal reflux disease. 7. Idiopathic pulmonary fibrosis. 8. Hypothyroidism. 9. Rheumatoid arthritis. PAST SURGICAL HISTORY: Significant for, 1. Left breast mastectomy in 1983 secondary to breast cancer. 2. Right breast mastectomy in April of 2009. 3. Open reduction and internal fixation of the right hip in 2017. CURRENT MEDICATIONS: 1. Aspirin 81 mg one tab p.o. daily. 2. Celebrex 200 mg p.o. daily. 3. Celexa 20 mg p.o. daily. 4. Valium 5 mg p.o. 3 times daily p.r.n. 5. Cymbalta 30 mg p.o. daily. 6. Hydralazine 10 mg p.o. 3 times daily. 7. Stewart 5/325 mg one tablet p.o. q.6 h. p.r.n. 8. Levoxyl 0.12 mg p.o. daily. 9. Mirabegron 50 mg p.o. daily. 10. OxyContin 20 mg p.o. twice daily. 11. Protonix 40 mg p.o. daily. 12. Crestor 5 mg p.o. at bedtime. 13. Ticagrelor 90 mg p.o. twice daily. 14. Ultram 50 mg p.o. 4 times daily p.r.n. 15. Ambien 5 mg p.o. at bedtime. ALLERGIES: Meperidine. SOCIAL HISTORY: The patient is . The patient denies tobacco use having quit 25 years ago in May of 1975. The patient admits to occasional alcohol use. PHYSICAL EXAMINATION: VITAL SIGNS: Temperature 99.5, respirations 16, pulse 69, and blood pressure 101/55. GENERAL: The patient is a well-developed and well-nourished female in no apparent distress. HEENT: Eyes, pupils are equal and responsive to light and accommodation. Extraocular movements are intact. NECK: Supple without lymphadenopathy. CHEST: Lungs are clear to auscultation bilaterally without wheezes or rales. CARDIOVASCULAR: Regular rhythm and rate. S1 and S2 are normal without murmurs, rubs, or gallops. ABDOMEN: Soft, nontender, and nondistended. Positive bowel sounds. No evidence of hepatosplenomegaly. Currently, no rebound or guarding noted. EXTREMITIES: Negative for clubbing, cyanosis, or edema. RECTAL/GENITAL: Refused. NEUROLOGIC: Cranial nerves II through XII are grossly intact without focal deficits. Motor strength is 5/5 bilaterally. Deep tendon reflexes are 2+ plantar. DIAGNOSTIC DATA: The CT scan of the abdomen revealed chronic inflammation of the left kidney and enhancement of the urinary bladder wall consistent with cystitis. Diverticulosis was noted throughout the colon. LABORATORY STUDIES: WBC 15.1, hemoglobin 11.0, hematocrit 32.8, and platelets 171,000. Sodium 138, potassium 4.2, chloride 105, CO2 23, BUN 20, creatinine 1.3, and glucose 136. Urinalysis showed 5+ blood, 3+ leukocyte esterase, and rbc's too numerous to count with 10 to 15 wbc's. ASSESSMENT: This is an 82-year-old white female. 1. Rectal hemorrhage. 2. Abdominal pain. 3. Urinary tract infection. 4. History of breast cancer. 5. Cerebrovascular disease. 6. Hypertension. 7. Hypercholesterolemia. 8. Hypothyroidism. 9. Diverticulosis of the colon. 10. Gastroesophageal reflux disease. 11. Hepatic pulmonary fibrosis. 12. Rheumatoid arthritis. TREATMENT: 1. Rectal hemorrhage/abdominal pain/diverticulosis. A Gastroenterology consultation has been obtained with Dr. Biju Bradley. We will follow recommendations of Gastroenterology. Differential includes bleeding diverticulitis versus new colon mass. We will follow recommendations of Gastroenterology. 2. Urinary tract infection. The patient has been placed empirically on intravenous ceftriaxone. Urine culture is pending. 3. History of breast cancer. The patient is status post bilateral mastectomy and chemotherapy. 4. Cerebrovascular disease. Continue aspirin as above. 5. Hypertension. Continue hydralazine as above. 6. Hypercholesterolemia. Continue Crestor as above. 7. Hypothyroidism. Continue levothyroxine as above. 8. Idiopathic pulmonary fibrosis. A Pulmonary consultation has been obtained with Dr. Amanda Castañeda. 9. Rheumatoid arthritis. Toro Dixon M.D. DR: CHRIS JOB#: [id number] CC:
[2018-09-20] MEDS: cefTRIAXone 1 GM in D5W 55 ML IVPB SCH (23:45)
[2018-09-21] VITALS: BP 97/59
--- NOTE | 2018-09-21 | NUR ---
NURSE NOTES: Rendered NPO. Removed all food and drink at the bedside. No BM. Pt sleeping.
[2018-09-21] MEDS: D5 1/2NS w/KCl 20mEq 1,000 ML IV SCH ×2 (03:19→15:12)
[2018-09-21 04:00] VITALS: BP 119/55
--- NOTE | 2018-09-21 04:00 | NUR ---
NURSE NOTES: Incontinent of urine. Had 1 small BM, soft, brown. Bathed. skin remains intact but still with bruises on left upper arm and back. PIV site intact. Afebrile. Denies pain at this time. Kept NPO after midnight.
[2018-09-21 05:01] LABS: BASOPHILS % (AUTO) 0.3 % (0.0-2.0); EOSINOPHILS % (AUTO) 0.1 % (0.0-3.0); HEMATOCRIT 27.5 % (37.0-47.0); LYMPHOCYTES % (AUTO) 18.7 % (20.0-45.0); MEAN CORPUSCULAR VOLUME 92 FL (80-99); MONOCYTES % (AUTO) 8.8 % (1.0-10.0); NEUTROPHILS % (AUTO) 72.2 % (45.0-75.0); PLATELET COUNT 145 K/UL (150-450); RED CELL DISTRIBUTION WIDTH 13.3 % (11.6-14.8); WHITE BLOOD COUNT 8.9 K/UL (4.8-10.8)
[2018-09-21 05:32] LABS: % IRON SATURATION 6 % (15-50); IRON 13 ug/dL (50-175); TOTAL IRON BINDING CAPACITY 229 ug/dL (250-450)
[2018-09-21 05:41] LABS: ANION GAP 9 mmol/L (5-15); BLOOD UREA NITROGEN 18 mg/dL (7-18); CALCIUM 9.2 MG/DL (8.5-10.1); CARBON DIOXIDE 22 MMOL/L (21-32); CHLORIDE 107 MMOL/L (98-107); CREATININE 1.3 MG/DL (0.55-1.30); FERRITIN 79 NG/ML (8-388); SODIUM 138 MMOL/L (136-145)
[2018-09-21] MEDS: HydrALAZINE 10mg Tab ORAL SCH ×3 (05:56→21:10)
--- NOTE | 2018-09-21 07:23 | NUR ---
HAND-OFF: Report given to Ashlee Pastor RN.
--- NOTE | 2018-09-21 07:25 | NUR ---
NURSE NOTES: Report received from Dio Hawk RN.Pt in bed awake,alert but very confused and disoriented,saying she wants to go outside and walk to the hospitaland sleep on her bed.Pt reoriented repeatedly that she is inside the hospital.Pt kept NPO for the Colonoscopy/EGD procedure.Pt in no resp distress,on 2 L NC,no signs of pain or discomfort,SR oin the monitor,Pt with Pure wick draining dark tea colored urine but she took it out,IV site to LFA intact with D5 1/2 NS at 75 ml/hr,skin warm and dry ,SR up x3 ,HOB elevated,,bed lock in lowest position ,will continue with plans of care.
[2018-09-21 08:00] VITALS: BP 116/60
--- NOTE | 2018-09-21 08:25 | Anethesia Preoperative Eval ---
Anesthesia Pre-op PMH/ROS General Date of Evaluation: September 21, 2018 Time of Evaluation: 08:22 Anesthesiologist: Mario ASA Score: ASA 3 Mallampati Score Class I : Soft palate, uvula, fauces, pillars visible Class II: Soft palate, uvula, fauces visible Class III: Soft palate, base of uvula visible Class IV: Only hard plate visible Mallampati Classification: Class III Surgeon: Mirna Diagnosis: GI bleed Surgical Procedure: EGD Colonoscopy Anesthesia History: none Family History: no anesthesia problems Allergies: Coded Allergies: MEPERIDINE (Verified Allergy, Severe, 07/19/16) Medications: see eMAR Patient NPO?: Yes Past Medical History Cardiovascular: Reports: HTN; Denies: CAD, SC, valve dz, arrhythmia, other Pulmonary: Reports: COPD; Denies: asthma, [place], other Gastrointestinal/Genitourinary: Reports: GERD, CRI; Denies: ESRD, other Neurologic/Psychiatric: Reports: dementia - mild, depression/anxiety Endocrine: Reports: hypothyroidism; Denies: DM, steroids, other HEENT: Denies: cataract (L), cataract (R), glaucoma, [place] (L), [place] (R), other Hematology/Immune: Reports: anemia, other - h/o bilateral breast CA s/p Sx chemo; Denies: DVT, bleeding disorder PMH Narrative: as above PSxH Narrative: Bilateral mastectomy ORIF of hip Fx Anesthesia Pre-op Phys. Exam Physician Exam Last Vital Signs Date Time Temp Pulse Resp B/P (MAP) Pulse Ox O2 Delivery O2 Flow Rate FiO2 09/21/18 05:56 119/55 09/21/18 04:00 Nasal Cannula 2.0 09/21/18 04:00 76 09/21/18 04:00 98.1 24 97 09/19/18 17:39 90 Constitutional: NAD Neurologic: other - unable to obtaine Cardiovascular: RRR Respiratory: CTA Airway Exam Mallampati Score: Class III MO: limited Neck: stiff ROM: limited Teeth: missing Dentures: no upper, no lower Anesthesia Pre-op A/P Labs Hematology Test 09/21/18 03:35 White Blood Count 8.9 K/UL (4.8-10.8) Red Blood Count 3.00 M/UL (4.20-5.40) L Hemoglobin 9.0 G/DL (12.0-16.0) L Hematocrit 27.5 % (37.0-47.0) L Mean Corpuscular Volume 92 FL (80-99) Mean Corpuscular Hemoglobin 29.9 PG (27.0-31.0) Mean Corpuscular Hemoglobin Concent 32.6 G/DL (32.0-36.0) Red Cell Distribution Width 13.3 % (11.6-14.8) Platelet Count 145 K/UL (150-450) L Mean Platelet Volume 7.2 FL (6.5-10.1) Neutrophils (%) (Auto) 72.2 % (45.0-75.0) Lymphocytes (%) (Auto) 18.7 % (20.0-45.0) L Monocytes (%) (Auto) 8.8 % (1.0-10.0) Eosinophils (%) (Auto) 0.1 % (0.0-3.0) Basophils (%) (Auto) 0.3 % (0.0-2.0) Reticulocyte Count 1.0 % (0.5-2.0) Coagulation Test 09/21/18 03:35 Prothrombin Time 10.5 SEC (9.30-11.50) Prothromb Time International Ratio 1.0 (0.9-1.1) Activated Partial Thromboplast Time 30 SEC (23-33) Chemistry Test 09/21/18 03:35 Sodium Level 138 MMOL/L (136-145) Potassium Level 4.0 MMOL/L (3.5-5.1) Chloride Level 107 MMOL/L (98-107) Carbon Dioxide Level 22 MMOL/L (21-32) Anion Gap 9 mmol/L (5-15) Blood Urea Nitrogen 18 mg/dL (7-18) Creatinine 1.3 MG/DL (0.55-1.30) Estimat Glomerular Filtration Rate mL/min (>60) Glucose Level 105 MG/DL (74-106) Calcium Level 9.2 MG/DL (8.5-10.1) Iron Level 13 ug/dL (50-175) L Total Iron Binding Capacity 229 ug/dL (250-450) L Percent Iron Saturation 6 % (15-50) L Unsaturated Iron Binding 216 ug/dL (112-346) Ferritin 79 NG/ML (8-388) Carcinoembryonic Antigen Pending Vitamin B12 Level 393 PG/ML (193-986) Folate 33.4 NG/ML (8.6-58.9) Free Thyroxine 1.45 NG/DL (0.76-1.46) Risk Assessment & Plan Assessment: ASA 3 Plan: MAC Status Change Before Surgery: No Forest Martin MD September 21, 2018 08:25
--- NOTE | 2018-09-21 08:50 | NUR ---
NURSE NOTES: Spouse at bedside,updated re pt's confusion and NPO status and time of procedure,verbalized understanding.
[2018-09-21] MEDS ORDERED: DULoxetine 30mg cap ORAL SCH (09:00)
--- NOTE | 2018-09-21 09:00 | NUR ---
NURSE NOTES: Pt NPO for EGD/Colonoscopy, Called Dr Abraham ,re pt's non compliance of bowel prep,left message on the answering machine.Called GI Lab too to inform re non compliance of bowel prep,and no good result after Fleet enema given by shift mgr RN. All PO medic hold per GI Lab instruction.
[2018-09-21] MEDS ORDERED: Fleet's Enema 133ml RECTAL SCH ×3 (10:15→23:00)
--- NOTE | 2018-09-21 10:30 | NUR ---
NURSE NOTES: [employer] MANAGER Gian Turcios at bedside,informed re poor bowel prep and pt's non compliance,ordered to give another dose of Fleets Enema,order done and carried out.
--- NOTE | 2018-09-21 10:32 | Pulmonology Progress Note ---
Assessment/Plan Problems: (1) Lower GI bleed (2) COPD (chronic obstructive pulmonary disease) (3) Diverticular hemorrhage (4) Hypothyroidism (5) Pulmonary fibrosis (6) History of CVA (cerebrovascular accident) (7) Intractable pain (8) HTN (hypertension) (9) Breast cancer (10) Rheumatoid arthritis Assessment/Plan H/H slightly lower Venofer IV labs reviewed colonoscopy for today prbc if hem< 8 monitor BP titrate fio2 to sat of 92% Subjective Interval Events: looks comfortable, confused Allergies: Coded Allergies: MEPERIDINE (Verified Allergy, Severe, 07/19/16) Objective Last 24 Hour Vital Signs Date Time Temp Pulse Resp B/P (MAP) Pulse Ox O2 Delivery O2 Flow Rate FiO2 09/21/18 08:00 98.8 79 22 116/60 (78) 98 09/21/18 05:56 119/55 09/21/18 04:00 Nasal Cannula 2.0 09/21/18 04:00 76 09/21/18 04:00 98.1 75 24 119/55 (76) 97 09/21/18 04:00 80 09/21/18 00:00 98.6 77 24 97/59 (72) 95 09/21/18 00:00 Nasal Cannula 2.0 09/21/18 00:00 77 09/20/18 21:32 96/54 09/20/18 20:00 Nasal Cannula 2.0 09/20/18 20:00 80 09/20/18 20:00 97.7 80 18 100/55 (70) 97 09/20/18 17:10 134/67 09/20/18 16:00 Nasal Cannula 2.0 09/20/18 16:00 98.5 69 19 134/67 (89) 96 09/20/18 16:00 2.0 09/20/18 16:00 72 09/20/18 12:00 Nasal Cannula 2.0 09/20/18 12:00 98.4 67 20 112/70 (84) 97 09/20/18 12:00 70 09/20/18 12:00 2.0 Intake and Output 09/20/18 09/21/18 19:00 07:00 Intake Total 1500 ml 1417.5 ml Balance 1500 ml 1417.5 ml Intake Oral 600 ml 780 ml IV Total 900 ml 637.5 ml # Bowel Movements 1 General Appearance: WD/WN HEENT: normocephalic, atraumatic Respiratory/Chest: chest wall non-tender, lungs clear Breasts: no masses Cardiovascular: normal peripheral pulses, normal rate Abdomen: normal bowel sounds, soft, non tender Genitourinary: normal external genitalia Extremities: no cyanosis Skin: no rash Lymphatic: no neck adenopathy Musculoskeletal: normal muscle bulk Microbiology Date/Time Source Procedure Growth Status 09/19/18 17:57 Urine,Clean Catch Urine Culture - Final Escherichia Coli Complete Laboratory Tests 09/21/18 03:35: White Blood Count 8.9, Red Blood Count 3.00L, Hemoglobin 9.0L, Hematocrit 27.5L , Mean Corpuscular Volume 92, Mean Corpuscular Hemoglobin 29.9, Mean Corpuscular Hemoglobin Concent 32.6, Red Cell Distribution Width 13.3, Platelet Count 145L, Mean Platelet Volume 7.2, Neutrophils (%) (Auto) 72.2, Lymphocytes ( %) (Auto) 18.7L, Monocytes (%) (Auto) 8.8, Eosinophils (%) (Auto) 0.1, Basophils (%) (Auto) 0.3, Reticulocyte Count 1.0, Prothrombin Time 10.5, Prothromb Time International Ratio 1.0, Activated Partial Thromboplast Time 30, Sodium Level 138, Potassium Level 4.0, Chloride Level 107, Carbon Dioxide Level 22, Anion Gap 9, Blood Urea Nitrogen 18, Creatinine 1.3, Estimat Glomerular Filtration Rate , Glucose Level 105, Calcium Level 9.2, Iron Level 13L, Total Iron Binding Capacity 229L, Percent Iron Saturation 6L, Unsaturated Iron Binding 216, Ferritin 79, Carcinoembryonic Antigen [Pending], Vitamin B12 Level 393, Folate 33.4, Free Thyroxine 1.45 Current Medications Medications (Trade) Dose Ordered Sig/Steve Route PRN Reason Start Time Stop Time Status Last Admin Dose Admin Ceftriaxone Sodium 1 gm/ Dextrose 55 ml @ 110 mls/hr Q24H IVPB 09/20/18 00:00 09/27/18 00:00 09/20/18 23:45 Citalopram Hydrobromide (celeXA) 20 mg DAILY ORAL 09/20/18 09:00 10/20/18 08:59 09/20/18 09:49 Dextrose/ Electrolytes 1,000 ml @ 75 mls/hr [id number] IV 09/19/18 23:00 10/19/18 22:59 09/21/18 03:19 Diazepam (Valium) 5 mg EVERY 8 HOURS PRN ORAL For Anxiety 09/20/18 07:15 09/26/18 22:29 Duloxetine HCl (Cymbalta) 30 mg DAILY ORAL 09/21/18 09:00 10/21/18 08:59 Hydralazine HCl (Apresoline) 10 mg EVERY 8 HOURS ORAL 09/20/18 14:00 10/20/18 13:59 09/20/18 17:10 Iopamidol (Isovue-300 100ml) 100 ml NOW PRN INJ Radiology Procedure 09/19/18 18:30 Levothyroxine Sodium (Synthroid) 112 mcg ACBREAKFAST ORAL 09/21/18 06:30 10/21/18 06:29 Oxycodone HCl (OxyCONTIN) 20 mg EVERY 12 HOURS ORAL 09/20/18 21:00 09/27/18 20:59 09/20/18 20:50 Pantoprazole (Protonix) 40 mg EVERY 12 HOURS IVP 09/20/18 09:00 10/20/18 08:59 09/20/18 20:48 Sodium Phosphate (Fleet's Sodium Phosl Enema) 133 ml ONCE RECTAL 09/21/18 10:15 09/21/18 11:30 09/21/18 10:17 Trazodone HCl (Desyrel) 50 mg BEDTIME ORAL 09/20/18 21:00 10/20/18 20:59 09/20/18 20:48 Amanda Castañeda MD September 21, 2018 10:32
--- NOTE | 2018-09-21 11:30 | NUR ---
NURSE NOTES: Pt assisted to BSC and had a small amount of brown formed stools ,ZAHRA Turcios called and informed re the poor results,said procedure will be cancelled today.
--- NOTE | 2018-09-21 11:49 | GI Progress Note ---
Assessment/Plan Problems: (1) Anemia ICD Codes: D64.9 - Anemia, unspecified SNOMED: 233162361 (2) History of CVA (cerebrovascular accident) ICD Codes: Z86.73 - Personal history of transient ischemic attack (TIA), and cerebral infarction without residual deficits SNOMED: 675679762 (3) Lower GI bleed ICD Codes: K92.2 - Gastrointestinal hemorrhage, unspecified SNOMED: 72862035 (4) Internal hemorrhoid, bleeding ICD Codes: K64.8 - Other hemorrhoids SNOMED: 68232579 (5) Diverticular hemorrhage ICD Codes: K57.31 - Diverticulosis of large intestine without perforation or abscess with bleeding SNOMED: 117202607, 492679178 Status: stable Status Narrative Discussed with Dr. Bradley. Assessment/Plan Abdominal pelvic CT reviewed Chronic inflammation/infection suspected with regard to the left kidney given thickening and enhancement of the uroepithelium of the left kidney including the ureter and renal pelvis. Moderate thickening and enhancement of the wall the urinary bladder consistent with cystitis. Abnormal appearance of the central aspect of the uterus. Query endometrial fluid. This is abnormal at this age and further investigation is recommended. No evidence of intra-abdominal abscess. Atherosclerotic vascular disease Limitation on visualization of the pelvis due to streak artifact from a right total hip prosthesis. Status post L1 kyphoplasty. Basilar lung fibrosis with traction bronchiectasis. Hiatal hernia. Diverticulosis of the colon. EGD and colonoscopy cancelled due to poor prep, rescheduled for tomorrow. -Maintain clear liquid diet, n.p.o. at midnight -Hold all blood thinners venofer OB stool r/o GI bleed monitor H&H, prn transfusions bowel regime ppi fu labs We will follow with additional recommendations postprocedure The patient was seen and examined at bedside and all new and available data was reviewed in the patients chart. I agree with the above findings, impression and plan. (Patient seen earlier today. Signature stamp does not reflect patient encounter time.). - Biju Bradley MD Subjective Subjective limited Objective Last 24 Hour Vital Signs Date Time Temp Pulse Resp B/P (MAP) Pulse Ox O2 Delivery O2 Flow Rate FiO2 09/21/18 08:00 Nasal Cannula 2.0 09/21/18 08:00 80 09/21/18 08:00 98.8 79 22 116/60 (78) 98 09/21/18 05:56 119/55 09/21/18 04:00 Nasal Cannula 2.0 09/21/18 04:00 76 09/21/18 04:00 98.1 75 24 119/55 (76) 97 09/21/18 04:00 80 09/21/18 00:00 98.6 77 24 97/59 (72) 95 09/21/18 00:00 Nasal Cannula 2.0 09/21/18 00:00 77 09/20/18 21:32 96/54 09/20/18 20:00 Nasal Cannula 2.0 09/20/18 20:00 80 09/20/18 20:00 97.7 80 18 100/55 (70) 97 09/20/18 17:10 134/67 09/20/18 16:00 Nasal Cannula 2.0 09/20/18 16:00 98.5 69 19 134/67 (89) 96 09/20/18 16:00 2.0 09/20/18 16:00 72 09/20/18 12:00 Nasal Cannula 2.0 09/20/18 12:00 98.4 67 20 112/70 (84) 97 09/20/18 12:00 70 09/20/18 12:00 2.0 Intake and Output 09/20/18 09/21/18 19:00 07:00 Intake Total 1500 ml 1417.5 ml Balance 1500 ml 1417.5 ml Intake Oral 600 ml 780 ml IV Total 900 ml 637.5 ml # Bowel Movements 1 Laboratory Tests Test 09/21/18 03:35 White Blood Count 8.9 K/UL (4.8-10.8) Red Blood Count 3.00 M/UL (4.20-5.40) L Hemoglobin 9.0 G/DL (12.0-16.0) L Hematocrit 27.5 % (37.0-47.0) L Mean Corpuscular Volume 92 FL (80-99) Mean Corpuscular Hemoglobin 29.9 PG (27.0-31.0) Mean Corpuscular Hemoglobin Concent 32.6 G/DL (32.0-36.0) Red Cell Distribution Width 13.3 % (11.6-14.8) Platelet Count 145 K/UL (150-450) L Mean Platelet Volume 7.2 FL (6.5-10.1) Neutrophils (%) (Auto) 72.2 % (45.0-75.0) Lymphocytes (%) (Auto) 18.7 % (20.0-45.0) L Monocytes (%) (Auto) 8.8 % (1.0-10.0) Eosinophils (%) (Auto) 0.1 % (0.0-3.0) Basophils (%) (Auto) 0.3 % (0.0-2.0) Reticulocyte Count 1.0 % (0.5-2.0) Prothrombin Time 10.5 SEC (9.30-11.50) Prothromb Time International Ratio 1.0 (0.9-1.1) Activated Partial Thromboplast Time 30 SEC (23-33) Sodium Level 138 MMOL/L (136-145) Potassium Level 4.0 MMOL/L (3.5-5.1) Chloride Level 107 MMOL/L (98-107) Carbon Dioxide Level 22 MMOL/L (21-32) Anion Gap 9 mmol/L (5-15) Blood Urea Nitrogen 18 mg/dL (7-18) Creatinine 1.3 MG/DL (0.55-1.30) Estimat Glomerular Filtration Rate mL/min (>60) Glucose Level 105 MG/DL (74-106) Calcium Level 9.2 MG/DL (8.5-10.1) Iron Level 13 ug/dL (50-175) L Total Iron Binding Capacity 229 ug/dL (250-450) L Percent Iron Saturation 6 % (15-50) L Unsaturated Iron Binding 216 ug/dL (112-346) Ferritin 79 NG/ML (8-388) Carcinoembryonic Antigen Pending Vitamin B12 Level 393 PG/ML (193-986) Folate 33.4 NG/ML (8.6-58.9) Free Thyroxine 1.45 NG/DL (0.76-1.46) Height (Feet): 5 Height (Inches): 1.00 Weight (Pounds): 139 General Appearance: no apparent distress Cardiovascular: normal rate Respiratory/Chest: normal breath sounds, no respiratory distress Abdominal Exam: normal bowel sounds, non tender, soft Extremities: non-tender Brady Zhang NP September 21, 2018 11:49
[2018-09-21 12:00] VITALS: BP 116/52
[2018-09-21] MEDS ORDERED: Iron Sucrose 200 MG in NS 110 ML IV ONE (12:00)
[2018-09-21] MEDS: Pantoprazole Inj IVP SCH ×2 (12:28→21:10)
[2018-09-21] MEDS: Citalopram Hydrobromide 10mg Tab ORAL SCH (12:29)
[2018-09-21] MEDS: oxyCONTIN 20mg tab ORAL SCH (12:32)
--- NOTE | 2018-09-21 13:23 | Physician Query ---
--------- THIS DOCUMENT IS A PERMANENT PART OF THE MEDICAL RECORD --------- PLEASE COMPLETE FORM BEFORE SIGNING Dear Mr. Olamide Zhang Date: 09/21/2018 Internal Controls Analyst/ CDS Name: Cassie Dave Exercise your independent professional judgment when responding to query. Questions asked do not imply particular answer is desired or expected. We greatly appreciate your clarification on this issue. Clinical Documentation States: 82-year-old female, who presents with a chief complaint of abdominal pain and rectal bleeding 09/20 GI note: Assessment/Plans: 1.Anemia...3.lower GI bleed, 4. Internal hemorrhoid bleeding, 5. Diverticular hemorrhage Labs: 09/19 Hb 11 Hct 32.8 09/20 Hb 9.8 Hct 29.8 09/21 Hb 9 Hct 27.5 Treatment: IV Iron sucrose Please clarify the specific type of anemia below: Acuity []Acute []Acute on Chronic []Chronic Etiology [] Blood loss [] ESRD [] Neoplastic disease [] Iron deficiency [] GI Bleed from [] Anemia of chronic disease, [] Unable to determine [] Other: Condition Present on Admission: [] Yes [] No [ ] Clinically Undeterminable Please also document in your Progress Notes and/or Discharge Summary and indicate if the condition was present on admission. __ Signature Date MTDD
--- NOTE | 2018-09-21 13:55 | NUR ---
TRANSFER TO FLOOR: Patient transferred to , Telemetry per bed room 208-1 AAO in no resp distress . Report given to Marina ASHER. Belongings given to receiving RN. S/O informed of transfer.
--- NOTE | 2018-09-21 14:00 | NUR ---
NURSE NOTES: Received bedside report from Wendy Gonzalez RN. Pt. in bed, awake, a/o x2-3 forgetful and confused at times. No sign of distress. On O2 at 2LPM via NC. Denies pain at present. New IV line at left hand #22g. in placed patent/intact running venofer at present. Bed in low position, locked. Call light within reach. Will cont. to monitor.
[2018-09-21 16:00] VITALS: BP 139/68
[2018-09-21] MEDS ORDERED: Magnesium Citrate Liq Btl ORAL ONE (16:00)
[2018-09-21] MEDS ORDERED: Bisacodyl EC 5mg tab ORAL SCH ×2 (16:00)
[2018-09-21] MEDS ORDERED: Magnesium Citrate Liq Btl ORAL SCH (16:00)
[2018-09-21] MEDS ORDERED: Polyethylene Glycol 238gm bottle ORAL SCH ×2 (16:00)
--- NOTE | 2018-09-21 16:10 | NUR ---
NURSE NOTES: Pt. informed about Mg citrate for bowel prep and agreed after RN opening and gave pt. 30cc of Mg. citrate pt. refused. Explained risk and benefits but still refused the meds. Pt. noted to be confused telling the nurse to give it to her because her is her pt. in this hospital. Will cont. to monitor.
--- NOTE | 2018-09-21 17:16 | Internal Med Progress Note ---
Subjective Physician Name Toro Dixon Attending Physician Willie Mishra MD Current Medications Medications (Trade) Dose Ordered Sig/Steve Route PRN Reason Start Time Stop Time Status Last Admin Dose Admin Ceftriaxone Sodium 1 gm/ Dextrose 55 ml @ 110 mls/hr Q24H IVPB 09/22/18 00:00 09/27/18 00:00 Citalopram Hydrobromide (celeXA) 20 mg DAILY ORAL 09/22/18 09:00 10/20/18 08:59 Dextrose/ Electrolytes 1,000 ml @ 75 mls/hr [id number] IV 09/21/18 15:12 10/21/18 15:11 Diazepam (Valium) 5 mg Q8H PRN ORAL For Anxiety 09/21/18 15:14 09/28/18 15:13 Duloxetine HCl (Cymbalta) 30 mg DAILY ORAL 09/22/18 09:00 10/21/18 08:59 Hydralazine HCl (Apresoline) 10 mg EVERY 8 HOURS ORAL 09/21/18 22:00 10/20/18 13:59 Levothyroxine Sodium (Synthroid) 112 mcg ACBREAKFAST ORAL 09/22/18 06:30 10/21/18 06:29 Magnesium Citrate (Citrate Of Magnesia) 300 ml ONCE ORAL 09/21/18 16:00 09/21/18 23:59 09/21/18 16:04 Oxycodone HCl (OxyCONTIN) 20 mg EVERY 12 HOURS ORAL 09/21/18 21:00 09/27/18 20:59 Pantoprazole (Protonix) 40 mg EVERY 12 HOURS IVP 09/21/18 21:00 10/20/18 08:59 Polyethylene Glycol (Miralax) 238 gm ONCE ORAL 09/21/18 16:00 09/21/18 23:59 Sodium Phosphate (Fleet's Sodium Phosl Enema) 133 ml ONCE RECTAL 09/21/18 23:00 09/21/18 23:59 Trazodone HCl (Desyrel) 50 mg BEDTIME ORAL 09/21/18 21:00 10/20/18 20:59 Allergies: Coded Allergies: MEPERIDINE (Verified Allergy, Severe, 07/19/16) Objective Last Vital Signs Date Time Temp Pulse Resp B/P (MAP) Pulse Ox O2 Delivery O2 Flow Rate FiO2 09/21/18 16:00 98.0 78 18 139/68 (91) 92 09/21/18 16:00 Nasal Cannula 2.0 09/19/18 17:39 90 Laboratory Tests Test 09/21/18 03:35 White Blood Count 8.9 K/UL (4.8-10.8) Red Blood Count 3.00 M/UL (4.20-5.40) L Hemoglobin 9.0 G/DL (12.0-16.0) L Hematocrit 27.5 % (37.0-47.0) L Mean Corpuscular Volume 92 FL (80-99) Mean Corpuscular Hemoglobin 29.9 PG (27.0-31.0) Mean Corpuscular Hemoglobin Concent 32.6 G/DL (32.0-36.0) Red Cell Distribution Width 13.3 % (11.6-14.8) Platelet Count 145 K/UL (150-450) L Mean Platelet Volume 7.2 FL (6.5-10.1) Neutrophils (%) (Auto) 72.2 % (45.0-75.0) Lymphocytes (%) (Auto) 18.7 % (20.0-45.0) L Monocytes (%) (Auto) 8.8 % (1.0-10.0) Eosinophils (%) (Auto) 0.1 % (0.0-3.0) Basophils (%) (Auto) 0.3 % (0.0-2.0) Reticulocyte Count 1.0 % (0.5-2.0) Prothrombin Time 10.5 SEC (9.30-11.50) Prothromb Time International Ratio 1.0 (0.9-1.1) Activated Partial Thromboplast Time 30 SEC (23-33) Sodium Level 138 MMOL/L (136-145) Potassium Level 4.0 MMOL/L (3.5-5.1) Chloride Level 107 MMOL/L (98-107) Carbon Dioxide Level 22 MMOL/L (21-32) Anion Gap 9 mmol/L (5-15) Blood Urea Nitrogen 18 mg/dL (7-18) Creatinine 1.3 MG/DL (0.55-1.30) Estimat Glomerular Filtration Rate mL/min (>60) Glucose Level 105 MG/DL (74-106) Calcium Level 9.2 MG/DL (8.5-10.1) Iron Level 13 ug/dL (50-175) L Total Iron Binding Capacity 229 ug/dL (250-450) L Percent Iron Saturation 6 % (15-50) L Unsaturated Iron Binding 216 ug/dL (112-346) Ferritin 79 NG/ML (8-388) Carcinoembryonic Antigen Pending Vitamin B12 Level 393 PG/ML (193-986) Folate 33.4 NG/ML (8.6-58.9) Free Thyroxine 1.45 NG/DL (0.76-1.46) Microbiology Date/Time Source Procedure Growth Status 09/19/18 17:57 Urine,Clean Catch Urine Culture - Final Escherichia Coli Complete Intake and Output 09/20/18 09/21/18 19:00 07:00 Intake Total 1500 ml 1417.5 ml Balance 1500 ml 1417.5 ml Intake Oral 600 ml 780 ml IV Total 900 ml 637.5 ml # Bowel Movements 1 Objective PHYSICAL EXAMINATION: GENERAL: The patient is a well-developed and well-nourished female in no apparent distress. HEENT: Eyes, pupils are equal and responsive to light and accommodation. Extraocular movements are intact. NECK: Supple without lymphadenopathy. CHEST: Lungs are clear to auscultation bilaterally without wheezes or rales. CARDIOVASCULAR: Regular rhythm and rate. S1 and S2 are normal without murmurs, rubs, or gallops. ABDOMEN: Soft, nontender, and nondistended. Positive bowel sounds. No evidence of hepatosplenomegaly. Currently, no rebound or guarding noted. EXTREMITIES: Negative for clubbing, cyanosis, or edema. RECTAL/GENITAL: Refused. NEUROLOGIC: Cranial nerves II through XII are grossly intact without focal deficits. Motor strength is 5/5 bilaterally. Deep tendon reflexes are 2+ plantar. Assessment/Plan Assessment/Plan ASSESSMENT: This is an 82-year-old white female. 1. Rectal hemorrhage. 2. Abdominal pain. 3. Urinary tract infection. 4. History of breast cancer. 5. Cerebrovascular disease. 6. Hypertension. 7. Hypercholesterolemia. 8. Hypothyroidism. 9. Diverticulosis of the colon. 10. Gastroesophageal reflux disease. 11. Hepatic pulmonary fibrosis. 12. Rheumatoid arthritis. TREATMENT: 1. Rectal hemorrhage/abdominal pain/diverticulosis. A Gastroenterology consultation has been obtained with Dr. Biju Vosoghi. We will follow recommendations of Gastroenterology. Differential includes bleeding diverticulitis versus new colon mass. We will follow recommendations of Gastroenterology. 2. Urinary tract infection. The patient has been placed empirically on intravenous ceftriaxone. Urine culture is pending. 3. History of breast cancer. The patient is status post bilateral mastectomy and chemotherapy. 4. Cerebrovascular disease. Continue aspirin as above. 5. Hypertension. Continue hydralazine as above. 6. Hypercholesterolemia. Continue Crestor as above. 7. Hypothyroidism. Continue levothyroxine as above. 8. Idiopathic pulmonary fibrosis. A Pulmonary consultation has been obtained with Dr. Amanda Castañeda. 9. Rheumatoid arthritis. 10. Colonoscopy/endoscopy 09/22/18-see GI note Toro Dixon MD September 21, 2018 17:16
--- NOTE | 2018-09-21 19:18 | NUR ---
HAND-OFF: Report given to Lety ASHER. Pt. remain stable.
--- NOTE | 2018-09-21 19:20 | NUR ---
NURSE NOTES: Received patient from LAKESHIA Jimenes. Will continue plan of care.
[2018-09-21 20:00] VITALS: BP 123/61
[2018-09-21] MEDS ORDERED: ACETAMINOPHEN325 M1 ORAL (20:07)
[2018-09-21] MEDS ORDERED: OXYCODONE HCL5 MG ORAL (20:11)
[2018-09-21] MEDS ORDERED: VOLTAREN100 G1 TP (20:11)
[2018-09-21] MEDS ORDERED: TraZODone 50mg tab ORAL SCH (21:00)
[2018-09-21] MEDS ORDERED: oxyCONTIN 20mg tab ORAL SCH (21:00)
--- NOTE | 2018-09-21 21:55 | NUR ---
NURSE NOTES: Received pt. and report from LAKESHIA Davidson. Observe pt. resting in bed with both eyes closed. security monitor is in placed, IV site intact, asymptomatic, and patent. Pt. will be NPO at midnight for colonoscopy procedure tomorrow. Bed is in the lowest position, locked, and alarmed. Call light within reach. No sign and symptoms of acute distress noted at this time. Will continue plan of care.
--- NOTE | 2018-09-21 22:02 | NUR ---
HAND-OFF: Report given to LAKESHIA COMER.
[2018-09-22] VITALS (9 sets, daily range): BP systolic 105–134; BP diastolic 48–74
[2018-09-22] MEDS ORDERED: cefTRIAXone 1 GM in D5W 55 ML IVPB SCH ×2
[2018-09-22] MEDS: D5 1/2NS w/KCl 20mEq 1,000 ML IV SCH (04:17)
[2018-09-22] MEDS: HydrALAZINE 10mg Tab ORAL SCH (06:00)
[2018-09-22 07:00] LABS: ALANINE AMINOTRANSFERASE 16 U/L (12-78); ALBUMIN 2.5 G/DL (3.4-5.0); ALBUMIN/GLOBULIN RATIO 0.7 (1.0-2.7); ALKALINE PHOSPHATASE 79 U/L (46-116); ANION GAP 6 mmol/L (5-15); ASPARTATE AMINO TRANSFERASE 17 U/L (15-37); BILIRUBIN,TOTAL 0.4 MG/DL (0.2-1.0); BLOOD UREA NITROGEN 15 mg/dL (7-18); CALCIUM 9.1 MG/DL (8.5-10.1); CARBON DIOXIDE 26 MMOL/L (21-32); CHLORIDE 107 MMOL/L (98-107); CREATININE 1.2 MG/DL (0.55-1.30); POTASSIUM 4.4 MMOL/L (3.5-5.1); SODIUM 139 MMOL/L (136-145)
[2018-09-22 07:08] LABS: BASOPHILS % (AUTO) 0.7 % (0.0-2.0); EOSINOPHILS % (AUTO) 0.2 % (0.0-3.0); HEMATOCRIT 27.1 % (37.0-47.0); HEMOGLOBIN 8.9 G/DL (12.0-16.0); LYMPHOCYTES % (AUTO) 18.3 % (20.0-45.0); MEAN CORPUSCULAR VOLUME 91 FL (80-99); MONOCYTES % (AUTO) 10.7 % (1.0-10.0); PLATELET COUNT 142 K/UL (150-450); RED BLOOD COUNT 2.96 M/UL (4.20-5.40); RED CELL DISTRIBUTION WIDTH 13.8 % (11.6-14.8); WHITE BLOOD COUNT 5.8 K/UL (4.8-10.8)
[2018-09-22 07:09] LABS: PHOSPHORUS 2.9 MG/DL (2.5-4.9)
--- NOTE | 2018-09-22 08:00 | NUR ---
NURSE NOTES: Received report from LAKESHIA Quiroz. Pt is sleepin in bed, with no distress noted. Bed is in lowest position, side rails up X2, and call light is within reach. Will continue to monitor.
--- NOTE | 2018-09-22 08:11 | NUR ---
HAND-OFF: Report given to LAKESHIA Amaya.
[2018-09-22] MEDS ORDERED: Fleet's Enema 133ml RECTAL SCH (08:30)
[2018-09-22] MEDS ORDERED: Citalopram Hydrobromide 10mg Tab ORAL SCH (09:00)
[2018-09-22] MEDS ORDERED: DULoxetine 30mg cap ORAL SCH (09:00)
[2018-09-22] MEDS: Pantoprazole Inj IVP SCH (09:04)
--- NOTE | 2018-09-22 09:31 | Anethesia Preoperative Eval ---
Anesthesia Pre-op PMH/ROS General Date of Evaluation: September 22, 2018 Anesthesiologist: Catrachito ASA Score: ASA 4 Mallampati Score Class I : Soft palate, uvula, fauces, pillars visible Class II: Soft palate, uvula, fauces visible Class III: Soft palate, base of uvula visible Class IV: Only hard plate visible Mallampati Classification: Class III Surgeon: Mirna Diagnosis: GI bleed Surgical Procedure: EGd and colonoscopy Anesthesia History: none Family History: no anesthesia problems Allergies: Coded Allergies: MEPERIDINE (Verified Allergy, Severe, 07/19/16) OXYCODONE (Verified Allergy, Unknown, Anaphylaxis, 09/21/18) METOPROLOL (Verified Adverse Reaction, Mild, Shortness of Breath, 09/21/18) SEVERE FATIGUE Medications: see eMAR Patient NPO?: Yes NPO Date: September 21, 2018 NPO Time: 22:00 Past Medical History Cardiovascular: Reports: HTN, CAD - s/p 1 stent placement 2 months ago, other - HLD; Denies: NH, valve dz, arrhythmia Pulmonary: Reports: COPD, other - pulmonary fibrosis; Denies: asthma, MONTRELL Gastrointestinal/Genitourinary: Reports: GERD; Denies: CRI, ESRD, other Neurologic/Psychiatric: Reports: CVA, depression/anxiety; Denies: dementia, TIA, other Endocrine: Reports: hypothyroidism; Denies: DM, steroids, other HEENT: Denies: cataract (L), cataract (R), glaucoma, RENO-SPARKS (L), RENO-SPARKS (R), other Hematology/Immune: Reports: anemia - acute on chronic; Denies: DVT, bleeding disorder, other Musculoskeletal/Integumentary: Reports: OA, other - breast cancer; Denies: RA, DJD, DDD, edema PSxH Narrative: lap appy, bilateral breast mastectomy, kyphoplasty, thyroidectomy Anesthesia Pre-op Phys. Exam Physician Exam Last Vital Signs Date Time Temp Pulse Resp B/P (MAP) Pulse Ox O2 Delivery O2 Flow Rate FiO2 09/22/18 06:00 122/62 09/22/18 04:00 98.6 74 20 94 09/22/18 04:00 Nasal Cannula 2.0 09/21/18 20:08 28 Constitutional: NAD Cardiovascular: RRR Respiratory: other - diminished breath sounds bilaterally Airway Exam Mallampati Score: Class III MO: limited ROM: limited Anesthesia Pre-op A/P Labs Hematology Test 09/22/18 05:50 White Blood Count 5.8 K/UL (4.8-10.8) Red Blood Count 2.96 M/UL (4.20-5.40) L Hemoglobin 8.9 G/DL (12.0-16.0) L Hematocrit 27.1 % (37.0-47.0) L Mean Corpuscular Volume 91 FL (80-99) Mean Corpuscular Hemoglobin 30.0 PG (27.0-31.0) Mean Corpuscular Hemoglobin Concent 32.8 G/DL (32.0-36.0) Red Cell Distribution Width 13.8 % (11.6-14.8) Platelet Count 142 K/UL (150-450) L Mean Platelet Volume 6.4 FL (6.5-10.1) L Neutrophils (%) (Auto) 70.0 % (45.0-75.0) Lymphocytes (%) (Auto) 18.3 % (20.0-45.0) L Monocytes (%) (Auto) 10.7 % (1.0-10.0) H Eosinophils (%) (Auto) 0.2 % (0.0-3.0) Basophils (%) (Auto) 0.7 % (0.0-2.0) Erythrocyte Sedimentation Rate 64 MM/HR (0-30) H Coagulation Test 09/22/18 05:50 Prothrombin Time 10.4 SEC (9.30-11.50) Prothromb Time International Ratio 1.0 (0.9-1.1) Activated Partial Thromboplast Time 32 SEC (23-33) Chemistry Test 09/22/18 05:50 Sodium Level 139 MMOL/L (136-145) Potassium Level 4.4 MMOL/L (3.5-5.1) Chloride Level 107 MMOL/L (98-107) Carbon Dioxide Level 26 MMOL/L (21-32) Anion Gap 6 mmol/L (5-15) Blood Urea Nitrogen 15 mg/dL (7-18) Creatinine 1.2 MG/DL (0.55-1.30) Estimat Glomerular Filtration Rate mL/min (>60) Glucose Level 91 MG/DL (74-106) Calcium Level 9.1 MG/DL (8.5-10.1) Phosphorus Level 2.9 MG/DL (2.5-4.9) Magnesium Level 2.0 MG/DL (1.8-2.4) Total Bilirubin 0.4 MG/DL (0.2-1.0) Aspartate Amino Transf (AST/SGOT) 17 U/L (15-37) Alanine Aminotransferase (ALT/SGPT) 16 U/L (12-78) Alkaline Phosphatase 79 U/L (46-116) C-Reactive Protein, Quantitative 4.4 mg/dL (0.00-0.90) H Total Protein 6.1 G/DL (6.4-8.2) L Albumin 2.5 G/DL (3.4-5.0) L Globulin 3.6 g/dL Albumin/Globulin Ratio 0.7 (1.0-2.7) L Risk Assessment & Plan Assessment: ASA IV Plan: MAC Status Change Before Surgery: No Pre-Antibiotics Drug: N/A Nohelia Lopez MD September 22, 2018 09:31
--- NOTE | 2018-09-22 09:54 | Pre-Procedure Note/Attestation ---
Pre-Procedure Note/Attestation Complete Prior to Procedure Planned Procedure: not applicable Procedure Narrative: esophagogastroduodenoscopy and colonoscopy Indications for Procedure Pre-Operative Diagnosis: anemia Attestation I attest that I discussed the nature of the procedure; its benefits; risks and complications; and alternatives (and the risks and benefits of such alternatives ), prior to the procedure, with the patient (or the patient's legal registration representative). I attest that, if there was a reasonable possibility of needing a blood transfusion, the patient (or the patient's legal registration representative) was given the [facility] standardized written summary, pursuant to the Mike Gita Blood Safety Act ([place] Health and Safety Code # 1645, as amended). I attest that I re-evaluated the patient just prior to the surgery and that there has been no change in the patient's H&P, except as documented below: Biju Bradley MD September 22, 2018 09:54
--- NOTE | 2018-09-22 09:57 | General Progress Note ---
Assessment/Plan Problem List: (1) Anemia ICD Codes: D64.9 - Anemia, unspecified SNOMED: 752589237 (2) Lower GI bleed ICD Codes: K92.2 - Gastrointestinal hemorrhage, unspecified SNOMED: 16115974 (3) HTN (hypertension) ICD Codes: I10 - Essential (primary) hypertension SNOMED: 90690798 Status: stable Assessment/Plan: plan EGD and colonoscopy for today Subjective ROS Limited/Unobtainable: Yes Allergies: Coded Allergies: MEPERIDINE (Verified Allergy, Severe, 07/19/16) OXYCODONE (Verified Allergy, Unknown, Anaphylaxis, 09/21/18) METOPROLOL (Verified Adverse Reaction, Mild, Shortness of Breath, 09/21/18) SEVERE FATIGUE Objective Last 24 Hour Vital Signs Date Time Temp Pulse Resp B/P (MAP) Pulse Ox O2 Delivery O2 Flow Rate FiO2 09/22/18 06:00 122/62 09/22/18 04:00 98.6 74 20 122/62 (82) 94 09/22/18 04:00 61 09/22/18 04:00 Nasal Cannula 2.0 09/22/18 00:16 Nasal Cannula 2.0 09/22/18 00:00 98.7 69 18 105/52 (69) 93 09/22/18 00:00 71 09/21/18 21:10 123/61 09/21/18 20:08 93 Nasal Cannula 2.0 28 09/21/18 20:08 Nasal Cannula 2.0 28 09/21/18 20:00 Nasal Cannula 2.0 09/21/18 20:00 97.2 85 18 123/61 (81) 92 09/21/18 19:34 81 09/21/18 16:00 98.0 78 18 139/68 (91) 92 09/21/18 16:00 Nasal Cannula 2.0 09/21/18 15:52 79 09/21/18 12:30 116/52 09/21/18 12:00 72 09/21/18 12:00 98.4 76 21 116/52 (73) 95 09/21/18 12:00 Nasal Cannula 2.0 Intake and Output 09/21/18 09/22/18 19:00 07:00 Intake Total 435 ml Output Total 300 ml Balance 135 ml Intake Oral 435 ml Output Urine Total 300 ml # Voids 1 # Bowel Movements 3 Laboratory Tests 09/22/18 05:50: White Blood Count 5.8, Red Blood Count 2.96L, Hemoglobin 8.9L, Hematocrit 27.1L , Mean Corpuscular Volume 91, Mean Corpuscular Hemoglobin 30.0, Mean Corpuscular Hemoglobin Concent 32.8, Red Cell Distribution Width 13.8, Platelet Count 142L, Mean Platelet Volume 6.4L, Neutrophils (%) (Auto) 70.0, Lymphocytes (%) (Auto) 18.3L, Monocytes (%) (Auto) 10.7H, Eosinophils (%) (Auto) 0.2, Basophils (%) (Auto) 0.7, Erythrocyte Sedimentation Rate 64H, Prothrombin Time 10.4, Prothromb Time International Ratio 1.0, Activated Partial Thromboplast Time 32, Sodium Level 139, Potassium Level 4.4, Chloride Level 107, Carbon Dioxide Level 26, Anion Gap 6, Blood Urea Nitrogen 15, Creatinine 1.2, Estimat Glomerular Filtration Rate , Glucose Level 91, Calcium Level 9.1, Phosphorus Level 2.9, Magnesium Level 2.0, Total Bilirubin 0.4, Aspartate Amino Transf (AST /SGOT) 17, Alanine Aminotransferase (ALT/SGPT) 16, Alkaline Phosphatase 79, C- Reactive Protein, Quantitative 4.4H, Total Protein 6.1L, Albumin 2.5L, Globulin 3.6, Albumin/Globulin Ratio 0.7L Height (Feet): 5 Height (Inches): 1.00 Weight (Pounds): 139 General Appearance: alert EENT: normal ENT inspection Neck: supple Cardiovascular: normal rate Respiratory/Chest: lungs clear Abdomen: normal bowel sounds, non tender, soft Extremities: non-tender Biju Bradley MD September 22, 2018 09:57
[2018-09-22] MEDS ORDERED: Lidocaine 1% MPF 10mg/ml 5ml ONE (10:00)
[2018-09-22] MEDS ORDERED: Propofol 200mg/20ml IV ONE (10:00)
--- NOTE | 2018-09-22 10:43 | Endoscopy Procedure Note ---
Endoscopy Procedure Note General Indication for Procedure: gib Procedures Performed: EGD, colonoscopy Operative Findings/Diagnosis: gastritis, diverticulosis Specimen: yes Pt Tolerated Procedure Well: Yes Estimated Blood Loss: none Anesthesia Anesthesiologist: rocío Anesthesia: MAC Inserted Devices Implant(s) used?: No Quality Quality of Bowel Preparation: Poor Did scope reach the cecum?: Yes GI Core Measures 50 yrs or older w/o bx or poly: Not Applicable 10yrs. F/U recommended: Not Applicable Biju Bradley MD September 22, 2018 10:43
--- NOTE | 2018-09-22 10:56 | Immediate Post-Op Evaluation ---
Immediate Post-Op Evalulation Immediate Post-Op Evalulation Procedure: EGd and colonoscopy Date of Evaluation: September 22, 2018 Time of Evaluation: 10:55 IV Fluids: 200 Blood Products: 0 Estimated Blood Loss: 0 Urinary Output: 0 Blood Pressure Systolic: 113 Blood Pressure Diastolic: 74 Pulse Rate: 73 Respiratory Rate: 16 O2 Sat by Pulse Oximetry: 99 Temperature (Fahrenheit): 97 Pain Score (1-10): 0 Nausea: No Vomiting: No Complications 0 Patient Status: awake, reacts, patent, none Hydration Status: adequate Drug: N/A Nohelia Lopez MD September 22, 2018 10:56
--- NOTE | 2018-09-22 10:57 | 48 Hour Post Anesthesia Eval ---
Post Anesthesia Evaluation Procedure: EGd and colonoscopy Date of Evaluation: September 22, 2018 Airway: patent Nausea: No Vomiting: No Pain Intensity: 0 Hydration Status: adequate Cardiopulmonary Status: at baseline Mental Status/LOC: patient returned to baseline Post-Anesthesia Complications: 0 Follow-up care needed: N/A - further care as per primary team Nohelia Lopez MD September 22, 2018 10:57
--- NOTE | 2018-09-22 12:03 | Pulmonology Progress Note ---
Assessment/Plan Problems: (1) Lower GI bleed (2) COPD (chronic obstructive pulmonary disease) (3) Diverticular hemorrhage (4) Hypothyroidism (5) Pulmonary fibrosis (6) History of CVA (cerebrovascular accident) (7) Intractable pain (8) HTN (hypertension) (9) Breast cancer (10) Rheumatoid arthritis Assessment/Plan endoscopy done, some gastritis, and diverticulosis Venofer IV given labs reviewed colonoscopy for today prbc if hem< 8 monitor BP titrate fio2 to sat of 92% Subjective ROS Limited/Unobtainable: No Constitutional: Reports: no symptoms HEENT: Repors: no symptoms Respiratory: Reports: no symptoms Allergies: Coded Allergies: MEPERIDINE (Verified Allergy, Severe, 07/19/16) OXYCODONE (Verified Allergy, Unknown, Anaphylaxis, 09/21/18) METOPROLOL (Verified Adverse Reaction, Mild, Shortness of Breath, 09/21/18) SEVERE FATIGUE Objective Last 24 Hour Vital Signs Date Time Temp Pulse Resp B/P (MAP) Pulse Ox O2 Delivery O2 Flow Rate FiO2 09/22/18 11:20 97.1 72 22 134/59 96 Room Air 72 09/22/18 11:05 71 18 132/53 96 Room Air 71 09/22/18 11:00 69 18 130/57 99 Room Air 69 09/22/18 10:56 73 16 99 09/22/18 10:55 70 21 128/55 99 Nasal Cannula 3 70 09/22/18 10:50 97.0 72 22 113/74 100 Nasal Cannula 3 72 09/22/18 08:00 97.8 69 17 118/52 (74) 93 09/22/18 08:00 Nasal Cannula 2.0 09/22/18 06:00 122/62 09/22/18 04:00 98.6 74 20 122/62 (82) 94 09/22/18 04:00 61 09/22/18 04:00 Nasal Cannula 2.0 09/22/18 00:16 Nasal Cannula 2.0 09/22/18 00:00 98.7 69 18 105/52 (69) 93 09/22/18 00:00 71 09/21/18 21:10 123/61 09/21/18 20:08 93 Nasal Cannula 2.0 28 09/21/18 20:08 Nasal Cannula 2.0 28 09/21/18 20:00 Nasal Cannula 2.0 09/21/18 20:00 97.2 85 18 123/61 (81) 92 09/21/18 19:34 81 09/21/18 16:00 98.0 78 18 139/68 (91) 92 09/21/18 16:00 Nasal Cannula 2.0 09/21/18 15:52 79 09/21/18 12:30 116/52 Intake and Output 09/21/18 09/22/18 19:00 07:00 Intake Total 435 ml Output Total 300 ml Balance 135 ml Intake Oral 435 ml Output Urine Total 300 ml # Voids 1 # Bowel Movements 3 General Appearance: WD/WN HEENT: normocephalic, atraumatic Respiratory/Chest: chest wall non-tender, lungs clear, normal breath sounds Breasts: no masses Cardiovascular: normal peripheral pulses, normal rate Abdomen: normal bowel sounds, soft, non tender, no organomegaly Genitourinary: normal external genitalia Extremities: no cyanosis Skin: no lesions Neurologic/Psychiatric: airport planner II-XII grossly normal Lymphatic: no neck adenopathy Microbiology Date/Time Source Procedure Growth Status 09/19/18 17:57 Urine,Clean Catch Urine Culture - Final Escherichia Coli Complete Laboratory Tests 09/22/18 05:50: White Blood Count 5.8, Red Blood Count 2.96L, Hemoglobin 8.9L, Hematocrit 27.1L , Mean Corpuscular Volume 91, Mean Corpuscular Hemoglobin 30.0, Mean Corpuscular Hemoglobin Concent 32.8, Red Cell Distribution Width 13.8, Platelet Count 142L, Mean Platelet Volume 6.4L, Neutrophils (%) (Auto) 70.0, Lymphocytes (%) (Auto) 18.3L, Monocytes (%) (Auto) 10.7H, Eosinophils (%) (Auto) 0.2, Basophils (%) (Auto) 0.7, Erythrocyte Sedimentation Rate 64H, Prothrombin Time 10.4, Prothromb Time International Ratio 1.0, Activated Partial Thromboplast Time 32, Sodium Level 139, Potassium Level 4.4, Chloride Level 107, Carbon Dioxide Level 26, Anion Gap 6, Blood Urea Nitrogen 15, Creatinine 1.2, Estimat Glomerular Filtration Rate , Glucose Level 91, Calcium Level 9.1, Phosphorus Level 2.9, Magnesium Level 2.0, Total Bilirubin 0.4, Aspartate Amino Transf (AST /SGOT) 17, Alanine Aminotransferase (ALT/SGPT) 16, Alkaline Phosphatase 79, C- Reactive Protein, Quantitative 4.4H, Total Protein 6.1L, Albumin 2.5L, Globulin 3.6, Albumin/Globulin Ratio 0.7L Current Medications Medications (Trade) Dose Ordered Sig/Steve Route PRN Reason Start Time Stop Time Status Last Admin Dose Admin Ceftriaxone Sodium 1 gm/ Dextrose 55 ml @ 110 mls/hr Q24H IVPB 09/22/18 00:00 09/27/18 00:00 09/22/18 00:05 Citalopram Hydrobromide (celeXA) 20 mg DAILY ORAL 09/22/18 09:00 10/20/18 08:59 09/22/18 09:04 Dextrose/ Electrolytes 1,000 ml @ 75 mls/hr [id number] IV 09/21/18 15:12 10/21/18 15:11 09/22/18 04:17 Diazepam (Valium) 5 mg Q8H PRN ORAL For Anxiety 09/21/18 15:14 09/28/18 15:13 Duloxetine HCl (Cymbalta) 30 mg DAILY ORAL 09/22/18 09:00 10/21/18 08:59 09/22/18 09:04 Hydralazine HCl (Apresoline) 10 mg EVERY 8 HOURS ORAL 09/21/18 22:00 10/20/18 13:59 09/21/18 21:10 Levothyroxine Sodium (Synthroid) 150 mcg DAILY@0630 ORAL 09/22/18 06:30 10/22/18 06:29 Pantoprazole (Protonix) 40 mg EVERY 12 HOURS IVP 09/21/18 21:00 10/20/18 08:59 09/22/18 09:04 Trazodone HCl (Desyrel) 50 mg BEDTIME ORAL 09/21/18 21:00 10/20/18 20:59 09/21/18 21:10 Amanda Castañeda MD September 22, 2018 12:03
[2018-09-22] MEDS ORDERED: DESYREL50 MG ORAL (12:06)
[2018-09-22] MEDS ORDERED: SYNTHROID150 MCG ORAL (12:06)
[2018-09-22] MEDS ORDERED: Tubing IV Secondary IV ONE (13:43)
[2018-09-22] MEDS ORDERED: NS 275ml ONE (13:43)
[2018-09-22] MEDS ORDERED: TRAZODONE HCL300 MG ORAL (15:49)
--- NOTE | 2018-09-22 16:33 | NUR ---
NURSE NOTES: Patient was discharged per MD orders. Heart monitor was removed and returned to [place]. IV was removed. No swelling or redness noted. Belongings accounted for. Signed copy of belongings list and signed copy of prescriptions in chart. Pt stable at time of discharge.
--- NOTE | 2018-09-22 17:15 | Procedure Note ---
DATE OF PROCEDURE: 09/22/2018 PROCEDURE: Upper endoscopy with biopsy, colonoscopy. SURGEON: Biju Bradley M.D. ANESTHESIA: Per Dr. Winston. INSTRUMENT: Olympus flexible upper endoscope and colonoscope. INDICATION: Anemia, GI bleeding. REASON FOR PROCEDURE: The procedure, risks, benefits, and possible consequences, including hemorrhage, aspiration, perforation and infection, and alternative treatments, were explained to the patient/legal guardian by Dr. Biju Bradley and the patient/legal guardian understood and accepted these risks. DESCRIPTION OF PROCEDURE: After informed consent was obtained and the patient was adequately sedated, Olympus upper endoscope was advanced from mouth and second portion of the duodenum and retroflexion was performed in the stomach. The patient had evidence of diffuse gastritis. Random biopsies from antrum was obtained to rule out H. pylori infection. Otherwise, the rest of the upper endoscopic examination grossly looked within normal limits. At this time, the upper endoscope was retrieved. The patient was turned over for colonoscopy. First, rectal exam was performed, which was normal. Then, the scope was advanced from the rectum into an area seems to be proximal ascending colon. Given poor prep, we could not get to the cecum. This procedure was very limited, the prep was very poor. The patient had significant diverticulosis in the left colon, most probably the source of bleeding. Retroflexion in the rectum showed evidence of internal hemorrhoids. SUMMARY OF FINDINGS: 1. Gastritis, status post biopsy. 2. Poor and incomplete colonoscopy examination. 3. Diverticulosis. 4. Internal hemorrhoids. RECOMMENDATIONS: Most probably, the patient bled from the diverticulosis. We will recommend resume feeding, followup pathology, and treat accordingly. I want to thank Dr. Willie Mishra for this kind referral. Biju Bradley M.D. DR: CLINTON JOB#: [id number] CC: Willie Mishra M.D.; Fax#: [phone]
--- NOTE | 2018-09-23 11:31 | Discharge Summary ---
Discharge Summary Discharge Summary _ DATE OF ADMISSION: 09/19/2018 DATE OF DISCHARGE: 09/22/2018 ATTENDING MD: Dr. Willie Mishra DISCHARGED BY: Dr. Amanda Castañeda CONSULTANTS: Dr. Amanda Bradley [facility] COURSE: Patient is an 82-year-old female, with history of breast cancer dating back to 1983. The patient underwent left mastectomy and subsequent chemotherapy. 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 The patient underwent right breast mastectomy in 2008. She presented to ED complaining of abdominal pain and rectal bleeding. She had a bowel movement and had bright red blood on it. She then presented to [place] emergency room. On evaluation at the ED, vital signs were stable. Blood work showed leukocytosis. WBC 15. Hemoglobin 11, hematocrit 33. She had normal indices. Urinalysis showed 2+ leukocyte esterase, commended to count RBC, 10-15 WBC and many bacteria. EKG showed sinus rhythm with a rate of [address] or T wave changes. She was given IV Protonix. She was given IV fluids. She was noted to have worsening abdominal pain. CT of the abdomen and pelvis showed diverticula without evidence of diverticulitis. Venous duplex of the left lower extremity was negative for acute DVT. She was then admitted for evaluation of rectal hemorrhage, abdominal pain and diverticulosis. She was continued on home medications. She was given ceftriaxone for UTI. GI was consulted. Patient was placed on clear liquid diet. She was given bowel regimen. She was continued on PPI. Blood levels were monitored. She was given IV iron. Patient was scheduled for EGD and colonoscopy, however procedure was canceled due to poor prep. Procedure was rescheduled for the next day. Urine culture showed growth of E. coli sensitive to ceftriaxone. On 09/22/2018, she underwent EGD with colonoscopy. Findings showed evidence of diffuse gastritis. There was poor and incomplete colonoscopy exam. Patient had significant diverticulosis on the left colon, most probable source of bleeding. Rectum showed internal hemorrhoids. She was restarted on diet and was eventually discharged home. FINAL DIAGNOSES: Acute blood loss, present on admission Lower GI bleed E. coli UTI COPD Hypothyroidism Pulmonary fibrosis Old CVA History of breast cancer Hypertension Rheumatoid arthritis Diverticulosis of the colon GERD/diffuse gastritis Status post endoscopy and colonoscopy on 09/22/2018 Internal hemorrhoids DISPOSITION: Patient was discharged home. DISCHARGE MEDICATIONS: Refer to Discharge Medication List. DISCHARGE INSTRUCTIONS: Follow-up in a week. I have been assigned to complete a discharge summary on this account, I was not involved with the patient's management. Juju Angel NP September 23, 2018 11:31
== END 2018-09-22 16:18 | disposition home or self-care (01) | DRG 378 ==
LOC: EDBD 17:36 → EMR 18:09 → 2W 19:29 → EDBEDREQ 20:34 → 2W 09-20 10:59 → 2E 09-21 14:00
PROC: 0DJD8ZZ Inspection of Lower Intestinal Tract, Via Natural or Artificial Opening Endoscopic (ICD-10-PCS; principal; 2018-09-22 10:18)
PROC: 0DB78ZX Excision of Stomach, Pylorus, Via Natural or Artificial Opening Endoscopic, Diagnostic (ICD-10-PCS; principal; 2018-09-22 10:18)
DX: K57.91 Diverticulosis of intestine, part unspecified, without perforation or abscess with bleeding (principal); N39.0 Urinary tract infection, site not specified; D62 Acute posthemorrhagic anemia; K64.8 Other hemorrhoids; D64.9 Anemia, unspecified; Z85.3 Personal history of malignant neoplasm of breast; Z90.13 Acquired absence of bilateral breasts and nipples; Z86.73 Personal history of transient ischemic attack (TIA), and cerebral infarction without residual deficits; I10 Essential (primary) hypertension; E78.00 Pure hypercholesterolemia, unspecified; K57.90 Diverticulosis of intestine, part unspecified, without perforation or abscess without bleeding; K21.9 Gastro-esophageal reflux disease without esophagitis; J84.112 Idiopathic pulmonary fibrosis; M06.9 Rheumatoid arthritis, unspecified; Z79.82 Long term (current) use of aspirin; Z88.8 Allergy status to other drugs, medicaments and biological substances; Z87.891 Personal history of nicotine dependence; B96.20 Unspecified Escherichia coli [E. coli] as the cause of diseases classified elsewhere
CPT/HCPCS: 36415; 74177; 80048; 80053; 81001; 82378; 82607; 82728; 82746; 83540; 83550; 83735; 84100; 84439; 84484; 85025; 85044; 85610; 85651; 85730; 86140; 86850; 86900; 86901; 87086; 87181; 93005; 93971; 94760; 96374; 96375; 99285; J2405